=== PATIENT | female | born 1980 | race American Indian/Alaskan Native ===

== ENCOUNTER 2017-09-29 15:50 | Emergency (ER) | payer OTHER ==
[~2017-09-29] VITALS: Ht 160 cm; Wt 58.5 kg
[~2017-09-29 15:50] MED LIST: AMLODIPINE BESYL5 MG PO; GABAPENTIN100 MG PO; GUAIFENESIN-CO118 ML PO; JANUMET 50-1,01 EACH PO; METOPROLOL TART50 MG PO; ONDANSETRON ODT4 MG PO; OXYCODONE HCL5 MG PO
[2017-09-29] MEDS ORDERED: ULTRAM50 MG PO (17:09)
[2017-09-29] MEDS ORDERED: AUGMENTIN 875-1 EACH PO (17:54)
== END 2017-09-29 17:22 | disposition home or self-care (01) ==
LOC: ED 15:50
DX: L02.611 Cutaneous abscess of right foot (principal); E11.9 Type 2 diabetes mellitus without complications; Z87.440 Personal history of urinary (tract) infections; Z98.51 Tubal ligation status; Z98.890 Other specified postprocedural states; Z79.84 Long term (current) use of oral hypoglycemic drugs
CPT/HCPCS: 73630; 99283

== ENCOUNTER 2019-08-23 05:40 | Day surgery (SDC) | payer BC, OTHER ==
[~2019-08-23] VITALS: Ht 160 cm; Wt 68.0 kg
[~2019-08-23 05:40] MED LIST changes: +AUGMENTIN 875-1 EACH PO; +B-121000 MC2 PO; +CALCIUM500 M1; +CALCIUM500 MG PO; +CLEOCIN HCL300 MG PO; +GLUCOPHAGE500 MG PO; +HUMULIN 70100 UNIT/3 SUB-Q; +LANTUS100 UNITS/ SUB-Q; +METHYLPREDNISOLO4 M1 PO; +REGLAN10 MG PO; +ULTRAM50 MG PO; +VITAMIN B COMP1 EACH PO; +VITAMIN D35000 UNI1 PO
--- NOTE | 2019-08-23 08:34 | NUR ---
08/23/19 0834 Gerald Cortes ICE TO OPERATIVE FOOT PER MD ORDER
--- NOTE | 2019-10-06 09:27 | OR ---
[facility] [address] [place], [place] [address] Signed DATE OF OPERATION: 08/23/2019 SURGEON: Stu Cochran DPM PREOPERATIVE DIAGNOSES: 1. Hallux rigidus, right first digit. 2. Contracture of tendon muscle, right foot first ray. 3. Tailor's bunion, fifth metatarsal, right foot. POSTOPERATIVE DIAGNOSES: 1. Hallux rigidus, right first digit. 2. Contracture of tendon muscle, right foot first ray. 3. Tailor's bunion, fifth metatarsal, right foot. PROCEDURES: 1. Dorsal cheilectomy, first metatarsal, right foot. 2. Tailor's bunionectomy or fifth metatarsal osteotomy. 3. Flexor tenotomy of the first metatarsophalangeal joint. SEPTIC TANK SETTER: Paul Chong DPM. NURSE FUR DRUMMER: Pito Tobin. ANESTHESIA: Local with MAC. Local consisted of a 16 mL of 1:1 mix of 2% lidocaine plain and 0.5% ropivacaine. HEMOSTASIS: Ankle tourniquet. ESTIMATED BLOOD LOSS: Less than 5 mL or minimal. MATERIALS UTILIZED: We had bone wax, 3-0 Vicryl, 4-0 Vicryl, and 5-0 nylon. PROCEDURE IN DETAIL: The patient was brought into the operating room, and placed on the operating table in Electronically Signed By: STU COCHRAN DPM 10/06/19 0927 PATIENT NAME: AIDENSOLEASHLI DUFF OPERATIVE REPORT DATE OF : 78 REPORT #: [id number] PHYSICIAN: STU COCHRAN DPM PCP: SHARON MORLEY REPORT IS CONFIDENTIAL AND NOT TO BE RELEASED WITHOUT AUTHORIZATION [facility] [address], [place] [address] Signed the supine position. After IV sedation, the above local anesthesia was administered about the patient's right first ray and the patient's right fifth ray. The foot was then scrubbed, prepped and draped in the usual sterile technique. An Esmarch bandage was utilized to exsanguinate the patient's right foot and then the left wrapped around the ankle nice and neat to act as tourniquet. Attention was then directed to the medial aspect of the first metatarsophalangeal joint where approximately a 4 cm linear incision was performed over the medial aspect of this joint. Incision was then deepened through the subcutaneous tissue with care being taken to identify and retract the vital neurovascular structures. Bleeders were cauterized and ligated as needed. Careful dissection continued down to the level of the joint capsule. Here, a linear capsulotomy was performed utilizing the Mosinee blade and the joint capsule was reflected plantar and dorsal to expose the medial and the dorsomedial aspect of the joint area. At this time, a prominent dorsal ridge was identified, normal in coloration, normal in trabecular pattern and density. Articular cartilage was found to be uniform throughout the metatarsal head surface. Sagittal saw was then utilized to resect the dorsal one-quarter to one-third of the metatarsal head reducing the dorsal bony shell that was present. Again, good trabecular pattern and good density was observed of the bone. Edges were smoothed lightly with light feathering utilizing the sagittal saw and bone wax then applied. The area was flushed with copious amounts of sterile normal saline. Attention was directed to the plantar aspect of the first metatarsophalangeal joint via the original skin incision. A #64 blade was utilized to free the flexor brevis tendon insertion from the base of the proximal phalanx. Next, a tenotomy was utilized to resect any contractures soft tissue grossman in adherence to the joint capsule along the flexor aspect and also plantar aspect of the joint region. A McGlamry elevator was inserted and utilized to free the metatarsal head area from adhesions. This was needed because of previous scar tissue from previous amputation, illness, and necrosis. Upon completion of the soft tissue release, the first metatarsophalangeal joint moved in a much better fashion dorsally. The motion was smooth and the remaining stump of the proximal phalanx that was left after the previous surgery, moved into a more corrected dorsal position in corrective motion than what had been previously. Attention was then redirected to the fifth metatarsal head where approximately a 4 cm incision was performed in the integument, both parallel and lateral to the extensor tendon. Incision was then deepened through the subcutaneous tissue with care being taken to identify and retract the vital neurovascular structures. Bleeders were again cauterized and ligated as necessary. A #64 blade was utilized to perform dissection down to the level of the joint capsule. Linear capsulotomy was then performed again via the original skin incision and the joint capsule was reflected from the dorsal and medial aspect of the fifth metatarsal head. A bony enlargement was noted, mild to moderate on the lateral aspect of the fifth metatarsal head. Coloration was normal. Bone density was within normal limits. This enlargement was resected utilizing a sagittal saw. The sharp edges were then tapered and feathered as needed and bone wax was applied. This area was then flushed with copious amounts of sterile normal saline. Intraoperative inspection of the Electronically Signed By: STU COCHRAN DPM 10/06/19 0927 PATIENT NAME: SOLE WOLFE [place] OPERATIVE REPORT DATE OF : 78 REPORT #: [id number] PHYSICIAN: STU COCHRAN DPM PCP: SHARON MORLEY REPORT IS CONFIDENTIAL AND NOT TO BE RELEASED WITHOUT AUTHORIZATION [address] [place], [place] [address] Signed area, it was found and observed that the bony prominence had been reduced. The joint capsule was then reapproximated and coapted utilizing 3-0 Vicryl, subcutaneous reapproximated and coapted utilizing 4-0 Vicryl, and skin was reapproximated and coapted utilizing 5-0 nylon. The surgical site was then dressed with silver foam dressing, fluff gauze, rolled gauze, and coban. The ankle tourniquet was removed and prompt hyperemic response was noted in all digits of the patient's right foot. The patient had tolerated both the procedure and the anesthesia well, and following a period of postoperative monitoring, the patient was discharged to home with both written and oral instructions. KELY Pathak/QUINNL /[id number] Copies: ~ Electronically Signed By: STU COCHRAN DPM 10/06/19 0927 PATIENT NAME: SOLE WOLFE OPERATIVE REPORT DATE OF : 78 REPORT #: [id number] PHYSICIAN: STU COCHRAN DPM PCP: SHARON MORLEY REPORT IS CONFIDENTIAL AND NOT TO BE RELEASED WITHOUT AUTHORIZATION
== END 2019-08-23 09:46 | disposition home or self-care (01) ==
LOC: OPS 05:40 → DS 05:40 → OPS 06:45
PROVIDERS: Podiatrist Foot & Ankle Surgery
PROC: 0QSN0ZZ Reposition Right Metatarsal, Open Approach (ICD-10-PCS; 2019-08-23)
PROC: 0QBQ0ZZ Excision of Right Toe Phalanx, Open Approach (ICD-10-PCS; principal; 2019-08-23 06:45)
PROC: 0QBN0ZZ Excision of Right Metatarsal, Open Approach (ICD-10-PCS; 2019-08-23 06:45)
DX: M20.21 Hallux rigidus, right foot (principal); M21.621 Bunionette of right foot; M62.471 Contracture of muscle, right ankle and foot; M21.271 Flexion deformity, right ankle and toes; I10 Essential (primary) hypertension; F12.90 Cannabis use, unspecified, uncomplicated; Z79.4 Long term (current) use of insulin
CPT/HCPCS: 01480; 73630; J0690; J1100; J1885; J2250; J2405; J2704; J2765; J2795; J3010; J7121

== ENCOUNTER 2020-03-17 15:48 | Emergency (ER) | payer BC, OTHER ==
[~2020-03-17] VITALS: Ht 160 cm; Wt 59.0 kg
--- OUTSIDE RECORDS SUMMARY | 2020-03-17 15:50 | XMS ---
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 [facility] has no Care Guidelines for this patient. Shannan VISIT COUNT (12 MO.) 2 [facility] TOTAL 2 NOTE: Visits indicate total known visits. ED/C VISIT TRACKING (12 MO.) 03/17/2020 15:48 [facility] [place] TYPE: Emergency COMPLAINT: - VOMITING 05/15/2019 20:[address] [facility] [place] TYPE: Emergency COMPLAINT: - ABD PAIN, VOMITING DIAGNOSES: - jail (current) use of insulin - Personal history of nicotine dependence - Type 2 diabetes mellitus with diabetic neuropathy, unspecifie - Other technician terminal and repeater (current) drug therapy - Unspecified abdominal pain - Type 2 diabetes mellitus with hyperglycemia - Calculus of gallbladder without cholecystitis without obstruc INPATIENT VISIT TRACKING (12 MO.) No inpatient visits to display in this time frame [id number]
[2020-03-17] MEDS ORDERED: OMEPRAZOLE20 MG PO (16:03)
[2020-03-17] MEDS ORDERED: CARAFATE1 GM PO ×3 (18:29→18:33)
[2020-03-17] MEDS ORDERED: ZOFRAN4 MG PO (18:31)
[2020-03-19] MEDS ORDERED: HALOPERIDOL2 MG PO (14:13)
== END 2020-03-17 18:35 | disposition home or self-care (01) ==
LOC: ED 15:48
DX: K21.9 Gastro-esophageal reflux disease without esophagitis (principal); E11.9 Type 2 diabetes mellitus without complications; E78.2 Mixed hyperlipidemia; F41.9 Anxiety disorder, unspecified; Z87.891 Personal history of nicotine dependence; Z79.4 Long term (current) use of insulin; Z79.899 Other long term (current) drug therapy
CPT/HCPCS: 74018; 80053; 81001; 83690; 83735; 84703; 85025; 96361; 96374; 96375; 96376; 99284-25; J1200; J1630; J2405; J2765; J7030

== ENCOUNTER 2020-03-22 10:05 | Emergency (ER) | payer BC, OTHER ==
[~2020-03-22] VITALS: Ht 160 cm; Wt 59.0 kg
[~2020-03-22 10:05] MED LIST changes: +CARAFATE1 GM PO; +HALOPERIDOL2 MG PO; +OMEPRAZOLE20 MG PO; +ZOFRAN4 MG PO
--- OUTSIDE RECORDS SUMMARY | 2020-03-22 10:08 | XMS ---
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 Care History Medical/Surgical 03/18/2020 [facility] - PATIENT IS A [facility] ELIGIBLE, \T\middot;\T\nbsp; PLEASE REFER PATIENT TO [facility] FOR NON EMERGENT MEDICAL NEEDS. \T\middot;\T\nbsp; [facility] CAN SEE PATIENTS SAME DAY FOR APTS IF PATIENT CALLS FIRST THING IN THE MORNING. E.D. VISIT COUNT (12 MO.) 4 [facility] TOTAL 4 NOTE: Visits indicate total known visits. ED/UCC VISIT TRACKING (12 MO.) 03/22/2020 10:05 [facility] [place] TYPE: Emergency COMPLAINT: - VOMITING 03/19/2020 10:16 [facility] [place] TYPE: Emergency COMPLAINT: - VOMITING DIAGNOSES: - Nausea with vomiting, unspecified - Nausea with vomiting, unspecified - Epigastric pain - Anxiety disorder, unspecified - Mixed hyperlipidemia - Type 2 diabetes mellitus with diabetic neuropathy, unspecifie - Other fci (current) drug therapy 03/17/2020 15:48 [facility] [place] TYPE: Emergency COMPLAINT: - VOMITING DIAGNOSES: - Anxiety disorder, unspecified - Other watcher automat long goods (current) drug therapy - Personal history of nicotine dependence - Gastro-esophageal reflux disease without esophagitis - Type 2 diabetes mellitus without complications - Mixed hyperlipidemia - Nausea with vomiting, unspecified - [facility] (current) use of insulin 05/15/2019 20:45 [facility] [place] TYPE: Emergency COMPLAINT: - ABD PAIN, VOMITING DIAGNOSES: - [facility] (current) use of insulin - Personal history of nicotine dependence - Type 2 diabetes mellitus with diabetic neuropathy, unspecifie - Other fci (current) drug therapy - Unspecified abdominal pain - Type 2 diabetes mellitus with hyperglycemia - Calculus of gallbladder without cholecystitis without obstruc INPATIENT VISIT TRACKING (12 MO.) No inpatient visits to display in this time frame [id number]
[2020-03-22] MEDS ORDERED: LOSARTAN POTASS25 MG PO (10:22)
== END 2020-03-22 14:00 | disposition home or self-care (01) ==
LOC: ED 10:05
DX: E11.43 Type 2 diabetes mellitus with diabetic autonomic (poly)neuropathy (principal); K31.84 Gastroparesis; E78.2 Mixed hyperlipidemia; F41.9 Anxiety disorder, unspecified; E11.40 Type 2 diabetes mellitus with diabetic neuropathy, unspecified; Z79.899 Other long term (current) drug therapy; Z79.4 Long term (current) use of insulin
CPT/HCPCS: 74177; 80053; 81001; 82010; 83690; 85025; 96375; 99284-25; J1200; J1790; J2405; J7030; Q9967

== ENCOUNTER 2020-04-29 13:41 | Emergency (ER) | payer BC, OTHER ==
[~2020-04-29] VITALS: Ht 160 cm; Wt 59.0 kg
--- OUTSIDE RECORDS SUMMARY | ~2020-04-29 | XMS | Encounter Summary ---
Demographics + + + | Address | [address] | | | [place] [address] | + + + | Home Phone | | + + + | Preferred Language | Unknown | + + + | Marital Status | Single | + + + | Synagogue Affiliation | Unknown | + + + | Race | Unknown | + + + | Ethnic Group | Unknown | + + + Author + + + | Author | [facility] | | | and [place] | + + + | Organization | [facility] | | | and [place] | + + + | Address | Unknown | + + + | Phone | Unavailable | + + + Support + + +---------+ + | Name | Relationship | Address | Phone | + + +---------+ + | Pito Macy | ECON | Unknown | | + + +---------+ + | Carmen Matta | ECON | Unknown | | + + +---------+ + Care Team Providers + +------+ + | Care Doula Name | Role | Phone | + +------+ + | Hiro Noble MD | PCP | | + +------+ + Reason for Visit Diagnostic/Screening (Routine) +--------+--------+ + + + + | Status | Reason | Specialty | Diagnoses / | Referred By | Referred To | | | | | Procedures | Contact | Contact | +--------+--------+ + + + + | Closed | | Radiology | Diagnoses | | [facility] | | | | | Epigastric | Lamacheconor, | Medicine | | | | | pain | Ambrose Hung MD | [address] | | | | | Non-intracta | [address] | | | | | ble vomiting | [address] | [place], [place] | | | | | with nausea | [place], [place] | [address] | | | | | Procedures | [address] | Phone: | | | | | NM Gastric | Phone: | [phone] | | | | | Emptying | [phone] | Fax: | | | | | | Fax: | [phone] | | | | | | [phone] | | +--------+--------+ + + + + Encounter Details +--------+ + + + + | Date | Type | Department | Care Team | Description | +--------+ + + + + | 04/03/ | Hospital | [facility] | Ambrose Lan | | | 2020 | Encounter | [facility] | MD Abhilash [address] | | | | | [address] | [place] [address] | | | | | [address] | [phone] | | | | | [place], [place] | | | | | | [address] | | | | | | [phone] | | | +--------+ + + + + Social History + + + +--------+ + | Tobacco Use | Types | Packs/Day | Years | Date | | | | | Used | | + + + +--------+ + | Former Smoker | Cigarettes | 0.25 | 10 | Quit: 10/10/2019 | + + + +--------+ + + +---+---+---+ | Smokeless Tobacco: | | | | | Never Used | | | | + +---+---+---+ + + | Comments: slowed to | + + + + +---------+ + | Alcohol Use | Drinks/Week | oz/Week | Comments | + + +---------+ + | Yes | | | occ. | + + +---------+ + + + + | Sex Assigned at | Date Recorded | | | | + + + | Not on file | | + + + documented as of this encounter Medications at Time of Discharge + + + +---------+ + + | Medication | Sig | Dispensed | Refills | Start | End Date | | | | | | Date | | + + + +---------+ + + | Calcium 75 MG TABS | Take 1,000 mg by | | 0 | | | | | mouth Daily. | | | | | + + + +---------+ + + | calcium carbonate | Chew and swallow 1 | | 0 | | | | (TUMS) 500 mg | tablet Daily. | | | | | | chewable tablet | | | | | | + + + +---------+ + + | cholecalciferol | Take 2,000 Units by | | 0 | 03/12/20 | | | (CHOLECALCIFEROL) 25 | mouth Daily. | | | 16 | | | mcg (1,000 units) | | | | | | | tablet | | | | | | + + + +---------+ + + | cyanocobalamin | Take 50 mcg by mouth | | 0 | | | | (VITAMIN B-12) 50 | Daily. | | | | | | MCG tablet | | | | | | + + + +---------+ + + | insulin glargine | Inject 10 Units | | 0 | 03/12/20 | | | (LANTUS SOLOSTAR) | under the skin | | | 16 | | | 100 units/mL | Daily. | | | | | | injection (pen) | | | | | | + + + +---------+ + + | losartan (COZAAR) | | | 0 | 03/21/20 | | | 25 mg tablet | | | | 20 | | + + + +---------+ + + | metFORMIN | Take 500 mg by mouth | | 0 | | | | (GLUCOPHAGE) 500 mg | 2 times daily (with | | | | | | tablet | breakfast & | | | | | | | dinner). | | | | | + + + +---------+ + + | omeprazole | Take 1 capsule by | 60 | 3 | 02/06/20 | | | (PRILOSEC) 20 mg | mouth 2 times daily | capsule | | 20 | 0 | | capsuleIndications: | for 120 days. | | | | | | Epigastric pain, | | | | | | | Non-intractable | | | | | | | vomiting with nausea | | | | | | + + + +---------+ + + documented as of this encounter Plan of Treatment +--------+ + + + + | Date | Type | Specialty | Care Team | Description | +--------+ + + + + | 05/10/ | Virtual | Gastroenterology | Gema Cardona | | | 2019 | Office | | [address] | | | | Visit | | [place] [address] | | | | | | [phone] | | | | | | | | +--------+ + + + + documented as of this encounter Procedures + +--------+ + + + | Procedure Name | Priori | Date/Time | Associated Diagnosis | Comments | | | ty | | | | + +--------+ + + + | NM GASTRIC EMPTYING | Routin | 04/03/2020 | Epigastric pain | Results for this | | | e | 11:58 AM | Non-intractable | procedure are in the | | | | PDT | vomiting with nausea | results section. | + +--------+ + + + documented in this encounter Results NM Gastric Emptying (04/03/2020 11:58 AM PDT) + + | Specimen | + + | | + + + + + | Impressions | Performed At | + + + | 1. Normal gastric emptying Signed by: Tea Buck, | [facility] | | Eugenio Sign Date/Time: 04/03/2020 12:34 PM | | + + + + + + | Narrative | Performed At | + + + | GASTRIC EMPTYING STUDY (4-HOUR) CLINICAL INFORMATION: | [facility] | | Nausea, vomiting COMPARISON: XR CT PORTABLE HEAD UNENHANCED | | | (01/30/2016); CT ABDOMEN PELVIS WO CONTRAST (01/29/2016); | | | PROCEDURE: Dose: 1 mCi Tc-99m sulfur colloid. Ingested as: | | | {Standard radio labeled solid meal.} (Standard meal is 1 mCi Tc-99m | | | sulfur colloid in four ounces of cooked Egg Beaters, two pieces of | | | white toast with jelly and 5 ounces of water.) The standard | | | department imaging protocol was followed; upright, anterior and | | | posterior 30, 60, 120, and 240 minute images were obtained with | | | geometric mean and decay correction applied. FINDINGS: | | | Calculations from 250 minutes of imaging: Imaging Values % | | | Retention Normal Limits for Gastric Retention 67%-----1.0 | | | hour-----30% (lower limit) 90% (upper limit) 35%-----2.0 | | | hour-----60% (upper limit) 1%-----4.0 hour-----10% (upper limit) | | | (Lower limit - a lower value suggests abnormally rapid gastric | | | emptying) (Upper limit - a greater value suggests abnormally delayed | | | gastric emptying) | | + + + + + | Procedure Note | + + | Bert, [id number] - 04/03/2020 12:38 PM PDT | | GASTRIC EMPTYING STUDY (4-HOUR) | | | | CLINICAL INFORMATION: | | Nausea, vomiting | | | | COMPARISON: | | XR CT PORTABLE HEAD UNENHANCED (01/30/2016); CT ABDOMEN PELVIS WO | | CONTRAST (01/29/2016); | | | | PROCEDURE: | | Dose: 1 mCi Tc-99m sulfur colloid. | | | | Ingested as: {Standard radio labeled solid meal.} | | (Standard meal is 1 mCi Tc-99m sulfur colloid in four ounces of | | cooked Egg Beaters, two pieces of white toast with jelly and 5 | | ounces of water.) | | | | The standard department imaging protocol was followed; upright, | | anterior and posterior 30, 60, 120, and 240 minute images were obtained | | with geometric mean and decay correction applied. | | | | FINDINGS: | | Calculations from 250 minutes of imaging: | | | | Imaging Values | | % Retention Normal Limits for Gastric Retention | | | | 67%-----1.0 hour-----30% (lower limit) 90% (upper limit) | | 35%-----2.0 hour-----60% (upper limit) | | 1%-----4.0 hour-----10% (upper limit) | | (Lower limit - a lower value suggests abnormally rapid gastric emptying) | | (Upper limit - a greater value suggests abnormally delayed gastric | | emptying) | | | | IMPRESSION: | | 1. Normal gastric emptying | | | | | | | | | | Signed by: Tea Buck Isaac | | Sign Date/Time: 04/03/2020 12:34 PM | + + + +---------+ + + | Performing | Address | City/State/Zipcode | Phone Number | | Organization | | | | + +---------+ + + | [facility] | | | | + +---------+ + + documented in this encounter Visit Diagnoses Not on filedocumented in this encounter"
--- OUTSIDE RECORDS SUMMARY | ~2020-04-29 | XMS | Encounter Summary ---
Demographics + + + | Address | [address] | | | [place] [address] | + + + | Home Phone | | + + + | Preferred Language | Unknown | + + + | Marital Status | Single | + + + | Confucianist Affiliation | Unknown | + + + | Race | Unknown | + + + | Ethnic Group | Unknown | + + + Author + + + | Author | [facility] | | | and [place] | + + + | Organization | [facility] | | | and [place] [...] Team Providers + +------+ + | Care Lining Machine Tender Name | Role | Phone | + [...] | | ble vomiting | [address]VD | [place], [place] | | | | | with nausea | [place] | [address] | | | | | Procedures | [id number] | Phone: | | | | | NM Gastric | Phone: | [phone] | | | | | Emptying | [phone] | Fax: | | | | | | Fax: | [phone] | | | | | | [phone] | | +--------+--------+ + + + + Encounter Details +--------+ + + + + | Date | Type | Department | Care Team | Description | +--------+ + + + + | 04/03/ | Hospital | [facility] | Ambrose Lan | | | 2020 | Encounter | [facility] | MD Abhilash [address] | | | | | [address] | [place] [address] | | | | | [address] | [phone] | | | | | [place], [place] | | | | | | [address] | | | | | | [phone] | | | +--------+ + + + [...] | | | | Visit | | [place] [address] | | | | | | [phone] | | | | | | | [...] Procedure Note | + + | Bert, [id number] - 04/03/2020 12:38 PM PDT | | [...]
--- OUTSIDE RECORDS SUMMARY | ~2020-04-29 | XMS | Encounter Summary ---
Demographics + + + | Address | [address] [facility] [address] | | | [place] [address] | + + + | Home Phone | | + + + | Preferred Language | Unknown | + + + | Marital Status | Single | + + + | Religion Affiliation | Unknown | + + + | Race | Unknown | + + + | Ethnic Group | Unknown | + + + Author + + + | Author | [facility] | | | and [place] | + + + | Organization | [facility] | | | and [place] | + + + | Address | Unknown | + + + | Phone | Unavailable | + + + Support + + +---------+ + | Name | Relationship | Address | Phone | + + +---------+ + | Pito Macy | ECON | Unknown | | + + +---------+ + | Carmen Oseiley | ECON | Unknown | | + + +---------+ + Care Team Providers + +------+ + | Care Bingo Cashier Name | Role | Phone | + +------+ + | Jodee Jaime PA-C | PCP | | + +------+ + Reason for Visit Auth/Cert +--------+--------+ + + + + | Status | Reason | Specialty | Diagnoses / | Referred By | Referred To | | | | | Procedures | Contact | Contact | +--------+--------+ + + + + | | | | Diagnoses | | | | | | | | | | | | | | Peritonsilla | | | | | | | r abscess | | | | | | | Peritonsilla | | | | | | | r abscess | | | | | | | [J36] | | | | | | | Procedures | | | | | | | INCISION AND | | | | | | | DRAINAGE | | | | | | | ABSCESS | | | | | | | PERITONSILLA | | | | | | | R | | | +--------+--------+ + + + + Encounter Details +--------+ + + + + | Date | Type | Department | Care Team | Description | +--------+ + + + + | 08/17/ | Anesthesia | [facility] | Rajan Eid MD | | | 2018 | Event | MED CTR OR INTRA OP | [address] | | | | | [address] | [place] | | | | | [place] | [id number] | | | | | [address] | | | | | | [phone] | | | +--------+ + + + + Anesthesia Record + + + + + | Procedure Name | Responsible | Anesthesia Start | Anesthesia Stop Time | | | Anesthesiologist | Time | | + + + + + | INCISION AND | Rajan Eid MD | 08/17/188 | 08/17/18 1730 | | DRAINAGE ABSCESS | | | | | PERITONSILLAR (N/A | | | | | Mouth) | | | | + + + + + +----+---+ + + | Da | T | Event | Comment | | te | i | | | | | m | | | | | e | | | +----+---+ + + | 11 | 1 | | | | /1 | 7 | | | | 4/ | 0 | | | | 20 | 0 | | | | 18 | | | | +----+---+ + + | | 1 | An Checkout | Pre-use anesthesia machine/equipment checkout. | | | 7 | | | | | 0 | | | | | 3 | | | +----+---+ + + | | 1 | An Start | | | | 7 | Data | | | | 0 | | | | | 3 | | | +----+---+ + + | | 1 | An Start | Reassessment prior to anesthesia induction/procedure. | | | 7 | | | | | 0 | | | | | 3 | | | +----+---+ + + | | 1 | Antibiotic | | | | 7 | Given | | | | 0 | | | | | 3 | | | +----+---+ + + | | 1 | Preoxygenat | | | | 7 | ed | | | | 0 | | | | | 5 | | | +----+---+ + + | | 1 | An | | | | 7 | Induction | | | | 0 | | | | | 7 | | | +----+---+ + + | | 1 | An | | | | 7 | Intubation | | | | 0 | | | | | 9 | | | +----+---+ + + | | 1 | Pre-Procedu | | | | 7 | ral Timeout | | | | 1 | Completed | | | | 2 | | | +----+---+ + + | | 1 | First | | | | 7 | Inc/Proc St | | | | 1 | | | | | 2 | | | +----+---+ + + | | 1 | Breathing | | | | 7 | Spontaneous | | | | 2 | ly | | | | 3 | | | +----+---+ + + | | 1 | Oropharynx | | | | 7 | Suctioned | | | | 2 | | | | | 3 | | | +----+---+ + + | | 1 | Moving | | | | 7 | Purposefull | | | | 2 | y | | | | 3 | | | +----+---+ + + | | 1 | Extubated | | | | 7 | Awake | | | | 2 | | | | | 3 | | | +----+---+ + + | | 1 | an stop | | | | 7 | data | | | | 2 | | | | | 3 | | | +----+---+ + + | | 1 | An Stop | Patient handed off to recovery nurse. | | | 3 | | | | | 0 | | | +----+---+ + + +------+ | Meds | +------+ + +--------+ | Name | Total | + +--------+ | midazolam | 2 mg | + +--------+ | lidocaine 2% | 20 mg | + +--------+ | propofol (DIPRIVAN) injection | 200 mg | | (bolus) (20 mL) | | + +--------+ | rocuronium | 40 mg | + +--------+ | sugammadex (BRIDION) injection (2 | 200 mg | | mL vial) | | + +--------+ | lactated ringers (LR) infusion | 500 mL | + +--------+ + + | Name | + + | N2O Flow Rate (L/Min) | + + | O2 Flow Rate (L/Min) | + + | Insp O2 | + + | Exp ADRIANA | + + | Air Flow Rate (L/Min) | + + + + | No blood administrations on file. | + + +--------+ + + + | Type | Details | Placement | Removal | +--------+ + + + | Periph | 08/17/18; 1605; Right; | 08/17/18 1605 by | 08/17/18 1810 by | | eral | Antecubital; [id number]-[id number]-[id number] | Carmen Barlow, | Gia Perez RN | | IV | catheter system; 20 gauge; | SPRAY UNIT FEEDER | | | | distraction, intradermal | | | | | injection, tolerated well; no | | | | | longer indicated, removed per | | | | | policy/procedure, catheter/device | | | | | intact; short term use; | | | | | 08/17/18; 1810 | | | +--------+ + + + | Airway | Placement Date: 08/17/18; | 08/17/18 1709 by | 08/17/18 1723 by | | | Placement Time: 1709; Successful | Rajan Eid MD | Rajan Eid MD | | | Technique: Mac; Laryngoscope | | | | | Blade Size: 3; Airway Type: | | | | | endotracheal, oral, cuffed, | | | | | disposable; Size: 6.5; Airway | | | | | Tube Secured At: 22; Tube | | | | | Reference Point: lip; Trauma: | | | | | none; Placement Check: bilateral | | | | | chest rise, exhaled CO2 detection | | | | | device; Removal Date: 08/17/18; | | | | | Removal Time: 1723 | | | +--------+ + + + documented in this encounter Social History + + + +--------+ + [...] + + documented as of this encounter OR Notes Anesthesia Postprocedure Evaluation - Rajan Eid MD - 08/17/2018 6:05 PM PST ANESTHESIA POSTANESTHESIA EVALUATION Myesha Hastings 38 y.o. female 1980 [id number] Procedure(s) INCISION AND DRAINAGE ABSCESS PERITONSILLAR (N/A Mouth) Cooperates? Yes Mental Status Performs simple tasks. Respiratory Satisfactory - Airway patent (self maintained). Cardiovascular Satisfactory - Blood pressure and heart rate acceptable Temperature Satisfactory Pain Satisfactory N/V Control Satisfactory Hydration Satisfactory - No signs of dehydration Complications None apparent Vitals: 08/17/18 1533 08/17/18 1725 BP: 126/86 (!) 142/92 Pulse: 79 110 Temp: 36.6 C (97.9 F) 36.3 C (97.3 F) Resp: 16 12 SpO2: 98% 99% Electronically signed by Rajan Eid MD 08/17/2018 18:05 [facility] MD at 2017 6:05 PM PSTAnesthesia Preprocedure Evaluation - Rajan Eid MD - 08/17/2018 4:55 P M PST ANESTHESIA PREANESTHESIA EVALUATION Myesha Hastings 38 y.o. female 1980 [id number] Procedure(s): INCISION AND DRAINAGE ABSCESS PERITONSILLAR (N/A Mouth) Medical history, anesthesia, medications, allergy, NPO status verified histories reviewed. Labs reviewed. Review of Systems / Med History Anesthesia History No anesthesia complications. States that she wakes up during surgery.. Cardiovascular Negative except where noted below. Pulmonary (-) smoking history Endocrine (+) Diabetes: type 2 Physical Exam Airway MP II, TM >3 FB, Mouth opening <2 FB. Neck: full ROM, extends >30 degrees. Jaw protrus ion normal. Dental ; (+) Age appropriate dentition. CV Rhythm regular. Rate normal. (-) murmur. Pulm Clear to auscultation bilaterally. Neuro Grossly normal. Anesthesia Plan ASA 2 Type: General. Induction: Intravenous. Potential problems: None anticipated. Monitors: Standard ASA monitors. Consent statement:Anesthetic plan, alternatives, risks and benefits discussed with patient. Risks discussed included (but were not limited to): respiratory events, perioperative CV ev ents, nausea, heart problems, pain, . Consenting person understands and agrees to proceed. PARQ. Electronically Signed by: Rajan Eid MD [facility] date/time: 08/17/2018 16:55 documented in this enco unter Plan of Treatment +--------+ + + + + | Date | Type | Specialty | Care Team | Description | +--------+ + + + + | 05/10/ | Virtual | Gastroenterology | Gema Cardona | | | 2019 | 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, RN TESTING [address] [facility] | | | | Visit | | [place] [address] | | | | | | [phone] | | | | | | | | +--------+ + + + + documented as of this encounter Visit Diagnoses Not on filedocumented in this encounter Administered Medications + +---------+ +------+------+------+ | Medication Order | MAR | Action | Dose | Rate | Site | | | Action | Date | | | | + +---------+ +------+------+------+ | lactated ringers (LR) infusion | New Bag | 08/17/20 | | | | | at 10-100 mL/hr, Intravenous, | | 18 5:02 | | | | | CONTINUOUS, Starting 08/17/18 | | PM PST | | | | | at 1600, TKO., Pre-op | | | | | | + +---------+ +------+------+------+ +---------+ +---------+ +---+ | New Bag | 08/17/20 | 999 mLs | 35 mL/hr | | | | 18 4:07 | | | | | | PM PST | | | | +---------+ +---------+ +---+ +---+---+ | | | +---+---+ + +-------+ +-------+---+---+ | lidocaine (PF) 2% injection | Given | 08/17/20 | 20 mg | | | | Intravenous, PRN, Starting Wed | | 18 5:07 | | | | | 08/17/18 at 1707, Anesthesia | | PM PST | | | | | Intra-op | | | | | | + +-------+ +-------+---+---+ +---+---+ | | | +---+---+ + +-------+ +------+---+---+ | midazolam (VERSED) 1 mg/mL | Given | 08/17/20 | 2 mg | | | | injection Intravenous, PRN, | | 18 5:02 | | | | | Anxiety, Starting 08/17/18 at | | PM PST | | | | | 1702, Anesthesia Intra-op | | | | | | + +-------+ +------+---+---+ +---+---+ | | | +---+---+ + +-------+ +--------+---+---+ | propofol (DIPRIVAN) injection | Given | 08/17/20 | 200 mg | | | | Intravenous, PRN, Starting Wed | | 18 5:07 | | | | | 08/17/18 at 1707, Anesthesia | | PM PST | | | | | Intra-op | | | | | | + +-------+ +--------+---+---+ +---+---+ | | | +---+---+ + +-------+ +-------+---+---+ | rocuronium (ZEMURON) injection | Given | 08/17/20 | 40 mg | | | | Intravenous, PRN, Ventilator | | 18 5:07 | | | | | Dyssynchrony, Starting Wed | | PM PST | | | | | 18 at 1707, Anesthesia | | | | | | | Intra-op | | | | | | + +-------+ +-------+---+---+ +---+---+ | | | +---+---+ + +-------+ +--------+---+---+ | sugammadex (BRIDION) injection | Given | 08/17/20 | 200 mg | | | | PRN, Starting 08/17/18 at | | 18 5:17 | | | | | 1717, Anesthesia Intra-op | | PM PST | | | | + +-------+ +--------+---+---+ +---+---+ | | | +---+---+ documented in this encounter"
--- OUTSIDE RECORDS SUMMARY | ~2020-04-29 | XMS | Encounter Summary ---
Demographics + + + | Address | [address] [facility] [address] | | | [place] [address] | + + + | Home Phone | | + + + | Preferred Language | Unknown | + + + | Marital Status | Single | + + + | Jainism Affiliation | Unknown | + + + | Race | Unknown | + + + | Ethnic Group | Unknown | + + + Author + + + | Author | [facility] | | | and [place] | + + + | Organization | [facility] | | | and [place] [...] Team Providers + +------+ + | Care Production Administrator Name | Role | Phone | + [...] | | ble vomiting | [address] | [place], [place] | | | | | with nausea | [place] | [address] | | | | | Procedures | [address] | Phone: | | | | | NM Gastric | Phone: | [phone] | | | | | Emptying | [phone] | Fax: | | | | | | Fax: | [phone] | | | | | | [phone] | | +--------+--------+ + + + + Encounter Details +--------+ + + + + | Date | Type | Department | Care Team | Description | +--------+ + + + + | 04/03/ | Hospital | [facility] | Ambrose Lan | | | 2020 | Encounter | [facility] | MD Abhilash [address] | | | | | MEDIC[address] | [place] [address] | | | | | [address] | [phone] | | | | | [place], [place] | | | | | | [address] | | | | | | [phone] | | | +--------+ + + + [...] | | | | Visit | | [place] [address] | | | | | | [phone] | | | | | | | [...] Procedure Note | + + | Bert, [id number] - 04/03/2020 12:38 PM PDT | | [...]
--- OUTSIDE RECORDS SUMMARY | ~2020-04-29 | XMS | Encounter Summary ---
Demographics + + + | Address | [address] [facility] [address] | | | [place] [address] | + + + | Home Phone | | + + + | Preferred Language | Unknown | + + + | Marital Status | Single | + + + | Latter Day Affiliation | Unknown | + + + | Race | Unknown | + + + | Ethnic Group | Unknown | + + + Author + + + | Author | [facility] | | | and [place] | + + + | Organization | [facility] | | | and [place] | [...] Team Providers + +------+ + | Care Wall Cleaner Name | Role | Phone | + +------+ + | Hiro Noble MD | PCP | | + +------+ + Reason for Visit +--------+--------+ + | Reason | Onset | Comments | | | Date | | +--------+--------+ + | Other | 02/07/ | PRE-PROCEDURE CALL | | | 2020 | | +--------+--------+ + Encounter Details +--------+ + + + + | Date | Type | Department | Care Team | Description | +--------+ + + + + | 02/07/ | Telephone | [facility] | Ambrose Lan | Other (PRE-PROCEDURE | | 2019 | | GASTROENTEROLOGY | MD Abhilash [address] | CALL ) | | | | [address] | [place] [address] | | | | | [place], [place] | [phone] | | | | | [address] | | | | | | [phone] | | | +--------+ + + + [...] Miscellaneous Notes Telephone Encounter - Cyndie Covington, Skein Yarn Dyer - 2020 4:18 PM PDT Patient instructed to eat a light meal as usual the day before and nothing to eat or drink starting at midnight until after procedure. If any question or concerns please call our cli jeannine at [phone] Procedure: EGD Date: 02/12/20 Time: 7:06AM Arrival time: 6:00AM Facility [facility] Doctor:Dr. Lan Called pt, no answer. vm not set up. Will try and call again later. Thanks mvd Thanks mvd d ocumented in this encounter Plan of Treatment +--------+ + + + + | Date | Type | Specialty | Care Team | Description | +--------+ + + + + | 05/10/ | Virtual | Gastroenterology | Gema Cardona | | | 2019 | Office | | [address] | | | | Visit | | [place] [address] | | | | | | [phone] | | | | | | | | +--------+ + + + + documented as of this encounter Visit Diagnoses Not on filedocumented in this encounter"
--- OUTSIDE RECORDS SUMMARY | ~2020-04-29 | XMS | Encounter Summary ---
Demographics + + + | Address | [address] [facility] [address] | | | [place] [address] | + + + | Home Phone | | + + + | Preferred Language | Unknown | + + + | Marital Status | Single | + + + | Lutheran Affiliation | Unknown | + + + | Race | Unknown | + + + | Ethnic Group | Unknown | + + + Author + + + | Author | [facility] | | | and [place] | + + + | Organization | [facility] | | | and [...] Team Providers + +------+ + | Care Tear Down Matcher Name | Role | Phone | + [...] + + | 08/17/ | [facility] | Reji Martin, | INCISION AND | | 2018 | | MED CTR OR INTRA OP | [address] | DRAINAGE ABSCESS | | | | [address] | [address] [place], | PERITONSILLAR | | | | [place], [place] | [place] [address] | | | | | [address] | [phone] | | | | | [phone] | | | +--------+---------+ + + + [...] all medicine you take. T his includes lomw-ewr-tyjhybo drugs. It also includes herbs and other [...] surgery Risks of anesthesia Date Last Reviewed: 03/04/201719992031-9901 [employer]. [address] [place] [address]. All righ ts reserved. This information is [...] Reji Martin MD - 08/17/2018 2:[address] [address] HISTORY AND PHYSICAL REJI MARTIN MD Patient: MYESHA HASTINGS Admitting: REJI MARTIN MR #: [id number] LOC: PT TYPE: Adm Date: 08/17/2018 : 1980 CHIEF COMPLAINT: Left peritonsillar abscess. HISTORY: Ms. Hastings is a 38-year-old lady with a 4-day history of sore throat, left sided. She has trismus, difficulty swallowing, very painful throat. She went to the ER today at [facility] in [place] and saw Dr. Villalta. He diagnosed a [...] SOCIAL HISTORY: She is single, lives in [place]. No alcohol or tobacco. FAMILY HISTORY: Unremarkable. [...] She understands and desires to proc eed. REJI MARTIN MD Dictated by REJI MARTIN MD 08/17/2018 14:40:37 Transcribed on 08/17/2018 14:59:16 by in job# [id number] Confirmation #: [id number] cc: SHARON JAIME PA-C P M PSTdocumented in this encounter Miscellaneous Notes Op Note - Reji Martin MD - 08/17/2018 5:27 PM [facility] [address] [facility] [address] OPERATIVE REPORT REJI MARTIN MD Patient: MYESHA HASTINGS Admitting: REJI MARTIN MR #: [id number] LOC: PT TYPE: Adm Date: 08/17/2018 : [...] Transcribed on 08/17/2018 17:51:23 by in job# [id number] Confirmation #: [id number] cc: SHARON CNAALES-C P M PSTBrief Op Note - Reji Martin MD - 08/17/2018 5:05 PM PSTFormatting of this note m ight be different from the original. Brief Operative Note Myesha Hastings 38 y.o. female 1980 [id number] Proc. Date 08/17/2018 Preop Dx Peritonsillar abscess [J36] Postop Dx same Procedure INCISION AND DRAINAGE ABSCESS PERITONSILLAR Anesthesia General Surgeon Reji Martin MD - Primary Director Of Consulting Services EBL less than 50 mL Findings Complications none Specimens * No specimens in log * Drains Electronically signed by: Reji Matrin MD 08/17/2018 17:05 [facility]ron[facility] signed by Reji Martin MD at 5:05 PM PSTInterval H&P Note (unlinked) - Reji Martin MD - 08/17/2018 5:05 P M [facility]ProK[facility] INTERIM HISTORY AND PHYSICAL [...] Electronically signed by: Reji Martin, 08/17/2018 17:05 [facility] documented in this e ncounter Plan of Treatment +--------+ + + + + | Date | Type | Specialty | Care Team | Description | +--------+ + + + + | 05/10/ | Virtual | Gastroenterology | Gema Cardona | | | 2019 | 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, [employer] [address] | | | | Visit | | [place] [address] | | | | | | [phone] | | | | | | | [...] | | | POC | | | [facility] | | | | | | [...] | + + + + + | [facility] | [address] | [place] | [phone] | | [facility] | | [address] | | | - LABORATORY | | [...] | 1.010, 1.015, | | | | [place], | | 1.020, 1.025 | | | [...] 18 3:57 | | | | | Wed08/17/18 at 1600, For 1 dose, | | PM PST | | | | | Pre-op | | | | | | + +--------+ + +------+------+ + +---+ | | | + +---+ | albuterol 2.5 mg/3 mL nebulizer | | | solution 2.5 mg 2.5 mg, | | | Nebulization, ONCE PRN, Wheezing, | | | Starting Wed08/17/18 at 1541, | | | For 1 dose, RT will administer., | | | Pre-op | | + +---+ | | | + +---+ | albuterol 2.5 mg/3 mL nebulizer | | | solution 2.5 mg 2.5 mg, | | | Nebulization, ONCE PRN, Wheezing, | | | Starting Wed08/17/18 at 1731, | | | For 1 [...] HR < 40, | | | Starting Wed08/17/18 at 1731, [...] if SBP <90., Starting | | | Wed08/17/18 at 1731, Hold if HR | | [...] Anxiety, or agitation, Starting | | | Wed08/17/18 at 1731, [...]
--- OUTSIDE RECORDS SUMMARY | ~2020-04-29 | XMS | Encounter Summary ---
Demographics + + + | Address | [address] [facility] [address] | | | [place] [address] | + + + | Home Phone | | + + + | Preferred Language | Unknown | + + + | Marital Status | Single | + + + | Presybeterian Affiliation | Unknown | + + + | Race | Unknown | + + + | Ethnic Group | Unknown | + + + Author + + + | Author | [facility] | | | and [place] | + + + | Organization | [facility] | | | and [place] | [...] Team Providers + +------+ + | Care Dye House Supervisor Name | Role | Phone | + +------+ + | Hiro Noble MD | PCP | | + +------+ + Reason for Visit + +--------+ + | Reason | Onset | Comments | | | Date | | + +--------+ + | Referral | 11/02/ | | | | 2020 | | + +--------+ + Encounter Details +--------+ + + + + | Date | Type | Department | Care Team | Description | +--------+ + + + + | 11/02/ | Telephone | [facility] | Gerald Chu | Referral | | 2020 | | GASTROENTEROLOGY | MD Reggie [address] | | | | | [address] | [place], [place] | | | | | [place], [place] | [address] | | | | | [address] | | | | | | [phone] | | | +--------+ + + + [...] this encounter Miscellaneous Notes Telephone Encounter - Frannie Celis - 11/10/2019 10:10 AM PSTReturned call, informed Ervin ozuna that patient's voicemail is not set up, she will try to reach out to patient to have her call us. [facility] Enedina Webb - 11/09/2019 9:54 AM PSTLasemeterio, is calling again for Referral and would like a call back. Additional Call Details: Requesting call back with the status of patient getting scheduled elephone Chula Coello - 11/02/2019 3:27 PM [facility], is calling r egarding Referral and would like a call back. Additional Call Details: Returning Frannie's call. States that patient ordinally got sent to [facility] but decided she would like to go to our clinic and referral was rerouted If this is a symptom based call, was patient offered triage? Not Applicable If this is a symptom based call and you were unable to immediately transfer the call to a [facility] green inspector was caller made aware that if at any time she feels it is an emergency they sh ould call 911 or go to the nearest emergency room? not applicable documented in this encounter Plan of Treatment +--------+ + + + + | Date | Type | Specialty | Care Team | Description | +--------+ + + + + | 05/10/ | Virtual | Gastroenterology | Gema Cardona | | | 2019 | Office | | [address] | | | | Visit | | [place] [address] | | | | | | [phone] | | | | | | | | +--------+ + + + + documented as of this encounter Visit Diagnoses Not on filedocumented in this encounter"
--- OUTSIDE RECORDS SUMMARY | ~2020-04-29 | XMS | Clinical Summary ---
Demographics + + + | Address | [address] [facility] [address] [address] | | | [place] [address] | + + + | Home Phone | | + + + | Preferred Language | Unknown | + + + | Marital Status | Single | + + + | Nondenominational Affiliation | Unknown | + + + | Race | Unknown | + + + | Ethnic Group | Unknown | + + + Author + + + | Author | [facility] | | | and [place] | + + + | Organization | [facility] | | | and [...] Team Providers + +------+ + | Care Shipping Manager Name | Role | Phone | + +------+ + | Hiro Noble MD | PCP | | + +------+ + Allergies No Known Allergies Medications + + + +---------+------+------+-------+ | Medication | Sig | Dispensed | Refills | Star | End | Statu | | | | | | t | Date | s | | | | | | Date | | | + + + +---------+------+------+-------+ | metFORMIN | Take 500 mg by mouth | | 0 | | | Activ | | (GLUCOPHAGE) 500 mg | 2 times daily (with | | | | | e | | tablet | breakfast & | | | | | | | | dinner). | | | | | | + + + +---------+------+------+-------+ | cyanocobalamin | Take 50 mcg by mouth | | 0 | | | Activ | | (VITAMIN B-12) 50 | Daily. | | | | | e | | MCG tablet | | | | | | | + + + +---------+------+------+-------+ | cholecalciferol | Take 2,000 Units by | | 0 | 06/0 | | Activ | | (CHOLECALCIFEROL) 25 | mouth Daily. | | | 9/20 | | e | | mcg (1,000 units) | | | | 16 | | | | tablet | | | | | | | + + + +---------+------+------+-------+ | insulin glargine | Inject 10 Units | | 0 | 06/0 | | Activ | | (LANTUS SOLOSTAR) | under the skin | | | 9/20 | | e | | 100 units/mL | Daily. | | | 16 | | | | injection (pen) | | | | | | | + + + +---------+------+------+-------+ | omeprazole | Take 1 capsule by | 60 | 3 | 05/0 | 09/0 | Activ | | (PRILOSEC) 20 mg | mouth 2 times daily | capsule | | 5/20 | 2/20 | e | | capsuleIndications: | for 120 days. | | | 20 | 20 | | | Epigastric pain, | | | | | | | | Non-intractable | | | | | | | | vomiting with nausea | | | | | | | + + + +---------+------+------+-------+ +---+ + | | Additional | | | InformationPatient | | | not taking. Reported | | | on 04/10/2020 10:53 | | | AM | +---+ + + + +---+---+------+---+-------+ | Calcium 75 MG TABS | Take 1,000 mg by | | 0 | | | Activ | | | mouth Daily. | | | | | e | + + +---+---+------+---+-------+ | calcium carbonate | Chew and swallow 1 | | 0 | | | Activ | | (TUMS) 500 mg | tablet Daily. | | | | | e | | chewable tablet | | | | | | | + + +---+---+------+---+-------+ | losartan (COZAAR) | | | 0 | 06 | | Activ | | 25 mg tablet | | | | 8/20 | | e | | | | | | 20 | | | + + +---+---+------+---+-------+ Active Problems + + + | Problem | Noted Date | + + + | Epigastric pain | 02/06/2020 | + + + | Non-intractable vomiting with nausea | 02/06/2020 | + + + | H/O Septic shock | 11/12/2017 | + + + | H/O ARDS | 11/12/2017 | + + + + + | Overview: 2016? Hospitalized, intubated on ventilator, | | multi-system organ failure. | + + + + + | Bilateral otitis media | 11/12/2017 | + + + | Shortness of breath | 02/03/2016 | + + + | Advance care planning | 02/03/2016 | + + + | Influenza B | 01/31/2016 | + + + | Feeding difficulty in adult | 01/31/2016 | + + + | ATN (acute tubular necrosis) | 01/31/2016 | + + + | Toxic metabolic encephalopathy | 01/30/2016 | + + + | Septic shock | 01/30/2016 | + + + | Metabolic acidosis | 01/30/2016 | + + + | Leucocytosis | 01/30/2016 | + + + | Lactic acidosis | 01/30/2016 | + + + | ARDS (adult respiratory distress syndrome) | 01/30/2016 | + + + | CHIRAG (acute kidney injury) | 01/30/2016 | + + + | Acute respiratory failure with hypoxia and hypercapnia | 01/30/2016 | + + + Encounters +--------+ + + + + | Date | Type | Specialty | Care Team | Description | +--------+ + + + + | 04/10/ | Virtual | Gastroenterology | Gema Cardona | Epigastric pain | | 2019 | 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, 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); | | | Visit | | | Non-intractable | | | | | | vomiting with | | | | | | nausea; Adverse | | | | | | effect of drug, | | | | | | sequela | +--------+ + + + + | 04/04/ | Telephone | Gastroenterology | Ambrose Lan | Results | | 2019 | | | J, | | +--------+ + + + + | 04/03/ | Hospital | Radiology | Ambrose Lan | | 2019 | Encounter | | MD Abhilash | | +--------+ + + + + | 04/03/ | Hospital | Radiology | Ambrose Lan | | 2019 | Encounter | | MD Abhilash | | +--------+ + + + + | 04/03/ | Hospital | Radiology | Ambrose Lan | | 2019 | Encounter | | MD Abhilash | | +--------+ + + + + | 04/03/ | Hospital | Radiology | Ambrose Lan | | 2019 | Encounter | | MD Abhilash | | +--------+ + + + + | 04/03/ | Hospital | Radiology | Ambrose Lan | Epigastric pain; | | 2019 | Encounter | | MD Abhilash | Non-intractable | | | | | | vomiting with nausea | +--------+ + + + + | 02/13/ | Telephone | Gastroenterology | Ambrose Lan | Results | 2019 | | | MD Abhilash | | +--------+ + + + + | 02/11/ | Anesthesia | | Naomi Sanderson, | | 2019 | Event | | [employer] | | +--------+ + + + + | 02/11/ | Surgery | | Ambrose Lan | EGD | 2019 | | | MD Abhilash | | +--------+ + + + + | 02/11/ | Hospital | | Ambrose Lan | Epigastric pain; | | 2019 | Encounter | | MD Abhilash | Non-intractable | | | | | | vomiting with nausea | +--------+ + + + + | 02/08/ | Telephone | Gastroenterology | Ambrose Lan | Rosie (COVID19 | 2019 | | | MD Abhilash | TESTING PRE-OP) | +--------+ + + + + | 02/07/ | Preadmit | Pre-Admission | Ambrose Lan | | 2019 | Visit | Testing | MD Abhilash | | +--------+ + + + + | 02/07/ | Telephone | Gastroenterology | Ambrose Lan | Rosie (PRE-PROCEDURE | 2019 | | | MD Abhilash | CALL ) | +--------+ + + + + | 02/05/ | Office | Gastroenterology | Ambrose aLn | Epigastric pain; | | 2019 | Visit | | MD Abhilash | Non-intractable | | | | | | vomiting with nausea | +--------+ + + + + | 01/30/ | Telephone | Gastroenterology | Gerald Chu | Appointment Question | | 2019 | | | MD Reggie | (11/28/19 No Show) | +--------+ + + + + from Last 3 Months Immunizations + + + + | Name | Administration Dates | Next Due | + + + + | HEP A/HEP B, 3 DOSE | 06/30/2016, 02/18/2015, 11/14/2014 | | | (ADULT) | | | + + + + | INFLUENZA PF | 08/10/2017, 06/30/2016 | | | QUAD(PED/ADOL/ADULT) | | | | ,PSKT or VIAL | | | + + + + | PNEUMOCOCCAL | 02/27/2016 | | | POLYSACCHARIDE | | | | 23-VALENT (PPSV23) | | | + + + + | TDAP, (ADOL/ADULT) | 07/22/2011 | | + + + + Family History + + +------+ + | Medical History | Relation | Name | Comments | + + +------+ + | Malig hypertherm | Neg Hx | | | + + +------+ + + +------+--------+ + | Relation | Name | Status | Comments | + +------+--------+ + | Father | | Alive | | + +------+--------+ + | Mother | | Alive | | + +------+--------+ + Social History + + + +--------+ [...] on file | | + + + Last Filed Vital Signs + + + + + | Vital Sign | Reading | Time Taken | Comments | + + + + + | Blood Pressure | 143/89 | 02/12/2020 7:43 AM | | | | | PDT | | + + + + + | Pulse | 81 | 02/12/2020 7:43 AM | | | | | PDT | | + + + + + | Temperature | 36.1 C (97 F) | 02/12/2020 7:43 AM | | | | | PDT | | + + + + + | Respiratory Rate | 16 | 02/12/2020 7:43 AM | | | | | PDT | | + + + + + | Oxygen Saturation | 100% | 02/12/2020 7:43 AM | | | | | PDT | | + + + + + | Inhaled Oxygen | - | - | | | Concentration | | | | + + + + + | Weight | 61.3 kg (135 lb 2.3 | 02/12/2020 6:35 AM | | | | oz) | PDT | | + + + + + | Height | 160 cm (5' 3") | 02/12/2020 6:35 AM | | | | | PDT | | + + + + + | Body Mass Index | 23.94 | 02/12/2020 6:35 AM | | | | | PDT | | + + + + + Plan of Treatment +--------+ + + + + | Date | Type | Specialty | Care Team | Description | +--------+ + + + + | 05/10/ | Virtual | Gastroenterology | Gema Cardona | | | 2019 | 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, 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 [address] | | | | Visit | | [place] [address] | | | | | | [phone] | | | | | | | | +--------+ + + + + + + + + + | Health Maintenance | Due Date | Last | Comments | | | | Done | | + + + + + | Med Mgmt: Vit D | | | | | | 9 | | | + + + + + | Medication | | | | | Management | 9 | | | + + + + + | Cervical Cancer | | | | | Screening (Pap) | 9 | | | + + + + + | Med Mgmt: HBA1C | | 01/31/20 | | | | 6 | 16 | | + + + + + | Vaccine: Influenza | | 08/10/20 | | | (#1) | 0 | 17, | | | | | 06/30/20 | | | | | 16 | | + + + + + | Med Mgmt: Cr | | 02/12/20 | | | | 1 | 20, | | | | | 01/31/20 | | | | | 16, | | | | | 01/31/20 | | | | | 16, | | | | | Addition | | | | | al | | | | | history | | | | | exists | | + + + + + | Med Mgmt: K | | 02/12/20 | | | | 1 | 20, | | | | | 01/31/20 | | | | | 16, | | | | | 01/31/20 | | | | | 16, | | | | | Addition | | | | | al | | | | | history | | | | | exists | | + + + + + | Med Mgmt: eGFR | | 02/12/20 | | | | 1 | 20, | | | | | 01/31/20 | | | | | 16, | | | | | 01/31/20 | | | | | 16, | | | | | Addition | | | | | al | | | | | history | | | | | exists | | + + + + + | Vaccine: | | 07/22/20 | | | Dtap/Tdap/Td (2 - | 1 | 11 | | | Td) | | | | + + + + + | Hepatitis C | Completed | 01/30/20 | | | Screening | | 16 | | + + + + + Procedures + +--------+ + + + | [...] | + +--------+ + + + | SURGICAL PATHOLOGY | Routin | 02/12/2020 | Epigastric pain | Results for this | | EXAM | e | 7:19 AM | Non-intractable | procedure are in the | | | | PDT | vomiting with nausea | results section. | + +--------+ + + + | EGD | | 02/12/2020 | Epigastric pain | | | | | 6:59 AM | Non-intractable | | | | | PDT | vomiting with nausea | | + +--------+ + + + +---+--------+ | | | | | Specia | | | l | | | Needs | | | With | | | anesth | | | esiaDO | | | S will | | | need | | | BMP | +---+--------+ + +--------+ +---+ + | *TERMED* [place] [facility]PP[facility] GI | Routin | 02/12/2020 | | Results for this | | ENDOSCOPY,EXAM | e | 6:58 AM | | procedure are in the | | | | PDT | | results section. | + +--------+ +---+ + | HCG, URINE, QUAL | Routin | 02/12/2020 | | Results for this | | | e | 6:33 AM | | procedure are in the | | | | PDT | | results section. | + +--------+ +---+ + | BASIC METABOLIC | STAT | 02/12/2020 | | Results for this | | PANEL | | 6:25 AM | | procedure are in the | | | | PDT | | results section. | + +--------+ +---+ + from Last 3 Months Results NM Gastric Emptying (04/03/2020 11:58 AM [...] Procedure Note | + + | Bert, [id number] - 04/03/2020 12:38 PM PDT | | [...] | | | + +---------+ + + Surgical Pathology Exam (02/12/2020 7:19 AM PDT) + + | Specimen | + + | Tissue - Specimen | | from stomach | | (specimen) | + + + + + | Narrative | Performed At | + + + | SPECIMEN(S): A | [facility] | | GASTRIC BIOPSY SPECIMEN SOURCE:A. GASTRIC BIOPSY CLINICAL | [facility] | | HISTORY:R10.13 (epigastric pain), R11.2 (non-intractable vomiting with | | | nausea). MICROSCOPIC DESCRIPTION:Histologic sections of all submitted | | | blocks are examined by light microscopy. These findings, together | | | with the gross examination, support the pathologic diagnosis. FINAL | | | PATHOLOGIC DIAGNOSIS:Gastric biopsies:- Negative for inflammation | | | and other abnormality. BES:smn:C3NR GROSS DESCRIPTION:The specimen, | | | labeled "Myesha Hastings, gastric biopsy," is received in formalin and | | | consists of four thompson soft tissue fragment(s) that measure 0.1-0.7 cm | | | in greatest dimension. The specimen is entirelysubmitted in cassette | | | (A1).FB (under the direct supervision of a pathologist) The Gross | | | Description was prepared using a voice recognition system. The | | | report was reviewed for accuracy; however, sound-alike word errors, | | | addition and/or deletions may occur. If there is anyquestion about | | | this report, please contact Client Services. PERFORMING LABORATORY:The | | | technical component was performed by [facility], [address] [place] [address] | | | [place] [address] (Iv Rn: Frannie Almendarez MD; CLIA# | | | [id number]).The professional interpretation was performed by [facility] | | [facility], [address], [place] | | | [address]. Diagnostician: David Green MDPathologistElectronically | | | Signed 02/13/2020 | | |The Gross Description was prepared using a voice recognition system. The report was revie wed for accuracy; however, sound-alike word errors, addition and/or deletions may occur. I f there is any | | |question about this report, please contact Client Services. | | | | | |PERFORMING LABORATORY: | | |The technical component was performed by [facility], [address] [place] [address] (Iv Rn: Frannie Almendarez MD; CLIA# [id number]). | | |The professional interpretation was performed by [facility], [facility], [address] [place] [address]. | | | | | |Diagnostician: David Green MD | | |Pathologist | | |Electronically Signed 02/13/2020 | | | | | | | | + + + + +---------+ + + | Performing | Address | City/State/Zipcode | Phone Number | | Organization | | | | + +---------+ + + | [facility] | | | | | [facility] | | | | + +---------+ + + EGD (02/12/2020 6:58 AM PDT) + + | Specimen | + + | | + + + + + | Narrative | Performed At | + + + | [facility] | [facility] | | [facility] | [facility] | | [facility] | | | Patient Name: Myesha Hastings | | | Procedure Date: 02/12/2020 6:58 AMMRN: [id number] | | | of : 1980 | | | Note Status: FinalizedAttending MD: Ambrose Lan | | | , | | | | | | Procedure Type: Upper GI endoscopyIndications: | | | Epigastric abdominal pain, Nausea with | | | vomitingMedicines: Monitored Anesthesia | | | CareComplications: No immediate | | | complications. | | | Procedure: Pre-Anesthesia Assessment: | | | - Prior to the procedure, a History and Physical was performed, and | | | patient medications and allergies were reviewed. The patient's | | | tolerance of previous anesthesia was also reviewed. The risks | | | and benefits of the procedure and the sedation options and | | | risks were discussed with the patient. All questions were | | | answered, and informed consent was obtained. Prior | | | Anticoagulants: The patient has taken no previous anticoagulant or | | | antiplatelet agents. ASA Grade Assessment: III - A patient with | | | severe systemic disease. After reviewing the risks and | | | benefits, the patient was deemed in satisfactory condition to | | | undergo the procedure. After obtaining informed consent, the | | | endoscope was passed under direct vision. Throughout the | | | procedure, the patient's blood pressure, pulse, and oxygen | | | saturations were monitored continuously. The Endoscope was | | | introduced through the mouth, and advanced to the second part of | | | duodenum. The upper GI endoscopy was accomplished without | | | difficulty. The patient tolerated the procedure fairly well. | | | | | | Estimated Blood Loss: | | | Estimated blood loss was minimal.Findings: The esophagus was | | | normal. The entire examined stomach was normal. Biopsies were | | | taken with a cold forceps for histology. The examined | | | duodenum was normal. | | | | | | Impression: - Normal esophagus. - Normal stomach. | | | Biopsied. - Normal examined duodenum. - No visible cause | | | for symptoms so biopsies were obtained. - No evidence of gastric | | | outlet obstruction.Recommendation: - Patient has a contact | | | number available for emergencies. The signs and symptoms of | | | potential delayed complications were discussed with the | | | patient. Return to normal activities tomorrow. Written discharge | | | instructions were provided to the patient. - Resume previous | | | diet. - Await pathology results. - Continue present | | | medications. - Do a gastric emptying study. - Return to GI | | | clinic. Ambrose Lan MD02/12/2020 7:29:06 | | | AMThis report has been signed electronically. Note Initiated On: | | | 02/12/2020 6:58 AMNumber of Addenda: 0 [facility] | | | Center | | | - Do a gastric emptying study. | | | - Return to GI clinic. | | | | | | | | |Ambrose Lan MD | | |02/12/2020 7:29:06 AM | | |This report has been signed electronically. | | | | | |Note Initiated On: 02/12/2020 6:58 AM | | |Number of Addenda: 0 | | | | | | [facility] | | + + + + +---------+ + + | Performing | Address | City/State/Zipcode | Phone Number | | Organization | | | | + +---------+ + + | [facility] | | | | + +---------+ + + , Urine, Qual (02/12/2020 6:33 AM PDT) + + + + + + | Component | Value | Ref Range | Performed | Pathologist | | | | | At | Signature | + + + + + + | HCG | NEGATIVEComment: Testing | NEG | [facility] | | | Qualitative | performed at [facility] | | LABORATORY | | | , Urine | [address]rell[address];[place] | | | | | | [id number] | | | | + + + + + + + + | Specimen | + + | | + + + + + + + | Performing | Address | City/State/Zipcode | Phone Number | | Organization | | | | + + + + + | [facility] | [address] | [place] [address] | [phone] | + + + + + Basic Metabolic Panel (02/12/2020 6:25 AM PDT) + + + + + + | Component | Value | Ref Range | Performed | Pathologist | | | | | At | Signature | + + + + + + | Na | 135 | 135 - 145 | [facility] | | | | | mmol/L | LABORATORY | | + + + + + + | K | 4.1 | 3.5 - 4.9 | [facility] | | | | | mmol/L | LABORATORY | | + + + + + + | Cl | 100 | 99 - 109 mmol/L | [facility] | | | | | | LABORATORY | | + + + + + + | CO2 | 25 | 23 - 32 mmol/L | [facility] | | | | | | LABORATORY | | + + + + + + | Anion Gap | 14 | 5 - 20 mmol/L | [facility] | | | | | | LABORATORY | | + + + + + + | Glucose | 234 (H) | 65 - 99 mg/dL | [facility] | | | | | | LABORATORY | | + + + + + + | BUN | 12 | 8 - 25 mg/dL | [facility] | | | | | | LABORATORY | | + + + + + + | Creatinine | 0.73 | 0.50 - 1.00 | [facility] | | | | | mg/dL | LABORATORY | | + + + + + + | BUN/Creatin | 16 | | [facility] | | | ine Ratio | | | LABORATORY | | + + + + + + | Calcium | 9.6 | 8.5 - 10.5 | [facility] | | | | | mg/dL | LABORATORY | | + + + + + + | Estimated | >60Comment: GFR <60: | >60 | [facility] | | | GFR | CHRONIC KIDNEY DISEASE, | mL/min/1.73m2 | LABORATORY | | | | IF FOUND OVER A 3 MONTH | | | | | | PERIOD.GFR <15: KIDNEY | | | | | | FAILURE.FOR | | | | | | AMERICANS, MULTIPLY THE | | | | | | CALCULATED GFR BY | | | | | | 1.210.This eGFR is | | | | | | calculated using the | | | | | | MDRD IDMS traceable | | | | | | equation.Testing | | | | | | performed at [facility] | | | | | | [facility];[place], [place] | | | | | | [address] | | | | + + + + + + + + | Specimen | + + | Blood | + + + + + + + | Performing | Address | City/State/Zipcode | Phone Number | | Organization | | | | + + + + + | [facility] | [address] | [place] [address] | [phone] | + + + + + from Last 3 Months Insurance + +--------+ +--------+ +---------+--------+ | Payer | Benefi | Subscriber | Effect | Phone | Address | Type | | | t Plan | ID | jaycee | | | | | | / | | Dates | | | | | | Group | | | | | | + +--------+ +--------+ +---------+--------+ | BCBS | BCBS | [id number] | 03/04/20 | | | PPO | | | FEDERA | | 19-Pre | | | | | | L FEP | | sent | | | | + +--------+ +--------+ +---------+--------+ | BCBS | BCBS | [id number] | 03/04/20 | | | PPO | | | [place]A | | 19-Pre | | | | | | L FEP | | sent | | | | + +--------+ +--------+ +---------+--------+ | BCBS | BCBS | [id number] | 03/04/20 | | | PPO | | | [place]A | | 19-Pre | | | | | | L FEP | | sent | | | | + +--------+ +--------+ +---------+--------+ | [employer] | MODA | [id number] | Effect | [phone] | | Medica | | MEDICAID HMO | HEALTH | | jaycee | 1 | | id | | | MDCD | | for | | | | | | HMO [place] | | all | | | | | | | | dates | | | | + +--------+ +--------+ +---------+--------+ | [employer] | MODA | [id number] | Effect | [phone] | | Medica | | MEDICAID HMO | HEALTH | | jaycee | 1 | | id | | | MDCD | | for | | | | | | HMO [place] | | all | | | | | | | | dates | | | | + +--------+ +--------+ +---------+--------+ | [employer] [facility] | IHS | [id number] | 10/04/19 | | | Indemn | | SERVICE | YELLOW | | 18-Pre | | | ity | | | HAWK | | sent | | | | + +--------+ +--------+ +---------+--------+ | [employer]ICAID [place] | MEDICA | [id number] | 10/04/19 | [phone] | | Medica | | | [place] | | 20-Pre | 2 | | id | | | PLUS | | sent | | | | + +--------+ +--------+ +---------+--------+ + +--------+ +--------+ + + | Guarantor Name | Accoun | Relation to | Date | Phone | Billing Address | | | t Type | Patient | of | | | | | | | | | | + +--------+ +--------+ + + | Myesha Hastings | Person | Self [birth year] | [address] | | [place] | al/Fam | | 1979 | [phone] | [address] [place], [place] | | | sandra | | | 3 (Home) | [address] | + +--------+ +--------+ + + | Myesha Hastings | Person | Self [birth year] | [address] | | [place] | al/Fam | | 1979 | [phone] | [address] [place], [place] | | | sandra | | | 3 (Home) | [address] | + +--------+ +--------+ + + Advance Directives + + + + + | Type | Date Recorded | Patient | 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
--- OUTSIDE RECORDS SUMMARY | ~2020-04-29 | XMS | Encounter Summary ---
Demographics + + + | Address | [address] [facility] [address] | | | [place] [address] | + + + | Home Phone | | + + + | Preferred Language | Unknown | + + + | Marital Status | Single | + + + | Congregation Affiliation | Unknown | + + + | Race | Unknown | + + + | Ethnic Group | Unknown | + + + Author + + + | Author | [facility] | | | and [place] | + + + | Organization | [facility] | | | and [place] [...] Team Providers + +------+ + | Care Distributor Advertising Material Name | Role | Phone | + [...] | | | | | | | Epigastric | | | | | | | pain | | | | | | | Non-intracta | | | | | | | ble vomiting | | | | | | | with nausea | | | | | | | Procedures | | | | | | | MO EGD | | | | | | | TRANSORAL | | | | | | | BIOPSY | | | | | | | SINGLE/MULTI | | | | | | | PLE MO | | | | | | | ANESTHESIA | | | | | | | UPPER GI | | | | | | | ENDOSCOPIC | | | | | | | PX NOS EGD | | | +--------+--------+ + + + + Encounter Details +--------+ + + + + | Date | Type | Department | Care Team | Description | +--------+ + + + + | 02/11/ | Hospital | [facility] | Ambrose Lan | Epigastric pain; | | 2020 | Encounter | [facility] | MD Abhilash [address] | Non-intractable | | | | INTRA [address] | [place] [address] | vomiting with nausea | | | | BLVD [place], [place] | [phone] | | | | | [address] | | | | | | [phone] | | | +--------+ + + + [...] + + + documented in this encounter Medications at Time [...] documented as of this encounter H&P Notes Ambrose Lan MD - 02/07/2020 4:[address] [facility] Service: Gastroenterology Pre-Operative History & Physical ? INDICATION: Epigastric pain, Non-intractable vomiting with nausea. PROCEDURE: EGD ? History Obtained From: Patient HISTORY OF PRESENT ILLNESS The patient is a 40 y.o. female 1980 who presents with epigastric pain, nausea, vomiti ng, possible melena REVIEW OF SYSTEMS Constitutional: Positive for activity change. Negative for appetite change, chills, diaphor esis, fatigue, fever and unexpected weight change. HENT: Negative for ear pain, mouth sores, nosebleeds, sore throat, trouble swallowing and v oice change. Eyes: Negative for pain, redness and visual disturbance. Respiratory: Negative for cough, choking, chest tightness, shortness of breath and wheezing . Cardiovascular: Negative for chest pain, palpitations and leg swelling. Gastrointestinal: Positive for abdominal distention, abdominal pain, nausea and vomiting. N egative for anal bleeding, blood in stool, constipation, diarrhea and rectal pain. Heartburn Endocrine: Negative for cold intolerance, heat intolerance and polydipsia. Genitourinary: Negative for difficulty urinating, dysuria, frequency, hematuria, urgency an d vaginal bleeding. Musculoskeletal: Negative for arthralgias, back pain, gait problem, joint swelling, myalgia s, neck pain and neck stiffness. Skin: Negative for color change, rash and wound. Allergic/Immunologic: Negative for environmental allergies, food allergies and immunocompro mised state. Neurological: Positive for dizziness, weakness, light-headedness and headaches. Negative fo r tremors, seizures and syncope. Hematological: Negative for adenopathy. Does not bruise/bleed easily. Psychiatric/Behavioral: Positive for agitation and behavioral problems. Negative for confus ion, dysphoric mood, hallucinations and suicidal ideas. The patient is not nervous/anxious. Past Medical History: Diagnosis Date Acid reflux disease Acute respiratory failure with hypoxia and hypercapnia ([facility]) 2016 Adverse effect of anesthesia resistant to general anesthesia CHIRAG (acute kidney injury) ([facility]) Anemia ARDS (adult respiratory distress syndrome) ([facility]) 2016 Decreased hearing of both ears Epigastric pain 02/2020 GERD (gastroesophageal reflux disease) Hepatitis Lactic acidosis Leucocytosis Metabolic acidosis Nausea & vomiting 02/2020 Neuropathy feet Pneumonia of both lungs due to influenza A virus 01/2016 H1N1 - was hospitalized in [place] for 2 months Presence of retained hardware Right great toe PTSD (post-traumatic stress disorder) Septic shock ([facility]) Toxic metabolic encephalopathy Past Surgical History: Procedure Laterality Date BREAST CYST EXCISION FOOT SURGERY Right 08/2019 Great Toe fusion with spacer MIDDLE EAR SURGERY Bilateral 12/10/2017 Procedure: Bilateral Myringotomy w/ Ventilation Tube Insertion; Surgeon: Reji Galvez MD; Location: [facility] MAIN OR THORACENTESIS CHEST TUBE PLACE 2015 THROAT SURGERY N/A 08/17/2018 Procedure: INCISION AND DRAINAGE ABSCESS PERITONSILLAR; Surgeon: Reji Galvez MD; Lo cation: [facility] MAIN OR TOE AMPUTATION Right 06/2016 tips of great toe, 2nd toe, 3rd toe TRACHEOSTOMY TUBE PLACEMENT 2016 has been removed TUBAL LIGATION No Known Allergies No current facility-administered medications on file prior to encounter. Current Outpatient Medications on File Prior to Encounter Medication Sig Dispense Refill cholecalciferol (CHOLECALCIFEROL) 25 mcg (1,000 units) tablet Take 2,000 Units by mouth Daily. cyanocobalamin (VITAMIN B-12) 50 MCG tablet Take 50 mcg by mouth Daily. insulin glargine (LANTUS SOLOSTAR) 100 units/mL injection (pen) Inject 10 Units under t he skin Daily. metFORMIN (GLUCOPHAGE) 500 mg tablet Take 500 mg by mouth 2 times daily (with breakfast & dinner). omeprazole (PRILOSEC) 20 mg capsule Take 1 capsule by mouth 2 times daily for 120 days. 60 capsule 3 Family History Problem Relation Age of Onset Malig hypertherm Neg Hx Social History Socioeconomic History Marital status: Single Spouse name: Not on file Number of children: Not on file Years of education: Not on file Highest education level: Not on file Occupational History Not on file Social Needs Financial resource strain: Not on file Food insecurity: Worry: Not on file Inability: Not on file Transportation needs: Medical: Not on file Non-medical: Not on file Tobacco Use Smoking status: Former Smoker Packs/day: 0.25 Years: 10.00 Pack years: 2.50 Types: Cigarettes Last attempt to quit: 10/10/2019 Years since quittin.3 Smokeless tobacco: Never Used Tobacco comment: slowed to Substance and Sexual Activity Alcohol use: Yes Comment: occ. Drug use: Yes Types: Marijuana Comment: smoking daily - for pain and nausea Sexual activity: Not on file Lifestyle Physical activity: Days per week: Not on file Minutes per session: Not on file Stress: Not on file Relationships Social connections: Talks on phone: Not on file Gets together: Not on file Attends protestant service: Not on file Active member of club or organization: Not on file Attends meetings of clubs or organizations: Not on file Relationship status: Not on file Intimate partner violence: Fear of current or ex partner: Not on file Emotionally abused: Not on file Physically abused: Not on file Forced sexual activity: Not on file Other Topics Concern Not on file Social History Narrative Not on file PHYSICAL EXAM Vital Signs: Reviewed as recorded in nursing records on day of procedure BP 147/77 | Pulse 82 | Temp 36.5 C (97.7 F) (Temporal) | Resp 16 | Ht 1.6 m (5' 3") | Wt 61.3 kg (135 lb 2.3 oz) | LMP 02/03/2020 (Exact Date) | SpO2 98% | BMI 23.94 kg/m Physical Exam Gen: NAD, appears well-developed CV: Regular Lungs: CTAB, Effort normal and breath sounds normal, No respiratory distress. Abd: Non-tender, +BS, no masses or organomegaly, no rebound, no guarding Extremities: Within normal limits, no amputations, normal range of motion Head: Normocephalic. Mouth/Throat: Oropharynx is clear and moist and mucous membranes are normal Eyes: Conjunctivae and EOM are normal Skin: Warm, moist, intact, tattoos Neuro: Intact and symmetric grossly Psychiatric: Normal mood and affect, behavior is normal, judgment and thought content partha jacobson ASSESSMENT & PLAN 1. Patient is a 40 y.o. female with planned EGD for indications listed above. 2. Medical conditions are currently stable and patient is felt appropriate for proceeding w ith procedure. Plan for Sedation: Per Anesthesia Service ASA Classification: ASA Classification per Anesthesia Service Mallampati Classification: Per Anesthesia Service Procedure Consent: The procedure, indications, limitations, alternatives available and pote ntial complications to include but not limited to bleeding, perforation, infection, and adve rse medication reaction was explained. Opportunity for questions provided and informed conse nt obtained. Patient agrees and wishes to proceed. Updated today Ambrose Lan MD [facility] Gastroenterology 02/12/2020 Primary Care Physician: Hiro Noble MD documented in thi s encounter Miscellaneous Notes Op Note - Ambrose Lan MD - [facility]2020 [facility] Procedure Note Procedure note was generated using Casentric endoscopy software. The note can be reviewed under Chart Review using Media tab and Procedures tab. Ambrose Lan MD 02/12/2020 -C Instructions Provation - Ambrose Lan MD - 02/12/2020 6:58 AM PDTPatient Instructions After Uppe r GI endoscopy Patient: Myesha Hastings Procedure Date: Wednesday, February 12, 2020 Attending MD: Ambrose Lan MD; You had a Upper GI endoscopy today. Your doctor made the following findings: - Normal esophagus. - Normal stomach. Biopsied. - Normal examined duodenum. - No visible cause for symptoms so biopsies were obtained. - No evidence of gastric outlet obstruction. Your doctor recommends: You have a contact number available for emergencies. The signs and symptoms of potential delayed complications were discussed with you. You may return to normal activities tomorrow. Written discharge instructions were provided to you. Resume your previous diet. We are waiting for your pathology results. Continue your present medications. Your physician has recommended a gastric emptying study. Return to your GI clinic. CALL YOUR PHYSICIAN IF YOU EXPERIENCE: < Any unusual pain < Temperature above 100 degrees Fahrenheit < Shortness of breath DIET: You may resume your regular diet immediately after the procedure unless otherwise instructed by your doctor. CAUTIONS: The medications used to make the examination more comfortable for you will be acting in your body for up to 24 hours. Therefore: < DO NOT drive a car or operate machinery or power tools. < DO NOT drink alcohol or take tranquillizers or sleeping pills. < DO NOT make major personal decisions. This includes signing legal documents and/or contracts. MEDICATIONS: Most medications can be safely resumed once you can eat. The exceptions would be tranquillizers and sleeping pills. Ambrose Lan MD 02/12/2020 7:29:06 AM This report has been signed electronically. documented in this encounter Plan of Treatment +--------+ + + + + | Date | Type | Specialty | Care Team | Description | +--------+ + + + + | 05/10/ | Virtual | Gastroenterology | Gema Cardona | | | 2019 | Office | | [place] R[place] [address] [place] [address] | | | | Visit | | [place] [address] | | | | | | [phone] | | | | | | | [...] +---+--------+ + +--------+ +---+ + | *TERMED* [facility] UPPER GI | Routin | 02/12/2020 | [...] results section. | + +--------+ +---+ + documented in this encounter Results Surgical Pathology Exam (02/12/2020 7:19 AM PDT) + + | Specimen | + + | Tissue - Specimen | | from stomach | | (specimen) | + + + + + | Narrative | Performed At | + + + | SPECIMEN(S): A | [facility] | | GASTRIC BIOPSY SPECIMEN SOURCE:A. [...] | | technical component was performed by [facility] [employer] [address] [place], [place] [address]mary[address] | | | [place] [address] (Main Galley Scullion: Frannie Almendarez MD; CLIA# | | | [id number]).The professional interpretation was performed by [employer] | | | [employer], [address] [place], [place] | | | [address]. Diagnostician: David Green MDPathologistElectronically | | | [...] | |The technical component was performed by [facility] [employer], [address] [place] [address] (Main Gal[place]: Frannie Almendarez MD; IA# [id number]). | | |The professional interpretation was performed by [employer], [facility], [address] [place] [address]. | | | | | |Diagnostician: David Green MD | | |Pathologist | | |Electronically Signed 02/13/2020 | | | | | | | | + + + + +---------+ + + | Performing | Address | City/State/[facility] | Phone Number | | Organization | | | | + +---------+ + + | [facility] | | | | | [facility] | | | | + +---------+ + + EGD (02/12/2020 6:58 AM PDT) + + | Specimen | + + | | + + + + + | Narrative | Performed At | + + + | Pilar | ASYA | | [facility] | PROVATION | | CenterGastroenterology | | | Patient Name: Myesha Hastings | | | Procedure Date: 02/12/2020 6:58 AMMRN: [id number] | | | of : 1980 | [...] | 02/12/2020 6:58 AMNumber of Addenda: 0 [facility] | | | Center | | [...] 0 | | | | | | [facility] | | + + + + +---------+ [...] | | | Qualitative | performed at [facility];[address] | | LABORATORY | | | , Urine | [address];[place], [place] | | | | | | [address] | | | | + + + + + + + + | Specimen | + + | | + + + + + + + | Performing | Address | City/State/Zipcode | Phone Number | | Organization | | | | + + + + + | [facility] | [address] | [place] [address] | [phone] | + + + + + Basic [...] | 9.6 | 8.5 - 10.5 | [facility] | | | | | mg/dL | LABORATORY | | + + + + + + | Estimated | >60Comment: GFR <60: | >60 | [facility] | | | GFR | CHRONIC KIDNEY [...] | | | | | performed at [facility] | | | | | | [facility];[place], [place] | | | | | | [address] | | | | + + + + + + + + | Specimen | + + | Blood | + + + + + + + | Performing | Address | City/State/Zipcode | Phone Number | | Organization | | | | + + + + + | [facility] | [address] | [place] [address] | [phone] | + + + + + documented in this encounter Visit Diagnoses + + | Diagnosis | + + | Epigastric pain Abdominal pain, epigastric | + + | Non-intractable vomiting with nausea | + + documented in this encounter Admitting Diagnoses + + | Diagnosis | + + | Epigastric pain Abdominal pain, epigastric | + + | Non-intractable vomiting with nausea | + + documented in this encounter Administered Medications + +---------+ +------+-------+------+ | Medication Order | MAR | Action | Dose | Rate | Site | | | Action | Date | | | | + +---------+ +------+-------+------+ | sodium chloride 0.9% (NS) | New Bag | 02/12/20 | | 100 | | | infusion at 100 mL/hr, | | 20 6:38 | | mL/hr | | | Intravenous, CONTINUOUS, Starting | | AM PDT | | | | | 02/12/20 at 0630, Pre-op | | | | | | + +---------+ +------+-------+------+ +---+---+ | | | +---+---+ documented in this encounter
--- OUTSIDE RECORDS SUMMARY | ~2020-04-29 | XMS | Encounter Summary ---
Demographics + + + | Address | [address] [facility] [address] | | | [place] [address] | + + + | Home Phone | | + + + | Preferred Language | Unknown | + + + | Marital Status | Single | + + + | Confucianism Affiliation | Unknown | + + + | Race | Unknown | + + + | Ethnic Group | Unknown | + + + Author + + + | Author | [facility] | | | and [place] | + + + | Organization | [facility] | | | and [...] Team Providers + +------+ + | Care Corrosion Engineer Name | Role | Phone | + +------+ + | Hiro Noble MD | PCP | | + +------+ + Encounter Details +--------+ + + + + | Date | Type | Department | Care Team | Description | +--------+ + + + + | 02/07/ | Preadmit | [facility] | Ambrose Lan | | | 2019 | Visit | [facility] | MD Abhilash [address] | | | | | CLINIC [address] | [place] [address] | | | | | BLVD [place], [place] | [phone] | | | | | [address] | | | | | | [phone] | | | +--------+ + + + [...] mented in this encounter Plan of Treatment +--------+ + + + + | Date | Type | Specialty | Care Team | Description | +--------+ + + + + | 05/10/ | Virtual | Gastroenterology | Gema Cardona | | | 2020 | Office | | [place] [address] | | | | Visit | | [place] [address] | | | | | | [phone] | | | | | | | | +--------+ + + + + documented as of this encounter Visit Diagnoses Not on filedocumented in this encounter"
--- OUTSIDE RECORDS SUMMARY | ~2020-04-29 | XMS | Encounter Summary ---
Demographics + + + | Address | [address] [facility] [address] | | | [place] [address] | + + + | Home Phone | | + + + | Preferred Language | Unknown | + + + | Marital Status | Single | + + + | Protestant Affiliation | Unknown | + + + | Race | Unknown | + + + | Ethnic Group | Unknown | + + + Author + + + | Author | [facility] | | | and [place] | + + + | Organization | [facility] | | | and [place] | [...] Team Providers + +------+ + | Care Puppet Engineer Name | Role | Phone | [...] | | | | | s | [address] | | | | | | [address] | [facility] [place] | | | | | | [place] | [address] Phone: | | | | | | [place] [address] | [phone] | | | | | | Phone: | Fax: | | | | | | [phone] | [phone] | | | | | | Fax: | | | | | | | [phone] | | + + + + + + + Encounter Details +--------+ + + + + | Date | Type | Department | Care Team | Description | +--------+ + + + + | 04/10/ | Virtual | [facility] | Gema Cardona | Epigastric pain | | 2019 | Office | GASTROENTEROLOGY | A, TRIMMER OPERATOR THREE KNIFE [address] | (Primary Dx); | | | Visit | [address] | [place] [address] | Non-intractable | | | | [place], [place] | [phone] | vomiting with | | | | [address] | | nausea; Adverse | | | | [phone] | | effect of drug, | | [...] bidirectional video se ssion. Service was provided [id number] with the patient via interactive videoconferencing Time Based Coding Total time (in minutes) including non [id number] time (reviewing records, documentation, etc..) 52 You have chosen to receive care through the use of telemedicine. Telemedicine enables [facility] care providers at different locations to provide [...] they are located in a state where IGema NP am l icensed. [facility] Patient ID: Myesha Hastings is a 40 [...] Acute respiratory failure with hypoxia and hypercapnia ([facility]) 2015 Adverse effect of anesthesia resistant to general anesthesia CHIRAG (acute kidney injury) ([facility]) Anemia ARDS (adult respiratory distress syndrome) ([facility]) 2016 Decreased hearing of both ears Epigastric pain 02/2020 GERD (gastroesophageal reflux disease) Hepatitis Lactic acidosis Leucocytosis Metabolic acidosis Nausea & vomiting 02/2020 Neuropathy feet Pneumonia of both lungs due to influenza A virus 01/2016 H1N1 - was hospitalized in [place] for 2 months Presence of retained hardware Right great toe PTSD (post-traumatic stress disorder) Septic shock ([facility]) Toxic metabolic encephalopathy Past Surgical History: Procedure Laterality Date BREAST CYST EXCISION FOOT SURGERY Right 08/2019 Great Toe fusion with spacer MIDDLE EAR SURGERY Bilateral 12/10/2017 Procedure: Bilateral Myringotomy w/ Ventilation Tube Insertion; Surgeon: Reji Galvez MD; Location: [facility] MAIN OR THORACENTESIS CHEST TUBE PLACE 2016 THROAT SURGERY N/A 08/17/2018 Procedure: INCISION AND DRAINAGE ABSCESS PERITONSILLAR; Surgeon: Reji Galvez MD; Lo cation: [facility] MAIN OR TOE AMPUTATION Right 06/2016 tips of great toe, 2nd toe, 3rd toe TRACHEOSTOMY TUBE PLACEMENT 2016 has been removed TUBAL LIGATION UPPER GASTROINTESTINAL ENDOSCOPY N/A 02/12/2020 Procedure: EGD; Surgeon: Ambrose Lan MD; Location: [facility] Family History Problem Relation [...] file Gets together: Not on file Attends church service: Not on file Active member of [...] any questions or concerns. Gema Cardona NP [facility] Gastroenterology 04/24/2020 8:05 AM PDT Dictated using [employer] translation software. Edited at time of van driver helper however sound alike van driver helper errors may still be prese nt. Please contact practitioner for any clarification needed. documented in thi s encounter Plan of Treatment +--------+ + + + + | Date | Type | Specialty | Care Team | Description | +--------+ + + + + | 05/10/ | Virtual | Gastroenterology | Gema Cardona | | | 2019 | Office | | [place] [facility] [address] | | | | Visit | | [place] [address] | | | | | | [phone] | | | | | | | [...]
--- OUTSIDE RECORDS SUMMARY | ~2020-04-29 | XMS | Encounter Summary ---
Demographics + + + | Address | [address] [facility] [address] | | | [place] [address] | + + + | Home Phone | | + + + | Preferred Language | Unknown | + + + | Marital Status | Single | + + + | Voodoo Affiliation | Unknown | + + + | Race | Unknown | + + + | Ethnic Group | Unknown | + + + Author + + + | Author | [facility] | | | and [place] | + + + | Organization | [facility] | | | and [place] [...] Team Providers + +------+ + | Care Retort Fireman Name | Role | Phone | + +------+ + | Hiro Noble MD | PCP | | + +------+ + Reason for Visit + +--------+ + | Reason | Onset | Comments | | | Date | | + +--------+ + | Appointment Question | 01/30/ | 11/28/19 No Show | | | 2020 | | + +--------+ + Encounter Details +--------+ + + + + | Date | Type | Department | Care Team | Description | +--------+ + + + + | 01/30/ | Telephone | [facility] | Gerald Chu | Appointment Question | | 2019 | | GASTROENTEROLOGY | MD Jeremie Paredes | (11/28/19 No Show) | | | | [address] | [address] [place], [place] | | | | | [place], [place] | [address] | | | | | [address] | | | | | | [phone] | | | +--------+ + + + [...] - Deana Barrett - 01/31/2020 9:59 AM Chloe, [facility], is calling regarding A ppointment Question (11/28/19 No Show) and would like a call back. Additional Call Details: Calling to see if 11/28/19 No Show appointment can be rescheduled. Please call Albina at [phone]. If this is a symptom based call, was patient offered triage? Not Applicable If this is a symptom based call and you were unable to immediately transfer the call to a [facility]ge worker was caller made aware that if at [...] | | Visit | | [place] [address] | | | | | | [phone] | | | | | | | | +--------+ + + + + documented as of this encounter Visit Diagnoses Not on filedocumented in this encounter"
--- OUTSIDE RECORDS SUMMARY | ~2020-04-29 | XMS | Encounter Summary ---
Demographics + + + | Address | [address] [facility] [address] | | | [place] [address] | + + + | Home Phone | | + + + | Preferred Language | Unknown | + + + | Marital Status | Single | + + + | Yazidism Affiliation | Unknown | + + + | Race | Unknown | + + + | Ethnic Group | Unknown | + + + Author + + + | Author | [facility] | | | and [place] | + + + | Organization | [facility] | | | and [place] [...] Team Providers + +------+ + | Care Taxicab Driver Name | Role | Phone | + +------+ + | Hiro Noble MD | PCP | | + +------+ + Reason for Visit +---------+--------+ + | Reason | Onset | Comments | | | Date | | +---------+--------+ + | Results | 02/13/ | | | | 2020 | | +---------+--------+ + Encounter Details +--------+ + + + + | Date | Type | Department | Care Team | Description | +--------+ + + + + | 02/13/ | Telephone | [facility] | Ambrose Lan | Results | | 2019 | | GASTROENTEROLOGY | MD Abhilash [address] | | | | | [address] | [place] [address] | | | | | [place], [place] | [phone] | | | | | [address] | | | | | | [phone] | | | +--------+ + + + [...] Miscellaneous Notes Telephone Encounter - Cyndie Covington Belling Machine Operator - 02/14/2020 4:25 PM PDTAtte mpted to [...] | Gastroenterology | Gema Cardona | | 2019 | Office | | [address] | | | | Visit | | [place] [address] | | | | | | [phone] | | | | | | | | +--------+ + + + + documented as of this encounter Visit Diagnoses Not on filedocumented in this encounter"
--- OUTSIDE RECORDS SUMMARY | ~2020-04-29 | XMS | Encounter Summary ---
Demographics + + + | Address | [address] [facility] [address] | | | [place] [address] | + + + | Home Phone | | + + + | Preferred Language | Unknown | + + + | Marital Status | Single | + + + | Jewish Affiliation | Unknown | + + + | Race | Unknown | + + + | Ethnic Group | Unknown | + + + Author + + + | Author | [facility] | | | and [place] | + + + | Organization | [facility] | | | and [...] Team Providers + +------+ + | Care Bank Sales And Service Manager Name | Role | Phone | + +------+ + PCP | Unavailable | + +------+ + Encounter Details +--------+ + + + + | Date | Type | Department | Care Team | Description | +--------+ + + + + | 07/29/ | Hospital | [facility] | Logan Mercado, | | | 2009 | Encounter | [facility] | [address] | | | | [address] | [facility] | | | | | [facility] | [place] [address] | | | | | [place] | [phone] | | | | | [address] | | | | | | [phone] | | | +--------+ + + + [...] + + documented as of this encounter ED Sacha Moreland PA - 08/09/2013 4:21 AM PST DATE OF EMERGENCY CENTER EVALUATION: 07/29/2010 CHIEF COMPLAINT: Vomiting. HISTORY OF PRESENT ILLNESS: This is a very pleasant, 30-year-old female here visiting in [facility] from [place], [place]. She is here with family. She will be here several days befor e returning home. States at about 2:00 a.m. she awoke from sleep with upset stomach, develo ped nausea, vomiting, some diffuse abdominal cramping. Also had several episodes of diarrhe a throughout the day, nonbloody, non-mucoid, a scant amount of blood that she noticed in th e emesis. It is more green to yellow. No noted fevers. No known exposures for similar illn esses. She had a meal at [facility] [employer] here yesterday. Has a history of hepatitis A, bu t no known tainted food exposures and no one else has been ill in her proximity. No fevers. No urinary symptoms. The nausea persists. Rates her discomfort as a 7 on a 0 to 10 pain sc gopi. No other issues or concerns here today. REVIEW OF SYSTEMS: Ten-point review of systems is otherwise negative. PAST MEDICAL HISTORY: Breast cyst currently undergoing evaluation. Previous hepatitis A. N o prior abdominal surgeries. MEDICATIONS: None. DRUG ALLERGIES: None known. SOCIAL HISTORY: Positive for tobacco use, occasional use. No IV or illicit drug use. Here visiting from [place], [place]. PHYSICAL EXAMINATION: GENERAL: Well-developed, well-nourished 30-year-old female sitting on the exam stretcher, does not appear ill or toxic. Speaking clearly in full sentences. Not sedat ed or lethargic. VITAL SIGNS: Blood pressure 153/90, pulse 80, respirations 24, temperature 96.9. O2 sat is 100% room air. HEENT: Skin and sclera anicteric. Conjunctiva pink. NECK: Supple. Trachea midline. Pharynx nonerythematous. No exudates. PULMONARY: Lungs bola r to auscultation. CARDIOVASCULAR: Regular rate and rhythm. No appreciable murmurs or gallops. ABDOMEN: Soft, nondistended. No guarding or peritoneal signs. No palpable hepatosplenomegaly or hernias. No pain over McBurney's point. Graves's sign negative. CVA nontender. EXTREMITIES: No cyanosis or deformity. No enlarged or tender joints. INTEGUMENTARY: No ian hes or lesions. Remainder of exam is otherwise unremarkable. EMERGENCY DEPARTMENT COURSE: Urine dip is negative. Urine is negative. CBC shows a mild elevation in her white count with leukocytosis 16,300, slight left shift is also no mellisa. Hemoglobin normal at 13.1, hematocrit 39.8, platelets 298. Comprehensive metabolic robb el shows normal electrolytes and renal function. Random glucose is elevated at 131. Liver f unction studies PAUL WOLFE V : 79 | Signed MR# [id number] ACCT# [id number] | ADM 07/29/10 DS 07/29/10 DEP ER | LIDIA Quiroz | [facility] ES: Marlon Mcbride pt [phone] | EMERGENCY CENTER THIS REPORT IS CONFID ENTIAL AND NOT TO BE RELEASED WITHOUT PROPER AUTHORIZATION. are all within normal parameters. Lipase is normal at 71. TREATMENT: Saline lock was established. She received a liter of normal saline IV along wit h Zofran and morphine. Clinically improved with the above. Her abdominal exam remains benig n. She is afebrile and hemodynamically stable throughout the course. I do not suspect acute surgical abdominal crisis such as appendicitis, obstruction, perforated viscus, acute chol ecystitis, pancreatitis. No signs of or risk for ectopic. I do suspect likely th is is a gastroenteritis, probable viral in etiology. I do believe she is ultimately safe to be discharged home. We will prescribe a small quantity of antiemetics for symptomatic reli ef. Have her follow up with her primary care for any ongoing or persistent issues. All ques tions answered. CLINICAL IMPRESSION: Gastroenteritis. DISPOSITION AND PLAN: Discharge to home in stable and improved condition. Given script for Phenergan. Return here for uncontrolled vomiting, any fevers, bloody discharge, difficulty urinating, or any new or worrisome symptoms. Given instructions for the above. Sacha Pérez PA-C TD:ariana Job ID:[id number] Doc ID:[id number] cc: Electronically Signed 08/03/10 [address] ALIC E V : 79 | Signed MR# [id number] ACCT# [id number] | ADM 07/29/10 DS 07/29/10 DEP ER | LIDIA Quiroz | [facility] ES: Marlon Mcbride pt [phone] | EMERGENCY CENTER THIS REPORT IS CONFID ENTIAL AND NOT TO BE RELEASED WITHOUT PROPER AUTHORIZATION. documented in this encounter Plan of Treatment +--------+ + + + + | Date | Type | Specialty | Care Team | Description | +--------+ + + + + | 05/10/ | Virtual | Gastroenterology | Gema Cardona | | | 2019 | Office | | [address] | | | | Visit | | [place] [address] | | | | | | [phone] | | | | | | | | +--------+ + + + + documented as of this encounter Procedures + +--------+ + + + | Procedure Name | Priori | Date/Time | Associated Diagnosis | Comments | | | ty | | | | + +--------+ + + + | COMPREHENSIVE | Routin | 07/29/2010 | | Results for this | | METABOLIC PANEL, | e | 3:00 PM | | procedure are in the | | PART 2 | | PDT | | results section. | + +--------+ + + + | CBC WITH | Routin | 07/29/2010 | | Results for this | | DIFFERENTIAL | e | 3:00 PM | | procedure are in the | | | | PDT | | results section. | + +--------+ + + + | LIPASE | Routin | 07/29/2010 | | Results for this | | | e | 3:00 PM | | procedure are in the | | | | PDT | | results section. | + +--------+ + + + documented in this encounter Results Lipase (07/29/2010 3:00 PM PDT) + + + + + + | Component | Value | Ref Range | Performed | Pathologist | | | | | At | Signature | + + + + + + | Lipase | 71Comment: NOTE NEW | 70 - 350 U/L | [facility] | | | | REFERENCE RANGE | | [facility] | | | | | | [facility]AT[facility] | | + + + + + + + + | Specimen | + + | | + + + + + + + | Performing | Address | City/State/Zipcode | Phone Number | | Organization | | | | + + + + + | [facility] | [address] | [place] [address] | | | [facility] | | | | | LABORATORY | | | | + + + + + | [facility] | | | | | [facility] | | | | | LABORATORY | | | | + + + + + Comprehensive Metabolic Panel, Part 2 (07/29/2010 3:00 PM PDT) + + + + + + | Component | Value | Ref Range | Performed | Pathologist | | | | | At | Signature | + + + + + + | Na | 140 | 135 - 146 | [facility] | | | | | mmol/L | [facility] | | | | | | [facility] | | + + + + + + | K | 4.3 | 3.6 - 5.2 | [facility] | | | | | mmol/L | [facility] | | | | | | [facility] | | + + + + + + | Cl | 103 | 98 - 109 mmol/L | [facility] | | | | | | [facility] | | | | | | [facility] | | + + + + + + | CO2 | 24 | 21 - 32 mmol/L | [facility] | | | | | | [facility] | | | | | | [facility] | | + + + + + + | Glucose | 131 (H)Comment: Impaired | 65 - 99 mg/dL | [facility] | | | | fasting glucose: 100 to | | [facility] | | | | 125 mg/dL. | [facility] | | | | | | [facility]AT[facility] | | + + + + + + | BUN | 12 | 7 - 23 mg/dL | [facility] | | | | | | [facility] | | | | | | [facility] | | + + + + + + | Creatinine | 1.14 | 0.60 - 1.20 | [facility] | | | | | mg/dL | [facility] | | | | | | [facility] | | + + + + + + | Calcium | 8.6 | 8.5 - 10.5 | [facility] | | | | | mg/dL | [facility] | | | | | | [facility] | | + + + + + + | Total | 8.9 (H) | 6.5 - 8.2 g/dL | [facility] | | | Protein | | | [facility] | | | | | | [facility] | | + + + + + + | Albumin | 4.1 | 3.4 - 5.0 g/dL | [facility] | | | | | | [facility] | | | | | | [facility] | | + + + + + + | Bilirubin | 0.4 | 0.1 - 1.5 mg/dL | [facility] | | | Total | | | [facility] | | | | | | [facility] | | + + + + + + | Alkaline | 123 | 40 - 135 U/L | [facility] | | | Phosphatase | | | [facility] | | | | | | [facility] | | + + + + + + | AST | 19 | 5 - 40 U/L | [facility] | | | | | | [facility] | | | | | | [facility] | | + + + + + + | ALT | 32 | 5 - 65 U/L | [facility] | | | | | | [facility] | | | | | | [facility] | | + + + + + + | Anion Gap | 13 | 5 - 16 mmol/L | [facility] | | | | | | [facility] | | | | | | [facility] | | + + + + + + + + | Specimen | + + | | + + + + + + + | Performing | Address | City/State/Zipcode | Phone Number | | Organization | | | | + + + + + | [facility] | [address] [facility] | [place] [address] | | | [facility] | | | | | [facility]ORY | | | | + + + + + | [facility] | | | | | [facility] | | | | | [facility] | | | | + + + + + CBC with Differential (07/29/2010 3:00 PM PDT) + + + + + + | Component | Value | Ref Range | Performed | Pathologist | | | | | At | Signature | + + + + + + | White Blood | 16.3 (H) | 4.0 - 11.0 K/uL | [facility] | | | Cells | | | [facility] | | | | | | [facility] | | + + + + + + | Red Blood | 4.56 | 3.80 - 5.20 | [facility] | | | Cells | | M/uL | [facility] | | | | | | [facility] | | + + + + + + | Hemoglobin | 13.1 | 11.6 - 15.5 | [facility] | | | | | g/dL | [facility] | | | | | | [facility] | | + + + + + + | Hematocrit | 39.8 | 35.0 - 46.0 % | [facility] | | | | | | [facility] | | | | | | [facility] | | + + + + + + | MCV | 87.3 | 80.0 - 100.0 fL | [facility] | | | | | | [facility] | | | | | | [facility] | | + + + + + + | MCH | 28.7 | 27.0 - 34.0 pg | [facility] | | | | | | [facility] | | | | | | [facility] | | + + + + + + | MCHC | 32.9 | 32.0 - 35.5 | [facility] | | | | | g/dL | [facility] | | | | | | [facility] | | + + + + + + | RDW-CV | 14.1 | 11.0 - 15.0 % | [facility] | | | | | | [facility] | | | | | | [facility] | | + + + + + + | Platelet | 298 | 150 - 400 K/uL | [facility] | | | Count | | | [facility] | | | | | | [facility] | | + + + + + + | % | 95.0 (H) | 40.0 - 80.0 % | [facility] | | | Neutrophils | | | [facility] | | | | | | [facility] | | + + + + + + | % | 3.9 (L) | 15.0 - 45.0 % | [facility] | | | Lymphocytes | | | [facility] | | | | | | [facility] | | + + + + + + | % Monocytes | 0.8 | 0.0 - 12.0 % | [facility] | | | | | | [facility] | | | | | | [facility] | | + + + + + + | % | 0.0 | 0 - 7 % | [facility] | | | Eosinophils | | | [facility] | | | | | | [facility] | | + + + + + + | % Basophils | 0.3 | 0 - 2 % | [facility] | | | | | | [facility] | | | | | | [facility] | | + + + + + + | Absolute | 15.50 (H) | 2.0 - 7.3 K/uL | [facility] | | | Neutrophils | | | [facility] | | | | | | [facility] | | + + + + + + | Absolute | 0.60 (L) | 1.0 - 3.4 K/uL | [facility] | | | Lymphocytes | | | [facility] | | | | | | [facility] | | + + + + + + | Absolute | 0.10 | 0.0 - 0.8 K/uL | [facility] | | | Monocytes | | | [facility] | | | | | | [facility] | | + + + + + + | Absolute | 0.00 | 0.0 - 0.5 K/uL | [facility] | | | Eosinophils | | | [facility] | | | | | | [facility] | | + + + + + + | Absolute | 0.00 | 0.0 - 0.1 K/uL | [facility] | | | Basophils | | | [facility] | | | | | | LAB[facility] | | + + + + + + | Differentia | AutomatedComment: Scan | | [facility] | | | l Type | Done | | [facility] | | | | | | [facility] | | + + + + + + + + | Specimen | + + | | + + + + + + + | Performing | Address | City/State/Zipcode | Phone Number | | Organization | | | | + + + + + | [facility] | [address] [facility] | [place] [address] | | | [facility] | | | | | [facility]ORY | | | | + + + + + | [facility] | | | | | [facility] | | | | | LAB[facility]ORY | | | | + + + + + documented in this encounter Visit Diagnoses Not on filedocumented in this encounter"
--- OUTSIDE RECORDS SUMMARY | ~2020-04-29 | XMS | Encounter Summary ---
Demographics + + + | Address | [address] | | | [place] [address] | + + + | Home Phone | | + + + | Preferred Language | Unknown | + + + | Marital Status | Single | + + + | Synagogue Affiliation | Unknown | + + + | Race | Unknown | + + + | Ethnic Group | Unknown | + + + Author + + + | Author | [facility] | | | and [place] | + + + | Organization | [facility] | | | and [place] [...] Team Providers + +------+ + | Care Field Staff Name | Role | Phone | + [...] + + | 08/17/ | Hospital | [facility] | Reji Martin, | | | 2018 | Encounter | [facility] | [address] | | | | | [address] | [address] [place], | | | | | [place], [place] | [place] [address] | | | | | [address] | [phone] | | | | | [phone] | | | +--------+ + + + [...] all medicine you take. T his includes apws-lct-ghdwhtq drugs. It also includes herbs and other [...] surgery Risks of anesthesia Date Last Reviewed: 03/04/[id number] [employer] [address] [place] [address]. All righ ts reserved. This information is [...] Reji Martin MD - 08/17/2018 2:40 PM [facility] [address] [place] [address] [id number] HISTORY AND PHYSICAL REJI MARTIN MD Patient: MYESHA HASTINGS Admitting: REJI MARTIN MR #: [id number] LOC: PT TYPE: Adm Date: 08/17/2018 : 1980 CHIEF COMPLAINT: Left peritonsillar abscess. HISTORY: Ms. Hastings is a 38-year-old lady with a 4-day history of sore throat, left sided. She has trismus, difficulty swallowing, very painful throat. She went to the ER today at [facility] in [place] and saw Dr. Villalta. He diagnosed a left peritonsillar a bscess, gave her some clindamycin IV and some steroids and asked for otolaryngologic evaluat ion. Peritonsillar abscess was confirmed in the office and she is being taken to the opera tin room at this time for incision and [...] SOCIAL HISTORY: She is single, lives in [place]. No alcohol or tobacco. FAMILY HISTORY: Unremarkable. [...] Transcribed on 08/17/2018 14:59:16 by in job# [id number] Confirmation #: [id number] cc: SHARON CANALES-C P M PSTdocumented in this encounter Miscellaneous Notes Op Note - Reji Martin MD - 08/17/2018 5:[address] [address] OPERATIVE REPORT REJI MARTIN MD Patient: MYESHA HASTINGS Admitting: REJI MARTIN MR #: [id number] LOC: PT TYPE: Adm Date: 08/17/2018 : [...] Transcribed on 08/17/2018 17:51:23 by in job# [id number] Confirmation #: [id number] cc: SHARON CANALES-C P M PSTBrief Op Note - Reji Martin MD - 08/17/2018 5:05 PM PSTFormatting of this note m ight be different from the original. Brief Operative Note Myesha Hastings 38 y.o. female 1980 [id number] Proc. Date 08/17/2018 Preop Dx Peritonsillar abscess [J36] Postop Dx same Procedure INCISION AND DRAINAGE ABSCESS PERITONSILLAR Anesthesia General Surgeon Reji Martin MD - Primary Retail Office Manager EBL less than 50 mL Findings Complications none Specimens * No specimens in log * Drains Electronically signed by: Reji Martin MD 08/17/2018 17:05 [facility]ronically signed by Reji Martin MD at 5:05 PM PSTInterval H&P Note (unlinked) - Reji Martin MD - 08/17/2018 5:05 P [facility]IM H[facility] AND [...] Electronically signed by: Reji Martin, 08/17/2018 17:05 [facility] documented in this e ncounter Plan of Treatment +--------+ + + + + | Date | Type | Specialty | Care Team | Description | +--------+ + + + + | 05/10/ | Virtual | Gastroenterology | Gema Cardona | | | 2019 | Office | | [address] | | | | Visit | | [place] [address] | | | | | | [phone] | | | | | | | [...] + + | [facility] | [address] | [place] | [phone] | | [facility] | | [address] | | | - LABORATORY | | [...] | 1.010, 1.015, | | | | [place], | | 1.020, 1.025 | | | [...]
--- OUTSIDE RECORDS SUMMARY | ~2020-04-29 | XMS | Encounter Summary ---
Demographics + + + | Address | [address] | | | [place] [address] | + + + | Home Phone [...] + | Author | [facility] | | | and [place]te[place] | + + + | Organization | [facility] | | | and [place]te[place]ana | [...] Team Providers + +------+ + | Care Correspondence Specialist Name | Role | Phone | [...] 12/10/ | Anesthesia | [facility] [place] | Vladislav Godfrey | | | 2018 | Event | [facility] | MD Greg [address] | | | | | [address] | [address] [place] | | | | | [place], [place] | [place] [address] | | | | | [address] | | | | | | [phone] | | | +--------+ + + + + Anesthesia Record + + + + + | Procedure Name | Responsible | Anesthesia Start | Anesthesia Stop Time | | | Anesthesiologist | Time | | + + + + + | Bilateral | Vladislav Ruiz | 12/10/17 0944 | 12/10/17 1016 | | Myringotomy w/ | MD Epifanio | | | | Ventilation Tube | [...] Airway | Placement Date: 12/10/17; | 12/10/17 100 by | 12/10/17 1045 by | | | Placement Time: 1001 (created via | Vladislav Ruiz | Rosina Eid RN | | | procedure documentation); Mask | MD Epifanio | | | | Ventilation: EZ; Attempts: [...] encounter OR Notes Anesthesia Postprocedure Evaluation - Vladislav Godfrey MD - 12/10/2017 11:16 AM PSTFo rmatting of this note might be different from the original. ANESTHESIA POSTANESTHESIA EVALUATION Myesha Hastings 37 y.o. female 1980 [id number] Procedure(s) Bilateral Myringotomy w/ Ventilation Tube Insertion [...] SpO2: 96% 96% 97% Electronically signed by Vladislav Godfrey MD 12/10/2017 11:16 [facility] MD a t 12/10/2017 11:16 AM PSTAnesthesia Procedure Notes - Vladislav Godfrey MD - 12/10/2017 10:00 AM PSTAssociated [...] sounds and carbon dioxide detection Performing provider: VLADISLAV GODFREY Comments: Large propofol dose needed with masking to deepen level of anesthesia prior to LM A placement. Atraumatic LMA placement with quality seat and seal. Electronically Signed by: Vladislav Godfrey MD ESig date/time: 12/10/2017 10:00 nesthesia Prep rocedure Evaluation - Vladislav Godfrey MD - 12/10/2017 9:44 AM PST ANESTHESIA PREANESTHESIA EVALUATION Myesha Hastings 37 y.o. female 1980 [id number] Procedure(s): Bilateral Myringotomy w/ Ventilation Tube Insertion [...] to proceed. PARQ. LMA. Electronically Signed by: Vladislav Godfrye MD ESig date/time: 12/10/2017 9:42 documented in t his encounter Plan of Treatment +--------+ + + + + | Date | Type | Specialty | Care Team | Description | +--------+ + + + + | 05/10/ | Virtual | Gastroenterology | Gema Cardona | | | 2020 | Office | | [address] | | | | Visit | | [place] [address] | | | | | | [phone] | | | | | | | [...] Performed At | + + + | Vladislav Godfrey MD 12/10/2017 10:01 Anesthesia Airway | [...] sounds and carbon dioxide detection Performing provider: EPIFANIO | | | VLADISLAV RUIZ Comments: Large propofol dose needed with masking | | | to deepen level of anesthesia prior to LMA placement. Atraumatic | | | LMA placement with quality seat and seal. Electronically | | | Signed by: Vladislav Godfrey MD | | | ESig date/time: 12/10/2017 10:00 | | + + + + + | Procedure Note | + + | Vladislav Godfrey MD - 12/10/2017 10:00 AM PST [...] and carbon dioxide | | detectionPerforming provider: VLADISLAV GODFREYComments: Large propofol dose needed | | with masking to deepen level of anesthesia prior to LMA placement.Atraumatic LMA | | placement with quality seat and seal.Electronically Signed by: Vladislav Godfrey MD | | ESig date/time: 12/10/2017 10:00 | |Trauma: none | |Tube placement verification: bilateral chest rise, equal bilateral breath sounds and carbon dioxide detection | |Performing provider: VLADISLAV GODFREY | | | |Comments: Large propofol dose needed with masking to deepen level of anesthesia prior to LM A placement. | | | |Atraumatic LMA placement with quality seat and seal. | | | | | |Electronically Signed by: Vladislav Godfrey MD ESi date/time: 12/10/2017 10:00 | | | + [...] Intravenous, PRN, Starting Fri | | 18 9:54 | | | [...] | | | | | Anxiety, Starting 12/10/17 at | | AM PST | | | | | 0944, Anesthesia Intra-op | | | | | | + +-------+ +------+---+---+ +---+---+ | | | +---+---+ + +-------+ +------+---+---+ | ondansetron (ZOFRAN) injection | Given | 12/11/19 | 4 mg | | | | Intravenous, PRN, Nausea, | | 18 9:59 | | | | | Vomiting, Starting 12/10/17 at | | AM PST | | | | | 0959, Anesthesia Intra-op | | | | | | + +-------+ +------+---+---+ +---+---+ | | | +---+---+ + +-------+ +--------+---+---+ | propofol (DIPRIVAN) injection | Given | 12/11/19 | 100 mg | | | | Intravenous, PRN, Starting Wed | | 18 9:55 | | | [...]
--- OUTSIDE RECORDS SUMMARY | ~2020-04-29 | XMS | Encounter Summary ---
Demographics + + + | Address | [address] [address] | | | [place] [address] | + + + | Home Phone | | + + + | Preferred Language | Unknown | + + + | Marital Status | Single | + + + | Alevism Affiliation | Unknown | + + + | Race | Unknown | + + + | Ethnic Group | Unknown | + + + Author + + + | Author | [facility] | | | and [place]te[place] | + + + | Organization | [facility] | | | and [place] | [...] Team Providers + +------+ + | Care Metal Products Viewer Name | Role | Phone | + +------+ + PCP | Unavailable | + +------+ + Encounter Details +--------+ + + + + | Date | Type | Department | Care Team | Description | +--------+ + + + + | 01/29/ | Hospital | [facility] GENERIC IP | Conversion | Chest pain, | | 2016 | Encounter | CONVERSION DEP [address] | Transaction, | unspecified chest | | | | [address] | Provider Unknown | pain type | | | | [place], [place] | | | | | | [address] | (Fax) | | | | | [phone] | | | +--------+ + + + [...] | | | | Visit | | [place] [address] | | | | | | [phone] | | | | | | | [...] for this | | | e | 9:36 AM | | procedure are in the | | | | PDT | | results section. | + +--------+ + + + documented in this encounter Results XR Chest 1 Vw (01/30/2016 9:36 AM PDT) + + | Specimen | + + | | + + + + + | Narrative | Performed At | + + + | This is a non-reportable procedure without a radiologist report and | | | is used for image storage only | | + + + + + | Procedure Note | + + | Beka Noel Conversion - 05/18/2019 6:30 PM PDT This is a non-reportable procedure | | without a radiologist report and isused for image storage only | + + documented in this encounter Visit Diagnoses + + | Diagnosis | + + | Chest pain, unspecified chest pain type | + + documented in this encounter"
--- OUTSIDE RECORDS SUMMARY | ~2020-04-29 | XMS | Encounter Summary ---
Demographics + + + | Address | [address] [facility] [address] | | | [place] [address] | + + + | Home Phone | | + + + | Preferred Language | Unknown | + + + | Marital Status | Single | + + + | Bahai Affiliation | Unknown | + + + | Race | Unknown | + + + | Ethnic Group | Unknown | + + + Author + + + | Author | [facility] | | | and [place] | + + + | Organization | [facility] | | | and [place]te[place] [...] Team Providers + +------+ + | Care Security Operations Specialist Name | Role | Phone | [...] | | ble vomiting | BLVD | [place], [place] | | | | | with nausea | [place] | [address] | | | | | Procedures | [address] | Phone: | | | | | NM Gastric | Phone: | [phone] | | | | | Emptying | [phone] | Fax: | | | | | | Fax: | [phone] | | | | | | [phone] | | +--------+--------+ + + + + [...] | | ble vomiting | BLVD | [place], [place] | | | | | with nausea | [place] | [address] | | | | | Procedures | [address] | Phone: | | | | | NM Gastric | Phone: | [phone] | | | | | Emptying | [phone] | Fax: | | | | | | Fax: | [phone] | | | | | | [phone] | | +--------+--------+ + + + + Encounter Details +--------+ + + + + | Date | Type | Department | Care Team | Description | +--------+ + + + + | 04/03/ | Hospital | [facility] | Ambrose Lan | Epigastric pain; | | 2019 | Encounter | [facility] | MD Abhilash [address] | Non-intractable | | | | [address] | [place] [address] | vomiting with nausea | | | | [address] | [phone] | | | | | [place], [place] | | | | | | [address] | | | | | | [phone] | | | +--------+ + + + [...] | 2019 | 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, CATALOGUE AND SPECIAL PRODUCTS MANAGER [address] | | | | Visit | | [place] [address] | | | | | | [phone] | | | | | | | [...] Procedure Note | + + | Bert, [id number] - 04/03/2020 12:38 PM PDT | | [...]
--- OUTSIDE RECORDS SUMMARY | ~2020-04-29 | XMS | Encounter Summary ---
Demographics + + + | Address | [address] [facility] [address] | | | [place] [address] | + + + | Home Phone | | + + + | Preferred Language | Unknown | + + + | Marital Status | Single | + + + | Restorationism Affiliation | Unknown | + + + | Race | Unknown | + + + | Ethnic Group | Unknown | + + + Author + + + | Author | [facility] | | | and [place] | + + + | Organization | [facility] | | | and [place]te[place] [...] Team Providers + +------+ + | Care Groundskeeper Name | Role | Phone | + +------+ + | Hiro Noble MD | PCP | | + +------+ + Reason for Visit +--------+--------+ + | Reason | Onset | Comments | | | Date | | +--------+--------+ + | Other | 02/08/ | COVID19 TESTING PRE-OP | | | 2020 | | +--------+--------+ + Encounter Details +--------+ + + + + | Date | Type | Department | Care Team | Description | +--------+ + + + + | 02/08/ | Telephone | [facility] | Ambrose Lan | Other (COVID19 | | 2020 | | GASTROENTEROLOGY | MD Abhilash [address] | TESTING PRE-OP) | | | | [address] | [place] [address] | | | | | [place], [place] | [phone] | | | | | [address] | | | | | | [phone] | | | +--------+ + + + [...] Miscellaneous Notes Telephone Encounter - Cyndie Covington, Camp Coordinator - 02/09/2020 10:55 AM PDTCall ed pt to inform her that we are requesting that she get tested for COVID19 sometime this wee k prior to the procedure. She states she absolutely cannot get this done, as she already had trouble getting a ride for the procedure itself. Informed my agency manager and she stated she bianca hicks let the hospital staff done. Thanks mvd documented in this encounter Plan of Treatment +--------+ + + + + | Date | Type | Specialty | Care Team | Description | +--------+ + + + + | 05/10/ | Virtual | Gastroenterology | Gema Cardona | | 2019 | Office | | [address] | | | | Visit | | [place] [address] | | | | | | [phone] | | | | | | | | +--------+ + + + + documented as of this encounter Visit Diagnoses Not on filedocumented in this encounter"
--- OUTSIDE RECORDS SUMMARY | ~2020-04-29 | XMS | Encounter Summary ---
Demographics + + + | Address | [address] [facility] [address] | | | [place] [address] | + + + | Home Phone | | + + + | Preferred Language | Unknown | + + + | Marital Status | Single | + + + | Buddhism Affiliation | Unknown | + + + | Race | Unknown | + + + | Ethnic Group | Unknown | + + + Author + + + | Author | [facility] | | | and [place]te[place] | + + + | Organization | [facility] | | | and [...] Team Providers + +------+ + | Care Door Machine Operator Name | Role | Phone [...] + + | 04/04/ | Telephone | [facility] | Ambrose Lan | Results | | 2019 | | GASTROENTEROLOGY | MD Abhilash [address] | | | | | [address] | [place] [address] | | | | | [place], [place] | [phone] | | | | | [address] | | | | | | [phone] | | | +--------+ + + + [...] Miscellaneous Notes Telephone Encounter - Cyndie Covington Rand Butter - 04/04/2020 11:17 AM PDTCall ed pt and informed her of results. Patient verbalized understanding. Thanks mvd Electronical ly signed by Sabrina Harris Assistant at 04/04/2020 11:18 AM PDTTelephone Enco unter [...] | Office | | [address] | | | | Visit | | [place] [address] | | | | | | [phone] | | | | | | | | +--------+ + + + + documented as of this encounter Visit Diagnoses Not on filedocumented in this encounter"
--- OUTSIDE RECORDS SUMMARY | ~2020-04-29 | XMS | Encounter Summary ---
Demographics + + + | Address | [address] | | | [place] [address] | + + + | Home Phone | | + + + | Preferred Language | Unknown | + + + | Marital Status | Single | + + + | Buddhism Affiliation | Unknown | + + + | Race | Unknown | + + + | Ethnic Group | Unknown | + + + Author + + + | Author | [facility] | | | and [place]te[place] | + + + | Organization | [facility] | | [...] Team Providers + +------+ + | Care Diagnostic Cardiac Sonographer Name | Role | Phone | + [...] + + | 11/28/ | Documentati | [facility] | Blane Dickerson, | Other (NO SHOW NEW | | 2019 | on | GASTROENTEROLOGY | Forepart Rounder | PATIENT APPT | | | | [address] | | 11/28/2019 WITH | | | | [facility] | | [facility] | | | | [address] | | CLINIC) | | | | [phone] | | | +--------+ + + + [...] 2019 | Office | | [address] | | | | Visit | | [place] [address] | | | | | | [phone] | | | | | | | | +--------+ + + + + documented as of this encounter Visit Diagnoses Not on filedocumented in this encounter"
--- OUTSIDE RECORDS SUMMARY | ~2020-04-29 | XMS | Encounter Summary ---
Demographics + + + | Address | [address] [facility] [address] | | | [place] [address] | + + + | Home Phone | | + + + | Preferred Language | Unknown | + + + | Marital Status | Single | + + + | Gnosticist Affiliation | Unknown | + + + | Race | Unknown | + + + | Ethnic Group | Unknown | + + + Author + + + | Author | [facility] | | | and [place] | + + + | Organization | [facility] | | | and [place] | + + + | Address | Unknown | + + + | Phone | Unavailable | + + + Support + + +---------+ + | Name | Relationship | Address | Phone | + + +---------+ + | Pito Macy | ECON | Unknown | | + + +---------+ + | Cramen Matta | ECON | Unknown | | + + +---------+ + Care Team Providers + +------+ + | Care Retoucher Photoengraving Name | Role | Phone | + [...] | | ble vomiting | [address] | [place], [place] | | | | | with nausea | [place], [place] | [address] | | | | | Procedures | [id number] | Phone: | | | | | NM Gastric | Phone: | [phone] | | | | | Emptying | [phone] | Fax: | | | | | | Fax: | [phone] | | | | | | [phone] | | +--------+--------+ + + + + Encounter Details +--------+ + + + + | Date | Type | Department | Care Team | Description | +--------+ + + + + | 04/03/ | Hospital | [facility] | Ambrose Lan | | | 2020 | Encounter | [facility] | MD Abhilash [address] | | | | | [address]IC[address] | [place] [address] | | | | | [address] | [phone] | | | | | [place], [place] | | | | | | [address] | | | | | | [phone] | | | +--------+ + + + [...] | | | | Visit | | [place] [address] | | | | | | [phone] | | | | | | | [...] Procedure Note | + + | Bert, [id number] - 04/03/2020 12:38 PM PDT | | [...]
--- OUTSIDE RECORDS SUMMARY | ~2020-04-29 | XMS | Encounter Summary ---
Demographics + + + | Address | [address] [facility] [address] [facility] [address] | | | [place] [address] | + + + | Home Phone | | + + + | Preferred Language | Unknown | + + + | Marital Status | Single | + + + | Buddhist Affiliation | Unknown | + + + | Race | Unknown | + + + | Ethnic Group | Unknown | + + + Author + + + | Author | [facility] | | | and [place] | + + + | Organization | [facility] | | | and [place] [...] Team Providers + +------+ + | Care Ammonia Still Operator Name | Role | Phone | [...] | pain type | | | | [place], [place] | | | | | | [address] | (Fax) | | | | | [phone] | | | +--------+ + + + [...] | | | | Visit | | [place] [address] | | | | | | [phone] | | | | | | | [...]
--- OUTSIDE RECORDS SUMMARY | ~2020-04-29 | XMS | Encounter Summary ---
Demographics + + + | Address | [address] [facility] [address] | | | [place] [address] | + + + | Home Phone [...] | Author | [facility] | | | and [place] | + + + | Organization | [facility] [...] | | + + +---------+ + | Carmenchayito Matta | ECON | Unknown | | + + +---------+ + Care Team Providers + +------+ + | Care Gas Regulator Repairer Name | Role | Phone | + +------+ + PCP | Unavailable | + +------+ + Encounter Details +--------+ + + + + | Date | Type | Department | Care Team | Description | +--------+ + + + + | 01/29/ | Hospital | [facility] GENERIC IP | Conversion | Pain | | 2016 | Encounter | CONVERSION [address] | Transaction, | | | | | [address] | Provider Unknown | | | | | [place], [place] | [phone] | | | | | [address] | (Fax) | | | | | [phone] | | | +--------+ + + + [...] | | | | Visit | | [place] [address] | | | | | | [phone] | | | | | | | [...] Note | + + | Beka Noel Ivanna - 05/18/2019 6:30 PM PDT This is a non-reportable procedure | | without a radiologist report and isused for image storage only | + + documented in this encounter Visit Diagnoses + + | Diagnosis | + + | Pain Generalized pain | + + documented in this encounter"
--- OUTSIDE RECORDS SUMMARY | ~2020-04-29 | XMS | Encounter Summary ---
Demographics + + + | Address | [address] [facility] [address] | | | [place] [address] | + + + | Home Phone | | + + + | Preferred Language | Unknown | + + + | Marital Status | Single | + + + | Voodoo Affiliation | Unknown | + + + | Race | Unknown | + + + | Ethnic Group | Unknown | + + + Author + + + | Author | [facility] | | | and [place] | + + + | Organization | [facility] | | | and [place] [...] Team Providers + +------+ + | Care Furnace Process Plant Operator Name | Role | Phone | [...] + + | 12/10/ | Hospital | [facility] | Reji Martin, | | | 2018 | Encounter | MED CTR OR INTRA OP | [address] | | | | | [address] | [address] [place], | | | | | [place], [place] | [place] [address] | | | | | [address] | [phone] | | | | | [phone] | | | +--------+ + + + [...] You can't be awakened Date Last Reviewed: 07/21/201619995924-3993 [employer]. [address] [place] [address]. All righ ts reserved. This information is [...] Reji Martin MD - 12/10/2017 10:[address] [address] OPERATIVE REPORT REJI MARTIN MD Patient: MYESHA HASTINGS Admitting: REJI Ruiz VERONICA MR #: [id number] LOC: PT TYPE: Adm Date: 12/10/2017 : [...] Transcribed on 12/10/2017 10:40:51 by sherie job# [id number] Confirmation #: [id number] cc: SHARON JAIME PA-C A M PSTBrief Op Note - Reji Martin MD - 12/10/2017 10:12 AM PSTFormatting of this note m ight be different from the original. Brief Operative Note Myesha Hastings 37 y.o. female 1980 [id number] Proc. Date 12/10/2017 Preop Dx Bilateral otitis media, unspecified otitis media type [H66.93] Postop Dx same Procedure Bilateral Myringotomy w/ Ventilation Tube Insertion Anesthesia General Surgeon Reji Martin MD - Primary Brim Pouncer Machine Operator EBL less than 50 mL Findings Complications none Specimens * No specimens in log * Drains Electronically signed by: Reji Martin MD 12/10/2017 10:12 [facility] by Reji Martin MD at 06/2018 10:12 AM PSTInterval H&P Note (unlinked) - Reji Martin MD - 12/10/2017 9:38 A M [facility] SURGICAL INTERIM HISTORY [...] 30 days ago. Electronically signed by: Reji Maritn, 12/10/2017 9:38 [facility] documented in this e ncounter Plan of Treatment +--------+ + + + + | Date | Type | Specialty | Care Team | Description | +--------+ + + + + | 05/10/ | Virtual | Gastroenterology | Gema Cardona | | | 2019 | Office | | [address] | | | | Visit | | [place] [address] | | | | | | [phone] | | | | | | | [...] | 1.010, 1.015, | | | | [place], | | 1.020, 1.025 | | | [...] [address] | [place] | [phone] | | [facility] | | [address] | | | - LABORATORY | | [...] Shortness of Breath, Starting | | | 12/10/17 at 1006, For 1 dose, | | [...] glucose < 50, | | | Starting 12/10/17 at 0813, | | | Repeat in [...] if SBP <90., Starting | | | Wed12/10/17 at 1006, Hold if HR > | | | 100. Maximum total dose 20mg., | | | Recovery/Phase I | | + +---+ | | | + +---+ | fentaNYL (PF) injection 25-50 | | | mcg 25-50 mcg, Intravenous, | | | EVERY 5 MIN PRN, Pain, Starting | | | Wed12/10/17 at 1006, Maximum total | | | [...] DBP > 100, | | | Starting 12/10/17 at 1006, Hold | | | if [...] DBP > 100, Starting | | | 12/10/17 at 1006, Hold if HR < | [...]
--- OUTSIDE RECORDS SUMMARY | ~2020-04-29 | XMS | Encounter Summary ---
Demographics + + + | Address | [address] [facility] [address] | | | [place] [address] | + + + | Home Phone | | + + + | Preferred Language | Unknown | + + + | Marital Status | Single | + + + | Gnosticism Affiliation | Unknown | + + + | Race | Unknown | + + + | Ethnic Group | Unknown | + + + Author + + + | Author | [facility] | | | and [place] | + + + | Organization | [facility] | | | and [...] Team Providers + +------+ + | Care Animal Shelter Clerk Name | Role | Phone | [...] | pain type | | | | [place], [place] | | | | | | [address] | (Fax) | | | | | [phone] | | | +--------+ + + + [...] | | | | Visit | | [place] [address] | | | | | | [phone] | | | | | | | [...]
--- OUTSIDE RECORDS SUMMARY | ~2020-04-29 | XMS | Encounter Summary ---
Demographics + + + | Address | [address] [facility] [address] | | | [place] [address] | + + + | Home Phone [...] + + + | Author | [facility] | | | and [place] | + + + | Organization | [facility] | | | and [place] [...] Team Providers + +------+ + | Care Quality Nurse Name | Role | Phone | + [...] + + | 12/10/ | [facility] | [facility] | Reji Martin, | Bilateral | | 2018 | | [facility] OR [facility] OP | MD [address] | Myringotomy w/ | | | | [address] | [address] [place], | Ventilation Tube | | | | [place], [place] | [place] [address] | Insertion | | | | [address] | [phone] | | | | | [phone] | | | +--------+---------+ + + + [...] You can't be awakened Date Last Reviewed: 07/21/201619994518-7503 [email or web address]. [address] [place] [address]. All righ ts reserved. This information is [...] Reji Martin MD - 12/10/2017 10:[address] [address] OPERATIVE REPORT REJI MARTIN MD Patient: MYESHA HASTINGS Admitting: REJI MARTIN MR #: [id number] LOC: PT TYPE: Adm Date: 12/10/2017 : [...] Transcribed on 12/10/2017 10:40:51 by sherie job# [id number] Confirmation #: [id number] cc: SHARON JAIME PA-C A M PSTBrief Op Note - Reji Martin MD - 12/10/2017 10:12 AM PSTFormatting of this note m ight be different from the original. Brief Operative Note Myesha Hastings 37 y.o. female 1980 [id number] Proc. Date 12/10/2017 Preop Dx Bilateral otitis media, unspecified otitis media type [H66.93] Postop Dx same Procedure Bilateral Myringotomy w/ Ventilation Tube Insertion Anesthesia General Surgeon Reji Martin MD - Primary Injection Molding Machine Offbearer EBL less than 50 mL Findings Complications none Specimens * No specimens in log * Drains Electronically signed by: Reji Martin MD 12/10/2017 10:12 [facility] Reji Martin MD at 06/2018 10:12 AM PSTInterval H&P Note (unlinked) - Reji Martin MD - 12/10/2017 9:38 A M [facility] SURGICAL INTERIM HISTORY AND [...] Electronically signed by: Reji Martin, 12/10/2017 9:38 [facility] documented in this e ncounter Plan of Treatment +--------+ + + + + | Date | Type | Specialty | Care Team | Description | +--------+ + + + + | 05/10/ | Virtual | Gastroenterology | Gema Cardona | | | 2019 | Office | | SUZETTE Mcdermott [address] [facility] | | | | Visit | | [place] [address] | | | | | | [phone] | | | | | | | [...] | 1.010, 1.015, | | | | [place], | | 1.020, 1.025 | | | [...] ST. | [address] | [place], [place] | [phone] | | [facility] | | [address] | | | - LABORATORY | | [...] ONCE PRN, Wheezing, | | | Starting 12/10/17 at 0813, For | | | 1 [...] | | | | solution PRN, Starting Fri | | 18 9:59 | | | [...]
--- OUTSIDE RECORDS SUMMARY | ~2020-04-29 | XMS | Encounter Summary ---
Demographics + + + | Address | [address] | | | [place] [address] | + + + | Home Phone | | + + + | Preferred Language | Unknown | + + + | Marital Status | Single | + + + | Faith Affiliation | Unknown | + + + | Race | Unknown | + + + | Ethnic Group | Unknown | + + + Author + + + | Author | [facility] | | | and [place] | + + + | Organization | [facility] | | | [...] Team Providers + +------+ + | Care Skein Bleacher Name | Role | Phone | + +------+ + PCP | Unavailable | + +------+ + Encounter Details +--------+ + + + + | Date | Type | Department | Care Team | Description | +--------+ + + + + | 01/29/ | Hospital | [facility] | Sadia Guillory | ARDS (adult | | 2016 - | Encounter | MEDICAL CENTER | MD Joseph [address] | respiratory distress | | | | INTENSIVE CARE UNIT | [address] [place], [place] | syndrome) ([facility]); | | 01/30/ | | [address] | [address] | Septic shock ([facility]); | | 2015 | | [place], [place] | | Acute respiratory | | | | [address] | | failure with hypoxia | | | | [phone] | | and hypercapnia | | | | | | ([facility]); CHIRAG (acute | | | | | | kidney injury) | | | | | | ([facility]); Metabolic | | | | | [...] Discharge Summaries by Daniel Velez MD at 01/31/16800 Author: Daniel Velez MD Service: Manager Decision Support Author Type: Physician Filed: 01/31/16814 Date of Service: 01/31/16800 Status: Signed Vibrator Equipment Tester: Daniel Velez MD (Physician) [facility] Service: Manager Decision Support Discharge Summary Myesha Hastings 35 y.o. Date [...] not on oral hypoglycemics. Initially presented to [facility] om 01/29/16 for a 5 day history [...] left subclavian placed.. HOSPITAL COURSE Admitted to [facility] ICU (01/29). HD line and neil [...] not done due to h emodynamic instability. [facility] was contacted for VV vs VA ECMO for severe ARDS with mulitorgan failure and refractory shock. Latest ABG 01/31/16 @ 0629 7.17 and lactate of 8.6 Daughter Luisa and [...] acidosis Toxic metabolic encephalopathy Disposition: Transfer to [facility] for ECMO Condition on Discharge: critical Code Status: Full Code Primary Care Physician: Jodee Velez MD 01/31/2016 8:01 AM documented in this encounter Progress Notes Conversion Transaction, Provider Unknown - 01/31/2016 5:49 PM PDTFormatting of this note m ight be different from the original. Nurse Progress Note by Ba Plummer RN at 01/31/161748 Author: Ba Plummer RN Service: (none) Author Type: Registered Nurse Filed: 01/31/161931 Date of Service: 01/31/161748 Status: Signed Vibrator Equipment Tester: Ba Plummer RN (Registered Nurse) Received report [...] a team would be coming from [facility] in [place], [place]. Rec eived call at approximately 0815 from nurse named Bailey to receive report. Bailey stated E POPPED CORN OVEN ATTENDANT physician requesting patient receive 10mg vitamin K IV, 30 mcg Desmopressin IV and 2 uni ts of FFP before team arrival. Also request 2 units of platelets and 2 extra units of FFP o n hand. Informed deployment specialist and all requested items ordered. Medications and [...] PRBC and these are given at 1530. validation leader requests any previous antibiotics to b e given. Patient receives ordered doses of Zosyn, Vancomycin and Levaquin. validation leader cons ults with deployment specialist and possible plan of SLED is discussed. Right IJ dialysis catheter katie bruna at 1515. At that time, steam shovel runner met with family members to discuss patients poor pro gnosis and decline in status. Family meeting with [facility] chloe as well. validation leader reque sting family consider withdrawing care [...] Progress Notes by Timoteo Iraheta at 01/31/16 4522 Author: Timoteo Iraheta Service: (none) Author Type: Drip Box Tender Filed: 01/31/16 1504 Date of Service: 01/31/16 1456 Status: Signed Vibrator Equipment Tester: Timoteo Iraheta () Report received from Chaplain Kang. Intro self to family & ECMO steam shovel runner. Assist famil y in receiving status updates. [...] rallied, she would be transporte d to [place] if she stabilized. onver rubi Transaction, Provider Unknown - 01/31/2016 1:49 PM PDT Progress Notes by Keyona Kang at 01/31/16 4980 Author: Keyona Kang Service: (none) Author Type: Drip Box Tender Filed: 01/31/16 1350 Date of Service: 01/31/16 1349 Status: Signed Vibrator Equipment Tester: Keyona Kang () Met with pt family - 3 sisters who arrived to offer support from [place]. Were able to g et a better description of meds and medical picture. All intend to travel to [place] to be with their sister. All are intact and realistic. Excellent care given to pt by the staff. Chaplain Vanna OBRIEN Lizabeth Mae OTR/L - 01/31/2016 10:30 AM PDTFormatting of this note might be different from th sindy original. Therapy Progress Note by ENRIQUE Mary/Martha at 01/31/16 1030 Author: ALBERTO Mary Service: (none) Author Type: Occupational Therapist Filed: 01/31/16 1044 Date of Service: 01/31/16 1030 Status: Signed Vibrator Equipment Tester: ALBERTO Mary (Occupational Therapist) 01/31/16 1030 OT [...] PDT Case Management by DMITRIY Glaser at 01/31/16 0871 Author: DMITRIY Glaser Service: (none) Author Type: Packaging Technician Filed: 01/31/16 0924 Date of Service: 01/31/16 0849 Status: Signed Vibrator Equipment Tester: DMITRIY Glaser (Packaging Technician) Pt is being transferred to [facility] in [place] so that she can obtain ECMO. Daughter Jaleesa ([phone]) informed me that pt is still , though . I c alled pt's who lives in [place] (Jamaal Hastings - [phone]) who gave consent for tra nsferKinsey Lazcano understands that pt is critically ill and [...] Author: Keyona Kang Service: (none) Author Type: Drip Box Tender Filed: 01/31/1630 Date of Service: 01/31/16723 Status: Signed Vibrator Equipment Tester: Keyona Kang (Drip Box Tender) Met with dtr Luisa and introduced health underwriter role. Jaleesa states she has limited support here int he [place] but an aunt may come by. Her dad and other siblings - of which she i s the oldest live in [place]. Understandably distraught, and because of how sick Alive is, Oscar ernst has consented to moving her mom to [...] reconnect with her later this am. Chaplain Vanna OBRIEN onver rubi Transaction, Provider Unknown - 01/31/2016 6:22 AM PDT Progress Notes by Mohsen Emerson RN at 01/31/16621 Author: Mohsen Emerson RN Service: (none) Author Type: Registered Nurse Filed: 01/31/16622 Date of Service: 01/31/16621 Status: Signed Vibrator Equipment Tester: Mohsen Emerson RN (Registered Nurse) Pt continues to by hypotensive on epi at 20, levo at 40, vaso at 0.06, and cliff at 180, one amp bicarb given, will check ABG. HR in 150s. Daniel Lim MD - 01/31/2016 5:28 AM PDT Progress Notes by Daniel Velez MD at 01/31/16527 Author: Daniel Velez MD Service: Manager Decision Support Author Type: Physician Filed: 01/31/16 0553 Date of Service: 01/31/16527 Status: Signed Vibrator Equipment Tester: Daniel Velez MD (Physician) [facility] Service: Manager Decision Support Progress Note Myesha Hastings 35 y.o. Hospital Day: LOS: 1 day Post-Op Day: * No surgery found * Consulting Physicians Treatment Team: Consulting Physician: Damion Johns MD Admitting Provider: Sadia Guillory MD SUBJECTIVE Patient Summary: The patient is a 35 y.o. female with significant past medical history of DM 2 off insulin and not on oral hypoglycemics. Initially [facility] 01/29/16 for a 5 day history [...] of 6. ABG prior to transfer was 7.14/10 and intuba [place] for impending respiratory failure. [...] cisatracurium in NS 0.4 mg/mL 1 mcg/kg/min (01/31/16333) dexmedetomidine in NS Stopped (01/31/16310) dextrose Stopped (01/31/16311) DOBUTamine in D5W 2 mg/mL Stopped (01/31/16 3825) EPINEPHrine in D5W 32 mcg/mL 10 mcg/min (01/31/16444) fentaNYL in NS 5 mcg/mL 150 mcg/hr (01/31/16447) insulin regular 1 unit/mL 1.4 Units/hr (01/30/16 3879) midazolam in NS 4 mg/hr (01/31/16333) norepinephrine in D5W 64 mcg/mL 40 mcg/min (04/29/16 0448) phenylephrine in NS 320 mcg/mL 160 mcg/min (01/31/16 0447) sodium chloride (IV) 30 mL/hr at 01/30/16 1534 vasopressin in NS 0.4 unit/mL 0.06 Units/min (01/31/16 0312) OBJECTIVE VITAL SIGNS Temp: [98 F (36.7 C)-100.9 F (38.3 C)] 100.9 F (38.3 C) Heart Rate: [111-152] 145 Resp: [20-35] 30 BP: (70-151)/(40-89) 84/49 mmHg FiO2 : [70 %-100 %] 100 % CVP (mean): [10 mmHg-118 mmHg] 20 mmHg (01/30 0515) PA catheter wave form: [-] Intake/Output Summary [...] ARDS (adult respiratory distress syndrome) ([facility]) Active Problems: Septic shock ([facility]) Pneumonia of both lungs due to influenza A virus Pneumonia of both lower lobes due to influenza A virus CHIRAG (acute kidney injury) ([facility]) Leucocytosis Acute respiratory failure with hypoxia and hypercapnia ([facility]) Metabolic acidosis Lactic acidosis Toxic metabolic [...] ght. Very high mortality. Discussed case with [facility] MICU deployment specialist for ECMO. No beds available at their [...] Progress Notes by Mohsen Emerson RN at 01/31/16 5573 Author: Mohsen Emerson RN Service: (none) Author Type: Registered Nurse Filed: 01/31/16 0699 Date of Service: 01/31/16456 Status: Signed Vibrator Equipment Tester: Mohsen Emerson RN (Registered Nurse) After dialysis [...] by Dr. Velez. Discussed pt status wi dtr Jaleesa. Damion Mcghee MD - 01/30/2016 6:36 PM PDTFormatting of this note might be different from the or iginal. Progress Notes by Damion Johns MD at 01/30/16 3431 Author: Damion Johns MD Service: Nephrology Author Type: Physician Filed: 01/30/162158 Date of Service: 01/30/161835 Status: Signed Vibrator Equipment Tester: Damion Johns MD (Physician) I came back to see her on TOOL GRINDER SET UP OPERATOR GEAR. Dialysis access is working well. Electrolytes are Ok. She continues to be in shock. Plan for 8 hrs of SLED with cautious monitoring of her electrolytes and plan daily SLED for now depending on her electrolyte balance. Discussed with Dr. Kahlil Johns. MD Dr. Hickman will assume nephrology service as of 8 am tomorrow. arSadia de leon MD - 01/30/2016 2:39 PM PDT Progress Notes by Sadia Guillory MD at 01/30/16 1439 Author: Sadia Guillory MD Service: Manager Decision Support Author Type: Physician Filed: 01/30/16 1443 Date of Service: 01/30/16 143 Status: Signed Vibrator Equipment Tester: Sadia Guillory MD (Physician) [facility] Service: Manager Decision Support Progress Note Sepsis Exam Note Myesha Jesika Archuletas 35 y.o. Temp: [98 F (36.7 C)-100.4 [...] Results Procedure Component Value Units Date/Time Ammonia [[id number]] (Abnormal) Collected: 01/30/16 1406 Specimen Information: Blood Updated: 01/30/16 1439 AMMONIA 106 (H) umol/L Calcium, ionized [[id number]] (Abnormal) Collected: 01/30/16 1348 Specimen Information: Blood Updated: 01/30/16 1435 CA++ 0.98 (L) mmol/L pH 6.977 (L) Lactic acid, plasma [[id number]] (Abnormal) Collected: 01/30/16 1348 Specimen Information: Blood Updated: 01/30/16 1424 LACTIC ACID 3.4 (H) mmol/L Blood Culture Set 1 [[id number]] Collected: 01/30/16 1115 Specimen Information: Blood from Blood Line Draw Updated: 01/30/16 1420 Blood Culture Set 2 [[id number]] Collected: 01/30/16 1215 Specimen Information: Blood from Blood Line Draw Updated: 01/30/16 1420 Sputum culture [[id number]] Collected: 01/30/16 1120 Specimen Information: Sputum from Tracheal Aspirate Updated: 01/30/16 1411 , urine [[id number]] Collected: 01/30/16 1258 Specimen Information: Urine from Urine, Catheter Updated: 01/30/16 1318 Preg Test, Ur NEGATIVE POC arterial CG4+ [[id number]] (Abnormal) Collected: 01/30/16 1251 pH, Art 6.979 (LL) Updated: 01/30/16 1306 POC PCO2 50 (H) mmHg POC p02 65 (L) mmHg POC LACTATE 2.8 (H) mmol/L POC HCO3 12 (L) mmol/L POC TCO2 13 (L) mEq/L POC BASE DEFICIT 20 (H) mmol/L POC S02 78 (L) % POC FIO2 80 % POC COMMENTS Tidal Volume = 320 MRSA by PCR [[id number]] Collected: 01/30/16 1144 Specimen Information: Nasopharyngeal from Nasopharyngeal Culture Updated: 01/30/16 13 05 SOURCE NARES(NOSE) MRSA PCR NEGATIVE Procalcitonin [[id number]] (Abnormal) Collected: 01/30/16 1147 PROCALCITONIN 97.03 (H) ng/mL Updated: 01/30/16 1243 Pathologist consult [[id number]] Collected: 01/30/16 1147 Updated: 01/30/16 1232 CBC w/auto diff (reflex to manual) [[id number]] (Abnormal) Collected: 01/30/16 1147 Specimen Information: Blood [...] Estimate ADEQUATE MORPHOLOGY 4+ Basic metabolic panel [[id number]] (Abnormal) Collected: 01/30/16 1147 Specimen Information: Blood Updated: 01/30/16 1215 SODIUM 144 (H) mmol/L POTASSIUM 3.8 mmol/L CHLORIDE 118 (H) mmol/L CO2 13 (LL) mmol/L ANION GAP AGAP 18 mmol/L GLUCOSE 157 (H) mg/dL BUN 25 mg/dL CREATININE 2.3 (H) mg/dL BUN/CREAT 11 CALCIUM <5.0 (LL) mg/dL EGFR 26 (L) mL/min/1.73m2 Magnesium [[id number]] (Abnormal) Collected: 01/30/16 1147 Specimen Information: Blood Updated: 01/30/16 1215 MAGNESIUM 1.0 (L) mg/dL Hepatic function panel [[id number]] (Abnormal) Collected: 01/30/16 1147 TOTAL PROTEIN 3.1 (L) g/dL Updated: 01/30/16 1215 Albumin 1.0 (L) g/dL TBIL 1.2 mg/dL BILI, DIRECT 1.0 (H) mg/dL ALK PHOS 87 U/L AST 149 (H) U/L ALT 50 U/L Phosphorus [[id number]] (Abnormal) Collected: 01/30/16 1147 Specimen Information: Blood Updated: 01/30/16 1213 PHOSPHORUS 6.0 (H) mg/dL CPK [[id number]] (Abnormal) Collected: 01/30/16 1147 Specimen Information: Blood Updated: 01/30/16 1213 CPK 300 (H) U/L Lactic acid, plasma [[id number]] (Abnormal) Collected: 01/30/16 1115 Specimen Information: Blood Updated: 01/30/16 1211 LACTIC ACID 3.7 (H) mmol/L Sadia Guillory MD 01/30/2016 onversion Trans action, Provider Unknown - 01/30/2016 11:54 AM PDT Progress Notes by Hillary Adler RPH at 01/30/16 1154 Author: Hillary Adler RPH Service: (none) Author Type: Pharmacist Filed: 01/30/16 1158 Date of Service: 01/30/16 115 Status: Signed Vibrator Equipment Tester: Hillary Adler RPH (Pharmacist) Initiation of Vancomycin Pharmacy Dosing Myesha Hastings 35 y.o. female 1.6 m (5' 3") Weight=68.5kg per pharmacist at [facility] There is no weight on file to calculate BMI. No results found for: CREATININE Scr=2.1 Crcl~40ml/min (data from [facility]) Estimated CrCl : Creatinine clearance cannot be calculated (Unknown ideal weight.) Indications: Hospital Acquired Pneumonia Dose per Protocol: Loading Dose: Vancomycin 1250 mg (18.2mg/kg TBW) IV Q12H, for 2 doses, then Q 24 Hours. P atient received 1 gram Vancomycin at [facility] on 01/28 at 2014. No further dos es given at [facility] First Dose to be Given: 1230 Vancomycin Trough Due: 01/31 at 0001 (drawing level early in care renal function worsens) Goal Trough for Vancomycin: 15-20 mcg/mL Pharmacist: Hillary Adlre 01/30/2016 11:51 AM onver rubi Transaction, Provider Unknown - 01/30/2016 11:20 AM PDT Progress Notes by Reji Pineda RPH at 01/30/16 1120 Author: Reji Pineda RPH Service: (none) Author Type: Pharmacist Filed: 01/30/161119 Date of Service: 01/30/161119 Status: Signed Vibrator Equipment Tester: Reji Pineda RPH (Pharmacist) Clinical Pharmacy Note: Renal Monitoring Myesha Canchola Venkata 35 y.o. female Ht Readings from Last [...] 01/30/161105 Date of Service: 01/30/161105 Status: Signed Vibrator Equipment Tester: Chula Mancera RPH (Pharmacist) Zosyn Extended Infusion Initial Consult Myesha Archuletas 35 y.o. female CrCl cannot be calculated [...] 4 hours CrCl <10, HD, PD Follow [facility] Dosage Adjustments in Renal Dysfunction Protocol [...] H&P by Sadia Guillory MD at 01/30/16 4726 Author: Sadia Guillory MD Service: Manager Decision Support Author Type: Physician Filed: 01/30/16 5987 Date of Service: 01/30/16 1151 Status: Addendum Vibrator Equipment Tester: Sadia Guillory MD (Physician) Related Notes: Original Note by Sadia Guillory MD (Physician) filed at 01/30/[address] [facility] Service: Manager Decision Support Admission History & Physical Myesha Hastings 35 [...] not on oral hypoglycemics. Initially presented to [facility] om 01/29/16 for a 5 day history [...] ill with multi-organ failure, daughter updated at [facility] and over the phone. Code Status: Full Code Primary Care Physician: Jodee Jaime *Please bill 100 minutes of critical care time spent evaluating the patient, reviewing the data and formulating a plan exclusive of all other procedures. Sadia Guillory MD 01/30/2016 documented in th is encounter Procedure Notes Viki Hickman MD - 01/31/2016 9:36 AM PDT Procedures by Viki Hickman MD at 01/31/16 0936 Author: Viki Hickman MD Service: Nephrology Author Type: Physician Filed: 02/03/16 2106 Date of Service: 01/31/16935 Status: Signed Vibrator Equipment Tester: Viki Hickman MD (Physician) Procedures: 1. HEMODIALYSIS [...] kg/m2 | SpO2 91% General appearance: intubated; mech ventilated Head and ENT: Head is atraumatic. [...] by the ICU team. VIKI HICKMAN MD armoises, Sadia Ruiz MD - 01/30/2016 4:12 PM PDT . Procedures by Sadia Guillory MD at 01/30/16 150 Author: Sadia Guillory MD Service: Manager Decision Support Author Type: Physician Filed: 01/30/16 5550 Date of Service: 01/30/161611 Status: Signed Vibrator Equipment Tester: Sadia Guillory MD (Physician) Procedure Orders: 1. Central line [[id number]] ordered by Sadia Guillory MD at 01/30/16 1612 Post-procedure Diagnoses: 1. ARDS (adult respiratory distress syndrome) ([facility]) [J80] 2. Septic shock ([facility]) [A41.9, R65.21] 3. CHIRAG (acute kidney injury) ([facility]) [N17.9] 4. Metabolic acidosis [E87.2] [facility] Service: Manager Decision Support BEDSIDE PROCEDURE NOTE Central Line Date/Time: 01/30/2016 [...] verify the correct galileo ent, procedure, equipment, marketing support specialist and site/side marked as required. [...] Comments: Biopatch placed. Sadia Guillory MD 01/30/2016 Anila Shelton MD - 01/30/2016 12:19 PM PDTFormatting of this note might be different from the origina l. Procedures by Sadia Guillory MD at 01/30/16 9196 Author: Sadia Guillory MD Service: Manager Decision Support Author Type: Physician Filed: 01/30/16 1323 Date of Service: 01/30/16 1219 Status: Signed Vibrator Equipment Tester: Sadia Guillory MD (Physician) Procedure Orders: 1. Insert arterial line [[id number]] ordered by Sadia Guillory MD at 01/30/16 1319 Post-procedure Diagnoses: 1. ARDS (adult respiratory distress syndrome) (HCC) [J80] 2. Septic shock (HCC) [A41.9, R65.21] 3. Acute respiratory failure with hypoxia and hypercapnia (HCC) [J96.01, J96.02] [facility] Service: Manager Decision Support BEDSIDE PROCEDURE NOTE Insert Arterial Line Date/Time: 01/30/2016 1:19 PM Performed by: SADIA GUILLORY Authorized by: SADIA GUILLORY Consent: The procedure was performed in an emergent situation. Verbal consent not obtained. Written consent not obtained. Patient identity confirmed: arm band Time out: Immediately prior to procedure a "time out" was called to verify the correct galileo ent, procedure, equipment, marketing support specialist and site/side marked as required. [...] Consult* by Damion Johns MD at 01/30/16 5756 Author: Damion Johns MD Service: Nephrology Author Type: Physician Filed: 01/30/16 1638 Date of Service: 01/30/16 6553 Status: Signed Vibrator Equipment Tester: Damion Johns MD (Physician) - LOS: 0 days History Obtained From: chart review, Reason patient could not give history: intubated Myesha Hastings is a 35 y.o. woman whose PCP is Jodee Jaime. She carries a previous history of Dm2 but has been diet controlled and followed by the [facility] clinic. She is an ongoing smoker. She was transferred from [facility] where she presented with a 5 day history of acute respiratory illness with cough, shortness of breath and ruled in for influenza A and B. Along with that she apparently had nausea, vomiting, diarrhea and had reduced PO intake. There were apparently no sick contacts. On admission at [facility] from my review she had CHIRAG, metabolic acidosis and was treated with emp iric Abx initially. When she became worse today with increasing O2 requirements and shortness of breath she was transferred to [facility] where she was intubated in ICU. She [...] and there is no prior evaluation by social media intern befor e. 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 She has 2 sons [...] evaluation: Lab Results Component Value Date BUN 25 01/30/2016 CREATININE 2.3* 01/30/2016 EGFR 26* 01/30/2016 [...] gap metabolic acidosis. She needs emergent SLED. brazing furnace operator has been called and orders are being [...] profound shock, metabolic acidosis and needs emergent TOOL GRINDER SET UP OPERATOR GEAR as a l ifesaving measure. Time spent [...] charting completed later after rounds. Dictation software, [employer], used which may contain error for similar [...] in this en counter Plan of Treatment +--------+ + + + + | Date | Type | Specialty | Care Team | Description | +--------+ + + + + | 05/10/ | Virtual | Gastroenterology | Gema Cardona | | | 2019 | 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, ASSOCIATE PROGRAMMER ANALYST [address] [facility] | | | | Visit | | [place] [address] | | | | | | [phone] | | | | | | | [...] | | | | | performed at [facility];[address] | | | | | | [address];[place], [place] | | | | | | [address] | | | | + + + + + + + + | Specimen | + + | Blood specimen | | (specimen) | + + + +---------+ + + | Performing | Address | City/State/Zipcode | Phone Number | | Organization | | | | + +---------+ + + | EXTERNAL LAB | | | | + +---------+ + + Bianca YOON (01/31/2016 2:47 PM PDT) + + + [...] | | | | | performed at [facility];[address] | | | | | | [address];[place], [place] | | | | | | [address] | | | | + + + [...] + +---------+ + + External Lab: CBC (01/31/2016 2:47 PM PDT) + + + + + + | Component | Value | Ref Range | Performed | Pathologist | | | | | At | Signature | + + + + + + | WBC | 23.10 (H)Comment: | 3.80 - 11.00 | EXTERNAL | | | | Testing performed at | K/uL | LAB | | | | KM;[address];[place] [address] | | | | + + + + + + | Non- | 2.95 (L)Comment: Testing | 3.70 - 5.10 | EXTERNAL | | | Red Blood | performed at [facility];[address] | M/uL | LAB | | | Cells | [address];[place] | | | | | Counted | [id number] | | | | + + + + + + | Hemoglobin | 7.9 (L)Comment: Testing | 11.3 - 15.5 | EXTERNAL | | | | performed at [facility];[address] | g/dL | LAB | | | | [address];[place] | | | | | | [address] | | | | + + + + + + | Hematocrit, | 25.5 (L)Comment: Testing | 34.0 - 46.0 % | EXTERNAL | | | POC | performed at [facility];[address] | | LAB | | | | [address];[place] | | | | | | [address] | | | | + + + + + + | MCV | 86.5Comment: Testing | 80.0 - 100.0 fl | EXTERNAL | | | | performed at [facility];[address] | | LAB | | | | [address];[place] | | | | | | [address] | | | | + + + + + + | MCH | 26.6 (L)Comment: Testing | 27.0 - 34.0 pg | EXTERNAL | | | | performed at [facility];[address] | | LAB | | | | [address];[place] | | | | | | [address] | | | | + + + + + + | MCHC | 30.8 (L)Comment: Testing | 32.0 - 35.5 | EXTERNAL | | | | performed at [facility];[address] | g/dL | LAB | | | | [address];[place] | | | | | | [address] | | | | + + + + + + | RDW-CV | 46.4Comment: Testing | 37 - 53 fl | EXTERNAL | | | | performed at [facility];[address] | | LAB | | | | [address];[place] | | | | | | [address] | | | | + + + + + + | Platelet | 107 (L)Comment: Testing | 150 - 400 K/uL | EXTERNAL | | | Count | performed at [facility];[address] | | LAB | | | Plasma | [address];[place] | | | | | | [address] | | | | + + + + + + | MPV | 8.3Comment: Testing | fl | EXTERNAL | | | | performed at [facility];[address] | | LAB | | | | [address];[place] | | | | | | [address] | | | | + + + + + + | Differentia | MANUALComment: Testing | | EXTERNAL | | | l Type | performed at [facility];[address] | | LAB | | | | [address];[place] | | | | | | [address] | | | | + + + + + + | Segmented | 74Comment: Testing | % | EXTERNAL | | | Neutrophils | performed at [facility];[address] | | LAB | | | Manual | [address];[place] | | | | | | [address] | | | | + + + + + + | % Bands | 15Comment: Testing | % | EXTERNAL | | | | performed at [facility];[address] | | LAB | | | | [address];[place] | | | | | | [address] | | | | + + + + + + | Lymphocytes | 5Comment: Testing | % | EXTERNAL | | | Manual | performed at [facility];[address] | | LAB | | | | [address];[place] | | | | | | [address] | | | | + + + + + + | Monocytes | 6Comment: Testing | % | EXTERNAL | | | Manual | performed at [facility];[address] | | LAB | | | | [address];[place] | | | | | | [address] | | | | + + + + + + | Absolute | 17.08 (H)Comment: | 1.90 - 7.40 | EXTERNAL | | | Neutrophils | Testing performed at | K/uL | LAB | | | | [facility];[address] | | | | | | [address];[place] [address] | | | | + + + + + + | Bands | 3.47 (H)Comment: Testing | 0.00 - 0.20 | EXTERNAL | | | Manual | performed at [facility];888 | K/uL | LAB | | | | [address];[place] | | | | | | [address] | | | | + + + + + + | Absolute | 1.16Comment: Testing | 1.00 - 3.90 | EXTERNAL | | | Lymphocytes | performed at [facility];888 | K/uL | LAB | | | | [address];[place] | | | | | | [address] | | | | + + + + + + | Absolute | 1.39 (H)Comment: Testing | 0.00 - 0.80 | EXTERNAL | | | Monocytes | performed at [facility];888 | K/uL | LAB | | | | [address];[place] | | | | | | [address] | | | | + + + + + + | Platelet | DECREASEDComment: | | EXTERNAL | | | Estimate | Testing performed at | | LAB | | | | [facility];[address] [facility] | | | | | | Blvd;[place] [address] | | | | + + + + + + | RBC | NORMAL PLT MORPHComment: | | EXTERNAL | | | Morphology | 1+HYPOTesting performed | | LAB | | | | at [facility];[address];[place] [address] | | | | | |Testing performed at [facility];[address];[place] [address] | | | | | | | [...] EXTERNAL | | | | performed at [facility];[address] | | LAB | | | | [address];[place], [place] | | | | | | [address] | | | | + + + [...] EXTERNAL | | | | performed at [facility];[address] | | LAB | | | | [address];[place] | | | | | | [address] | | | | + + + [...] EXTERNAL | | | | performed at [facility];888 | mmol/L | LAB | | | | [address];[place], [place] | | | | | | [address] | | | | + + + [...] EXTERNAL | | | | performed at [facility];[address] | | LAB | | | | [address];[place] | | | | | | [address] | | | | + + + [...] | | | Total | performed at [facility];888 | | LAB | | | | [address];[place] | | | | | | [address] | | | | + + + + + + | Albumin | 2.5 (L)Comment: Testing | 3.6 - 5.0 g/dL | EXTERNAL | | | | performed at [facility];[address] | | LAB | | | | [address];[place] | | | | | | [address] | | | | + + + + + + | Bilirubin | 2.2 (H)Comment: Testing | 0.1 - 1.5 mg/dL | EXTERNAL | | | Total | performed at [facility];[address] | | LAB | | | | [address];[place] | | | | | | [address] | | | | + + + + + + | Bilirubin | 1.4 (H)Comment: Testing | 0.0 - 0.3 mg/dL | EXTERNAL | | | Direct | performed at [facility];[address] | | LAB | | | | [address];[place] | | | | | | [address] | | | | + + + + + + | ALP, | 72Comment: Testing | 35 - 115 U/L | EXTERNAL | | | External | performed at [facility];[address] | | LAB | | | | [address];[place] | | | | | | [address] | | | | + + + + + + | AST | 188 (H)Comment: Testing | 10 - 45 U/L | EXTERNAL | | | | performed at [facility];[address] | | LAB | | | | [address];[place] | | | | | | [address] | | | | + + + + + + | ALT | 76 (H)Comment: Testing | 10 - 65 U/L | EXTERNAL | | | | performed at [facility];[address] | | LAB | | | | [address];[place] | | | | | | [address] | | | | + + + [...] EXTERNAL | | | | performed at [facility];888 | mmol/L | LAB | | | | [address];[place] | | | | | | [address] | | | | + + + + + + | K | 4.5Comment: Testing | 3.5 - 4.9 | EXTERNAL | | | | performed at [facility];888 | mmol/L | LAB | | | | [address];[place] | | | | | | [address] | | | | + + + + + + | Cl | 102Comment: Testing | 99 - 109 mmol/L | EXTERNAL | | | | performed at [facility];[address] | | LAB | | | | [address];[place] | | | | | | [address] | | | | + + + + + + | CO2 | 18 (L)Comment: Testing | 23 - 32 mmol/L | EXTERNAL | | | | performed at [facility];[address] | | LAB | | | | [address];[place] | | | | | | [address] | | | | + + + + + + | Anion Gap | 24 (H)Comment: Testing | 5 - 20 mmol/L | EXTERNAL | | | | performed at [facility];[address] | | LAB | | | | [address];[place] | | | | | | [address] | | | | + + + + + + | Glucose, | 70Comment: Testing | 65 - 99 mg/dL | EXTERNAL | | | Fasting | performed at [facility];[address] | | LAB | | | | [address];[place] | | | | | | [address] | | | | + + + + + + | BUN | 9Comment: Testing | 8 - 25 mg/dL | EXTERNAL | | | | performed at [facility];[address] | | LAB | | | | [address];[place] | | | | | | [address] | | | | + + + + + + | Creatinine | 2.0 (H)Comment: Testing | 0.50 - 1.00 | EXTERNAL | | | | performed at [facility];888 | mg/dL | LAB | | | | [address];[place] | | | | | | [address] | | | | + + + + + + | BUN/Creatin | 5Comment: Testing | | EXTERNAL | | | ine Ratio | performed at [facility];888 | | LAB | | | | [address];[place] | | | | | | [address] | | | | + + + + + + | Calcium | 6.3 (L)Comment: Testing | 8.5 - 10.5 | EXTERNAL | | | | performed at [facility];888 | mg/dL | LAB | | | | [address];[place] | | | | | | [address] | | | | + + + [...] | | | | | | at [facility];[address] | | | | | | [address];[place] [address] | | | | + + + [...] | | | POC | performed at [facility];[address] | | LAB | | | | [address];[place], [place] | | | | | | [address] | | | | + + + [...] | | | LVLs A4C: 6.28 cm Gm/Svp [employer]: Authenticated by: ZACARIAS | | | AMBAR ALEXIS Report Date/Time: 01-31-2016 13:46:43 | | + + + + ---------+ | Procedure Note | + ---------+ | Bert, Rad Conversion - 05/18/2019 6:31 PM PDT Patient Name: Ko HASTINGS | | : 1980 Performing Physician: ZACARIAS VILLALTA | | INDICATIONS R | | /O: Pericardial effusion, [...] MOD A4C: 33.61 mlLVLs A4C: 6.28 cm Gm/[employer]: | | ASAuthenticated by: ZACARIAS VILLALTA MDReport Date/Time: 01-31-2016 13:46:43 | | IMPRESSION: 1. [...] |LVLs A4C: 6.28 cm | | | |Gm/Svp [employer]: | |Authenticated by: ZACARIAS VILLALTA MD | [...] | | LAB | | | | [facility];[address];[place] [address] | | | | + + + + + + | PCO2 ART | 50 (H)Comment: Testing | 35 - 45 mmHg | EXTERNAL | | | | performed at [facility];[address] | | LAB | | | | [address];[place] | | | | | | [address] | | | | + + + + + + | PO2 ART | 220 (H)Comment: Testing | 80 - 105 mmHg | EXTERNAL | | | | performed at [facility];[address] | | LAB | | | | [address];[place] | | | | | | [address] | | | | + + + + + + | Lactate, | 8.0 (H)Comment: Testing | 0.36 - 1.25 | EXTERNAL | | | Arterial | performed at [facility];888 | mmol/L | LAB | | | | [address];[place] | | | | | | [address] | | | | + + + + + + | HCO3 ART | 25Comment: Testing | 22 - 26 mmol/L | EXTERNAL | | | | performed at [facility];[address] | | LAB | | | | [address];[place] | | | | | | [address] | | | | + + + + + + | POC | 27Comment: Testing | 23 - 27 mEq/L | EXTERNAL | | | APPEARANCE | performed at [facility];[address] | | LAB | | | UA | [address];[place] | | | | | | [address] | | | | + + + + + + | Base | 1Comment: Testing | 0.0 - 2.0 | EXTERNAL | | | deficit | performed at [facility];888 | mmol/L | LAB | | | | [address];[place] | | | | | | [address] | | | | + + + + + + | O2 SAT ART | 100 (H)Comment: Testing | 95 - 98 % | EXTERNAL | | | | performed at [facility];[address] | | LAB | | | | [address];[place] | | | | | | [address] | | | | + + + + + + | FiO2, POC | 100Comment: Testing | % | EXTERNAL | | | | performed at [facility];[address] | | LAB | | | | [address];[place] | | | | | | [address] | | | | + + + + + + | Comment, | Tidal Volume = | | EXTERNAL | | | POC | 300Comment: Peep = | | LAB | | | | 10Resp Rate = 20Testing | | | | | | performed at [facility];[address] | | | | | [address];[place], [place] | | | | | | [address] | | | | + + + [...] + + + | aPTT, | 107 (HH)Comment: RESULTS | 23 - 32 seconds | EXTERNAL | | | Patient | CALLED TO MELANIE E/ICU | | LAB | | | | 1155T,JBREAD BACK | | | | | | RESULTS VERIFIEDTesting | | | | | | performed at [facility];[address] | | | | | | [address];[place] | | | | | | [address] | | | | + + + [...] | | | | | performed at [facility] | | | | | | [facility];[place], [place] | | | | | | [address] | | | | + + + [...] + +---------+ + + External Lab: CBC (01/31/2016 11:02 AM PDT) + + + + + + | Component | Value | Ref Range | Performed | Pathologist | | | | | At | Signature | + + + + + + | WBC | 28.96 (H)Comment: | 3.80 - 11.00 | EXTERNAL | | | | Testing performed at | K/uL | LAB | | | | [facility];[address];[place] [address] | | | | + + + + + + | Non- | 3.74Comment: Testing | 3.70 - 5.10 | EXTERNAL | | | Red Blood | performed at [facility];888 | M/uL | LAB | | | Cells | [address];[place] | | | | | Counted | [address] | | | | + + + + + + | Hemoglobin | 10.3 (L)Comment: Testing | 11.3 - 15.5 | EXTERNAL | | | | performed at [facility];888 | g/dL | LAB | | | | [address];[place] | | | | | | [address] | | | | + + + + + + | Hematocrit, | 31.6 (L)Comment: Testing | 34.0 - 46.0 % | EXTERNAL | | | POC | performed at [facility];[address] | | LAB | | | | [address];[place] | | | | | | [address] | | | | + + + + + + | MCV | 84.4Comment: Testing | 80.0 - 100.0 fl | EXTERNAL | | | | performed at [facility];[address] | | LAB | | | | [address];[place] | | | | | | [address] | | | | + + + + + + | MCH | 27.5Comment: Testing | 27.0 - 34.0 pg | EXTERNAL | | | | performed at [facility];[address] | | LAB | | | | [address];[place] | | | | | | [address] | | | | + + + + + + | MCHC | 32.6Comment: Testing | 32.0 - 35.5 | EXTERNAL | | | | performed at [facility];888 | g/dL | LAB | | | | [address];[place] | | | | | | [address] | | | | + + + + + + | RDW-CV | 45.5Comment: Testing | 37 - 53 fl | EXTERNAL | | | | performed at [facility];888 | | LAB | | | | [address];[place] | | | | | | [address] | | | | + + + + + + | Platelet | 56 (L)Comment: Testing | 150 - 400 K/uL | EXTERNAL | | | Count | performed at [facility];888 | | LAB | | | Plasma | [address];[place] | | | | | | [address] | | | | + + + + + + | MPV | 9.4Comment: Testing | fl | EXTERNAL | | | | performed at [facility];[address] | | LAB | | | | [address];[place] | | | | | | [address] | | | | + + + + + + | Differentia | MANUALComment: Testing | | EXTERNAL | | | l Type | performed at [facility];[address] | | LAB | | | | [address];[place] | | | | | | [address] | | | | + + + + + + | Segmented | 42Comment: Testing | % | EXTERNAL | | | Neutrophils | performed at [facility];888 | | LAB | | | Manual | [address];[place] | | | | | | [address] | | | | + + + + + + | % Bands | 52Comment: Testing | % | EXTERNAL | | | | performed at [facility];[address] | | LAB | | | [address];[place] | | | | | | [address] | | | | + + + + + + | % | 1Comment: Testing | % | EXTERNAL | | | Metamyelocy | performed at [facility];[address] | | LAB | | | ya | [address];[place] | | | | | | [address] | | | | + + + + + + | Lymphocytes | 2Comment: Testing | % | EXTERNAL | | | Manual | performed at [facility];[address] | | LAB | | | | [address];[place] | | | | | | [address] | | | | + + + + + + | % Atypical | 2Comment: Testing | % | EXTERNAL | | | Lymphocytes | performed at [facility];888 | | LAB | | | | [address];[place] | | | | | | [address] | | | | + + + + + + | Eosinophils | 1Comment: Testing | % | EXTERNAL | | | Manual | performed at [facility];[address] | | LAB | | | | [address];[place] | | | | | | [address] | | | | + + + + + + | Absolute | 12.16 (H)Comment: | 1.90 - 7.40 | EXTERNAL | | | Neutrophils | Testing performed at | K/uL | LAB | | | | [facility];[address];[place] [address] | | | | + + + + + + | Bands | 15.06 (H)Comment: | 0.00 - 0.20 | EXTERNAL | | | Manual | Testing performed at | K/uL | LAB | | | | [facility];[address];[place] [address] | | | | + + + + + + | Absolute | 0.29 (H)Comment: Testing | K/uL | EXTERNAL | | | Metamyelocy | performed at [facility];[address] | | LAB | | | ya | [address];[place] | | | | | | [address] | | | | + + + + + + | Absolute | 0.58 (L)Comment: Testing | 1.00 - 3.90 | EXTERNAL | | | Lymphocytes | performed at [facility];888 | K/uL | LAB | | | | [address];[place] | | | | | | [address] | | | | + + + + + + | Absolute | 0.58 (H)Comment: Testing | K/uL | EXTERNAL | | | Atypical | performed at [facility];888 | | LAB | | | Lymphocytes | [address];[place] | | | | | | [address] | | | | + + + + + + | Absolute | 0.29Comment: Testing | 0.00 - 0.50 | EXTERNAL | | | Eosinophils | performed at [facility];888 | K/uL | LAB | | | | [address];[place] | | | | | | [address] | | | | + + + + + + | Platelet | DECREASEDComment: | | EXTERNAL | | | Estimate | Testing performed at | | LAB | | | | [facility];[address];[place] [address] | | | | + + + + + + | RBC | 1+Comment: VACUOLATED | | EXTERNAL | | | Morphology | NEUTROPHILSPOIK1+ANISOTe | | LAB | | | | sting performed at | | | | | | [facility];[address];[place] [address] | | | | | |ANISO | | | | | |Testing performed at [facility];[address];[place] [address] | | | | | | | [...] | | | Fingerstick | performed at [facility];[address] | | LAB | | | | [address];[place], [place] | | | | | | [address] | | | | + + + [...] + + + | BB BAND | [id number] | | EXTERNAL | | | | | | LAB | | + + + + + + | UNIT NUMBER | [id number] | | EXTERNAL | | | | | | LAB | | + + + + + + | UNIT NUMBER | Testing performed at | | EXTERNAL | | | | [facility];[address] | | LAB | | | | [address];[place] [address] | | | | + + + + + + | Product | LEUKODEPLETED PCTesting | | EXTERNAL | | | Code | performed at [facility];[address] | | LAB | | | | [address];[place] | | | | | | [address] | | | | + + + + + + | Unit | 00Testing performed at | | EXTERNAL | | | Division | [facility];[address] | | LAB | | | [address];[place] [address] | | | | + + + + + + | Unit Status | ISSUED,FINALTesting | | EXTERNAL | | | | performed at [facility];[address] | | LAB | | | | [address];[place] | | | | | | [address] | | | | + + + + + + | Transfusion | OK TO TRANSFUSETesting | | EXTERNAL | | | Status | performed at [facility];[address] | | LAB | | | | [address];[place] | | | | | | [address] | | | | + + + + + + | CROSSMATCH | COMPATIBLETesting | | EXTERNAL | | | RESULT | performed at [facility];[address] | | LAB | | | | [address];[place] | | | | | | [address] | | | | + + + + + + | UNIT NUMBER | [id number] | | EXTERNAL | | | | [...] | | | Fingerstick | performed at [facility];[address] | | LAB | | | | [address];[place], [place] | | | | | | [address] | | | | + + + [...] | | | | | performed at [facility];[address] | | | | | | [address] [facility];[place], [place] | | | | | | [address] | | | | + + + [...] EXTERNAL | | | | performed at [facility];888 | | LAB | | | | Kalpesh Orellana;[place] | | | | | | [address] | | | | + + + [...] + + | Historically converted procedure from [facility] Epic environment | EXTERNAL LAB | + [...] | | | (Calc) | performed at [facility];888 | mmol/L | LAB | | | | [address];[place], [place] | | | | | | [address] | | | | + + + + + + | pH, Bld | 7.176 (L)Comment: | 7.300 - 7.450 | EXTERNAL | | | | Testing performed at | | LAB | | | | [facility];[address] [place] [address] | | | | | | Bl;[place] [address] | | | | + + + [...] | | | Fingerstick | performed at [facility];888 | | LAB | | | | Kalpesh Orellana;[place], [place] | | | | | | [address] | | | | + + + [...] | | | Fingerstick | performed at [facility];888 | | LAB | | | | Kalpesh Orellana;[place], [place] | | | | | | [address] | | | | + + + [...] 4:32AM Referring Provider | | | Line: [phone] ID: [id number] | | + + + [...] Jan 31 2016 4:32AM Referring Provider Line: [phone] ID: [id number] | |TECHNIQUE: 1 view. | [...] 31 2016 4:32AM Referring Provider Line : [phone] ID: [id number] | + + External Lab: [...] | | | | [facility], [address] | | | | | | [place] | | | | | | [address] | | | | + + +---- + + + | Non- | 3.87Comment: Testing | 3.7 0 - 5.10 | EXTERNAL | | | Red Blood | performed at [facility], [address] | M/u L | LAB | | | Cells | [address], | | | | | Counted | [place] [address] | | | | + + +---- + + + | Hemoglobin | 10.9 (L)Comment: Testing | 11. 3 - 15.5 | EXTERNAL | | | | performed at [facility], [address] | g/d L | LAB | | | | [address], | | | | | | [place] [address] | | | | + + +---- + + + | Hematocrit, | 33.5 (L)Comment: Testing | 34. 0 - 46.0 % | EXTERNAL | | | POC | performed at [facility], [address] | | LAB | | | | [address], | | | | | | [place] [address] | | | | + + +---- + + + | MCV | 86.7Comment: Testing | 80. 0 - 100.0 fl | EXTERNAL | | | | performed at [facility], [address] | | LAB | | | | [address], | | | | | | [place] [address] | | | | + + +---- + + + | MCH | 28.2Comment: Testing | 27. 0 - 34.0 pg | EXTERNAL | | | | performed at [facility], [address] | | LAB | | | | [address], | | | | | | [place] [address] | | | | + + +---- + + + | MCHC | 32.6Comment: Testing | 32. 0 - 35.5 | EXTERNAL | | | | performed at [facility], [address] | g/d L | LAB | | | | [address], | | | | | | [place] [address] | | | | + + +---- + + + | RDW-CV | 45.1Comment: Testing | 37 - 53 fl | EXTERNAL | | | | performed at [facility], [address] | | LAB | | | | [address], | | | | | | [place] [address] | | | | + + +---- + + + | Platelet | 75 (L)Comment: Testing | 150 - 400 K/uL | EXTERNAL | | | Count | performed at [facility], [address] | | LAB | | | Plasma | [address], | | | | | | [place] [address] | | | | + + +---- + + + | MPV | 9.8Comment: Testing | fl | EXTERNAL | | | | performed at [facility], [address] | | LAB | | | | [place], | | | | | | [place] [address] | | | | + + +---- + + + | Differentia | MANUALComment: Testing | | EXTERNAL | | | l Type | performed at [facility], [address] | | LAB | | | | [address] [place], | | | | | | [place] [address] | | | | + + +---- + + + | Segmented | 46Comment: Testing | % | EXTERNAL | | | Neutrophils | performed at [facility], [address] | | LAB | | | Manual | [address] [place], | | | | | | [place] [address] | | | | + + +---- + + + | % Bands | 44Comment: Testing | % | EXTERNAL | | | | performed at [facility], [address] | | LAB | | | | [address] [place], | | | | | | [place] [address] | | | | + + +---- + + + | % | 5Comment: Testing | % | EXTERNAL | | | Metamyelocy | performed at [facility], [address] | | LAB | | | ya | [place], | | | | | | [place] [address] | | | | + + +---- + + + | Lymphocytes | 2Comment: Testing | % | EXTERNAL | | | Manual | performed at [facility], [address] | | LAB | | | | Josiane [place], | | | | | | [place] [address] | | | | + + +---- + + + | Monocytes | 3Comment: Testing | % | EXTERNAL | | | Manual | performed at [facility], [address] | | LAB | | | | [place], | | | | | | [place] [address] | | | | + + +---- + + + | Absolute | 12.53 (H)Comment: | 1.9 0 - 7.40 | EXTERNAL | | | Neutrophils | Testing performed at | K/u L | LAB | | | | [facility], [address] | | | | | | [place] | | | | | | [address] | | | | + + +---- + + + | Bands | 11.98 (H)Comment: | 0.0 0 - 0.20 | EXTERNAL | | | Manual | Testing performed at | K/u L | LAB | | | | [facility], [address] | | | | | | [place] | | | | | | [address] | | | | + + +---- + + + | Absolute | 1.36 (H)Comment: Testing | K/u L | EXTERNAL | | | Metamyelocy | performed at [facility], [address] | | LAB | | | ya | [address] [place], | | | | | | [place] [address] | | | | + + +---- + + + | Absolute | 0.54 (L)Comment: Testing | 1.0 0 - 3.90 | EXTERNAL | | | Lymphocytes | performed at [facility], [address] | [address] | LAB | | | | [address] [place], | | | | | | [place] [address] | | | | + + +---- + + + | Absolute | 0.82 (H)Comment: Testing | 0.0 0 - 0.80 | EXTERNAL | | | Monocytes | performed at [facility], [address] | [address] | LAB | | | | [address] [place], | | | | | | [place] [address] | | | | + + +---- + + + | Platelet | DECREASEDComment: | | EXTERNAL | | | Estimate | Testing performed at | | LAB | | | | [facility], [address] [facility] | | | | | | [place] | | | | | | [address] | | | | + + +---- + + + | RBC | 1+Comment: | | EXTERNAL | | | Morphology | POIK1+BURRNORMAL PLT | | LAB | | | | MORPHTesting performed | | | | | | at [facility], [address] | | | | | | [place], | | | | | | [place] [address] | | | | | |Testing performed at [facility], [address] [place] [address] | | | | | | | [...] | | | | | [place] [address] | | | | + + + [...] EXTERNAL | | | | performed at [facility], [address] | | LAB | | | | Josiane [place], | | | | | | [place] [address] | | | | + + + [...] EXTERNAL | | | | performed at [facility];888 | mmol/L | LAB | | | | Kalpesh [address];[place], [place] | | | | | | [address] | | | | + + + [...] | EXTERNAL | | | A1c | [facility] | | LAB | | | [...] | | | | | performed at [facility], [address] | | | | | | [address], | | | | | | [place] [address] | | | | + + + [...] | | | | | performed at [facility], [address] | | | | | | [address], | | | | | | [place] [address] | | | | + + + [...] | | | | | [place] [address] | | | | + + + + + + | Albumin | 2.6 (L)Comment: Testing | 3.6 - 5.0 g/dL | EXTERNAL | | | | performed at [facility], [address] | | LAB | | | | [place], | | | | | | [place] [address] | | | | + + + + + + | Bilirubin | 2.2 (H)Comment: Testing | 0.1 - 1.5 mg/dL | EXTERNAL | | | Total | performed at [facility], [address] | | LAB | | | | [place], | | | | | | [place] [address] | | | | + + + + + + | Bilirubin | 1.8 (H)Comment: Testing | 0.0 - 0.3 mg/dL | EXTERNAL | | | Direct | performed at [facility], [address] | | LAB | | | | [address], | | | | | | [place] [address] | | | | + + + + + + | ALP, | 76Comment: Testing | 35 - 115 U/L | EXTERNAL | | | External | performed at [facility], [address] | | LAB | | | | [address], | | | | | | [place] [address] | | | | + + + + + + | AST | 283 (H)Comment: Testing | 10 - 45 U/L | EXTERNAL | | | | performed at [facility], [address] | | LAB | | | | [address], | | | | | | [place] [address] | | | | + + + + + + | ALT | 88 (H)Comment: Testing | 10 - 65 U/L | EXTERNAL | | | | performed at [facility], [address] | | LAB | | | | [address], | | | | | | [place] [address] | | | | + + + [...] [place], | | | | | | [place] [address] | | | | + + + + + + | K | 3.6Comment: Testing | 3.5 - 4.9 | EXTERNAL | | | | performed at [facility], [address] | mmol/L | LAB | | | | [address], | | | | | | [place] [address] | | | | + + + + + + | Cl | 102Comment: Testing | 99 - 109 mmol/L | EXTERNAL | | | | performed at [facility], [address] | | LAB | | | | [address], | | | | | | [place] [address] | | | | + + + + + + | CO2 | 19 (L)Comment: Testing | 23 - 32 mmol/L | EXTERNAL | | | | performed at [facility], [address] | | LAB | | | | [address], | | | | | | [place] [address] | | | | + + + + + + | Anion Gap | 17Comment: Testing | 5 - 20 mmol/L | EXTERNAL | | | | performed at [facility], [address] | | LAB | | | | [address], | | | | | | [place] [address] | | | | + + + + + + | Glucose, | 122 (H)Comment: Testing | 65 - 99 mg/dL | EXTERNAL | | | Fasting | performed at [facility], [address] | | LAB | | | | [address], | | | | | | [place] [address] | | | | + + + + + + | BUN | 11Comment: Testing | 8 - 25 mg/dL | EXTERNAL | | | | performed at [facility], [address] | | LAB | | | | [address], | | | | | | [place] [address] | | | | + + + + + + | Creatinine | 1.64 (H)Comment: Testing | 0.50 - 1.00 | EXTERNAL | | | | performed at [facility], [address] | mg/dL | LAB | | | | [address] [place], | | | | | | [place] [address] | | | | + + + + + + | BUN/Creatin | 7Comment: Testing | | EXTERNAL | | | ine Ratio | performed at [facility], [address] | | LAB | | | | [place], | | | | | | [place] [address] | | | | + + + + + + | Calcium | 5.7 (LL)Comment: RESULT | 8.5 - 10.5 | EXTERNAL | | | | READ BACK BY:GARCÍA | mg/dL | LAB | | | | S/RN,ICU,[id number],ZACHERY | | | | | | Testing performed at | | | | | | [facility], [address] | | | | | | [place] | | | | | | [address] | | | | + + + [...] | | | | | | at [facility], [address] | | | | | | [facility] | | | | | | [place] [address] | | | | + + + [...] | | LAB | | | | [facility];[address] | | | | | | [place] [address] | | | | + + + + + + | PCO2 ART | 53 (H)Comment: Testing | 35 - 45 mmHg | EXTERNAL | | | | performed at [facility];[address] | | LAB | | | | Kalpesh Orellana;[place] | | | | | | [address] | | | | + + + + + + | PO2 ART | 63 (L)Comment: Testing | 80 - 105 mmHg | EXTERNAL | | | | performed at [facility];[address] | | LAB | | | | [address];[place] | | | | | | [address] | | | | + + + + + + | Lactate, | 8.0 (H)Comment: Testing | 0.36 - 1.25 | EXTERNAL | | | Arterial | performed at [facility];888 | mmol/L | LAB | | | | [address];[place] | | | | | | [address] | | | | + + + + + + | HCO3 ART | 21 (L)Comment: Testing | 22 - 26 mmol/L | EXTERNAL | | | | performed at [facility];[address] | | LAB | | | | [address];[place] | | | | | | [address] | | | | + + + + + + | POC | 23Comment: Testing | 23 - 27 mEq/L | EXTERNAL | | | APPEARANCE | performed at [facility];[address] | | LAB | | | [address] | [address];[place] | | | | | | [address] | | | | + + + + + + | Base | 7 (H)Comment: Testing | 0.0 - 2.0 | EXTERNAL | | | deficit | performed at [facility];888 | mmol/L | LAB | | | | [address];[place] | | | | | | [address] | | | | + + + + + + | O2 SAT ART | 86 (L)Comment: Testing | 95 - 98 % | EXTERNAL | | | | performed at [facility];[address] | | LAB | | | | [address];[place] | | | | | | [address] | | | | + + + + + + | FiO2, POC | 100Comment: Testing | % | EXTERNAL | | | | performed at [facility];[address] | | LAB | | | | [address];[place] | | | | | | [address] | | | | + + + [...] | | | Fingerstick | performed at [facility];[address] | | LAB | | | | [address];[place], [place] | | | | | | [address] | | | | + + + [...] | | | Fingerstick | performed at [facility];[address] | | LAB | | | | Kalpesh Orell[address];[place] | | | | | | [address] | | | | + + + [...] EXTERNAL | | | | performed at [facility];888 | mmol/L | LAB | | | | Kalpesh Orell[address];[place], [place] | | | | | | [address] | | | | + + + [...] | | | Fingerstick | performed at [facility];[address] | | LAB | | | | Kalpesh O[place] | | | | | | [address] | | | | + + + [...] EXTERNAL | | | | performed at [facility];888 | mmol/L | LAB | | | | [address];[place] | | | | | | [address] | | | | + + + + + + | K | 3.5Comment: Testing | 3.5 - 4.9 | EXTERNAL | | | | performed at [facility];888 | mmol/L | LAB | | | | [address];[place] | | | | | | [address] | | | | + + + + + + | Cl | 103Comment: Testing | 99 - 109 mmol/L | EXTERNAL | | | | performed at [facility];[address] | | LAB | | | | [address];[place] | | | | | | [address] | | | | + + + + + + | CO2 | 26Comment: Testing | 23 - 32 mmol/L | EXTERNAL | | | | performed at [facility];[address] | | LAB | | | | [address];[place] | | | | | | [address] | | | | + + + + + + | Anion Gap | 13Comment: Testing | 5 - 20 mmol/L | EXTERNAL | | | | performed at [facility];[address] | | LAB | | | | [address];[place] | | | | | | [address] | | | | + + + + + + | Glucose, | 64 (L)Comment: Testing | 65 - 99 mg/dL | EXTERNAL | | | Fasting | performed at [facility];[address] | | LAB | | | | [address];[place] | | | | | | [address] | | | | + + + + + + | BUN | 8Comment: Testing | 8 - 25 mg/dL | EXTERNAL | | | | performed at [facility];[address] | | LAB | | | | [address];[place] | | | | | | [address] | | | | + + + + + + | Creatinine | 1.2 (H)Comment: Testing | 0.50 - 1.00 | EXTERNAL | | | | performed at [facility];888 | mg/dL | LAB | | | | [address];[place] | | | | | | [address] | | | | + + + + + + | BUN/Creatin | 7Comment: Testing | | EXTERNAL | | | ine Ratio | performed at [facility];[address] | | LAB | | | | [address];[place] | | | | | | [address] | | | | + + + + + + | Calcium | 6.1 (L)Comment: Testing | 8.5 - 10.5 | EXTERNAL | | | | performed at [facility];888 | mg/dL | LAB | | | | [address];[place] | | | | | | [address] | | | | + + + [...] | | | | | | at [facility];[address] [place] [address] | | | | | | [facility];[place] [address] | | | | + + + [...] | | | Fingerstick | performed at [facility];[address] | | LAB | | | | [address];[place] | | | | | | [address] | | | | + + + [...] | | | Fingerstick | performed at [facility];[address] | | LAB | | | | [address];[place], [place] | | | | | | [address] | | | | + + + [...] | | | Fingerstick | performed at [facility];[address] | | LAB | | | | [address];[place], [place] | | | | | | [address] | | | | + + + [...] | | | Fingerstick | performed at [facility];[address] | | LAB | | | | [address];[place], [place] | | | | | | [address] | | | | + + + [...] | | | Fingerstick | performed at [facility];[address] | | LAB | | | | Kalpesh [address]rell[address];[place] | | | | | | [address] | | | | + + + [...] | | | Fingerstick | performed at [facility];[address] | | LAB | | | | Kalpesh [place]rell[address];[place] | | | | | | [address] | | | | + + + [...] EXTERNAL | | | | performed at [facility];888 | mmol/L | LAB | | | | Kalpesh Orell[place] | | | | | | [address] | | | | + + + [...] EXTERNAL | | | | performed at [facility];[address] | | LAB | | | | [address];[place], [place] | | | | | | [address] | | | | + + + [...] EXTERNAL | | | | performed at [facility] | | LAB | | | | Kalpesh Orellana;[place] | | | | | | [address] | | | | + + + [...] EXTERNAL | | | | performed at [facility];888 | mmol/L | LAB | | | | Kalpesh [place] | | | | | | [address] | | | | + + + + + + | K | 3.3 (L)Comment: Testing | 3.5 - 4.9 | EXTERNAL | | | | performed at [facility];888 | mmol/L | LAB | | | | [address];[place] | | | | | | [address] | | | | + + + + + + | Cl | 104Comment: Testing | 99 - 109 mmol/L | EXTERNAL | | | | performed at [facility];[address] | | LAB | | | | [address];[place] | | | | | | [address] | | | | + + + + + + | CO2 | 23Comment: Testing | 23 - 32 mmol/L | EXTERNAL | | | | performed at [facility];[address] | | LAB | | | | [address];[place] | | | | | | [address] | | | | + + + + + + | Anion Gap | 15Comment: Testing | 5 - 20 mmol/L | EXTERNAL | | | | performed at [facility];[address] | | LAB | | | | [address];[place] | | | | | | [address] | | | | + + + + + + | Glucose, | 196 (H)Comment: Testing | 65 - 99 mg/dL | EXTERNAL | | | Fasting | performed at [facility];[address] | | LAB | | | | [address];[place] | | | | | | [address] | | | | + + + + + + | BUN | 12Comment: Testing | 8 - 25 mg/dL | EXTERNAL | | | | performed at [facility];[address] | | LAB | | | | [address];[place] | | | | | | [address] | | | | + + + + + + | Creatinine | 1.6 (H)Comment: Testing | 0.50 - 1.00 | EXTERNAL | | | | performed at [facility];888 | mg/dL | LAB | | | | [address];[place] | | | | | | [address] | | | | + + + + + + | BUN/Creatin | 8Comment: Testing | | EXTERNAL | | | ine Ratio | performed at [facility];[address] | | LAB | | | | [address];[place] | | | | | | [address] | | | | + + + + + + | Calcium | 5.6 (LL)Comment: CALLED | 8.5 - 10.5 | EXTERNAL | | | | NURSING UNITRESULT READ | mg/dL | LAB | | | | BACK BY:JOSH/MOHSEN Ruiz AT | | | | | | 21:34, ON 01/30/16, BY | | | | | | MYVTesting performed at | | | | | | [facility];[address];[place] [address] | | | | + + + [...] | | | | | | at [facility];[address];[place] [address] | | | | + + + [...] | | | Fingerstick | performed at [facility];[address] | | LAB | | | | [address];[place], [place] | | | | | | [address] | | | | + + + [...] | | | Fingerstick | performed at [facility] | | LAB | | | | [address]pesh [address];[place], [place] | | | | | | [address] | | | | + + + [...] EXTERNAL | | | | performed at [facility];[address] | | LAB | | | | [address]pesh [address];[place] | | | | | | [address] | | | | + + + [...] EXTERNAL | | | | performed at [facility];88 | | LAB | | | | [address]pesh [address];[place] | | | | | | [address] | | | | + + + [...] EXTERNAL | | | | performed at [facility];888 | mmol/L | LAB | | | | [address];[place] | | | | | | [address] | | | | + + + + + + | K | 3.4 (L)Comment: Testing | 3.5 - 4.9 | EXTERNAL | | | | performed at [facility];888 | mmol/L | LAB | | | | [address];[place] | | | | | | [address] | | | | + + + + + + | Cl | 106Comment: Testing | 99 - 109 mmol/L | EXTERNAL | | | | performed at [facility];[address] | | LAB | | | | [address];[place] | | | | | | [address] | | | | + + + + + + | CO2 | 17 (L)Comment: Testing | 23 - 32 mmol/L | EXTERNAL | | | | performed at [facility];[address] | | LAB | | | | [address];[place] | | | | | | [address] | | | | + + + + + + | Anion Gap | 21 (H)Comment: Testing | 5 - 20 mmol/L | EXTERNAL | | | | performed at [facility];[address] | | LAB | | | | [address];[place] | | | | | | [address] | | | | + + + + + + | Glucose, | 96Comment: Testing | 65 - 99 mg/dL | EXTERNAL | | | Fasting | performed at [facility];[address] | | LAB | | | | [address];[place] | | | | | | [address] | | | | + + + + + + | BUN | 15Comment: Testing | 8 - 25 mg/dL | EXTERNAL | | | | performed at [facility];[address] | | LAB | | | | [address];[place] | | | | | | [address] | | | | + + + + + + | Creatinine | 1.7 (H)Comment: Testing | 0.50 - 1.00 | EXTERNAL | | | | performed at [facility];888 | mg/dL | LAB | | | | [address];[place] | | | | | | [address] | | | | + + + + + + | BUN/Creatin | 9Comment: Testing | | EXTERNAL | | | ine Ratio | performed at [facility];[address] | | LAB | | | | [address];[place] | | | | | | [address] | | | | + + + + + + | Calcium | 5.8 (LL)Comment: CALLED | 8.5 - 10.5 | EXTERNAL | | | | NURSING UNITRESULT READ | mg/dL | LAB | | | | BACK BY:JOSH/MOHSEN Ruiz AT | | | | | | 19:43, ON 01/30/16, BY | | | | | | MYVTesting performed at | | | | | | [facility];[address];[place] [address] | | | | + + + [...] | | | | | | at [facility];[address] [place] [address] | | | | | | Blvd;[place] [address] | | | | + + + [...] | | | Fingerstick | performed at [facility];[address] | | LAB | | | | [address];[place], [place] | | | | | | [address] | | | | + + + [...] EXTERNAL | | | | performed at [facility];[address] | | LAB | | | | [address];[place] | | | | | | [address] | | | | + + + [...] LAB | | | | performed at [facility];[address] | | | | | [address];[place], [place] | | | | | | [address] | | | | + + + [...] EXTERNAL | | | | performed at [facility];888 | mmol/L | LAB | | | | [address];[place] | | | | | | [address] | | | | + + + + + + | K | 3.6Comment: SLT | 3.5 - 4.9 | EXTERNAL | | | | HEMOLYSISTesting | mmol/L | LAB | | | | performed at [facility];[address] | | | | | | [address];[place] | | | | | | [address] | | | | + + + + + + | Cl | 111 (H)Comment: Testing | 99 - 109 mmol/L | EXTERNAL | | | | performed at [facility];[address] | | LAB | | | | [address];[place] | | | | | | [address] | | | | + + + + + + | CO2 | 20 (L)Comment: Testing | 23 - 32 mmol/L | EXTERNAL | | | | performed at [facility];[address] | | LAB | | | | [address];[place] | | | | | | [address] | | | | + + + + + + | Anion Gap | 15Comment: Testing | 5 - 20 mmol/L | EXTERNAL | | | | performed at [facility];[address] | | LAB | | | | [address];[place] | | | | | | [address] | | | | + + + + + + | Glucose, | 118 (H)Comment: Testing | 65 - 99 mg/dL | EXTERNAL | | | Fasting | performed at [facility];[address] | | LAB | | | | [address];[place] | | | | | | [address] | | | | + + + + + + | BUN | 19Comment: Testing | 8 - 25 mg/dL | EXTERNAL | | | | performed at [facility];[address] | | LAB | | | | [address];[place] | | | | | | [address] | | | | + + + + + + | Creatinine | 2.0 (H)Comment: Testing | 0.50 - 1.00 | EXTERNAL | | | | performed at [facility];888 | mg/dL | LAB | | | | [address];[place] | | | | | | [address] | | | | + + + + + + | BUN/Creatin | 9Comment: Testing | | EXTERNAL | | | ine Ratio | performed at [facility];[address] | | LAB | | | | [address];[place] | | | | | | [address] | | | | + + + + + + | Calcium | 5.5 (LL)Comment: CALLED | 8.5 - 10.5 | EXTERNAL | | | | NURSING UNITRESULT READ | mg/dL | LAB | | | | BACK BY:ICU/RUTH Snider AT | | | | | | 18:30, ON 01/30/16, BY | | | | | | MYVTesting performed at | | | | | | [facility];[address];[place] [phone] | | | | + + + [...] | | | | | | at [facility];[address];[place] [address] | | | | + + + [...] LAB | | | | performed at [facility];[address] | | | | | | [address] [facility];[place], [place] | | | | | | [address] | | | | + + + [...] EXTERNAL | | | | performed at [facility];888 | mmol/L | LAB | | | | [address];[place], [place] | | | | | | [address] | | | | + + + [...] | | | Fingerstick | performed at [facility];[address] | | LAB | | | | [address];[place], [place] | | | | | | [address] | | | | + + + [...] Noel Conversion - 05/18/2019 6:31 PM PDT History: [...] | | | Fingerstick | performed at [facility] | | LAB | | | | [address];[place], [place] | | | | | | [address] | | | | + + + [...] RECOMMENDED. Testing | | | performed at [address] [address] | | + + + + +---------+ [...] | | | | | performed at [facility], [address] | | | | | [facility] | | | | | | [place] [phone] | | | | + + + [...] | | LAB | | | | [facility];[address];[place] [address] | | | | + + + + + + | PCO2 ART | 39Comment: Testing | 35 - 45 mmHg | EXTERNAL | | | | performed at [facility];[address] | | LAB | | | | [address];[place] | | | | | | [address] | | | | + + + + + + | PO2 ART | 77 (L)Comment: Testing | 80 - 105 mmHg | EXTERNAL | | | | performed at [facility];[address] | | LAB | | | | [address];[place] | | | | | | [address] | | | | + + + + + + | Lactate, | 3.2 (H)Comment: Testing | 0.36 - 1.25 | EXTERNAL | | | Arterial | performed at [facility];888 | mmol/L | LAB | | | | [address];[place] | | | | | | [address] | | | | + + + + + + | HCO3 ART | 11 (L)Comment: Testing | 22 - 26 mmol/L | EXTERNAL | | | | performed at [facility] [facility];[address] | | LAB | | | | [address];[place] | | | | | | [address] | | | | + + + + + + | POC | 12 (L)Comment: Testing | 23 - 27 mEq/L | EXTERNAL | | | APPEARANCE | performed at [facility];[address] | | LAB | | | UA | [address];[place] | | | | | | [address] | | | | + + + + + + | Base | 20 (H)Comment: Testing | 0.0 - 2.0 | EXTERNAL | | | deficit | performed at [facility];888 | mmol/L | LAB | | | | [address];[place] | | | | | | [address] | | | | + + + + + + | O2 SAT ART | 88 (L)Comment: Testing | 95 - 98 % | EXTERNAL | | | | performed at [facility];[address] | | LAB | | | | [address];[place] | | | | | | [address] | | | | + + + + + + | FiO2, POC | 100Comment: Testing | % | EXTERNAL | | | | performed at [facility];[address] | | LAB | | | | [address];[place] | | | | | | [address] | | | | + + + + + + | Comment, | Tidal Volume = | | EXTERNAL | | | POC | 420Comment: Peep = | | LAB | | | | 14Resp Rate = 30Testing | | | | | | performed at [facility];[address] | | | | | | [address];[place], [place] | | | | | | [address] | | | | + + + [...] Conversion - 05/18/2019 6:31 PM PDT MYESHA HASTINGS1980 35 yearsXR CHEST | | 1 VIEW01/30/2016 3:00 [...] | | | Fingerstick | performed at [facility];[address] | | LAB | | | | [address];[place], [place] | | | | | | [address] | | | | + + + [...] LAB | | | | performed at [facility];[address] | | | | | | [address];[place] | | | | | | [address] | | | | + + + [...] EXTERNAL | | | | performed at [facility];888 | mmol/L | LAB | | | | [address];[place], [place] | | | | | | [address] | | | | + + + [...] | | | (Calc) | performed at [facility];888 | mmol/L | LAB | | | | [address];[place] | | | | | | [address] | | | | + + + + + + | pH, Bld | 6.977 (L)Comment: | 7.300 - 7.450 | EXTERNAL | | | | Testing performed at | | LAB | | | | [facility];[address];[place] [address] | | | | + + + [...] | | DecT: 102.20 ms MV E Marcio: 0.38 m/s MV E/A Ratio: 0.71 MV [...] TV A Marcio: 0.64 m/s TV Dec Rusk: | | | 2.85 m/s2 TV Dec Time: 124.74 ms TV E Marcio: 0.35 m/s TV | | | E/A Ratio: 0.55 Gm/Svp [employer]: CM Authenticated by: Oscar | | | Hollis ALEXIS Report Date/Time: 01-30-2016 18:02:22 | | + + + + + | Procedure Note | + + | Bert, Rad Conversion - 05/18/2019 6:31 PM PDT Patient Name: Ko HASTINGS | | : 1980 Performing Physician: Oscar Shafer | | MD INDICATIONS s | | ob CONCLUSIONS 1. [...] (A-L): | | 10.41 ml/m2LAAs A2C: 10.28 [id number] A-L A2C: 22.94 mlLAESV MOD A2C: 21.10 mlLALs | | A2C: 3.91 cmLAAs A4C: 7.41 [id number] A-L A4C: 13.96 mlLAESV MOD A4C: 13.33 mlLALs | | A4C: 3.34 cmAo Diam: 2.92 cmAV Cusp: 1.56 cmLA Diam: 2.96 cmLA/Ao: 1.01HR: | | 132.03 BPMAV maxP.34 mmHgAV meanP.59 mmHgAV Vmax: 0.76 m/Mary Vmean: 0.61 | | m/Mary VTI: 9.03 cmAVA Vmax: 2.84 cm2AVA (VTI): 3.00 af1POUR Dopp: 1.97 | | l/etez5JMER Dopp: 3.67 l/minHR: 135.46 BPMLVOT maxP.69 mmHgLVOT [...] VTI: | | 8.15 cmMVA (VTI): 3.32 wp3Hifyyc e': 0.04 m/sSeptal E/e': 9.35Lateral e': 0.06 | | m/sLateral E/e': 6.31HR: 129.40 BPMPV maxP.43 mmHgPV meanP.56 mmHgPV | | Vmax: 0.78 m/sPV Vmean: 0.60 m/sPV VTI: 11.22 cmRAP: 10 mmHgRVSP: 31.85 mmHgTR | | maxP.85 mmHgTR Vmax: 2.33 m/sTV A Marcio: 0.64 m/sTV Dec Rusk: 2.85 m/s2TV | | Dec Time: 124.74 msTV E Marcio: 0.35 m/sTV E/A Ratio: 0.55 Gm/Svp [employer]: | | CMAuthenticated by: Oscar Shafer MDReport Date/Time: 01-30-2016 18:02:22 IMPRESSION: 1. | | [...] A Marcio: 0.64 m/s | |TV Dec Rusk: 2.85 m/s2 | |TV Dec Time: 124.74 ms | |TV E Marcio: 0.35 m/s | |TV E/A Ratio: 0.55 | | | |Gm/Svp [employer]: CM | |Authenticated by: Oscar Shafer MD [...] | | | Ur | performed at [facility];[address] | | LAB | | | | [address];[place], [place] | | | | | | [address] | | | | + + + [...] + + | PH ART | 6.979 (LL)Comment: | 7.350 - 7.450 | EXTERNAL | | | | Testing performed at | | LAB | | | | [facility];[address];[place] [address] | | | | + + + + + + | PCO2 ART | 50 (H)Comment: Testing | 35 - 45 mmHg | EXTERNAL | | | | performed at [facility];[address] | | LAB | | | | [address];[place] | | | | | | [address] | | | | + + + + + + | PO2 ART | 65 (L)Comment: Testing | 80 - 105 mmHg | EXTERNAL | | | | performed at [facility];[address] | | LAB | | | | [address];[place] | | | | | | [address] | | | | + + + + + + | Lactate, | 2.8 (H)Comment: Testing | 0.36 - 1.25 | EXTERNAL | | | Arterial | performed at [facility];888 | mmol/L | LAB | | | | [address];[place] | | | | | | [address] | | | | + + + + + + | HCO3 ART | 12 (L)Comment: Testing | 22 - 26 mmol/L | EXTERNAL | | | | performed at [facility];[address] | | LAB | | | | [address];[place] | | | | | | [address] | | | | + + + + + + | POC | 13 (L)Comment: Testing | 23 - 27 mEq/L | EXTERNAL | | | APPEARANCE | performed at [facility];[address] | | LAB | | | UA | [address];[place] | | | | | | [address] | | | | + + + + + + | Base | 20 (H)Comment: Testing | 0.0 - 2.0 | EXTERNAL | | | deficit | performed at [facility];888 | mmol/L | LAB | | | | [address];[place] | | | | | | [address] | | | | + + + + + + | O2 SAT ART | 78 (L)Comment: Testing | 95 - 98 % | EXTERNAL | | | | performed at [facility];[address] | | LAB | | | | [address];[place] | | | | | | [address] | | | | + + + + + + | FiO2, POC | 80Comment: Testing | % | EXTERNAL | | | | performed at [facility];[address] | | LAB | | | | [address];[place] | | | | | | [address] | | | | + + + + + + | Comment, | Tidal Volume = | | EXTERNAL | | | POC | 320Comment: Peep = | | LAB | | | | 14Resp Rate = 30Testing | | | | | | performed at [facility];[address] | | | | | | [address];[place], [place] | | | | | | [address] | | | | + + + [...] | | | Fingerstick | performed at [facility];[address] | | LAB | | | | [address];[place] | | | | | | [address] | | | | + + + [...] LINE | | | Testing performed at [facility];[address] [facility] | | | [facility];[place] [address] CULTURE | | | NO GROWTH 6 DAYS | | | Testing performed at [facility], [address], [place] | | | [address] | | + + + + +---------+ [...] | | | | | | at [facility];[address] [place] [address] | | | | | | [facility];[place] [address] | | | | + + + + + + + + | Specimen | + + | | + + + +---------+ + + | Performing | Address | City/State/Zipcode | Phone Number | | Organization | | | | + +---------+ + + | EXTERNAL LAB | | | | + +---------+ + + Hepatitis A, B, C Panel, Reflex (01/30/2016 11:47 AM PDT) + + + + + + | Component | Value | Ref Range | Performed | Pathologist | | | | | At | Signature | + + + + + + | Hep A Total | REACTIVE (A)Comment: | | EXTERNAL | | | Ab Interp | Testing performed at | | LAB | | | | [facility], [address] | | | | | | [place] | | | | | | [address] | | | | + + + + + + | HEP A IGM | NON REACTIVEComment: | | EXTERNAL | | | | Testing performed at | | LAB | | | | [facility], [address] | | | | | | [place] | | | | | | [address] | | | | + + + + + + | HEP B | NON REACTIVEComment: | | EXTERNAL | | | SURFACE | Testing performed at | | LAB | | | ANTIBODY | [facility], [address] | | | | | | [place] | | | | | | [address] | | | | + + + + + + | Hepatitis B | NON REACTIVEComment: | | EXTERNAL | | | Core Ab | Testing performed at | | LAB | | | Total | [facility], [address] | | | | | | [place] | | | | | | [address] | | | | + + + + + + | HCV Ab | NON REACTIVEComment: | | EXTERNAL | | | | Testing performed at | | LAB | | | | [facility], [address] [facility] | | | | | | [place] | | | | | | [address] | | | | + + + [...] | | | | | performed at [facility], [address] | | | | | | [facility] [address], | | | | | | [place] [address] | | | | + + + [...] | | | | pneumonia and sepsis. Julianne | | | | | | Norma 01/31/16 AGUILAR/myv | | | | | | Testing performed at | | | | | | [facility];[address] | | | | | | [facility];[place] [address] | | | | + + + [...] K/uL | LAB | | | | [facility];[address];[place] [address] | | | | + + + + + + | Non- | 4.24Comment: Testing | 3.70 - 5.10 | EXTERNAL | | | Red Blood | performed at [facility];888 | M/uL | LAB | | | Cells | [address];[place] | | | | | Counted | [address] | | | | + + + + + + | Hemoglobin | 11.5Comment: Testing | 11.3 - 15.5 | EXTERNAL | | | | performed at [facility];888 | g/dL | LAB | | | | [address];[place] | | | | | | [address] | | | | + + + + + + | Hematocrit, | 37.6Comment: Testing | 34.0 - 46.0 % | EXTERNAL | | | POC | performed at [facility];[address] | | LAB | | | | [address];[place] | | | | | | [address] | | | | + + + + + + | MCV | 88.6Comment: Testing | 80.0 - 100.0 fl | EXTERNAL | | | | performed at [facility];[address] | | LAB | | | | [address];[place] | | | | | | [address] | | | | + + + + + + | MCH | 27.1Comment: Testing | 27.0 - 34.0 pg | EXTERNAL | | | | performed at [facility];[address] | | LAB | | | | [address];[place] | | | | | | [address] | | | | + + + + + + | MCHC | 30.6 (L)Comment: Testing | 32.0 - 35.5 | EXTERNAL | | | | performed at [facility];888 | g/dL | LAB | | | | [address];[place] | | | | | | [address] | | | | + + + + + + | RDW-CV | 48.1Comment: Testing | 37 - 53 fl | EXTERNAL | | | | performed at [facility];[address] | | LAB | | | | [address];[place] | | | | | | [address] | | | | + + + + + + | Platelet | 167Comment: Testing | 150 - 400 K/uL | EXTERNAL | | | Count | performed at [facility];[address] | | LAB | | | Plasma | [address];[place] | | | | | | [address] | | | | + + + + + + | MPV | 9.4Comment: Testing | fl | EXTERNAL | | | | performed at [facility];[address] | | LAB | | | | [address];[place] | | | | | | [address] | | | | + + + + + + | Differentia | MANUALComment: Testing | | EXTERNAL | | | l Type | performed at [facility];[address] | | LAB | | | | [address];[place] | | | | | | [address] | | | | + + + + + + | Segmented | 35Comment: Testing | % | EXTERNAL | | | Neutrophils | performed at [facility];[address] | | LAB | | | Manual | [address];[place] | | | | | | [address] | | | | + + + + + + | % Bands | 58Comment: Testing | % | EXTERNAL | | | | performed at [facility];[address] | | LAB | | | | [address];[place] | | | | | | [address] | | | | + + + + + + | Lymphocytes | 4Comment: Testing | % | EXTERNAL | | | Manual | performed at [facility];[address] | | LAB | | | | [address];[place] | | | | | | [address] | | | | + + + + + + | % Atypical | 1Comment: Testing | % | EXTERNAL | | | Lymphocytes | performed at [facility];[address] | | LAB | | | | [address];[place] | | | | | | [address] | | | | + + + + + + | Monocytes | 2Comment: Testing | % | EXTERNAL | | | Manual | performed at [facility];[address] | | LAB | | | | [address];[place] | | | | | | [address] | | | | + + + + + + | Absolute | 9.93 (H)Comment: Testing | 1.90 - 7.40 | EXTERNAL | | | Neutrophils | performed at [facility];[address] | K/uL | LAB | | | | [address];[place] | | | | | | [address] | | | | + + + + + + | Bands | 16.46 (H)Comment: | 0.00 - 0.20 | EXTERNAL | | | Manual | Testing performed at | K/uL | LAB | | | | [facility];[address];[place] [address] | | | | + + + + + + | Absolute | 1.13Comment: Testing | 1.00 - 3.90 | EXTERNAL | | | Lymphocytes | performed at [facility];888 | K/uL | LAB | | | | [address];[place] | | | | | | [address] | | | | + + + + + + | Absolute | 0.28 (H)Comment: Testing | K/uL | EXTERNAL | | | Atypical | performed at [facility];[address] | | LAB | | | Lymphocytes | [address];[place] | | | | | | [address] | | | | + + + + + + | Absolute | 0.57Comment: Testing | 0.00 - 0.80 | EXTERNAL | | | Monocytes | performed at [facility];[address] | K/uL | LAB | | | | [address];[place] | | | | | | [address] | | | | + + + + + + | Platelet | ADEQUATEComment: Testing | | EXTERNAL | | | Estimate | performed at [facility];[address] | | LAB | | | | [address];[place] | | | | | | [address] | | | | + + + + + + | RBC | 4+Comment: BURRTesting | | EXTERNAL | | | Morphology | performed at [facility];[address] | | LAB | | | | [address];[place] | | | | | | [address] | | | | | | | [...] EXTERNAL | | | | performed at [facility];[address] | | LAB | | | | [address];[place], [place] | | | | | | [address] | | | | + + + [...] LAB | | | | performed at [facility];[address] | | | | | [address];[place], [place] | | | | | | [address] | | | | + + + [...] EXTERNAL | | | | performed at [facility];[address] | | LAB | | | | [address];[place] | | | | | | [address] | | | | + + + [...] | | | Total | performed at [facility];[address] | | LAB | | | | [address];[place] | | | | | | [address] | | | | + + + + + + | Albumin | 1.0 (L)Comment: Testing | 3.6 - 5.0 g/dL | EXTERNAL | | | | performed at [facility];[address] | | LAB | | | | [address];[place] | | | | | | [address] | | | | + + + + + + | Bilirubin | 1.2Comment: Testing | 0.1 - 1.5 mg/dL | EXTERNAL | | | Total | performed at [facility];[address] | | LAB | | | | [address];[place] | | | | | | [address] | | | | + + + + + + | Bilirubin | 1.0 (H)Comment: Testing | 0.0 - 0.3 mg/dL | EXTERNAL | | | Direct | performed at [facility];[address] | | LAB | | | | [address];[place] | | | | | | [address] | | | | + + + + + + | ALP, | 87Comment: Testing | 35 - 115 U/L | EXTERNAL | | | External | performed at [facility];[address] | | LAB | | | | [address];[place] | | | | | | [address] | | | | + + + + + + | AST | 149 (H)Comment: SLT | 10 - 45 U/L | EXTERNAL | | | | HEMOLYSISTesting | | LAB | | | | performed at [facility];[address] | | | | | | [address];[place] | | | | | | [address] | | | | + + + + + + | ALT | 50Comment: Testing | 10 - 65 U/L | EXTERNAL | | | | performed at [facility];[address] | | LAB | | | | [address];[place] | | | | | | [address] | | | | + + + [...] EXTERNAL | | | | performed at [facility];888 | mmol/L | LAB | | | | [address];[place] | | | | | | [address] | | | | + + + + + + | K | 3.8Comment: SLT | 3.5 - 4.9 | EXTERNAL | | | | HEMOLYSISTesting | mmol/L | LAB | | | | performed at [facility];[address] | | | | | | [address];[place] | | | | | | [address] | | | | + + + + + + | Cl | 118 (H)Comment: Testing | 99 - 109 mmol/L | EXTERNAL | | | | performed at [facility];[address] | | LAB | | | | [address];[place] | | | | | | [address] | | | | + + + [...] at | | | | | | [facility];[address];[place] [address] | | | | + + + + + + | Anion Gap | 18Comment: Testing | 5 - 20 mmol/L | EXTERNAL | | | | performed at [facility];[address] | | LAB | | | | [address];[place] | | | | | | [address] | | | | + + + + + + | Glucose, | 157 (H)Comment: Testing | 65 - 99 mg/dL | EXTERNAL | | | Fasting | performed at [facility];[address] | | LAB | | | | [address];[place] | | | | | | [address] | | | | + + + + + + | BUN | 25Comment: Testing | 8 - 25 mg/dL | EXTERNAL | | | | performed at [facility];[address] | | LAB | | | | [address];[place] | | | | | | [address] | | | | + + + + + + | Creatinine | 2.3 (H)Comment: Testing | 0.50 - 1.00 | EXTERNAL | | | | performed at [facility];888 | mg/dL | LAB | | | | [address];[place] | | | | | | [address] | | | | + + + + + + | BUN/Creatin | 11Comment: Testing | | EXTERNAL | | | ine Ratio | performed at [facility];[address] | | LAB | | | | [address];[place] | | | | | | [address] | | | | + + + + + + | Calcium | <5.0 (LL)Comment: CALLED | 8.5 - 10.5 | EXTERNAL | | | | NURSING UNITREAD BACK | mg/dL | LAB | | | | RESULTS VERIFIEDTesting | | | | | | performed at [facility];[address] | | | | | | [address];[place] | | | | | | [address] | | | | + + + [...] | | | | | | at [facility];[address] [place] [address] | | | | | | [facility];[place] [address] | | | | + + + [...] EXTERNAL LAB | | Testing performed at [address];[place] [address] MRSA PCR | | | NEGATIVE Testing performed at | | | [address];[place] [address] | | + + + + +---------+ [...] Conversion - 05/18/2019 6:30 PM PDT MYESHA Canchola BROOKSXR CHEST 1 VIEW01/30/2016 | | 11:34 AM [...] COCCI | | | Testing performed at [facility], [address], [place] | | | [address] CULTURE 3+ | | | STAPHYLOCOCCUS | [...] CENTRAL | | | Testing performed at [facility];[address] | | [address];[place] [address] CULTURE | | | NO GROWTH 6 DAYS | | | Testing performed at [facility], [address], [place], [place] | | | [address] | | + + + + +---------+ [...] EXTERNAL | | | | performed at [facility];888 | mmol/L | LAB | | | | [address];[place], [place] | | | | | | [address] | | | | + + + [...]
--- OUTSIDE RECORDS SUMMARY | ~2020-04-29 | XMS | Encounter Summary ---
Demographics + + + | Address | [address] | | | [place] [address] | + + + | Home Phone | | + + + | Preferred Language | Unknown | + + + | Marital Status | Single | + + + | Voodoo Affiliation | Unknown | + + + | Race | Unknown | + + + | Ethnic Group | Unknown | + + + Author + + + | Author | [facility] | | | and [place] | + + + | Organization | [facility] | | | and [place] [...] Team Providers + +------+ + | [employer] Operations Engineer In Charge Name | Role | Phone | + [...] | pain type | | | | [place], [place] | | | | | | [phone] | (Fax) | | | | | [phone] | | | +--------+ + + + [...] | | | | Visit | | [place] [address] | | | | | | [phone] | | | | | | | [...]
--- OUTSIDE RECORDS SUMMARY | ~2020-04-29 | XMS | Encounter Summary ---
Demographics + + + | Address | [address] [address] [address] | | | [place] [address] | + + + | Home Phone | | + + + | Preferred Language | Unknown | + + + | Marital Status | Single | + + + | Sikhism Affiliation | Unknown | + + + | Race | Unknown | + + + | Ethnic Group | Unknown | + + + Author + + + | Author | [facility] | | | and [place] | + + + | Organization | [facility] | | | and [place] | [...] Team Providers + +------+ + | Care Reimbursement Director Name | Role | Phone | + [...] | | | | | | | SC EGD | | | | | | | TRANSORAL | | | | | | | BIOPSY | | | | | | | SINGLE/MULTI | | | | | | | PLE SC | | | | | | | [...] + + | 02/11/ | Anesthesia | [facility] | Naomi aSnderson, | | | 2019 | Event | [facility] | DOUBLE NEEDLE STITCHER [address] | | | | | INTRA OP [address] | [facility] [place] [place] [place] [address] | | | | | BLVD [place] | [phone] | | | | | [address] | | | | | | [phone] | | | +--------+ + + + + Anesthesia Record + + + + + | Procedure Name | Responsible | Anesthesia Start | Anesthesia Stop Time | | | Anesthesiologist | Time | | + + + + + | JYOTHI (N/Judson Montero) | Naomi Sanderson CRNA | 02/12/20703 | [...] + + + | Periph | 02/12/20; 632; yes; Right; | 02/12/2033 by | 02/12/20747 by | | stacie | Fransisco; ejff-luq-rgrhmu catheter | Vi [place], | Yuli Armstrong RN | | IV | system; 20 gauge; removed per | RN | | | | policy/procedure, catheter/device | | | | | intact; 02/12/20; 747 | | | +--------+ + + + [...] EVALUATION Myesha Hastings 40 y.o. female 1980 [id number] Procedure(s) EGD (N/A Mouth) Cooperates? Yes Mental [...] by Naomi Sanderson CRNA 02/12/2020 7:25 AM [facility] nesthesia Preprocedure Evaluation - Naomi Sanderson CRNA - 02/09/2020 2:28 PM PDT ANESTHESIA PREANESTHESIA EVALUATION Myesha Hastings 40 y.o. female 1980 [id number] Procedure(s): EGD (N/A Mouth) Medical,anesthesia, drug, allergy [...] and agrees to proceed. Electronically Signed by: aNomi Sanderson CRNA [facility] ([place], [place]) date/time: 02/12/2020 6:52 AM documented in this en counter Miscellaneous Notes Anesthesia Post-op Handoff - Naomi Sanderson CRNA - 02/12/2020 7:23 AM PDTFormatting of thi s note might be different from the original. ANESTHESIA HANDOFF NOTE Myesha Zelda Hastings 40 y.o. female 1980 [id number] EGD (N/A Mouth) HANDOFF NOTE Handoff Protocol [...] team. Naomi Sanderson CRNA 02/12/2020 7:23 AM [facility] documented in this encounter Plan of Treatment +--------+ + + + + | Date | Type | Specialty | Care Team | Description | +--------+ + + + + | 05/10/ | Virtual | Gastroenterology | Gema Cardona | | | 2019 | 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, EMBEDDED SOFTWARE PROGRAMMER [address] [facility] | | | | Visit | | [place] [address] | | | | | | [phone] | | | | | | | [...]
--- OUTSIDE RECORDS SUMMARY | ~2020-04-29 | XMS | Encounter Summary ---
Demographics + + + | Address | [address] [facility] [address] | | | [place] [address] | + + + | Home Phone | | + + + | Preferred Language | Unknown | + + + | Marital Status | Single | + + + | Taoism Affiliation | Unknown | + + + | Race | Unknown | + + + | Ethnic Group | Unknown | + + + Author + + + | Author | [facility] | | | and [place] | + + + | Organization | [facility] | | | and [...] Team Providers + +------+ + | Care Stock Dealer Name | Role | Phone | + [...] | | ble vomiting | BLVD | [place], [place] | | | | | with nausea | [place] | [address] | | | | | Procedures | [address] | Phone: | | | | | [place] Gastric | Phone: | [phone] | | | | | Emptying | [phone] | Fax: | | | | | | Fax: | [phone] | | | | | | [phone] | | +--------+--------+ + + + + [...] | Riky, | | | Services | shiv | probable | Hiro | Ambrose Hung MD | | | Required | | gastroparesi | MD Anders | [address] | | | | | s | [address] [address] | [address] | | | | | | [address] | [place] | | | | | | [place], | [address] Phone: | | | | | | [place] [address] | [phone] | | | | | | Phone: | Fax: | | | | | | [phone] | [phone] | | | | | | Fax: | | | | | | | [phone] | | + + + + + + + Encounter Details +--------+---------+ + + + | Date | Type | Department | Care Team | Description | +--------+---------+ + + + | 02/05/ | Office | [facility] | Ambrose Lan | Epigastric pain; | | 2019 | Visit | GASTROENTEROLOGY | MD Abhilash [address] | Non-intractable | | | | [address] | [place] [address] | vomiting with nausea | | | | [place], [place] | [phone] | | | | | [address] | | | | | | [phone] | | | +--------+---------+ + + + [...] vomiting, or vomiting blood Date Last Reviewed: 04/03/201619996431-0361 [employer]. [address] [place] [address], [place] [address]. All [facility] ts reserved. This information is not intended as a substitute for professional medical care. Always follow your healthcare professional's instructions. documented in this encounter Progress Notes Ambrose Lan MD - 02/06/2020 9:50 AM PDT Subjective: Chief Complaint Patient presents with Chest Pain Other gastroparesis Patient ID: Myseha Hastings is a 39 y.o. female who [...] Tube Insertion; Surgeon: Reji Galvez MD; Location: [facility] MAIN OR THROAT SURGERY N/A 08/17/2018 Procedure: [...] call with any questions. Ambrose Lan MD [facility] Gastroenterology 02/06/2020 This progress note was dictated using [employer] voice recognition software. Document was revie wed at time of dictation but [id number] errors may be present. Please call with any quest ions or clarifications. documented in th is encounter Plan of Treatment +--------+ + + + + | Date | Type | Specialty | Care Team | Description | +--------+ + + + + | 05/10/ | Virtual | Gastroenterology | Geam Cardona | | 2019 | Office | | [address] | | | | Visit | | [place] [address] | | | | | | [phone] | | | | | | | | +--------+ + + + + documented as of this encounter Results NM Gastric [...] Procedure Note | + + | Bert, [id number] - 04/03/2020 12:38 PM PDT | | [...]
--- OUTSIDE RECORDS SUMMARY | ~2020-04-29 | XMS | Encounter Summary ---
Demographics + + + | Address | [address] [facility] [address] | | | [place] [address] | + + + | Home Phone [...] + | Author | [facility] | | | and [place] | + + + | Organization | [facility] | | | and [place] [...] Team Providers + +------+ + | Care Air Tank Assembler Name | Role | Phone | + [...] | | | | | | | [place] EGD | | | | | | | TRANSORAL | | | | | | | BIOPSY | | | | | | | SINGLE/MULTI | | | | | | | PLE [place] | | | | | | | [...] + + | 02/11/ | Surgery | [facility] | Ambrose Lan | EGD | | 2019 | | [facility] YOSI Hung MD [address] | | | | | INTRA OP [address] | [place] [address] | | | | | BLVD [place] | [phone] | | | | | [address] | | | | | | [phone] | | | +--------+---------+ + + + [...] Lan MD - 02/07/2020 4:11 PM PDT [facility] Service: Gastroenterology Pre-Operative History & Physical [...] Acute respiratory failure with hypoxia and hypercapnia ([facility]) 2016 Adverse effect of anesthesia resistant to general anesthesia CHIRAG (acute kidney injury) ([facility]) Anemia ARDS (adult respiratory distress syndrome) ([facility]) 2016 Decreased hearing of both ears Epigastric pain 02/2020 GERD (gastroesophageal reflux disease) Hepatitis Lactic acidosis Leucocytosis Metabolic acidosis Nausea & vomiting 02/2020 Neuropathy feet Pneumonia of both lungs due to influenza A virus 01/2016 H1N1 - was hospitalized in [place] for 2 months Presence of retained hardware Right great toe PTSD (post-traumatic stress disorder) Septic shock ([facility]) Toxic metabolic encephalopathy Past Surgical History: Procedure Laterality Date BREAST CYST EXCISION FOOT SURGERY Right 08/2019 Great Toe fusion with spacer MIDDLE EAR SURGERY Bilateral 12/10/2017 Procedure: Bilateral Myringotomy w/ Ventilation Tube Insertion; Surgeon: Reji Galvez MD; Location: [facility] MAIN OR THORACENTESIS CHEST TUBE PLACE 2015 THROAT SURGERY N/A 08/17/2018 Procedure: INCISION AND DRAINAGE ABSCESS PERITONSILLAR; Surgeon: Reji Galvez MD; Lo cation: [facility] MAIN OR TOE AMPUTATION Right 06/2016 tips [...] file Gets together: Not on file Attends sabianist service: Not on file Active member of [...] to proceed. Updated today Ambrose Lan MD [facility] Gastroenterology 02/12/2020 Primary Care Physician: Hiro Noble MD documented in thi s encounter Miscellaneous Notes Op Note - Ambrose Lan MD - 02/12/2020 7:31 AM [facility] Procedure Note Procedure note was generated using Insem Spaation endoscopy software. The note can be reviewed [...] | | | | Visit | | [place] [address] | | | | | | [phone] | | | | | | | [...] +---+--------+ + +--------+ +---+ + | *TERMED* [facility] UPPER GI | Routin | 02/12/2020 | [...] + + + | SPECIMEN(S): A | [place] PATHOLOGY | | GASTRIC BIOPSY SPECIMEN SOURCE:A. [...] | | technical component was performed by [facility], [address] | | | [place] [address] (Guest Relations Receptionist: Frannie Almendarez MD; CLIA# | | | [id number]).The professional interpretation was performed by [facility] | | | [facility], [address] [place], [place] | | | [address]. Diagnostician: David Green MDPathologistElectronically | | | [...] | |The technical component was performed by [facility], [address] [place] [address] (Guest Relations Receptionist: Frannie Almendarez MD; CLIA# [id number]). | | |The professional interpretation was performed by [facility], [facility], [address] [place] [address]. | | | | | |Diagnostician: David [...] Performed At | + + + | David | ASYA | | [facility] | PROVATION | | CenterGastroenterology | | | Patient Name: Myesha Hastings | | | Procedure Date: 02/12/2020 6:58 AMMRN: [id number] | | | of : 1980 | [...] | 02/12/2020 6:58 AMNumber of Addenda: 0 [facility] | | Center | | | - [...] | | | | | | [facility] | | + + + + +---------+ [...] | | | Qualitative | performed at [facility];[address] | | LABORATORY | | | , Urine | [address];[place], [place] | | | | | | [address] | | | | + + + + + + + + | Specimen | + + | | + + + + + + + | Performing | Address | City/State/Zipcode | Phone Number | | Organization | | | | + + + + + | [facility] | [address] | [place] [address] | [phone] | + + + + + Basic [...] | | | | | performed at [facility];[address] | | | | | | [facility];[place], [place] | | | | | | [address] | | | | + + + + + + + + | Specimen | + + | Blood | + + + + + + + | Performing | Address | City/State/Zipcode | Phone Number | | Organization | | | | + + + + + | [facility] | [address] | [place] [address] | [phone] | + + + + + documented [...]
--- OUTSIDE RECORDS SUMMARY | ~2020-04-29 | XMS | Encounter Summary ---
Demographics + + + | Address | [address] [facility] [address] | | | [place] [address] | + + + | Home Phone | | + + + | Preferred Language | Unknown | + + + | Marital Status | Single | + + + | Cheondoism Affiliation | Unknown | + + + | Race | Unknown | + + + | Ethnic Group | Unknown | + + + Author + + + | Author | [facility] | | | and [place] | + + + | Organization | [facility] | | | and [place] [...] Team Providers + +------+ + | Care Access Clinician Name | Role | Phone | + +------+ + | Jodee Jaime PA-C | PCP | | + +------+ + Encounter Details +--------+---------+ + + + | Date | Type | Department | Care Team | Description | +--------+---------+ + + + | 10/21/ | Office | [facility] | Ivon Gonzalez MS | Conductive hearing | | 2018 | Visit | AUDIOLOGY AND | CCC-A [address] | loss of both ears | | | | [facility] | [address] | (Primary Dx) | | | | [address] | [place] [address] | | | | | [address] | [phone] | | | | | [place] [address] | | | | | | [phone] | | | +--------+---------+ + + + [...] documented as of this encounter Progress Notes CarlosIvon, CCC-A - 10/21/2017 10:15 AM PSTReferring Provider: [...] 250 Hz through 8 KHz and 15-40dB [id number] . Left ear --Pure tone air and bone conduction testing showed a conductive hearing loss w ith 60-40dB threshold at 250 Hz through 8 KHz and 10-40dB [id number]-[id number]-[id number]. Speech Recognition Thresholds were 30dB in the [...] | | | | Visit | | [place] [address] | | | | | | [phone] | | | | | | | [...]
[~2020-04-29 13:41] MED LIST changes: +LOSARTAN POTASS25 MG PO
[2020-04-29] MEDS ORDERED: VITAMIN B COMP1 EACH PO (13:59)
[2020-04-29] MEDS ORDERED: VITAMIN D3 COM1 EACH PO (13:59)
[2020-04-29] MEDS ORDERED: ONDANSETRON ODT4 MG SL (16:27)
== END 2020-04-29 16:59 | disposition home or self-care (01) ==
LOC: ED 13:41
DX: E11.43 Type 2 diabetes mellitus with diabetic autonomic (poly)neuropathy (principal); K31.84 Gastroparesis; E11.40 Type 2 diabetes mellitus with diabetic neuropathy, unspecified; E78.2 Mixed hyperlipidemia; E55.9 Vitamin D deficiency, unspecified; F41.9 Anxiety disorder, unspecified; F17.200 Nicotine dependence, unspecified, uncomplicated; Z79.899 Other long term (current) drug therapy; Z79.4 Long term (current) use of insulin
CPT/HCPCS: 80053; 81001; 83690; 84703; 85025; 96361; 96374; 96375; 96376; 99284-25; J1200; J1790; J2060; J7030

== ENCOUNTER 2020-05-31 16:27 | Emergency (ER) | payer BC, OTHER ==
[~2020-05-31] VITALS: Ht 160 cm; Wt 61.2 kg
--- OUTSIDE RECORDS SUMMARY | ~2020-05-31 | XMS | Encounter Summary ---
Demographics + + + | Address | [address] | | | [place] [address] | + + + | Home Phone | | + + + | Preferred Language | Unknown | + + + | Marital Status | Single | + + + | Cheondoism Affiliation | Unknown | + + + | Race | or | + + + | Ethnic Group | Not or | + + + Author + + + | Author | [facility] | | | and [place] | + + + | Organization | [facility] | | | and [place] | + + + | Address | Unknown | + + + | Phone | Unavailable | + + + Support + + +---------+ + | Name | Relationship | Address | Phone | + + +---------+ + | Pito Cavazos | ECON | Unknown | | + + +---------+ + | Carmen Matta | ECON | Unknown | | + + +---------+ + Care Team Providers + +------+ + | Care Outsole Tacker Name | Role | Phone | + +------+ + | Jodee Jaime PA-C | PCP | | + +------+ + Reason for Visit +--------+ + | Reason | Comments | +--------+ + | Other | NO SHOW NEW PATIENT APPT 11/28/[address] [facility] | +--------+ + Encounter Details +--------+ + + + + | Date | Type | Department | Care Team | Description | +--------+ + + + + | 11/28/ | Documentati | [facility] | Blane Dickerson, | Other (NO SHOW NEW | | 2019 | on | GASTROENTEROLOGY | Presentation Manager | PATIENT APPT | | | | [address] | | 11/28/2019 WITH | | | | [place] | | [facility] | | | | [address] | | CLINIC) | | | | [phone] | | | +--------+ + + + + Social History + + + +--------+ + | Tobacco Use | Types | Packs/Day | Years | Date | | | | | Used | | + + + +--------+ + | Former Smoker | Cigarettes | 0.1 | 10 | Quit: 2017 | + + + +--------+ + + +---+---+---+ | Smokeless Tobacco: | | | | | Never Used | | | | + +---+---+---+ + + +---------+ + | Alcohol Use | Drinks/Week | oz/Week | Comments | + + +---------+ + | No | | | | + + +---------+ + + + + | Sex Assigned at | Date Recorded | | | | + + + | Not on file | | + + + documented as of this encounter Plan of Treatment Not on filedocumented as of this encounter Visit Diagnoses Not on filedocumented in this encounter"
--- OUTSIDE RECORDS SUMMARY | ~2020-05-31 | XMS | Encounter Summary ---
Demographics + + + | Address | [address] | | | [place] [address] | + + + | Home Phone | | + + + | Preferred Language | Unknown | + + + | Marital Status | Single | + + + | Sabianist Affiliation | Unknown | + + + | Race | or | + + + | Ethnic Group | Not or | + + + Author + + + | Author | [facility] | + + + | Organization | [facility] | + + + | Address | Unknown | + + + | Phone | Unavailable | + + + Support + + +---------+ + | Name | Relationship | Address | Phone | + + +---------+ + | Pito Macy | ECON | Unknown | | + + +---------+ + Care Team Providers + +------+ + | Care Department Sales Manager Name | Role | Phone | + +------+ + PCP | Unavailable | + +------+ + Reason for Visit +--------+ + | Reason | Comments | +--------+ + | Other | ARDS | +--------+ + | Other | Septic shock | +--------+ + Encounter Details +--------+ + + + + | Date | Type | Department | Care Team | Description | +--------+ + + + + | 01/30/ | Emergency | [facility] | | | | 2015 | | Department [address] | | | | | | [address] | | | | | | [facility] | | | | | | [place], [place] | | | | | | [address] | | | | | | [phone] | | | +--------+ + + + + Social History + +-------+ +--------+------+ | Tobacco Use | Types | Packs/Day | Years | Date | | | | | Used | | + +-------+ +--------+------+ | Never Assessed | | | | | + +-------+ +--------+------+ + + + | Sex Assigned at | Date Recorded | | | | + + + | Not on file | | + + + documented as of this encounter Miscellaneous Notes Comm Center - [facility] [place] - 01/31/2016 12:32 PM PDTSpoke with ref ICU, pt will be tra [facility]ferred [facility], no transfer needed for [facility]. FYI paged Dr Oscar Lorenzo (ECMO Attnd) and Dr Artemio Viveros (Pulm) [facility] - 01/31/2016 6:00 AM PDT5:56 AM 01/31/[address] Viveros with DR. Velez at [facility], advised opening up a bed for pt but [facility] does not have a mobile ECMO team, [facility] will contact [facility] to discuss transport to , HOLD in EP IC [facility] 01/31/2016 5:17 AM PDT4:13 AM 01/31/[address] Viveros that [facility] is at capacity for adult ICU beds, connected MD's, 35 yof, hx of diabetes, presented with flu symtoms, tested positive 4:25 AM 01/31/[address] Lorenzo, ECMO ATTN 4:27 AM 01/31/[address] Lorenzo into call 4:55 AM 01/31/2016 DR. Viveros, freeing up a bed on 7A, will call back to reconnect with DR. Velez and DR. Deyanira rowland, HOLD ransfer Note - Artemio Viveros Md - 01/31/2016 4:32 AM PDTCRITICAL CARE CONSULTATION NOTE Consultation requested for ECMO. Referring location: [facility] Referring Attending: Dr Velez, ICU EPIC DEPARTMENT: [facility] [id number] Place of Service: - [id number] Date of Service: 01/31/2016 5:33 AM CSN: [id number] Modifiers:GC Resident Involved: no Suggested CPT: TO PRINT OPERATOR 56822 Critical Care, Initial 30-74 minutes 46 minutes total time, excluding procedures, was spent by me in communication and coordinat ion of care for this patient. HPI: 35 y.o. female who presented to the ED at [facility] in [facility] on 01/28 with 5 days myalgia s/arthralgias/malaise. Influenzae A and B positive. Developed ARDS requiring intuabtion, ARF requiring slow dialysis (they don't do CRRT). TTE today EF 40% without valvular abnormaliti es. Now on pressors (Vasopresion 0.06, norepi 40mcg/min, phenyl 200 mcg/min) and inotropes ( epi 5 mcg/min), weight 85 kg. On vent at 100% fiO2, but had desaturation to 70% requiring ag gressive bagging for many minutes to rescue. They are enquiring about ECMO, and specifically [facility] cannulation. Events and observations: DATA: Lactate 8, ScvO2 40% Vent 6ml/kg, last gas 7.20/53/60 on fiO2 100%, PEEP 18, plateau 32 Neuromuscular blockade On pressors and inotropes On slow intermittent dialysis On broad specturm ABx although likely d/t flu PMHx: DM, etoh MEDICAL DECISION-MAKING: Reasonable for patient to be transferred to a tertiary center for continued management of c ritical care issues; unfortunately [facility] does not currently have critical care beds. [facility] bed s are also scarce making it difficult to transfer any patients out of ICU. Dr Raúl Chapman of ECMO team brought on to call to discuss whether patient might be a VV ECMO candidate and could then be considered as a transfer to [facility]. He thought ye s, as EF still 40%, epi dose only moderate, and might have better hemodynamics with correcti on of respiratory component of acidosis and better oxygentaiton. Also patient sounds like might be too unstable to transport prior to cannulation, and [facility] currently does not have a travelling cannulation/ECMO transport team ([facility] does). - recommended PA catheter to obtain CI and wedge to better undstand cardiogenic vs septic c ontributors - ECMO reasonable to consider to rest lungs, but still unclear if would Best be served by [facility] or VV ECMO - Dr Velez is also going to consider proning, and APRV as recruitment maneuvers, and nit ayush oxide as a rescue - we will touch base in 1 hour to see if [facility] is able to free up any ICU beds - I spoke with AOAyla Maldonado to help work on bed availability UPDATE 6am: Reconnected with Dr Velez He agrees that patient is too unstable for transport prior to cannulation He is going to discuss case with [facility] and/or [facility] If patient improves, he may reconnect with us to explore VV ECMO for lung rest, as well as CRRT. ARTEMIO VIVEROS MD Attending/Night Baker Dept of Pulmonary & Critical Care Medicine Mailcode: [facility]-[id number]. Pager: [phone] om Center - Y[facility] Antonio - 01/31/2016 4:09 AM PDT4:05 AM [facility]31/[facility]: Myesha Hastings : 1980 DX: ARDS, septic shock paged DR. Viveros, [facility] documented in this encou nter Plan of Treatment Not on filedocumented as of this encounter Visit Diagnoses Not on filedocumented in this encounter"
--- OUTSIDE RECORDS SUMMARY | ~2020-05-31 | XMS | Encounter Summary ---
Demographics + + + | Address | [address] | | | [place] [address] | + + + | Home Phone | | + + + | Preferred Language | Unknown | + + + | Marital Status | Single | + + + | Lutheran Affiliation | Unknown | + + + | Race | or | + + + | Ethnic Group | Not or | + + + Author + + + | Author | [facility] | | | and [place] | + + + | Organization | [facility] | | | and [...] Team Providers + +------+ + | Care Teletypewriter Operator Name | Role | Phone | + +------+ + | Hiro Noble MD | PCP | | + +------+ + Reason for Visit + +--------+ + | Reason | Onset | Comments | | | Date | | + +--------+ + | Appointment Question | 01/30/ | 11/28/19 No Show | | | 2019 | | + +--------+ + Encounter Details +--------+ + + + + | Date | Type | Department | Care Team | Description | +--------+ + + + + | 01/30/ | Telephone | [facility] | Gerald Chu | Appointment Question | | 2019 | | GASTROENTEROLOGY | MD Jeremie Paredes | (11/28/19 No Show) | | | | [address] | [address] [place], [place] | | | | | [place] | [id number] | | | | | [address] | | | | | | [phone] | | | +--------+ + + + [...] documented as of this encounter Miscellaneous Notes Telephone Encounter - Charlotte Velasquez - 01/31/2020 2:21 PM PDTReturned call. Appt schedu led. elephone Encounter - Deana Barrett - 01/31/2020 9:59 AM [facility], is calling regarding A ppointment Question (11/28/19 No Show) and would like a call back. Additional Call Details: Calling to see if 11/28/19 No Show appointment can be rescheduled. Please call Albina at [phone]. If this is a symptom based call, was patient offered triage? Not Applicable If this is a symptom based call and you were unable to immediately transfer the call to a socrates lunsford lidding machine operator was caller made aware that if at any time she feels it is an emergency they sh ould call 911 or go to the nearest emergency room? not applicable documented in this encounter Plan of Treatment Not on filedocumented as of this encounter Visit Diagnoses Not on filedocumented in this encounter"
--- OUTSIDE RECORDS SUMMARY | ~2020-05-31 | XMS | Encounter Summary ---
Demographics + + + | Address | [address] | | | [place] [address] | + + + | Home Phone | | + + + | Preferred Language | Unknown | + + + | Marital Status | Single | + + + | Samaritan Affiliation | Unknown | + + + | Race | or | + + + | Ethnic Group | Not or | + + + Author + + + | Author | [facility] | | | and [place] | + + + | Organization | [facility] | | | and [...] Team Providers + +------+ + | Care Director Cpg Name | Role | Phone | + [...] | | | | | Epigastric | [place], | Medicine | | | | | pain | Ambrose Hung MD | [address] | | | | | Non-intracta | [address] | | | | | ble vomiting | BLVD | [place], [place] | | | | | with nausea | [place], [place] | [address] | | | | | Procedures | [id number] | Phone: | | | | | [place] Gastric | Phone: | [phone] | | | | | Emptying | [phone] | Fax: | | | | | | Fax: | [phone] | | | | | | [phone] | | +--------+--------+ + + + + Encounter Details +--------+ + + + + | Date | Type | Department | Care Team | Description | +--------+ + + + + | 04/03/ | Hospital | [facility] | Ambrose Lan | | | 2019 | Encounter | [facility] | MD Abhilash [address] | | | | | [address] | [place] [address] | | | | | [address] | [phone] | | | | | [place], [place] | | | | | | [address] | | | | | | [phone] | | | +--------+ + + + [...] Not on filedocumented as of this encounter Procedures + +--------+ [...] Procedure Note | + + | Bert, [id number] - 04/03/2020 12:38 PM PDT | | [...]
--- OUTSIDE RECORDS SUMMARY | ~2020-05-31 | XMS | Encounter Summary ---
Demographics + + + | Address | [address] | | | [place] [address] | + + + | Home Phone | | + + + | Preferred Language | Unknown | + + + | Marital Status | Single | + + + | Jehovah'S Witness Affiliation | Unknown | + + + | Race | or | + + + | Ethnic Group | Not or | + + + Author + + + | Author | [facility] | | | and [place] | + + + | Organization | [facility] | | [...] Team Providers + +------+ + | Care Forensic Psychiatrist Name | Role | Phone | + +------+ + | Hiro Noble MD | PCP | | + +------+ + Reason for Visit +--------+--------+ + | Reason | Onset | Comments | | | Date | | +--------+--------+ + | Other | 02/08/ | COVID19 TESTING PRE-OP | | | 2019 | | +--------+--------+ + Encounter Details +--------+ + + + + | Date | Type | Department | Care Team | Description | +--------+ + + + + | 02/08/ | Telephone | [facility] | Ambrose Lan | Other (COVID19 | | 2019 | | GASTROENTEROLOGY | MD Abhilash [address] | TESTING PRE-OP) | | | | [address] | [place] [address] | | | | | [place], [place] | [phone] | | | | | [address] | | | | | | [phone] | | | +--------+ + + + [...] this encounter Miscellaneous Notes Telephone Encounter - Cyndie Covington, Application Development Liaison - 02/09/2020 10:55 AM PDTCall ed pt to inform her that we are requesting that she get tested for COVID19 sometime this wee k prior to the procedure. She states she absolutely cannot get this done, as she already had trouble getting a ride for the procedure itself. Informed my digital product manager and she stated she wou kurt let the hospital staff done. Thanks mvd Electronically signed by Trung Harris [facility] Extractor Plant Operator at 02/09/2020 10:59 AM PDTdocumented in this encounter Plan of Treatment Not on filedocumented as of this encounter Visit Diagnoses Not on filedocumented in this encounter"
--- OUTSIDE RECORDS SUMMARY | ~2020-05-31 | XMS | Encounter Summary ---
Demographics + + + | Address | [address] | | | [place] [address] | + + + | Home Phone | | + + + | Preferred Language | Unknown | + + + | Marital Status | Single | + + + | Advent Affiliation | Unknown | + + + | Race | or | + + + | Ethnic Group | Not or | + + + Author + + + | Author | [facility] | | | and [place] | + + + | Organization | [facility] | | | [...] Team Providers + +------+ + | Care Electrolog Operator Name | Role | Phone | + +------+ + | Hiro Noble MD | PCP | | + +------+ + Encounter Details +--------+ + + + + | Date | Type | Department | Care Team | Description | +--------+ + + + + | 02/07/ | Preadmit | [facility] | Ambrose Lan | | | 2019 | Visit | CENTER [facility] | MD Abhilash [address] | | | | | CLINIC [address] | [place] [address] | | | | | BLVD [place], [place] | [phone] | | | | | [address] | | | | | | [phone] | | | +--------+ + + + [...] documented as of this encounter Miscellaneous Notes Preadmit Clinic Note - Rachael Platt RN - 2020 9:30 AM PDTPhone Interview, patient aware ride will need to wait outside hospital. Instructions given, questions answered incl uding medication regimen. >4 mets per AHA guidelines for non emergent surgery. Denies card iac hx, CP or SOB. docu mented in this encounter Plan of Treatment Not on filedocumented as of this encounter Visit Diagnoses Not on filedocumented in this encounter"
--- OUTSIDE RECORDS SUMMARY | ~2020-05-31 | XMS | Encounter Summary ---
Demographics + + + | Address | [address] [facility] [address] | | | [place] [address] | + + + | Home Phone | | + + + | Preferred Language | Unknown | + + + | Marital Status | Single | + + + | Episcopal Affiliation | Unknown | + + + | Race | or | + + + | Ethnic Group | Not or | + + + Author + + + | Author | [facility] | | | and [place] | + + + | Organization | [facility] | | | [...] Team Providers + +------+ + | Care Technical Artist Name | Role | Phone | + +------+ + | Hiro Noble MD | PCP | | + +------+ + Reason for Visit + + + | Reason | Comments | + + + | Follow-up | Gastroparesis | + + + Evaluate & Treat (Routine) + + + + + + + | Status | Reason | Specialty | Diagnoses / | Referred By | Referred To | | | | | Procedures | Contact | Contact | + + + + + + + | Authorized | Specialty | Gastroenterol | Diagnoses | Aide, | Riky | | | Mervat | shiv | probable | Hiro | Ambrose Hung MD | | | Required | | gastroparesi | MD Anders | [address] | | | | | s | [address] [address] | SHADI | | | | | | Mark | [place], [place] | | | | | | [place], | [address] Phone: | | | | | | [place] [address] | [phone] | | | | | | Phone: | Fax: | | | | | | [phone] | [phone] | | | | | | Fax: | | | | | | | [phone] | | + + + + + + + Encounter Details +--------+ + + + + | Date | Type | Department | Care Team | Description | +--------+ + + + + | 04/10/ | Virtual | [facility] | Gema Cardona | Epigastric pain | | 2019 | Office | GASTROENTEROLOGY | A, 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 Service was provided [id number] with the patient via interactive videoconferencing Time Based Coding Total time (in minutes) including non [id number] time (reviewing records, documentation, etc..) 52 You have chosen to receive care through the use of telemedicine. Telemedicine enables [facility] care providers at different locations to provide safe, effective and convenient care throu gh the use of technology. As with any health care service, there are risks associated with t he use of telemedicine, including equipment failure, poor image resolution and information s ecurity issues. Do you understand the risks and benefits of telemedicine as I have explained them to you? " Yes" Have your questions regarding telemedicine been answered? "Yes" Participant is currently at home Do you consent to the use of telemedicine in your medical care today? Yes. Last question, I need to confirm where are you physically located right now? [place], [place] Answer: Patient confirms they are located in a state where Gema Watts NP am l icensed. HPI Patient ID: Myesha Hastings is a 40 y.o. female who presents in follow up regarding n ausea and vomiting. She notes that she has had difficulty eating solid foods. Patient notes that symptoms have been ongoing for some time. She did recently undergo endoscopy evaluati on of nausea, vomiting and abdominal pain on February 11. Esophagus, stomach and duodenum were v isually normal with no evidence of gastric outlet obstruction. Pathology was unremarkable. She subsequently underwent gastric emptying study on April 03 which was within normal limits. She reports that she believes her symptoms are secondary to her metformin. She stopped he r metformin on April 08 and symptoms have been slowly improving. Previously was vomiting larg e amounts and reports she is now only vomiting spoonfuls of regurgitation. She denies any o vert nausea at this time. She is slowly holding down food. She has added Ensure to her kartik l plan and is also consuming some nuts and fruits. She does report that hot showers are the only things that will help her abdominal pain. She has been previously recommended to disc ontinue marijuana use due to possible marijuana emesis syndrome however she denies marijuana emesis syndrome and in fact symptoms have been slowly improving with discontinuation of met formin. She has had 3 ER visits since last appointment requiring electrolyte replacement as well as hydration. Blood sugars have been slowly improving. She does report she was initi ally somewhat constipated however stools are now improving and softening. She denies any ov ert diarrhea but is having about 2-3 soft to loose stools a day. She is encouraged regardin g slow improvement of symptoms with discontinuation of metformin. Review of Systems Constitutional: Positive for unexpected weight change. Negative for fatigue. Respiratory: Negative for cough, choking, chest tightness, shortness of breath and wheezing . Cardiovascular: Negative for chest pain and palpitations. Gastrointestinal: Positive for abdominal pain, constipation, nausea and vomiting. Negative for abdominal distention, anal bleeding, blood in stool, diarrhea and rectal pain. Heartburn-YES No Known Allergies Outpatient Encounter Medications as of 04/10/2020 Medication Sig Dispense Refill Calcium 75 MG TABS Take 1,000 mg by mouth Daily. calcium carbonate (TUMS) 500 mg chewable tablet Chew and swallow 1 tablet Daily. cholecalciferol (CHOLECALCIFEROL) 25 mcg (1,000 units) tablet Take 2,000 Units by mouth Daily. cyanocobalamin (VITAMIN B-12) 50 MCG tablet Take 50 mcg by mouth Daily. insulin glargine (LANTUS SOLOSTAR) 100 units/mL injection (pen) Inject 10 Units under t he skin Daily. losartan (COZAAR) 25 mg tablet metFORMIN (GLUCOPHAGE) 500 mg tablet Take 500 mg by mouth 2 times daily (with breakfast & dinner). omeprazole (PRILOSEC) 20 mg capsule Take 1 capsule by mouth 2 times daily for 120 days. (Patient not taking: Reported on 04/10/2020.) 60 capsule 3 No facility-administered encounter medications on file as of 04/10/2020. Past Medical History: Diagnosis Date Acid reflux disease Acute respiratory failure with hypoxia and hypercapnia (HCC) 2016 Adverse effect of anesthesia resistant to general anesthesia CHIRAG (acute kidney injury) (HCC) Anemia ARDS (adult respiratory distress syndrome) ([facility]) 2016 Decreased hearing of both ears Epigastric pain 02/2020 GERD (gastroesophageal reflux disease) Hepatitis Lactic acidosis Leucocytosis Metabolic acidosis Nausea & vomiting 02/2020 Neuropathy feet Pneumonia of both lungs due to influenza A virus 01/2016 H1N1 - was hospitalized in [place] for 2 months Presence of retained hardware Right great toe PTSD (post-traumatic stress disorder) Septic shock (HCC) Toxic metabolic encephalopathy Past Surgical History: Procedure Laterality Date BREAST CYST EXCISION FOOT SURGERY Right 08/2019 Great Toe fusion with spacer MIDDLE EAR SURGERY Bilateral 12/10/2017 Procedure: Bilateral Myringotomy w/ Ventilation Tube Insertion; Surgeon: Reji Galvez MD; Location: [facility] MAIN OR THORACENTESIS CHEST TUBE PLACE 2016 THROAT SURGERY N/A 08/17/2018 Procedure: INCISION AND DRAINAGE ABSCESS PERITONSILLAR; Surgeon: Reji Galvez MD; Lo cation: [facility] MAIN OR TOE AMPUTATION Right 06/2016 tips of great toe, 2nd toe, 3rd toe TRACHEOSTOMY TUBE PLACEMENT 2016 has been removed TUBAL LIGATION UPPER GASTROINTESTINAL ENDOSCOPY N/A 02/12/2020 Procedure: EGD; Surgeon: Ambrose Lan MD; Location: [facility] Family History Problem Relation Age of Onset Malig hypertherm Neg Hx Social History Socioeconomic History Marital status: Single Spouse name: Not on file Number of children: Not on file Years of education: Not on file Highest education level: Not on file Occupational History Not on file Social Needs Financial resource strain: Not on file Food insecurity Worry: Not on file Inability: Not on file Transportation needs Medical: Not on file Non-medical: Not on file Tobacco Use Smoking status: Former Smoker Packs/day: 0.25 Years: 10.00 Pack years: 2.50 Types: Cigarettes Quit date: 10/10/2019 Years since quittin.5 Smokeless tobacco: Never Used Tobacco comment: slowed to Substance and Sexual Activity Alcohol use: Yes Comment: occ. Drug use: Yes Types: Marijuana Comment: smoking daily - for pain and nausea Sexual activity: Not on file Lifestyle Physical activity Days per week: Not on file Minutes per session: Not on file Stress: Not on file Relationships Social connections Talks on phone: Not on file Gets together: Not on file Attends worship service: Not on file Active member of club or organization: Not on file Attends meetings of clubs or organizations: Not on file Relationship status: Not on file Intimate partner violence Fear of current or ex partner: Not on file Emotionally abused: Not on file Physically abused: Not on file Forced sexual activity: Not on file Other Topics Concern Not on file Social History Narrative Not on file Objective: Physical Exam Vitals signs reviewed. Constitutional: General: She is not in acute distress. Appearance: Normal appearance. She is not ill-appearing or toxic-appearing. HENT: Head: Normocephalic and atraumatic. Eyes: General: No scleral icterus. Pulmonary: Effort: Pulmonary effort is normal. Neurological: Mental Status: She is alert and oriented to person, place, and time. Mental status is at baseline. Psychiatric: Mood and Affect: Mood normal. Behavior: Behavior normal. Thought Content: Thought content normal. Judgment: Judgment normal. No components found for: HGBA1C Lab Results Component Value Date WBC 23.10 (H) 01/31/2016 HGB 7.9 (L) 01/31/2016 HCT 39.8 07/29/2010 MCV 86.5 01/31/2016 PLT 298 07/29/2010 Lab Results Component Value Date NA 135 02/12/2020 K 4.1 02/12/2020 CL 100 02/12/2020 CO2 25 02/12/2020 ANIONGAP 14 02/12/2020 GLUF 70 01/31/2016 BUN 12 02/12/2020 BILITOT 2.2 (H) 01/31/2016 AST 188 (H) 01/31/2016 ALT 76 (H) 01/31/2016 EGFR >60 02/12/2020 No results found for: CHOL, TRIG, HDL, LDL No results found for: TSH Assessment and Plan: 1. Epigastric pain 2. Non-intractable vomiting with nausea 3. Adverse effect of drug, sequela Symptoms of nausea and vomiting significantly improved with discontinuation of metformin. She does continue with marijuana use which may somewhat be contributing to symptoms however patient strongly believes that marijuana is not associated ongoing symptoms. She has been a ble to slowly advance her diet vomiting since discontinuing metformin. Recommendations: Can continue antiemetics as needed Follow-up in office in 1 month to ensure symptoms continue to improve. Thank you for allowing me to participate in the care of your patient. Please do not hesitat e to call me with any questions or concerns. Gema Cardona NP [facility] 04/24/2020 8:05 AM PDT Dictated using Vixar translation software. Edited at time of acting section chief however sound alike acting section chief errors may still be prese nt. Please contact practitioner for any clarification needed. documented in thi s encounter Plan of Treatment Not on filedocumented as of this encounter Visit Diagnoses + + | Diagnosis | + + | Epigastric pain - Primary Abdominal pain, epigastric | + + | Non-intractable vomiting with nausea | + + | Adverse effect of drug, sequela | + + documented in this encounter
--- OUTSIDE RECORDS SUMMARY | ~2020-05-31 | XMS | Encounter Summary ---
Demographics + + + | Address | [address] [address] | | | [place] [address] | + + + | Home Phone | | + + + | Preferred Language | Unknown | + + + | Marital Status | Single | + + + | Mosque Affiliation | Unknown | + + + | Race | or | + + + | Ethnic Group | Not or | + + + Author + + + | Author | [facility] | | | and [place] | + + + | Organization | [facility] | | | and [...] Team Providers + +------+ + | Care Trade Economist Name | Role | Phone | + +------+ + PCP | Unavailable | + +------+ + Encounter Details +--------+ + + + + | Date | Type | Department | Care Team | Description | +--------+ + + + + | 01/29/ | Hospital | [facility] [place] [place] [facility] | Conversion | Chest pain, | | 2016 | Encounter | CONVERSION [address] | Transaction, | unspecified chest | | | | [address] | Provider Unknown | pain type | | | | [place], [place] | | | | | | [phone] | (Fax) | | | | | [phone] | | | +--------+ + + + [...] | + +--------+ + + + | XR CHEST 1 VIEW | Routin | 01/30/2016 | | Results for this | | | e | 10:14 AM | | procedure are in the | | | | PDT | | results section. | + +--------+ + + + documented in this encounter Results XR Chest 1 Vw (01/30/2016 10:14 AM PDT) + + | Specimen | + + | | + + + + + | Narrative | Performed At | + + + | This is a non-reportable procedure without a radiologist report and | | | is used for image storage only | | + + + + + | Procedure Note | + + | Beka Noel - 05/18/2019 6:30 PM PDT This is a non-reportable procedure | | without a radiologist report and isused for image storage only | + + documented in this encounter Visit Diagnoses + + | Diagnosis | + + | Chest pain, unspecified chest pain type | + + documented in this encounter"
--- OUTSIDE RECORDS SUMMARY | ~2020-05-31 | XMS | Encounter Summary ---
Demographics + + + | Address | [address] [address] [facility] [address] | | | [place] [address] | + + + | Home Phone | | + + + | Preferred Language | Unknown | + + + | Marital Status | Single | + + + | Mormon Affiliation | Unknown | + + + | Race | or | + + + | Ethnic Group | Not or | + + + Author + + + | Author | [facility] | | | and [place] | + + + | Organization | [facility] | | | and [...] Providers + +------+ + | Care Director Of Managed Services Name | Role | Phone | + +------+ + | Sharon Jaime PA-C | PCP | | + [...] +--------+--------+ + + + + Encounter Details +--------+---------+ + + + | Date | Type | Department | Care Team | Description | +--------+---------+ + + + | 08/17/ | Surgery | [facility] | Reji Martin Joseph, | INCISION AND | | 2018 | | MED [facility] OR IN[facility] OP | [address] | DRAINAGE ABSCESS | | | | [address] | [address] [place], | [place] | | | | [place], [place] | [place] [address] | | | | | [address] | [phone] | | | | | [phone] | | | +--------+---------+ + + + Social History + + [...] + + documented as of this encounter Last Filed Vital Signs + + + + + | Vital Sign | Reading | Time Taken | Comments | + + + + + | Blood Pressure | 123/78 | 08/17/2018 6:00 PM | | | | | PST | | + + + + + | Pulse | 83 | 08/17/2018 6:00 PM | | | | | PST | | + + + + + | Temperature | 36.3 C (97.3 F) | 08/17/2018 5:25 PM | | | | | PST | | + + + + + | Respiratory Rate | 16 | 08/17/2018 6:00 PM | | | | | PST | | + + + + + | Oxygen Saturation | 98% | 08/17/2018 6:00 PM | | | | | PST | | + + + + + | Inhaled Oxygen | - | - | | | Concentration | | | | + + + + + | Weight | 62.7 kg (138 lb 3.7 | 08/17/2018 3:33 PM | | | | oz) | PST | | + + + + + | Height | 160 cm (5' 3") | 08/17/2018 3:33 PM | | | | | PST | | + + + + + | Body Mass Index | 24.49 | 08/17/2018 3:33 PM | | | | | PST | | + + + + + documented in this encounter Discharge Instructions Instructions Gia Perez RN - 08/17/2018Formatting of this note might be different fro m the original. Drink lots of liquids. Take antibiotics and pain meds as ordered Peritonsillar Abscess The tonsils are 2 small masses of tissue at the back of the throat. They are part of the jose dy s immune system. This helps the body fight disease. In some people, the tonsils become infected or enlarged. This can cause severe sore throats, snoring, or other problems. An inc ision and drainage was done surgically to clear the infection. . Preparing for surgery Prepare as you have been told. Tell your healthcare provider about all medicine you take. T his includes fcns-asm-xxrbfzo drugs. It also includes herbs and other supplements. You may n eed to stop taking some or all of them before surgery as directed by your healthcare provide r. Also, follow any directions you re given for not eating or drinking before surgery. The day of surgery The surgery takes about 60 minutes. You will likely go home on the same day. Before the surgery Here is what to expect before the surgery begins: An IV line is put into a vein in your arm or hand. This line supplies fluids and medicin es. To keep you free of pain during the surgery, you re given general anesthesia. This med icine puts you into a state like deep sleep through the surgery. During the surgery Here is what to expect during the surgery: A tube will be placed in your throat to keep your airway open. A special device is used to keep the mouth open. Other tools are used to remove the tonsils or part of the tonsils from the back of the throat. The tissue is taken out through the mouth. The device holding the mouth open and the tube are then removed. After the surgery You will be taken to a recovery room. Healthcare staff will make sure you can drink some li quids. They will also make sure your pain is being managed. When you are ready to leave the hospital, you will need to be driven home by an adult family member or friend. Recovering at home It will likely take about 2 weeks to heal from the surgery. During your recovery: Expect to have throat pain. You may also feel pain in your ears. This is referred pain from the throat, and is normal. Your post-surgery pain may come and go. It may be worse on the 1st or 2nd day after surgery. Talk as little as possible, if it is painful. Take pain medicine as directed. Don't drive while you are on opioid or narcotic pain medicine. Expect to feel sleepy or dizzy while you are taking this medicine. Don't use ibuprofen or aspirin for 14 days after surgery unless your healthcare provider says it s OK. You may use acetaminophen as directed. Use 2 or 3 pillows under your head while resting. This will help keep swelling down. Drink plenty of chilled liquids. Water, noncitrus juices, and frozen juice bars are good choices. Eat cold foods and soft foods, which are easiest to swallow. Try foods like ice cream, g elatin, scrambled eggs, pasta, and mashed potatoes. Don't eat foods that need a lot of chewing. Also avoid foods that may scratch the throat , like toast or potato chips. Don't have hot, spicy, or acidic foods. Don't do strenuous activity or heavy lifting for 2weeks after surgery. Be aware that white patches will form in the throat during healing. These are scabs and are not a sign of infection. The patches will come off in 6 to 9days and may cause a sma ll amount of bleeding. To minimize bleeding, drink plenty of fluids. Gargling with cold wa ter can help. When to call your healthcare provider Call your healthcare provider right awayif you have any of the following: Chest pain or trouble breathing(call 911) Fever of 100.4F (38C) or higher, or as directed by your healthcare provider Bright red bleeding from the mouth or nose Severe pain not relieved by medicine Signs of dehydration (dark urine, urinating less often) Heavy or persistent bleeding in the throat at any time Other signs or symptoms as indicated by your healthcare provider Follow-up Schedule a follow-up visit with your healthcare provider as advised. During this visit, the healthcare provider will make sure you are healing well. Ask any questions you have about t he surgery or your recovery. Risks and possible complications Infection Bleeding Lung problems Nausea and vomiting Injury to the lips, teeth, or jaw Painful swallowing during recovery Voice changes The need for a second surgery Risks of anesthesia Date Last Reviewed: 03/04/201719998582-3090 [employer]. [address] [place] [address], [place] [address]. All righ ts reserved. This information is not intended as a substitute for professional medical care. Always follow your healthcare professional's instructions. documented in this encounter Medications at Time of Discharge [...] + + + +---------+ + + | calcium-vitamin D | Take 1 tablet by | | 0 | | | | (OSCAL) 500 mg-200 | mouth Daily. | | | | 0 | | units per tablet | | | | | | + + + +---------+ + + | gabapentin | Take 100 mg by mouth | | 0 | | | | (NEURONTIN) 100 mg | 3 times daily. | | | | 0 | | capsule | | | | | | + + + +---------+ + + | | Take 10-15 mLs by | 200 mL | 0 | 08/17/20 | | | HYDROcodone-acetamin | mouth every 4 hours | | | 18 | 0 | | ophen (HYCET) | as needed for Pain. | | | | | | 7.5-325 mg/15 mL | | | | | | | liquid | | | | | | + + + +---------+ + + | ZZZ UNCODED | Pt not sure what | | 0 | | | | COMPONENT | dosage or type of | | | | 0 | | | blood pressure pill | | | | | | | she is | | | | | + + + +---------+ + + documented as of this encounter H&P Notes Reji Martin MD - 08/17/2018 2:40 PM [facility] [address] [id number] HISTORY AND PHYSICAL REJI MARTIN MD Patient: MYESHA HASTINGS Admitting: REIJ MARTIN MR #: [id number] LOC: PT TYPE: Adm Date: 08/17/2018 : 1980 CHIEF COMPLAINT: Left peritonsillar abscess. HISTORY: Ms. Hastings is a 38-year-old lady with a 4-day history of sore throat, left sided. She has trismus, difficulty swallowing, very painful throat. She went to the ER today at [facility] in [place] and saw Dr. Villalta. He diagnosed a left peritonsillar a bscess, gave her some clindamycin IV and some steroids and asked for otolaryngologic evaluat ion. Peritonsillar abscess was confirmed in the office and she is being taken to the opera ting room at this time for incision and drainage. PAST HISTORY AND REVIEW OF SYSTEMS: Severe flu illness 2 years ago, hospitalized, intubate d; multisystem failure, recovered; high cholesterol; history of hepatitis; blood transfusion s; headaches. ALLERGIES: NO ALLERGIES TO MEDICATIONS. CURRENT MEDICATIONS: 1. Gabapentin 2. Metformin. 3. Vitamins. SURGERIES: She had ear tubes placed by myself in 12/2017, bilateral myringotomy, ventilati on tube insertion. SOCIAL HISTORY: She is single, lives in [place]. No alcohol or tobacco. FAMILY HISTORY: Unremarkable. PHYSICAL EXAMINATION: VITAL SIGNS: Stable, afebrile. GENERAL: Well-developed and well-nourished female, in no distress. HEAD AND NECK: She has mild trismus, mild hot potato voice. HEENT: Oropharynx shows bulging left peritonsillar area with an obvious abscess. Mild caden fting of the uvula to the right side. No significant airway obstruction noted. NECK: No masses. CHEST: Clear. HEART: Regular rate and rhythm. ABDOMEN: Benign. EXTREMITIES: Benign. NEUROLOGIC: Grossly intact. REVIEW OF RECORDS: I have an ER note from Dr. Villalta today, which I have reviewed. IMPRESSION: Left peritonsillar abscess. PLAN: She will be taken to the operating room later today for general anesthetic, incision and drainage of left peritonsillar abscess. The patient is agreeable. The risks of surgery including bleeding, infection, recurrence of abscess, need for further therapy have all been explained and accepted by Myesha. She understands and desires to proc eed. REIJ MARTIN MD Dictated by REJI MARTIN MD 08/17/2018 14:40:37 Transcribed on 08/17/2018 14:59:16 by in job# [id number] Confirmation #: [id number] cc: SHARON CANALES-C P M PSTdocumented in this encounter Miscellaneous Notes Op Note - Reji Martin MD - 08/17/2018 5:[address] [address] OPERATIVE REPORT REJI MARTIN MD Patient: MYESHA HASTINGS Admitting: REJI MARTIN MR #: [id number] LOC: PT TYPE: Adm Date: 08/17/2018 : 1980 DATE OF SURGERY: 08/17/2018. PREOPERATIVE DIAGNOSIS: Left peritonsillar abscess. POSTOPERATIVE DIAGNOSIS: Left peritonsillar abscess. PROCEDURE PERFORMED: Incision and drainage, left peritonsillar abscess. SURGEON: Reji Martin MD ANESTHESIA: General orotracheal, Dr. Rajan Eid. PREOPERATIVE HISTORY: Myesha is a 38-year-old lady with a left peritonsillar abscess. She is being taken to the operating room for the above-mentioned procedures. OPERATIVE PROCEDURE AND FINDINGS: After informed consent, the patient was taken to the ope rating room, placed in the supine position where general orotracheal anesthesia was induced. The patient and procedure were verified. The patient was repositioned. McIvor mouth gag placed into suspension. Headlight exam of the pharynx showed a bulging tense peritonsillar space on the left side. The pharynx was asymmetric, bulging on the left. Incision was mad e through mucosa superior to the tonsillar pole on the left. Blunt dissection dissected sup erior to the tonsil, and a large abscess cavity was entered, superior, posterior, and latera l to the tonsil. The abscess cavity was opened widely, all the purulence suctioned clear. Saline rinse into the abscess cavity was performed. Minimal bleeding stopped afterwards. T he pharynx was suctioned clear of blood and secretions. Mouth gag was removed. The patien t was awakened, extubated, transported to the recovery room in good condition. COMPLICATIONS: None. BLOOD LOSS: Minimal. SPECIMEN: No specimen. DRAINS: None. REJI MARTIN MD Dictated by REJI MARTIN MD 08/17/2018 17:27:59 Transcribed on 08/17/2018 17:51:23 by in job# [id number] Confirmation #: [id number] cc: SHARON CANALES-C P M PSTBrief Op Note - Reji Martin MD - 08/17/2018 5:05 PM PSTFormatting of this note m ight be different from the original. Brief Operative Note Myesha Hastings 38 y.o. female 1980 [id number] Proc. Date 08/17/2018 Preop Dx Peritonsillar abscess [J36] Postop Dx same Procedure INCISION AND DRAINAGE ABSCESS PERITONSILLAR Anesthesia General Surgeon Reji Martin MD - Primary Digital Marketing Manager EBL less than 50 mL Findings Complications none Specimens * No specimens in log * Drains Electronically signed by: Reji Martin MD 08/17/2018 17:05 [facility] signed [facility] Reji Martin MD at 5:05 PM PSTInterval H&P Note (unlinked) - Reji Martin MD - 08/17/2018 5:05 P [facility] INTERIM HISTORY AND PHYSICAL UPDATE Pt. Name/Age/: Myesha Hastings 38 y.o. 1980 Date of admission: 08/17/2018 The current H&P was reviewed. The patient was reexamined. Re-evaluation of the patient co nfirms the necessity for the scheduled procedure. No change has occurred in the patient s condition since the H&P was completed less than 30 days ago. Electronically signed by: Reji Martin, 08/17/2018 17:05 [facility] documented in this e ncounter Plan of Treatment Not on filedocumented as of this encounter Procedures + +--------+ + + + | Procedure Name | Priori | Date/Time | Associated Diagnosis | Comments | | | ty | | | | + +--------+ + + + | INCISION AND | | 08/17/2018 | Peritonsillar | | | DRAINAGE ABSCESS | | 5:03 PM | abscess | | | PERITONSILLAR | | PST | | | + +--------+ + + + | POC GLUCOSE | Routin | 08/17/2018 | | Results for this | | | e | 4:23 PM | | procedure are in the | | | | PST | | results section. | + +--------+ + + + | POCT TEST, | Routin | 08/17/2018 | | Results for this | | URINE, QUAL | e | 4:15 PM | | procedure are in the | | | | PST | | results section. | + +--------+ + + + documented in this encounter Results POC Glucose (08/17/2018 4:23 PM PST) + +---------+ + + + | Component | Value | Ref Range | Performed | Pathologist | | | | | At | Signature | + +---------+ + + + | Glucose, | 294 (H) | 70 - 109 mg/dL | [facility] | | | POC | | | [facility] | [facility] | | | [facility] - | | | | | | [facility]ORATORY | | + +---------+ + + + + + | Specimen | + + | Blood | + + + + + + + | Performing | Address | City/State/Zipcode | Phone Number | | Organization | | | | + + + + + | [facility] | [address] | [place] | [phone] | | [facility] | | [address] | | | - LABORATORY | | | | + + + + + POCT Test, Urine, QUAL (08/17/2018 4:15 PM PST) + + + + + + | Component | Value | Ref Range | Performed | Pathologist | | | | | At | Signature | + + + + + + | | Negative | Negative | | | | Test, | | | | | | Urine, POC | | | | | + + + + + + | Internal QC | Acceptable | Acceptable | | | + + + + + + | Specific | | 1.010, 1.015, | | | | [place], | | 1.020, 1.025 | | | | POC | | | | | + + + + + + | Lot Number | [id number] | | | | + + + + + + | Expiration | 2020-01-07 | | | | | Date | | | | | + + + + + + + + | Specimen | + + | Urine | + + documented in this encounter Visit Diagnoses + + | Diagnosis | + + | Peritonsillar abscess | + + documented in this encounter Administered Medications + +--------+ + +------+------+ | Medication Order | MAR | Action | Dose | Rate | Site | | | Action | Date | | | | + +--------+ + +------+------+ | acetaminophen (TYLENOL) tablet | Given | 08/17/20 | 1,000 mg | | | | 1,000 mg 1,000 mg, Oral, ONCE, | | 18 3:57 | | | | | 08/17/18 at 1600, For 1 dose, | | PM PST | | | | | Pre-op | | | | | | + +--------+ + +------+------+ + +---+ | | | + +---+ | albuterol 2.5 mg/3 mL nebulizer | | | solution 2.5 mg 2.5 mg, | | | Nebulization, ONCE PRN, Wheezing, | | | Starting 08/17/18 at 1541, | | | For 1 dose, RT will administer., | | | Pre-op | | + +---+ | | | + +---+ | albuterol 2.5 mg/3 mL nebulizer | | | solution 2.5 mg 2.5 mg, | | | Nebulization, ONCE PRN, Wheezing, | | | Starting 08/17/18 at 1731, | | | For 1 dose, Notify anesthesia if | | | patient is wheezing and does not | | | have a history of asthma or COPD | | | or current smoking., | | | Recovery/Phase I | | + +---+ | | | + +---+ | atropine 0.1 mg/mL syringe 0.5 | | | mg 0.5 mg, Intravenous, PRN, | | | Bradycardia, For HR < 40, | | | Starting 08/17/18 at 1731, | | | For 2 doses, May repeat one time | | | after 1 min., Recovery/Phase I | | + +---+ | | | + +---+ + +-------+ +------+---+---+ | dexamethasone (DECADRON) tablet | Given | 08/17/20 | 8 mg | | | | 8 mg 8 mg, Oral, ONCE, Wed | | 18 3:57 | | | | | 08/17/18 at 1600, For 1 dose, | | PM PST | | | | | Pre-op | | | | | | + +-------+ +------+---+---+ + +---+ | | | + +---+ | dextrose 50% injection 12.5-25 | | | g 12.5-25 g, Intravenous, EVERY | | | 15 MIN PRN, Low Blood Sugar, Give | | | 12.5g (25 mL) IV if blood | | | glucose 50-69 mg/dL. Give 25g | | | (50 mL) IV if blood glucose < 50, | | | Starting 08/17/18 at 1541, | | | Repeat in 15 min if blood glucose | | | remains < 70 mg/dL. Repeat | | | blood glucose in 30 min once | | | blood glucose > 70., Pre-op | | + +---+ | | | + +---+ | dextrose 50% injection 12.5-25 | | | g 12.5-25 g, Intravenous, EVERY | | | 15 MIN PRN, Low Blood Sugar, For | | | hypoglycemia. Give 12.5g (25ml) | | | IV if blood glucose 50-69 | | | mg/dL. Give 25g (50ml) IV if | | | blood glucose < 50, Starting Wed | | | 08/17/18 at 1731, Give over 2 | | | min. Repeat in 15 min if blood | | | glucose remains < 70 mg/dL. | | | Repeat blood glucose in 30 min | | | once blood glucose > 70., | | | Recovery/Phase I | | + +---+ | | | + +---+ | ePHEDrine 50 mg/mL injection 5 | | | mg 5 mg, Intravenous, EVERY 5 | | | MIN PRN, if SBP <90., Starting | | | 08/17/18 at 1731, Hold if HR | | | > 100. Maximum total dose 20mg., | | | Recovery/Phase I | | + +---+ | | | + +---+ | fentaNYL (PF) injection 25-50 | | | mcg 25-50 mcg, Intravenous, | | | EVERY 5 MIN PRN, Pain, Starting | | | Wed08/17/18 at 1731, Maximum | | | total dose 250 mcg. PACU IV | | | Narcotic Priority: Only use | | | fentanyl for immediate post-op | | | pain (one dose) or breakthrough | | | pain when any other IV narcotics | | | ordered have been ineffective (if | | | ordered). If both morphine and | | | hydromorphone are ordered, use | | | morphine first, and use | | | hydromorphone if morphine | | | ineffective., Recovery/Phase I | | + +---+ | | | + +---+ + +-------+ +--------+---+---+ | HYDROcodone-acetaminophen | Given | 08/17/20 | 15 mLs | | | | (HYCET) 7.5-325 mg/15 mL liquid | | 18 5:54 | | | | | 10-15 mL 10-15 mL, Oral, EVERY 4 | | PM PST | | | | | HOURS PRN, Pain, Moderate Pain, | | | | | | | Starting Wed08/17/18 at 1744, | | | | | | | Use for patients unable to | | | | | | | swallow tablets if ordered, | | | | | | | Post-op/Phase II | | | | | | + +-------+ +--------+---+---+ + +---+ | | | + +---+ | HYDROmorphone (DILAUDID) | | | injection 0.2-0.5 mg 0.2-0.5 mg, | | | Intravenous, EVERY 5 MIN PRN, | | | Pain, Starting Wed08/17/18 at | | | 1731, Maximum total dose 4 mg. | | | PACU IV Narcotic Priority: Only | | | use fentanyl for immediate | | | post-op pain (one dose) or | | | breakthrough pain when any other | | | IV narcotics ordered have been | | | ineffective (if ordered). If | | | both morphine and hydromorphone | | | are ordered, use morphine first, | | | and use hydromorphone if morphine | | | ineffective., Recovery/Phase I | | + +---+ | | | + +---+ + +---------+ +---+---+---+ | lactated ringers (LR) infusion | New Bag | 08/17/20 | | | | | at 10-100 mL/hr, Intravenous, | | 18 5:02 | | | | | CONTINUOUS, Starting Wed08/17/18 | | PM PST | | | | | at 1600, TKO., Pre-op | | | | | | + +---------+ +---+---+---+ +---------+ +---------+ +---+ | New Bag | 08/17/20 | 999 mLs | 35 mL/hr | | | | 18 4:07 | | | | | | PM PST | | | | +---------+ +---------+ +---+ + +---+ | | | + +---+ | meperidine (DEMEROL) injection | | | 12.5-25 mg 12.5-25 mg, | | | Intravenous, PRN, Shivering, | | | Starting Wed08/17/18 at 1731, | | | For 2 doses, May Repeat once in 5 | | | min., Recovery/Phase I | | + +---+ | | | + +---+ | midazolam (VERSED) 1 mg/mL | | | injection 0.5-2 mg 0.5-2 mg, | | | Intravenous, EVERY 5 MIN PRN, | | | Anxiety, or agitation, Starting | | | Wed18 at 1731, Maximum | | | total dose 2 mg., Recovery/Phase | | | I | | + +---+ | | | + +---+ + +-------+ +------+---+---+ | ondansetron (ZOFRAN ODT) | Given | 08/17/20 | 8 mg | | | | disintegrating tablet 8 mg 8 mg, | | 18 3:58 | | | | | Oral, ONCE, Wed08/17/18 at | | PM PST | | | | | 1600, For 1 dose, Pre-op | | | | | | + +-------+ +------+---+---+ + +---+ | | | + +---+ | ondansetron (ZOFRAN) injection | | | 4 mg 4 mg, Intravenous, ONCE | | | PRN, Nausea, Starting Wed | | | 08/17/18 at 1731, For 1 dose, | | | Recovery/Phase I | | + +---+ | | | + +---+ + +---------+ +---------+---+ + | scopolamine (TRANSDERM-SCOP) 1 | Patch | 08/17/20 | 1 patch | | Ear-Behi | | mg/3 days 1 patch 1 patch, | Applied | 18 3:58 | | | nd Right | | Transdermal, ONCE PRN, For | | PM PST | | | | | history of PONV. Need not | | | | | | | apply if h/o PONV is remote and | | | | | | | has likely been resolved with | | | | | | | modern anesthetics or | | | | | | | ondansetron. Also, please do not | | | | | | | administer to patients >65 year | | | | | | | of age without phone consult with | | | | | | | anesthesiologist., Starting Wed | | | | | | | 08/17/18 at 1541, For 1 dose, | | | | | | | Apply to mastoid process, Pre-op | | | | | | + +---------+ +---------+---+ + +---+---+ | | | +---+---+ documented in this encounter
--- OUTSIDE RECORDS SUMMARY | ~2020-05-31 | XMS | Encounter Summary ---
Demographics + + + | Address | [address] | | | [place] [address] | + + + | Home Phone | | + + + | Preferred Language | Unknown | + + + | Marital Status | Single | + + + | Pentecostal Affiliation | Unknown | + + + | Race | or | + + + | Ethnic Group | Not or | + + + Author + + + | Author | [facility] | | | and [place] | + + + | Organization | [facility] | | [...] Team Providers + +------+ + | Care Heavy Equipment Diesel Mechanic Name | Role | Phone | + [...] + + + + | 08/17/ | Hospital | [facility] | Reji Martin, | | | 2018 | Encounter | MED CTR OR INTRA OP | [address] | | | | | [address] | [address] [place], | | | | | [place], [place] | [place] [address] | | | | | [address] | [phone] | | | | | [phone] | | | +--------+ + + + + Social History + + + +--------+ + | Tobacco Use | Types | Packs/Day | Years | Date | | | | | Used | | + + + +--------+ + | Former Smoker | Cigarettes | 0.1 | 10 | Quit: 2016 | + + + +--------+ + + [...] + documented in this encounter Discharge Instructions Gia James RN - 08/17/2018Formatting of this note might [...] all medicine you take. T his includes zijx-vqz-ffuasji drugs. It also includes herbs and other [...] surgery Risks of anesthesia Date Last Reviewed: 03/04/201719998579-6167 [employer]. [address] [place] [address], [place] [address]. All righ ts reserved. This information is [...] Reji Martin MD - 08/17/2018 2:40 PM [facility] [address] [facility] [address] HISTORY AND PHYSICAL REJI MARTIN MD Patient: MYESHA HASTINGS Admitting: REJI MARTIN MR #: [id number] LOC: PT TYPE: Adm Date: 08/17/2018 : 1980 CHIEF COMPLAINT: Left peritonsillar abscess. HISTORY: Ms. Hastings is a 38-year-old lady with a 4-day history of sore throat, left sided. She has trismus, difficulty swallowing, very painful throat. She went to the ER today at [facility] in [place] and saw Dr. Villalta. He diagnosed a [...] SOCIAL HISTORY: She is single, lives in [place]. No alcohol or tobacco. FAMILY HISTORY: Unremarkable. [...] Transcribed on 08/17/2018 14:59:16 by in job# [id number] Confirmation #: [id number] cc: SHARON JAIME PA-C P M PSTdocumented in this encounter Miscellaneous Notes Op Note - Reji Martin MD - 08/17/2018 5:[address] [address] OPERATIVE REPORT REJI MARTIN MD Patient: MYESHA HASTINGS Admitting: REJI Joseph VERONICA MR #: [id number] LOC: PT TYPE: Adm Date: 08/17/2018 : [...] Transcribed on 08/17/2018 17:51:23 by in job# [id number] Confirmation #: [id number] cc: SHARON CANALES-C P M PSTBrief Op Note - Reji Martin MD - 08/17/2018 5:05 PM PSTFormatting of this note m ight be different from the original. Brief Operative Note Myesha Hastings 38 y.o. female 1980 [id number] Proc. Date 08/17/2018 Preop Dx Peritonsillar abscess [J36] Postop Dx same Procedure INCISION AND DRAINAGE ABSCESS PERITONSILLAR Anesthesia General Surgeon Reji Martin MD - Primary Lean Manager EBL less than 50 mL Findings Complications none Specimens * No specimens in log * Drains Electronically signed by: Reji Martin MD 08/17/2018 17:05 [facility] signed by Reji Martin MD at 5:05 PM PSTInterval H&P Note (unlinked) - Reji Martin MD - 08/17/2018 5:05 P M [facility] INTERIM HISTORY AND PHYSICAL UPDATE Pt. Name/Age/: Myesha Hastnigs 38 y.o. 1980 Date of admission: 08/17/2018 [...] (H) | 70 - 109 mg/dL | [facility] | | | POC | | | [...] | + + + + + | [address] | [address] | [place] | [phone] | | [facility] | | [address] | | | - LABORATORY | | [...] | 1.010, 1.015, | | | | [place], | | 1.020, 1.025 | | | [...] filedocumented in this encounter Administered Medications + +--------+ [...] glucose < 50, | | | Starting Wed08/17/18 at 1541, | | | Repeat in [...] MIN PRN, Pain, Starting | | | 08/17/18 at 1731, Maximum | | | total [...] | | | | | | Starting 08/17/18 at 1744, | | | | | [...]
--- OUTSIDE RECORDS SUMMARY | ~2020-05-31 | XMS | Encounter Summary ---
Demographics + + + | Address | [address] | | | [place] [address] | + + + | Home Phone | | + + + | Preferred Language | Unknown | + + + | Marital Status | Single | + + + | Scientology Affiliation | Unknown | + + + | Race | or | + + + | Ethnic Group | Not or | + + + Author + + + | Author | [facility] | | | and [place] | + + + | Organization | [facility] | | | [...] Team Providers + +------+ + | Care Oracle Obiee Developer Name | Role | Phone | + +------+ + PCP | Unavailable | + +------+ + Encounter Details +--------+ + + + + | Date | Type | Department | Care Team | Description | +--------+ + + + + | 01/29/ | Hospital | [facility] | Conversion | Pain | | 2016 | Encounter | CONVERSION [address] | Transaction, | | | | | [address] | Provider Unknown | | | | | [place], [place] | [phone] | | | | | [address] | | | | | | [phone] | | | +--------+ + + + [...] | + +--------+ + + + | CT ABDOMEN PELVIS WO | Routin | 01/29/2016 | | Results for this | | CONTRAST | e | 9:54 AM | | procedure are in the | | | | PDT | | results section. | + +--------+ + + + documented in this encounter Results CT Abdomen Pelvis wo Contrast (01/29/2016 9:54 AM PDT) + + | Specimen | [...] + | Diagnosis | + + | Pain Generalized pain | + + documented in this encounter"
--- OUTSIDE RECORDS SUMMARY | ~2020-05-31 | XMS | Encounter Summary ---
Demographics + + + | Address | [address] [facility] [address] | | | [place] [address] | + + + | Home Phone | | + + + | Preferred Language | Unknown | + + + | Marital Status | Single | + + + | Baptism Affiliation | Unknown | + + + [...] Team Providers + +------+ + | Care Remnant Sorter Name | Role | Phone | + +------+ + | Hiro Noble MD | PCP | | + +------+ + Reason for Referral Evaluate & Treat (Routine) + + + + + + + | Status | Reason | Specialty | Diagnoses / | Referred By | Referred To | | | | | Procedures | Contact | Contact | + + + + + + + | Authorized | Specialty | Gastroenterol | Diagnoses | Brendan, | [facility] | | | Services | ogy | Intractable | Gema A, | DIGESTIVE | | | Required | | vomiting | 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 [address] | [facility] ( | | | | | with nausea, | [address]VD | [address] | | | | | unspecified | [place], [place] | [address] | | | | | vomiting | [address] | [place], [place] | | | | | type | Phone: | [phone] | | | | | | [phone] | Phone: | | | | | | Fax: | [phone] | | | | | | [phone] | Fax: | | | | | | | [phone] | + + + + + + + Reason for Visit + + + [...] | Gastroenterol | Diagnoses | Aide, | Riky, | | | Services | ogy | probable | Hiro | Ambrose Hung MD | | | Required | | gastroparesi | MD Andesr | [address] | | | | | s | [address] [address] | [address] | | | | | | [address] | [place], [place] | | | | | | [place], | [address] Phone: | | | | | | [place] [address] | [phone] | | | | | | Phone: | Fax: | | | | | | [phone] | [phone] | | | | | | Fax: | | | | | | | [phone] | | + + + + + + + Encounter Details +--------+ + + + + | Date | Type | Department | Care Team | Description | +--------+ + + + + | 05/10/ | Virtual | [facility] | Gema Cardona | Intractable vomiting | | 2020 | Office | GASTROENTEROLOGY | A, 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 Coding will be based on Medical Decision Making. The patient was presented with information regarding the risks and benefits of telemedicine , given the opportunity to ask questions, and consented to [facility]. The patient confirms they are currently physically located at the permanent address on file . I, Gema Cardona NP, confirmed this is a state in which I am licensed. [facility] Patient ID: Myesha Hastings is a 40 y.o. female who presents in follow up regarding a bdominal pain, nausea and vomiting. At last appointment, she had had an improvement of sympt oms with discontinuation of metformin. Unfortunately, she notes that since last appointment she is back on medical leave do to recurrent symptoms. She notes that all last week she had vomiting all week. It has taken about a week to get her strength back. She notes she is waki ng in the morning with pain. Endoscopy has been unrevealing as to cause of symptoms. Gastric emptying study was normal. She is interested in tertiary referral for evaluation of symptom s. Review of Systems Constitutional: Negative for fatigue and unexpected weight change. Respiratory: Negative for cough, choking, chest tightness, shortness of breath and wheezing . Cardiovascular: Negative for chest pain and palpitations. Gastrointestinal: Positive for abdominal pain, nausea and vomiting. Negative for abdominal distention, anal bleeding, blood in stool, constipation, diarrhea and rectal pain. No Known Allergies Outpatient Encounter Medications as of 05/10/2020 Medication Sig Dispense Refill Calcium 75 MG [...] 120 days. (Patient not taking: Reported on 05/10/2020.) 60 capsule 3 scopolamine (TRANSDERM-SCOP) 1 mg/[address] 1 patch onto the skin Every 3 days for 365 doses 1 patch every 3 days. do not cut. Remove before applying new patch.. 10 patch 11 No facility-administered encounter medications on file as of 05/10/2020. Past Medical History: Diagnosis Date Acid reflux disease Acute respiratory failure with hypoxia and hypercapnia ([facility]) 2016 Adverse effect of anesthesia resistant to general anesthesia CHIRAG (acute kidney injury) ([facility]) Anemia ARDS (adult respiratory distress syndrome) ([facility]) 2016 Decreased hearing of both ears Epigastric pain 02/2020 GERD (gastroesophageal reflux disease) Hepatitis Lactic acidosis Leucocytosis Metabolic acidosis Nausea & vomiting 02/2020 Neuropathy feet Pneumonia of both lungs due to influenza A virus 01/2016 H1N1 - was hospitalized in [place] for 2 months Presence of retained hardware Right great toe PTSD (post-traumatic stress disorder) Septic shock ([facility]) Toxic metabolic encephalopathy Past Surgical History: Procedure Laterality Date BREAST CYST EXCISION FOOT SURGERY Right 08/2019 Great Toe fusion with spacer MIDDLE EAR SURGERY Bilateral 12/10/2017 Procedure: Bilateral Myringotomy w/ Ventilation Tube Insertion; Surgeon: Reji Galvez MD; Location: [facility] MAIN OR THORACENTESIS CHEST TUBE PLACE 2016 THROAT SURGERY N/A 08/17/2018 Procedure: INCISION AND DRAINAGE ABSCESS PERITONSILLAR; Surgeon: Reji Galvez MD; Lo cation: [facility] MAIN OR TOE AMPUTATION Right 06/2016 tips of great toe, 2nd toe, 3rd toe TRACHEOSTOMY TUBE PLACEMENT 2016 has been removed TUBAL LIGATION UPPER GASTROINTESTINAL ENDOSCOPY N/A 02/12/2020 Procedure: EGD; Surgeon: Ambrose Lan MD; Location: [facility] Family History Problem Relation Age of Onset Meche polo Neg Hx Social History Socioeconomic History Marital [...] Types: Cigarettes Quit date: 10/10/2019 Years since quittin.6 Smokeless tobacco: Never Used Tobacco comment: slowed [...] file Gets together: Not on file Attends orthodoxy service: Not on file Active member of [...] found for: TSH Assessment and Plan: 1. Intractable vomiting with nausea, unspecified vomiting type scopolamine (TRANSDERM-SCOP ) 1 mg/3 days patch Ambulatory referral to Gastroenterology 2. Epigastric pain Symptoms of nausea and vomiting significantly improved with discontinuation of metformin ho wever quickly reoccurred. She does continue with marijuana use which may somewhat be contrib uting to symptoms however patient strongly believes that marijuana is not associated ongoing symptoms. Should continue antiemetics. Will refer to tertiary center for further evaluation of symptoms. Recommendations: Continue antiemetics. Continue smaller more frequent meals. Start scopolamine for nausea as needed. Refer to tertiary GI for further evaluation of symptoms. Follow up after seen by GI. Thank you for allowing me to participate in the care of your patient. Please do not hesitat e to call me with any questions or concerns. Gema Cardona NP [facility] Gastroenterology 05/30/2020 11:41 AM PDT Dictated using [employer] translation software. Edited at time of line up worker however sound alike line up worker errors may still be prese nt. Please contact practitioner for any clarification needed. documented in thi s encounter Plan of Treatment + + +--------+ + + | Name | Type | Priori | Associated Diagnoses | Order Schedule | | | | ty | | | + + +--------+ + + | Ambulatory referral | Outpatient | Routin | Intractable | Ordered: 05/13/2020 | | to Gastroenterology | Referral | e | vomiting with | | | | | | nausea, unspecified | | | | | | vomiting type | | + + +--------+ + + documented as of this encounter Visit Diagnoses + + | Diagnosis | + + | Intractable vomiting with nausea, unspecified vomiting type - Primary | + + | Epigastric pain Abdominal pain, epigastric | + + documented in this encounter"
--- OUTSIDE RECORDS SUMMARY | ~2020-05-31 | XMS | Encounter Summary ---
Demographics + + + | Address | [address] [facility] [address] | | | [place] [address] | + + + | Home Phone | | + + + | Preferred Language | Unknown | + + + | Marital Status | Single | + + + | Anabaptism Affiliation | Unknown | + + + | Race | or | + + + | Ethnic Group | Not or | + + + Author + + + | Author | [facility] | | | and [place] | + + + | Organization | [facility] | | | [...] Team Providers + +------+ + | Care Harness Rigger Name | Role | Phone | + +------+ + | Hiro Noble MD | PCP | | + +------+ + Reason for Visit +---------+--------+ + | Reason | Onset | Comments | | | Date | | +---------+--------+ + | Results | 02/13/ | | | | 2019 | | +---------+--------+ + Encounter Details +--------+ + + + + | Date | Type | Department | Care Team | Description | +--------+ + + + + | 02/13/ | Telephone | [facility] | Ambrose Lan | Results | | 2019 | | GASTROENTEROLOGY | MD Abhilash [address] | | | | | [address] | [place] [address] | | | | | [place], [place] | [phone] | | | | | [address] | | | | | | [phone] | | | +--------+ + + + [...] encounter Miscellaneous Notes Telephone Encounter - Cyndie Covington Medical Assistant - 02/14/2020 4:25 PM PDTAtte mpted to call patient and inform her of results. Phone number disconnected. Results mailed t o her. Thanks mvd elephone Encounter - Cyndie Covington Medical Assistant - 02/14/2020 4 :25 PM PDT----- Message from Ambrose Lan MD sent at 02/13/2020 6:41 PM PDT ----- There are no worrisome changes or findings on these biopsies that explain the patient's sym ptoms. Await results of gastric emptying study. Follow up in GI clinic. d ocumented in this encounter Plan of Treatment Not on filedocumented as of this encounter Visit Diagnoses Not on filedocumented in this encounter"
--- OUTSIDE RECORDS SUMMARY | ~2020-05-31 | XMS | Encounter Summary ---
Demographics + + + | Address | [address] [facility] [address] | | | [place] [address] | + + + | Home Phone | | + + + | Preferred Language | Unknown | + + + | Marital Status | Single | + + + | Gnosticist Affiliation | Unknown | + + + | Race | or | + + + | Ethnic Group | Not or | + + + Author + + + | Author | [facility] | | | and [place] | + + + | Organization | [facility] | | | [...] Team Providers + +------+ + | Care Boat Operator Name | Role | Phone | [...] | | | | | | | Bilateral | | | | | | | otitis | | | | | | | media, | | | | | | | unspecified | | | | | | | otitis media | | | | | | | type | | | | | | | Bilateral | | | | | | | otitis | | | | | | | media, | | | | | | | unspecified | | | | | | | otitis media | | | | | | | type | | | | | | | [H66.93] | | | | | | | Procedures | | | | | | | Bilateral | | | | | | | Myringotomy | | | | | | | w/ | | | | | | | Ventilation | | | | | | | Tube | | | | | | | Insertion | | | +--------+--------+ + + + + Encounter Details +--------+ + + + + | Date | Type | Department | Care Team | Description | +--------+ + + + + | 12/10/ | Anesthesia | [facility] [place] | Chino Godfrey | | | 2018 | Event | [facility] | MD Greg [address] | | | | [address] | [address] [place] | | | | | [place], [place] | [place] [address] | | | | | [phone] | [phone] | | | | | [phone] | | | +--------+ + + + + Anesthesia Record + + + + + | Procedure Name | Responsible | Anesthesia Start | Anesthesia Stop Time | | | Anesthesiologist | Time | | + + + + + | Bilateral | Chino Ruiz | 12/10/17 0944 | 12/10/17 1016 | | Myringotomy w/ | MD Jose | | | | Ventilation Tube | | | | | Insertion (Bilateral | | | | | Ear) | | | | + + + + + +----+---+ + + | Da | T | Event | Comment | | te | i | | | | | m | | | | | e | | | +----+---+ + + | 03 | 0 | | | | /0 | 9 | | | | 9/ | 4 | | | | 20 | 1 | | | | 18 | | | | +----+---+ + + | | 0 | An Checkout | Pre-use anesthesia machine/equipment checkout. | | | 9 | | | | | 4 | | | | | 4 | | | +----+---+ + + | | 0 | An Start | Reassessment prior to anesthesia induction/procedure. | | | 9 | | | | | 4 | | | | | 4 | | | +----+---+ + + | | 0 | Preoxygenat | | | | 9 | ed | | | | 5 | | | | | 1 | | | +----+---+ + + | | 0 | An | | | | 9 | Induction | | | | 5 | | | | | 4 | | | +----+---+ + + | | 0 | An | | | | 9 | Intubation | | | | 5 | | | | | 7 | | | +----+---+ + + | | 0 | AN | Per surgeon request | | | 9 | Antibiotic | | | | 5 | declined | | | | 7 | | | +----+---+ + + | | 0 | Pre-Procedu | | | | 9 | ral Timeout | | | | 5 | Completed | | | | 7 | | | +----+---+ + + | | 0 | First | | | | 9 | Inc/Proc St | | | | 5 | | | | | 7 | | | +----+---+ + + | | 1 | Breathing | | | | 0 | Spontaneous | | | | 0 | ly | | | | 9 | | | +----+---+ + + | | 1 | an stop | | | | 0 | data | | | | 0 | | | | | 9 | | | +----+---+ + + | | 1 | An Stop | Patient handed off to recovery nurse. | | | 1 | | | | | 6 | | | +----+---+ + + +------+ | Meds | +------+ + +---------+ | Name | Total | + +---------+ | midazolam | 2 mg | + +---------+ | fentaNYL | 100 mcg | + +---------+ | lidocaine 2% | 100 mg | + +---------+ | propofol (DIPRIVAN) injection | 300 mg | | (bolus) (20 mL) | | + +---------+ | dexamethasone | 10 mg | + +---------+ | ondansetron | 4 mg | + +---------+ | ketorolac | 30 mg | + +---------+ | lactated ringers (LR) infusion | 400 mL | + +---------+ + + | Name | + + | N2O Flow Rate (L/Min) | + + | O2 Flow Rate (L/Min) | + + | Insp O2 | + + | Exp SEV | + + | Air Flow Rate (L/Min) | + + + + | No blood administrations on file. | + + +--------+ + + + | Type | Details | Placement | Removal | +--------+ + + + | Periph | 12/10/17; 0846; Left; Forearm; 20 | 12/10/17 0846 by | 12/10/17 1241 by | | eral | gauge; distraction; 12/10/17; | Samira Hillman RN | Shamar Dennis RN | | IV | 1241 | | | +--------+ + + + | Airway | Placement Date: 12/10/17; | 12/10/17 1001 by | 12/10/17 1045 by | | | Placement Time: 1001 (created via | Chino Ruiz | Rosina Eid RN | | | procedure documentation); Mask | MD Jose | | | | Ventilation: EZ; Attempts: 1; | | | | | Airway Type: laryngeal mask; | | | | | Size: 3; Trauma: none; Placement | | | | | Check: exhaled CO2 detection | | | | | device, bilateral chest rise, | | | | | breath sounds equal bilaterally; | | | | | Removal: per protocol, removed by | | | | | RN; Removal Date: 12/10/17; | | | | | Removal Time: 1045; Additional | | | | | Comments: Large propofol dose | | | | | needed with masking to deepen | | | | | level of anesthesia prior to LMA | | | | | placement. Atraumatic LMA | | | | | placement with quality seat and | | | | | seal. | | | +--------+ + + + | Read | 12/10/17; 1015; Bilateral; ear; | 12/10/17 1015 by | 12/10/17 1237 by | | only - | healing within expectations; | Norris Canchola RN | Shamar Dennis RN | | | 12/10/17; 1237 | | | | Incisi | | | | | on | | | | +--------+ + + [...] encounter OR Notes Anesthesia Postprocedure Evaluation - Chino Godfrey MD - 12/10/2017 11:16 AM PSTFo rmatting of this note might be different from the original. ANESTHESIA POSTANESTHESIA EVALUATION Myesha Hastings 37 y.o. female 1980 [id number] Procedure(s) Bilateral Myringotomy w/ Ventilation Tube Insertion (Bilateral Ear) Cooperates? Yes Mental Status Performs simple tasks. Respiratory Satisfactory - Airway patent (self maintained). Cardiovascular Satisfactory - Blood pressure and heart rate acceptable Temperature Satisfactory Pain Satisfactory N/V Control Satisfactory Hydration Satisfactory - No signs of dehydration Complications None apparent Vitals: 12/10/17 1050 12/10/17 1055 12/10/17 1100 BP: 109/81 121/74 121/83 Pulse: 104 101 97 Temp: Resp: 16 17 12 SpO2: 96% 96% 97% Electronically signed by Chino Godfrey MD 12/10/2017 11:16 [facility] God[facility] MD a t 12/10/2017 11:16 AM PSTAnesthesia Procedure Notes - Chino Godfrey MD - 12/10/2017 10:00 AM PSTAssociated Order(s): ANE AIRWAY NOTEAnesthesia Airway Placement Preprocedure check: patient identified, oxygen, airway assessed, suction, airway equipment checked and patient reassessment prior to induction Mask ventilation: easy Attempts: 1 Airway type: laryngeal mask Size: 3 Cuffed: cuffed Route, reference point: center of mouth Tube secured with: adhesive tape Trauma: none Tube placement verification: bilateral chest rise, equal bilateral breath sounds and carbon dioxide detection Performing provider: CHINO GODFREY Comments: Large propofol dose needed with masking to deepen level of anesthesia prior to LM A placement. Atraumatic LMA placement with quality seat and seal. Electronically Signed by: Chino Godfrey MD ESig date/time: 12/10/2017 10:00 nesthesia Prep rocedure Evaluation - Chino Godfrey MD - 12/10/2017 9:44 AM PST ANESTHESIA PREANESTHESIA EVALUATION Myesha Hastings 37 y.o. female 1980 [id number] Procedure(s): Bilateral Myringotomy w/ Ventilation Tube Insertion (Bilateral ) Medical history, anesthesia, medications, allergy, NPO status verified histories reviewed. Review of Systems / Med History Anesthesia History No anesthesia complications. H/o trach States she woke up during three surgeries but does not remember this. Says she was told abo ut it after surgery. One was tubal (unsure if she had spinal), one was "emergency lung surge ry" and the third she "does not remember, just remembers they told me about it". (-) PONV Cardiovascular Negative except where noted below. , Exercise tolerance >4 METS Pulmonary H/o severe influenza in 2016 with severe sepsis and prolonged hospitalization. C ompletely resolved. Reports "emergency lung surgery". (+) pneumonia Neurology Negative except where noted below. (+) neuropathy (on gabapentin), numbness/tingling Psychology Negative except where noted below. Renal Negative except where noted below. Gastrointestinal/Hepatic Negative except where noted below. Endocrine Negative except where noted below. Other Negative except where noted below. Physical Exam Airway MP II, TM >3 FB, Mouth opening >2 FB. Neck: full ROM, Dental ; (+) Age appropriate dentition. CV cardiovascular normal Rhythm regular. Rate normal. Pulm Clear to auscultation bilaterally. Neuro Grossly normal. Other Previous trach scar, well healed Anesthesia Plan ASA 2 Type: General (LMA). Induction: Intravenous. Potential problems: None anticipated. Monitors: Standard ASA monitors. Consent statement:Anesthetic plan, alternatives, risks and benefits discussed with patient. Risks discussed included (but were not limited to): pain, respiratory events, dental injury , muscle aches, perioperative CV events, sore throat, nausea, voice injury (All questions an swered before proceeding to OR), . Consenting person understands and agrees to proceed. PARQ. LMA. Electronically Signed by: Chino Godfrey MD ESig date/time: 12/10/2017 9:42 documented in t his encounter Plan of Treatment Not on filedocumented as of this encounter Procedures + +--------+ + + + | Procedure Name | Priori | Date/Time | Associated Diagnosis | Comments | | | ty | | | | + +--------+ + + + | ANE AIRWAY NOTE | Routin | 12/10/2017 | | Results for this | | | e | 10:00 AM | | procedure are in the | | | | PST | | results section. | + +--------+ + + + documented in this encounter Results Anesthesia Airway Note (12/10/2017 10:00 AM PST) + + + | Narrative | Performed At | + + + | Chino Godfrey MD 12/10/2017 10:01 Anesthesia Airway | | | Placement Preprocedure check: patient identified, oxygen, airway | | | assessed, suction, airway equipment checked and patient reassessment | | | prior to induction Mask ventilation: easy Attempts: 1 Airway | | | type: laryngeal mask Size: 3 Cuffed: cuffed Route, reference point: | | | center of mouth Tube secured with: adhesive tape Trauma: none Tube | | | placement verification: bilateral chest rise, equal bilateral breath | | | sounds and carbon dioxide detection Performing provider: JOSE, | | | CHINO RUIZ Comments: Large propofol dose needed with masking | | | to deepen level of anesthesia prior to LMA placement. Atraumatic | | | LMA placement with quality seat and seal. Electronically | | | Signed by: Chino Godfrey MD | | | ESig date/time: 12/10/2017 10:00 | | + + + + + | Procedure Note | + + | Chino Godfrey MD - 12/10/2017 10:00 AM PST Anesthesia Airway | | PlacementPreprocedure check: patient identified, oxygen, airway assessed, suction, | | airway equipment checked and patient reassessment prior to inductionMask ventilation: | | easyAttempts: 1Airway type: laryngeal maskSize: 3Cuffed: cuffedRoute, reference point: | | center of mouthTube secured with: adhesive tapeTrauma: noneTube placement verification: | | bilateral chest rise, equal bilateral breath sounds and carbon dioxide | | detectionPerforming provider: CHINO GODFREYComments: Large propofol dose needed | | with masking to deepen level of anesthesia prior to LMA placement.Atraumatic LMA | | placement with quality seat and seal.Electronically Signed by: Chino Godfrey MD | | ESi date/time: 12/10/2017 10:00 | |Trauma: none | |Tube placement verification: bilateral chest rise, equal bilateral breath sounds and carbon dioxide detection | |Performing provider: CHINO GODFREY | | | |Comments: Large propofol dose needed with masking to deepen level of anesthesia prior to LM A placement. | | | |Atraumatic LMA placement with quality seat and seal. | | | | | |Electronically Signed by: MD Zina Albert date/time: 12/10/2017 10:00 | | | + + documented in this encounter Visit Diagnoses Not on filedocumented in this encounter Administered Medications + +--------+ +-------+------+------+ | Medication Order | MAR | Action | Dose | Rate | Site | | | Action | Date | | | | + +--------+ +-------+------+------+ | dexamethasone (PF) 10 mg/mL | Given | 12/11/19 | 10 mg | | | | injection Intravenous, PRN, | | 18 9:59 | | | | | Starting 12/10/17 at 0959, | | AM PST | | | | | Anesthesia Intra-op | | | | | | + +--------+ +-------+------+------+ +---+---+ | | | +---+---+ + +-------+ +--------+---+---+ | fentaNYL (PF) injection | Given | 12/11/19 | 50 mcg | | | | Intravenous, PRN, Pain, Starting | | 18 10:01 | | | | | 12/10/17 at 0952, Anesthesia | | AM PST | | | | | Intra-op | | | | | | + +-------+ +--------+---+---+ +-------+ +--------+---+---+ | Given | 12/11/19 | 50 mcg | | | | | 18 9:52 | | | | | | AM PST | | | | +-------+ +--------+---+---+ +---+---+ | | | +---+---+ + +-------+ +-------+---+---+ | ketorolac (TORADOL) injection | Given | 12/11/19 | 30 mg | | | | Intravenous, PRN, Pain, Starting | | 18 10:03 | | | | | 12/10/17 at 1003, Anesthesia | | AM PST | | | | | Intra-op | | | | | | + +-------+ +-------+---+---+ +---+---+ | | | +---+---+ + +---------+ +---+---+---+ | lactated ringers (LR) infusion | New Bag | 12/11/19 | | | | | at 10-100 mL/hr, Intravenous, | | 18 9:00 | | | | | CONTINUOUS, Starting Wed12/10/17 | | AM PST | | | | | at 0830, TKO., Pre-op | | | | | | + +---------+ +---+---+---+ +---+---+ | | | +---+---+ + +-------+ +--------+---+---+ | lidocaine (PF) 2% injection | Given | 12/11/19 | 100 mg | | | | Intravenous, PRN, Starting Wed | | 18 9:54 | | | | | 12/10/17 at 0954, Anesthesia | | AM PST | | | | | Intra-op | | | | | | + +-------+ +--------+---+---+ +---+---+ | | | +---+---+ + +-------+ +------+---+---+ | midazolam (VERSED) 1 mg/mL | Given | 12/11/19 | 2 mg | | | | injection Intravenous, PRN, | | 18 9:44 | | | | | Anxiety, Starting Wed12/10/17 at | | AM PST | | | | | 0944, Anesthesia Intra-op | | | | | | + +-------+ +------+---+---+ +---+---+ | | | +---+---+ + +-------+ +------+---+---+ | ondansetron (ZOFRAN) injection | Given | 12/11/19 | 4 mg | | | | Intravenous, PRN, Nausea, | | 18 9:59 | | | | | Vomiting, Starting Wed12/10/17 at | | AM PST | | | | | 0959, Anesthesia Intra-op | | | | | | + +-------+ +------+---+---+ +---+---+ | | | +---+---+ + +-------+ +--------+---+---+ | propofol (DIPRIVAN) injection | Given | 12/11/19 | 100 mg | | | | Intravenous, PRN, Starting Fri | | 18 9:55 | | | | | 12/10/17 at 0954, Anesthesia | | AM PST | | | | | Intra-op | | | | | | + +-------+ +--------+---+---+ +-------+ +--------+---+---+ | Given | 12/11/19 | 200 mg | | | | | 18 9:54 | | | | | | AM PST | | | | +-------+ +--------+---+---+ +---+---+ | | | +---+---+ documented in this encounter
--- OUTSIDE RECORDS SUMMARY | ~2020-05-31 | XMS | Encounter Summary ---
Demographics + + + | Address | [address] [facility] [address] | | | [place] [address] | + + + | Home Phone | | + + + | Preferred Language | Unknown | + + + | Marital Status | Single | + + + | Adventism Affiliation | Unknown | + + + [...] Team Providers + +------+ + | Care Valet Parker Name | Role | Phone | + [...] Description | +--------+---------+ + + + | 12/10/ | Surgery | [facility] | Reji Martin, | Bilateral | | 2018 | | [facility] | [address] | Myringotomy w/ | | | | [address] | [address] [place], | Ventilation Tube | | | | [place], [place] | [place] [address] | Insertion | | | | [id number] | [phone] | | | | | [phone] | | | +--------+---------+ + + + [...] + + + | Blood Pressure | 109/81 | 12/10/2017 10:50 AM | | | | | PST | | + + + + + | Pulse | 104 | 12/10/2017 10:50 AM | | | | | PST | | + + + + + | Temperature | 36.6 C (97.9 F) | 12/10/2017 10:13 AM | | | | | PST | | + + + + + | Respiratory Rate | 16 | 12/10/2017 10:50 AM | | | | | PST | | + + + + + | Oxygen Saturation | 96% | 12/10/2017 10:50 AM | | | | | PST | | + + + + + | Inhaled Oxygen | - | - | | | Concentration | | | | + + + + + | Weight | 66.3 kg (146 lb 2.6 | 12/10/2017 8:12 AM | | | | oz) | PST | | + + + + + | Height | 160 cm (5' 3") | 12/10/2017 8:12 AM | | | | | PST | | + + + + + | Body Mass Index | 25.89 | 12/10/2017 8:12 AM | | | | | PST | | + + + + + documented in this encounter Discharge Instructions Instructions Shamar Dennis RN - 12/10/2017 Recovery After Procedural Sedation (Adult) You have been given medicine by vein to make you sleep during your surgery. This may have i ncluded both a pain medicine and sleeping medicine. Most of the effects have worn off. But y ou may still have some drowsiness for the next 6 to 8 hours. Home care Follow these guidelines when you get home: For the next 8 hours, you should be watched by a responsible adult. This person should m alisson sure your condition is not getting worse. Don't drink any alcoholfor the next [address], operate dangerous machinery, or make important business or personal decisio nsduring the next 24 hours. Note: Your healthcare provider may tell you not to take any medicine by mouth for pain or s leep in the next 4 hours. These medicines may react with the medicines you were given in the hospital. This could cause a much stronger response than usual. Follow-up care Follow up with your healthcare provider if you are not alert and back to your usual level o f activity within 12 hours. When to seek medical advice Call your healthcare provider right away if any of these occur: Drowsiness gets worse Weakness or dizziness gets worse Repeated vomiting You can't be awakened Date Last Reviewed: 07/21/201619998255-5355 [employer]. [address] [place] [address]. All righ ts reserved. This information is not intended as a substitute for professional medical care. Always follow your healthcare professional's instructions. Use ear drops--ofloxin--3 drops each ear twice a day for 3 days documented in this encounter Medications at Time [...] documented as of this encounter Miscellaneous Notes Op Note - Reji Martin MD - 12/10/2017 10:[address] [id number] OPERATIVE REPORT REJI MARTIN MD Patient: MYESHA HASTINGS Admitting: REJI MARTIN MR #: [id number] LOC: PT TYPE: Adm Date: 12/10/2017 : 1980 DATE: 12/10/2017. PREOPERATIVE DIAGNOSIS: Bilateral serous otitis media. POSTOPERATIVE DIAGNOSIS: Bilateral serous otitis media. PROCEDURE: Bilateral myringotomy ventilation tube insertion. SURGEON: Reji Martin MD. ANESTHESIA: General LMA, Vladislav Godfrey MD. PREOPERATIVE HISTORY: Myesha is a 37-year-old lady with a recent history of several months of hearing loss due to presumptive middle ear effusions, persistent abnormal tympanograms, unresponsive to appropriate medications. She is taken to the operating room for the above-mentioned procedures. OPERATIVE PROCEDURE AND FINDINGS: After informed consent, the patient was taken to the operating room, placed in the supine position where general LMA anesthesia was induced. The patient and procedure were verified. The left ear was examined with the operating microscope. The eardrum was moderately tympanosclerotic, retracted, dull. An anterior inferior radial myringotomy was made. Serous middle ear effusion suctioned from middle ear space. Salas tube placed in the myringotomy site. Ofloxacin ophthalmic drops applied to the ear canal. Cotton ball to the meatus. Same procedure and same findings in the right ear. The patient tolerated the procedure well, went to the recovery room awake and extubated, in good condition. No complications. Blood loss minimal. No specimen. No drains. REJI MARTIN MD Dictated by REJI MARTIN MD 12/10/2017 10:19:00 Transcribed on 12/10/2017 10:40:51 by sherie job# [id number] Confirmation #: [id number] cc: SHARON JAIME PA-C A M PSTBrief Op Note - Reji Martin MD - 12/10/2017 10:12 AM PSTFormatting of this note m ight be different from the original. Brief Operative Note Myesha Hastings 37 y.o. female 1980 [id number] Proc. Date 12/10/2017 Preop Dx Bilateral otitis media, unspecified otitis media type [H66.93] Postop Dx same Procedure Bilateral Myringotomy w/ Ventilation Tube Insertion Anesthesia General Surgeon Reji Martin MD - Primary It Teacher EBL less than 50 mL Findings Complications none Specimens * No specimens in log * Drains Electronically signed by: Reji Martin MD 12/10/2017 10:12 [facility]ji [facility] MD at 06/2018 10:12 AM PSTInterval H&P Note (unlinked) - Reji Martin MD - 12/10/2017 9:38 [facility] SURGICAL INTERIM HISTORY AND PHYSICAL UPDATE Pt. Name/Age/: Myesha Hastings 37 y.o. 1980 Date of admission: 12/10/2017 The current H&P was reviewed. The patient was reexamined. Re-evaluation of the patient co nfirms the necessity for the scheduled procedure. No change has occurred in the patient s condition since the H&P was completed less than 30 days ago. Electronically signed by: Reji Martin, 12/10/2017 9:38 [facility] documented in this e ncounter Plan of Treatment Not on filedocumented as of this encounter Procedures + +--------+ + + + | Procedure Name | Priori | Date/Time | Associated Diagnosis | Comments | | | ty | | | | + +--------+ + + + | MYRINGOTOMY / | | 12/10/2017 | Bilateral otitis | | | TYMPANOTOMY | | 9:50 AM | media, unspecified | | | | | PST | otitis media type | | + +--------+ + + + | POCT TEST, | Routin | 12/10/2017 | | Results for this | | URINE, QUAL | e | 8:41 AM | | procedure are in the | | | | PST | | results section. | + +--------+ + + + | POC GLUCOSE | Routin | 12/10/2017 | | Results for this | | | e | 8:32 AM | | procedure are in the | | | | PST | | results section. | + +--------+ + + + documented in this encounter Results POCT Test, Urine, QUAL (12/10/2017 8:41 AM PST) + + + + + + [...] | 1.010, 1.015, | | | | [place], | | 1.020, 1.025 | | | | POC | | | | | + + + + + + | Lot Number | | | | | + + + + + + | Expiration | | | | | | Date | | | | | + + + + + + + + | Specimen | + + | Urine | + + POC Glucose (12/10/2017 8:32 AM PST) + +---------+ + + + | Component | Value | Ref Range | Performed | Pathologist | | | | | At | Signature | + +---------+ + + + | Glucose, | 219 (H) | 70 - 109 mg/dL | [facility] | | | POC | | | [facility] | | | | | | [facility] [...] + + | [facility] | [address] | [place], [place] | [phone] | | [facility] | | [id number] | | | - LABORATORY | | | | + + + + + documented in this encounter Visit Diagnoses + + | Diagnosis | + + | Bilateral otitis media, unspecified otitis media type | + + documented in this encounter Administered Medications + +--------+---------+------+------+------+ | Medication Order | MAR | Action | Dose | Rate | Site | | | Action | Date | | | | + +--------+---------+------+------+------+ + +---+ | albuterol 2.5 mg/3 mL nebulizer | | | solution 2.5 mg 2.5 mg, | | | Nebulization, ONCE PRN, Wheezing, | | | Starting Wed12/10/17 at 0813, For | | | 1 dose, RT will administer., | | | Pre-op | | + +---+ | | | + +---+ | albuterol 2.5 mg/3 mL nebulizer | | | solution 2.5 mg 2.5 mg, | | | Nebulization, ONCE PRN, Wheezing, | | | Starting Wed12/10/17 at 1006, For | | | 1 dose, Notify anesthesia if | | | patient is wheezing and does not | | | have a history of asthma or COPD | | | or current smoking., | | | Recovery/Phase I | | + +---+ | | | + +---+ | albuterol-ipratropium (DUONEB) | | | 2.5-0.5 mg/3 mL nebulizer | | | solution 3 mL 3 mL, | | | Nebulization, ONCE PRN, Wheezing, | | | Starting Wed12/10/17 at 0813, For | | | 1 dose, Pre-op | | + +---+ | | | + +---+ | albuterol-ipratropium (DUONEB) | | | 2.5-0.5 mg/3 mL nebulizer | | | solution 3 mL 3 mL, | | | Nebulization, ONCE PRN, Wheezing, | | | Shortness of Breath, Starting | | | Wed12/10/17 at 1006, For 1 dose, | | | Recovery/Phase [...] glucose < 50, | | | Starting Wed12/10/17 at 0813, | | | Repeat in 15 min [...] | | blood glucose < 50, Starting Fri | | | 12/10/17 at 1006, Give over 2 min. | | | Repeat in 15 min if blood | [...] if SBP <90., Starting | | | 12/10/17 at 1006, Hold if HR > | | | 100. Maximum total dose 20mg., | | | Recovery/Phase I | | + +---+ | | | + +---+ | fentaNYL (PF) injection 25-50 | | | mcg 25-50 mcg, Intravenous, | | | EVERY 5 MIN PRN, Pain, Starting | | | 12/10/17 at 1006, Maximum total | | | dose 250 mcg. PACU IV Narcotic | | | Priority: Only use fentanyl for | | | immediate post-op pain (one dose) | | | or breakthrough pain when any | | | other IV narcotics ordered have | | | been ineffective (if ordered). | | | If both morphine and | | | hydromorphone are ordered, use | | | morphine first, and use | | | hydromorphone if morphine | | | ineffective., Recovery/Phase I | | + +---+ | | | + +---+ | hydrALAZINE (APRESOLINE) | | | injection 5 mg 5 mg, | | | Intravenous, EVERY 20 MINUTES | | | PRN, For SBP > 180, DBP > 100, | | | Starting Wed12/10/17 at 1006, Hold | | | if HR > 100. Maximum total dose | | | 40 mg. Use labetalol first if | | | available., Recovery/Phase I | | + +---+ | | | + +---+ | HYDROmorphone (DILAUDID) | | | injection 0.2-0.5 mg 0.2-0.5 mg, | | | Intravenous, EVERY 5 MIN PRN, | | | Pain, Starting Wed12/10/17 at | | | 1006, Maximum total dose 4 mg. | | [...] +---+ | | | + +---+ | labetalol (TRANDATE) 5 mg/mL | | | injection 5 mg 5 mg, | | | Intravenous, EVERY 5 MIN PRN, For | | | SBP > 180, DBP > 100, Starting | | | Wed12/10/17 at 1006, Hold if HR < | | | 60. Maximum total dose 300mg. | | | Notify anesthesia if patient | | | requires more than 50mg., | | | Recovery/Phase I | | + +---+ | | | + +---+ + +---------+ +---+---+---+ | lactated ringers (LR) infusion | New Bag | 12/11/19 | | | | | at 10-100 mL/hr, Intravenous, | | 18 9:00 | | | | | CONTINUOUS, Starting 12/10/17 | | AM PST | | | | | at 0830, TKO., Pre-op | | | | | | + +---------+ +---+---+---+ +---+---+ | | | +---+---+ + +-------+ +---------+---+---+ | ofloxacin (FLOXIN) 0.3% otic | Given | 12/11/19 | 2 drops | | | | solution PRN, Starting Wed | | 18 9:59 | | | | | 12/10/17 at 0959, Intra-op | | AM PST | | | | + +-------+ +---------+---+---+ + +---+ | | | + +---+ | ondansetron (ZOFRAN) injection | | | 4 mg 4 mg, Intravenous, ONCE | | | PRN, Nausea, Starting Wed12/10/17 | | | at 1006, For 1 dose, | | | Recovery/Phase I | | + +---+ | | | + +---+ | promethazine (PHENERGAN) (IV | | | ONLY) injection 6.25 mg 6.25 mg, | | | Intravenous, EVERY 15 MIN PRN, | | | Nausea, Vomiting, Starting Fri | | | 12/10/17 at 1006, For 4 doses, | | | TAKE PRECAUTIONS WHEN | | | ADMINISTERING Dilute to 10-20mL | | | with NS. Give over 2-3 minutes | | | into large vein. Use ondansetron | | | first if both are ordered., | | | Recovery/Phase I | | + +---+ | | | + +---+ documented in this encounter
--- OUTSIDE RECORDS SUMMARY | ~2020-05-31 | XMS | Encounter Summary ---
Demographics + + + | Address | [address] [facility] [facility] [address] | | | [place] [address] | + + + | Home Phone [...] Author + + + | Author | Located Within [facility] | | | and [place] | + + + | Organization | Located Within [facility] | | [...] Team Providers + +------+ + | Care Start Up Specialist Name | Role | Phone | + +------+ + | Jodee Jaime PA-C | PCP | | + +------+ + Encounter Details +--------+---------+ + + + | Date | Type | Department | Care Team | Description | +--------+---------+ + + + | 10/21/ | Office | [facility] | Ivon Gonzalez, [place] | Conductive hearing | | 2018 | Visit | [facility] [address] | loss of both ears | | | | [facility] | [address] [place] | (Primary Dx) | | | | [address] | [place] [address] | | | | | [address] | [phone] | | | | | [place] [address] | | | | | | [phone] | | | +--------+---------+ + + + Social History + +-------+ [...] documented as of this encounter Progress Notes Carlos Ivon, CCC-A - 10/21/2017 10:15 AM PSTReferring Provider: No additional provider found M.D. Ms. Hastings related that she had a history of ear infection during childhood. She is not he aring well and was about to be fitted with hearing aids when other health issues came up. S he would like to focus on hearing health right now as she is having trouble hearing conversa tions. Results of Hearing Test: Right ear--Pure tone air and bone conduction testing showed a cond uctive hearing loss with 55-30dB threshold at 250 Hz through 8 KHz and 15-40dB [id number] . Left ear --Pure tone air and bone conduction testing showed a conductive hearing loss w ith 60-40dB threshold at 250 Hz through 8 KHz and 10-40dB [id number]. Speech Recognition Thresholds were 30dB in the right ear and 30dB in the left ear. Speech Discrimination Scores were 100% in right ear and 100% in the left ear. Tympanometry showed flat tympanograms in both ears Impression and Recommendation: A bilateral conductive hearing loss. Follow-up care with Dr. Galvez, ENT. Thank you. documented in thi s encounter Plan of Treatment Not on filedocumented as of this encounter Procedures + +--------+ + + + | Procedure Name | Priori | Date/Time | Associated Diagnosis | Comments | | | ty | | | | + +--------+ + + + | DIAGNOSTIC REPORT - | | 10/21/2017 | | Results for this | | EXTERNAL SCAN | | 12:00 AM | | procedure are in the | | | | PST | | results section. | + +--------+ + + + documented in this encounter Results DIAGNOSTIC REPORT - EXTERNAL SCAN (10/21/2017 12:00 AM PST) + + + | Narrative | Performed At | + + + | Ordered by an | | | unspecified provider. | | + + + documented in this encounter Visit Diagnoses + + | Diagnosis | + + | Conductive hearing loss of both ears - Primary Conductive hearing loss, bilateral | + + documented in this encounter"
--- OUTSIDE RECORDS SUMMARY | ~2020-05-31 | XMS | Encounter Summary ---
Demographics + + + | Address | [address] [facility] [address] | | | [place] [address] | + + + | Home Phone | | + + + | Preferred Language | Unknown | + + + | Marital Status | Single | + + + | Yarsani Affiliation | Unknown | + + + | Race | or | + + + | Ethnic Group | Not or | + + + Author + + + | Author | [facility] | | | and [place] | + + + | Organization | [facility] | | | [...] Team Providers + +------+ + | Care Manager Of Drilling Name | Role | Phone | + +------+ + PCP | Unavailable | + +------+ + Encounter Details +--------+ + + + + | Date | Type | Department | Care Team | Description | +--------+ + + + + | 01/29/ | Hospital | [facility] | Conversion | Chest pain, | | 2016 | Encounter | CONVERSION DEP [address] | Transaction, | unspecified chest | | | | [address] | Provider Unknown | pain type | | | | [place], [place] | | | | | | [phone] | (Fax) | | | | | [phone] | | | +--------+ + + + [...] XR CHEST 1 VIEW | Routin | 01/29/2016 | | Results for this | | | e | 10:16 AM | | procedure are in the | | | | PDT | | results section. | + +--------+ + + + documented in this encounter Results XR Chest 1 Vw (01/29/2016 10:16 AM PDT) + + | Specimen | [...]
--- OUTSIDE RECORDS SUMMARY | ~2020-05-31 | XMS | Encounter Summary ---
Demographics + + + | Address | [address] [facility] [address] | | | [place] [address] | + + + | Home Phone [...] Author + + + | Author | [facility] | | | and [place] | + + + | Organization | [facility] | | | and [...] Team Providers + +------+ + | Care Neurosurgeon Name | Role | Phone | + [...] | | | | | | | HI EGD | | | | | | | TRANSORAL | | | | | | | BIOPSY | | | | | | | SINGLE/MULTI | | | | | | | PLE HI | | | | | | | [...] + + | 02/11/ | Anesthesia | [facility] | Naomi Sanderson, | | | 2019 | Event | [facility] | [employer] [address] | | | | | INTRA [address] | [place] [address] | | | | | BLVD [place], [place] | [phone] | | | | | [address] | | | | | | [phone] | | | +--------+ + + + + Anesthesia Record + + + + + | Procedure Name | Responsible | Anesthesia Start | Anesthesia Stop Time | | | Anesthesiologist | Time | | + + + + + | EGAyla (N/A Kylah) | Naomi Sanderson CRNA | 02/12/20703 | 02/12/20721 | + + + + + +----+---+ + + | Da | T | Event | Comment | | te | i | | | | | m | | | | | e | | | +----+---+ + + | 05 | 0 | An Start | Reassessment prior to anesthesia induction/procedure. | | /1 | 7 | | | | 1/ | 0 | | | | 20 | 4 | | | | 20 | | | | +----+---+ + + | | 0 | Pre-Procedu | | | | 7 | ral Timeout | | | | 1 | Completed | | | | 0 | | | +----+---+ + + | | 0 | First | | | | 7 | Inc/Proc St | | | | 1 | | | | | 2 | | | +----+---+ + + | | 0 | An Stop | Patient handed off to recovery nurse. | | | 2 | | | | | 2 | | | +----+---+ + + | | 0 | an stop | | | | 7 | data | | | | 2 | | | | | 5 | | | +----+---+ + + +------+ | Meds | +------+ + + + | Name | Total | + + + | lidocaine 2% | 60 mg | + + + | propofol | 180 mg | + + + | propofol infusion | 144.06 mg | + + + | sodium chloride 0.9% (NS) | 300 mL | | infusion | | + + + + + | Name | + + | N2O Flow Rate (L/Min) | + + | O2 Flow Rate (L/Min) | + + | Insp O2 | + + | Exp N2O | + + | Air Flow Rate (L/Min) | + + | Secondary O2 Flow Rate | + + + + | No blood administrations on file. | + + +--------+ + + + | Type | Details | Placement | Removal | +--------+ + + + | Periph | 02/12/20; 33; yes; Right; | 02/12/2033 by | 02/12/20 0748 by | | eral | Forearm; [id number]-[id number]-chdeli catheter | [place], | Yuli Armstrong RN | | IV | system; 20 gauge; removed per | RN | | | | policy/procedure, catheter/device | | | | | intact; 02/12/20; 0748 | | | +--------+ + + + [...] encounter OR Notes Anesthesia Postprocedure Evaluation - Naomi Sanderson CRNA - 02/12/2020 7:24 AM PDTFormatti ng of this note might be different from the original. ANESTHESIA POSTANESTHESIA EVALUATION Myesha Hastings 40 y.o. female 1980 [id number] Procedure(s) EGD (N/A Mouth) Cooperates? Yes Mental Status Performs simple tasks. Respiratory Satisfactory - Airway patent (self maintained). Cardiovascular Satisfactory - Blood pressure and heart rate acceptable Temperature Satisfactory Pain Satisfactory N/V Control Satisfactory Hydration Satisfactory - No signs of dehydration Adverse Events ADVERSE EVENTS: No adverse events Vitals Value Taken Time Temp 36.7 C (98.1 F) 02/12/2020 7:24 AM Pulse 93 02/12/2020 7:24 AM Resp 24 02/12/2020 7:24 AM BP 133/72 02/12/2020 7:24 AM Arterial Line BP Arterial Line BP 2 SpO2 100 % 02/12/2020 7:24 AM Electronically signed by Naomi Sanderson CRNA 02/12/2020 7:25 AM [facility] nesthesia Preprocedure Evaluation - Naomi Sanderson CRNA - 02/09/2020 2:28 PM PDT ANESTHESIA PREANESTHESIA EVALUATION Myesha Hastings 40 y.o. female 1980 [id number] Procedure(s): EGD (N/A Mouth) Medical,anesthesia, drug, allergy histories reviewed, NPO status verified. Labs reviewed. (-) perioperative beta-flakita/statin not given/taken, reason: not applicab le/Not taking Beta-Flakita. Review of Systems / Med History Anesthesia History No anesthesia complications except where noted below. (+) previous surgery or anesthesia. Family Anesthesia History Family Anesthesia Negative except where noted below. Cardiovascular Negative except where noted below. Exercise tolerance >4 METS. Pulmonary (+) tobacco use.(+) ex-smoker: 2019. Gastrointestinal/Hepatic (+) acid reflux and poorly controlled. (+) hepatitis (childhood) (+) type A acute. Renal Negative except where noted below. Endocrine Negative except where noted below. Hematology/Other (+) anemia. Cancer Negative except where noted below. Obstetrics Negative except where noted below. Pediatric History Negative except where noted below. Neuromuscular Negative except where noted below. Psychology (+) substance abuse, other, THC. Additional Comments: Was hospitalized for several months in 2016 for H1N1. Physical Exam Airway MP II, TM >3 FB, Mouth opening >2 FB. Neck: full ROM, extends >30 degrees. Jaw protrus ion normal. Facial hair present: No Dental (+) missing teeth and implants(s)/bridges(s)/caps(s). CV cardiovascular normal Rhythm regular. Rate normal. Pulm Clear to auscultation bilaterally. Neuro grossly normal. Anesthesia Plan ASA: 2 Type: General. Induction: Intravenous. Potential problems: None anticipated. Monitors: Standard ASA monitors. Consent statement: Anesthetic plan, alternatives, risks and benefits discussed with patient. , discussed risks to teeth, heart problems, nausea, pain, perioperative CV events, respiratory events, s ore throat, stroke Blood transfusion concerns: None. Consenting person understands and agrees to proceed. Electronically Signed by: Naomi Sanderson CRNA [facility] date/time: 02/12/2020 6:52 AM documented in this en counter Miscellaneous Notes Anesthesia Post-op Handoff - Naomi Sanderson CRNA - 02/12/2020 7:23 AM PDTFormatting of thi s note might be different from the original. ANESTHESIA HANDOFF NOTE Myesha Hastings 40 y.o. female 1980 [id number] EGD (N/A Mouth) HANDOFF NOTE Handoff Protocol Used: post-procedure handoff checklist completed The following were completed during the transfer of care: 1. Identification of patient 2. Identification of responsible practitioner (primary service) 3. Discussion of pertinent medical history 4. Discussion of the surgical/procedure course (procedure, reason for surgery, procedure pe rformed) 5. Intraoperative anesthetic management and issues/concerns 6. Expectations/plans for the early post-procedure period 7. Opportunity for questions and acknowledgement of understanding of report from receiving team Patient Location: Phase I Condition: lethargic Airway/O2: face mask with O2 The significant anesthesia concerns and VS in Epic were reviewed with the receiving team. Naomi Sanderson CRNA 02/12/2020 7:23 AM [facility] documented in this encounter Plan of Treatment Not on filedocumented as of this encounter Visit Diagnoses Not on filedocumented in this encounter Administered Medications + +--------+ +-------+------+------+ | Medication Order | MAR | Action | Dose | Rate | Site | | | Action | Date | | | | + +--------+ +-------+------+------+ | lidocaine (PF) 2% injection | Given | 02/12/20 | 60 mg | | | | Intravenous, PRN, Starting Mon | | 20 7:12 | | | | | 02/12/20 at 0712, Anesthesia | | AM PDT | | | | | Intra-op | | | | | | + +--------+ +-------+------+------+ +---+---+ | | | +---+---+ + +-------+ +-------+---+---+ | propofol (DIPRIVAN) injection | Given | 02/12/20 | 50 mg | | | | Intravenous, PRN, Starting Mon | | 20 7:18 | | | | | 02/12/20 at 0712, Anesthesia | | AM PDT | | | | | Intra-op | | | | | | + +-------+ +-------+---+---+ +-------+ +-------+---+---+ | Given | 02/12/20 | 30 mg | | | | | 20 7:16 | | | | | | AM PDT | | | | +-------+ +-------+---+---+ | Given | 02/12/20 | 40 mg | | | | | 20 7:14 | | | | | | AM PDT | | | | +-------+ +-------+---+---+ +---+---+ | | | +---+---+ + + + + +--------+---+ | propofol infusion (DIPRIVAN) 10 | Rate/Dos | 02/12/20 | 350 | 128.7 | | | mg/mL infusion Intravenous, | e Change | 20 7:18 | mcg/kg/m | mL/hr | | | CONTINUOUS PRN, Starting Mon | | AM PDT | in | | | | 02/12/20 at 0712, Anesthesia | | | | | | | Intra-op | | | | | | + + + + +--------+---+ + + + +--------+---+ | Rate/Dose Change | 02/12/20 | 300 | 110.3 | | | | 20 7:16 | mcg/kg/m | mL/hr | | | | AM PDT | in | | | + + + +--------+---+ | Rate/Dose Change | 02/12/20 | 200 | 73.6 | | | | 20 7:14 | mcg/kg/m | mL/hr | | | | AM PDT | in | | | + + + +--------+---+ +---+---+ | | | +---+---+ documented in this encounter"
--- OUTSIDE RECORDS SUMMARY | ~2020-05-31 | XMS | Encounter Summary ---
Demographics + + + | Address | [address] [facility] [address] | | | [place] [address] | + + + | Home Phone [...] + + + | Author | [facility] | | | and [place] | + + + | Organization | [facility] | | [...] Team Providers + +------+ + | Care Cogeneration Operator Name | Role | Phone | + +------+ + | Hiro Noble MD | PCP | | + +------+ + Reason for Visit +--------+--------+ + | Reason | Onset | Comments | | | Date | | +--------+--------+ + | Other | 02/07/ | PRE-PROCEDURE CALL | | | 2019 | | +--------+--------+ + Encounter Details +--------+ + + + + | Date | Type | Department | Care Team | Description | +--------+ + + + + | 02/07/ | Telephone | [facility] | Ambrose Lan | Other (PRE-PROCEDURE | | 2019 | | GASTROENTEROLOGY | MD Abhilash [address] | CALL ) | | | | [address] | [place] [address] | | | | | [place], [place] | [phone] | | | | | [address] | | | | | | [phone] | | | +--------+ + + + [...] Miscellaneous Notes Telephone Encounter - Cyndie Covington, Dividend Deposit Voucher Clerk - 2020 4:18 PM PDT Patient instructed to eat a light meal as usual the day before and nothing to eat or drink starting at midnight until after procedure. If any question or concerns please call our i jeannine at [phone] Procedure: EGD Date: 02/12/20 Time: 7:06AM Arrival time: 6:00AM Facility [facility] Doctor:Dr. Lan Called pt, no answer. vm not set up. Will try and call again later. Thanks mvd Thanks mvd d ocumented in this encounter Plan of Treatment Not on filedocumented as of this encounter Visit Diagnoses Not on filedocumented in this encounter"
--- OUTSIDE RECORDS SUMMARY | ~2020-05-31 | XMS | Encounter Summary ---
Demographics + + + | Address | [address] [facility] [address] | | | [place] [address] | + + + | Home Phone | | + + + | Preferred Language | Unknown | + + + | Marital Status | Single | + + + | Judaism Affiliation | Unknown | + + + | Race | or | + + + | Ethnic Group | Not or | + + + Author + + + | Author | [facility] | | | and [place] | + + + | Organization | [facility] | | [...] Team Providers + +------+ + | Care Home Appliance Technician Name | Role | Phone | + +------+ + | Hiro Noble MD | PCP | | + +------+ + Reason for Visit +---------+--------+ + | Reason | Onset | Comments | | | Date | | +---------+--------+ + | Results | 04/04/ | | | | 2020 | | +---------+--------+ + Encounter Details +--------+ + + + + | Date | Type | Department | Care Team | Description | +--------+ + + + + | 04/04/ | Telephone | [facility] | Ambrose Lan | Results | | 2019 | | GASTROENTEROLOGY | MD Abhilash [address] | | | | | [address] | [place] [address] | | | | | [place], [place] | [phone] | | | | | [address] | | | | | | [phone] | | | +--------+ + + + [...] Encounter - Cyndie Covington Medical Assistant - 04/04/2020 11:17 AM PDTCall ed pt and informed her of results. Patient verbalized understanding. Thanks mvd Electronical ly signed by Sabrina Harris at 04/04/2020 11:18 AM PDTTelephone Enco unter - Cyndie Covington Medical Assistant - 04/04/2020 11:17 AM PDT----- Message from Ambrose Lan MD sent at 04/04/2020 10:50 AM PDT ----- This study is within normal limits. documented in this encounter Plan of Treatment Not on filedocumented as of this encounter Visit Diagnoses Not on filedocumented in this encounter"
--- OUTSIDE RECORDS SUMMARY | ~2020-05-31 | XMS | Encounter Summary ---
Demographics + + + | Address | [address] [facility] [address] | | | [place] [address] | + + + | Home Phone | | + + + | Preferred Language | Unknown | + + + | Marital Status | Single | + + + | Mu-Ism Affiliation | Unknown | + + + | Race | or | + + + | Ethnic Group | Not or | + + + Author + + + | Author | [facility] | | | and [place] | + + + | Organization | [facility] | | [...] Team Providers + +------+ + | Care Dope And Fabric Worker Name | Role | Phone | + [...] | | | | | | | MD EGD | | | | | | | TRANSORAL | | | | | | | BIOPSY | | | | | | | SINGLE/MULTI | | | | | | | PLE MD | | | | | | | [...] Description | +--------+---------+ + + + | 02/11/ | Surgery | [facility] | PetermikeAmbrose perdomo | EGD | | 2019 | | [facility] | MD Abhilash [address] | | | | | [address] | [place] [address] | | | | | BLVD [place], [place] | [phone] | | | | | [address] | | | | | | [phone] | | | +--------+---------+ + + + [...] + + + | Blood Pressure | 121/66 | 02/12/2020 7:29 AM | | | | | PDT | | + + + + + | Pulse | 87 | 02/12/2020 7:29 AM | | | | | PDT | | + + + + + | Temperature | 36.7 C (98.1 F) | 02/12/2020 7:29 AM | | | | | PDT | | + + + + + | Respiratory Rate | 16 | 02/12/2020 7:29 AM | | | | | PDT | | + + + + + | Oxygen Saturation | 95% | 02/12/2020 7:29 AM | | | | | PDT [...] 2,000 Units by | | 0 | 06/09/20 | | | (CHOLECALCIFEROL) 25 | mouth [...] Lan MD - 02/07/2020 4:11 PM PDT [facility] Service: Gastroenterology Pre-Operative History & Physical [...] Acute respiratory failure with hypoxia and hypercapnia ([facility]) 2016 Adverse effect of anesthesia resistant to general anesthesia CHIRAG (acute kidney injury) ([facility]) Anemia ARDS (adult respiratory distress syndrome) ([facility]) 2016 Decreased hearing of both ears Epigastric pain 02/2020 GERD (gastroesophageal reflux disease) Hepatitis Lactic acidosis Leucocytosis Metabolic acidosis Nausea & vomiting 02/2020 Neuropathy feet Pneumonia of both lungs due to influenza A virus 01/2016 H1N1 - was hospitalized in [place] for 2 months Presence of retained hardware Right great toe PTSD (post-traumatic stress disorder) Septic shock ([facility]) Toxic metabolic encephalopathy Past Surgical History: Procedure Laterality Date BREAST CYST EXCISION FOOT SURGERY Right 08/2019 Great Toe fusion with spacer MIDDLE EAR SURGERY Bilateral 12/10/2017 Procedure: Bilateral Myringotomy w/ Ventilation Tube Insertion; Surgeon: Reji Galvez MD; Location: [facility] MAIN OR THORACENTESIS CHEST TUBE PLACE 2015 THROAT SURGERY N/A 08/17/2018 Procedure: INCISION AND DRAINAGE ABSCESS PERITONSILLAR; Surgeon: Reji Galvez MD; Lo cation: [facility] MAIN OR TOE AMPUTATION Right 06/2016 tips [...] file Gets together: Not on file Attends lutheran service: Not on file Active member of [...] to proceed. Updated today Ambrose Lan MD [facility] Gastroenterology 02/12/2020 Primary Care Physician: Hiro Noble MD documented in thi s encounter Miscellaneous Notes Op Note - Ambrose Lan MD - [facility]12[facility]2020 [facility] Procedure Note Procedure note was generated using Supremexation endoscopy software. The note can be reviewed [...] +---+--------+ + +--------+ +---+ + | *TERMED* MD UPPER GI | Routin | 02/12/2020 | [...] GROSS DESCRIPTION:The specimen, | | | labeled "Venkata, Myesha, gastric biopsy," is received in formalin and [...] | | technical component was performed by [facility], [address] [place] [address] | | | [place] [address] (Rn Interventional: Frannie Almendarez MD; CLIA# | | | [id number]).The professional interpretation was performed by [facility] | | | [facility], [address] [place], [place] | | | [address]. Diagnostician: David Green MDPathologistElectronically | | | [...] | |The technical component was performed by [facility], [address] [place] [address] (Rn Interventional: Frannie Almendarez MD; CLIA# [id number]). | | |The professional interpretation [facility], [address] [place] [address]. | | | | | |Diagnostician: David [...] Performed At | + + + | [facility] | [facility] | | [facility] | [facility] | | CenterGastroenterology | | | Patient Name: Myesha Hastings | | | Procedure Date: 02/12/2020 6:58 AMMRN: [id number] | | | of : 1980 | | | Note Status: FinalizedAttending MD: Ambrose Lan | | | , MD | | | | | | Procedure [...] | 02/12/2020 6:58 AMNumber of Addenda: 0 [facility] | | | Center | | [...] 0 | | | | | | [facility] | | + + + + +---------+ [...] | | | Qualitative | performed at [facility];[address] | | LABORATORY | | | , Urine | [address];[place], [place] | | | | | | [address] | | | | + + + + + + + + | Specimen | + + | | + + + + + + + | Performing | Address | City/State/Zipcode | Phone Number | | Organization | | | | + + + + + | [facility] | [address] | [place] [address] | [phone] | + + + + + Basic [...] | >60Comment: GFR <60: | >60 | [facility] | | | GFR | CHRONIC KIDNEY [...] | | | | | | MDRD IDWI traceable | | | | | | equation.Testing | | | | | | performed at [facility] | | | | | | [facility];[place], [place] | | | | | | [address] | | | | + + + + + + + + | Specimen | + + | Blood | + + + + + + + | Performing | Address | City/State/Zipcode | Phone Number | | Organization | | | | + + + + + | [facility] | [address] | [place] [address] | [phone] | + + + + + documented [...]
--- OUTSIDE RECORDS SUMMARY | ~2020-05-31 | XMS | Encounter Summary ---
Demographics + + + | Address | [address] [facility] [address] | | | [place] [address] | + + + | Home Phone | | + + + | Preferred Language | Unknown | + + + | Marital Status | Single | + + + | Zoroastrian Affiliation | Unknown | + + + | Race | or | + + + | Ethnic Group | Not or | + + + Author + + + | Author | [facility] | | | and [place] | + + + | Organization | [facility] | | | and [...] Team Providers + +------+ + | Care Safety Officer Name | Role | Phone | + +------+ + | Hiro Noble MD | PCP | | + +------+ + Reason for Referral Diagnostic/Screening (Routine) +--------+--------+ + + + + [...] | | ble vomiting | [address] | [place], [place] | | | | | with nausea | [place], [place] | [address] | | | | | Procedures | [address] | Phone: | | | | | NM Gastric | Phone: | [phone] | | | | | Emptying | [phone] | Fax: | | | | | | Fax: | [phone] | | | | | | [phone] | | +--------+--------+ + + + + Reason for Visit Diagnostic/Screening (Routine) +--------+--------+ [...] | | ble vomiting | [address] | [place], [place] | | | | | with nausea | [place] | [address] | | | | | Procedures | [address] | Phone: | | | | | NM Gastric | Phone: | [phone] | | | | | Emptying | [phone] | Fax: | | | | | | Fax: | [phone] | | | | | | [phone] | | +--------+--------+ + + + + Encounter Details +--------+ + + + + | Date | Type | Department | Care Team | Description | +--------+ + + + + | 04/03/ | Hospital | [facility] | PeterAmbrose gamez | Epigastric pain; | | 2019 | Encounter | [facility] | MD Abhilash [address] | Non-intractable | | | | [address] | [place] [address] | vomiting with nausea | | | | [address] | [phone] | | | | | [place], [place] | | | | | | [address] | | | | | | [phone] | | | +--------+ + + + [...] Procedure Note | + + | Bert, [id number] - 04/03/2020 12:38 PM PDT | | [...] | | + +--------+ + +------+------+ | technetium TC-99M sulfur | Given | 04/03/20 | 1 | | | | colloid solution 1 millicurie 1 | | 20 7:31 | millicur | | | | millicurie, Oral, ONCE, Wed | | AM PDT | ie | | | | 04/03/20 at 0800, For 1 dose | | | | | | + +--------+ + +------+------+ +---+---+ | | | +---+---+ documented in this encounter"
--- OUTSIDE RECORDS SUMMARY | ~2020-05-31 | XMS | Encounter Summary ---
Demographics + + + | Address | [address] [facility] [address] | | | [place] [address] | + + + | Home Phone [...] Team Providers + +------+ + | Care Injection Wax Molder Name | Role | Phone | + [...] | | ble vomiting | [address]VD | [place], [place] | | | | | with nausea | [place], [place] | [address] | | | | | Procedures | [address] | Phone: | | | | | NM Gastric | Phone: | [phone] | | | | | Emptying | [phone] | Fax: | | | | | | Fax: | [phone] | | | | | | [phone] | | +--------+--------+ + + + + Encounter Details +--------+ + + + + | Date | Type | Department | Care Team | Description | +--------+ + + + + | 04/03/ | Hospital | [facility] | Ambrose Lan | | | 2019 | Encounter | [facility] | MD Abhilash [address] | | | | | [address] | [place] [address] | | | | | [address] | [phone] | | | | | [place], [place] | | | | | | [address] | | | | | | [phone] | | | +--------+ + + + [...] Procedure Note | + + | Bert, [id number] - 04/03/2020 12:38 PM PDT | | [...]
--- OUTSIDE RECORDS SUMMARY | ~2020-05-31 | XMS | Encounter Summary ---
Demographics + + + | Address | [address] | | | [place] [address] | + + + | Home Phone | | + + + | Preferred Language | Unknown | + + + | Marital Status | Single | + + + | Mormonism Affiliation | Unknown | + + + | Race | or | + + + | Ethnic Group | Not or | + + + Author + + + | Author | [facility] | | | and [place] | + + + | Organization | [facility] | | [...] Team Providers + +------+ + | Care Paper Box Cutter Name | Role | Phone | + [...] | | ble vomiting | [address] | [place], [place] | | | | | with nausea | [place], [place] | [address] | | | | | Procedures | [address] | Phone: | | | | | NM Gastric | Phone: | [phone] | | | | | Emptying | [phone] | Fax: | | | | | | Fax: | [phone] | | | | | | [phone] | | +--------+--------+ + + + + Reason for Visit + + + | Reason | Comments | + + + | Chest Pain | | + + + | Other | gastroparesis | + + + Evaluate & Treat [...] | | gastroparesi | MD Anders | [address] | | | | | s | [address] [address] | [address]I | | | | | | Mark | [place], [place] | | | | | | [place], | [address] Phone: | | | | | | [place] [address] | [phone] | | | | | | Phone: | Fax: | | | | | | [phone] | [phone] | | | | | | Fax: | | | | | | | [phone] | | + + + + + + + Encounter Details +--------+---------+ + + + | Date | Type | Department | Care Team | Description | +--------+---------+ + + + | 02/05/ | Office | [facility] | Ambrose Lan | Epigastric pain; | | 2019 | Visit | GASTROENTEROLOGY | MD Abhilash [address] | Non-intractable | | | | [address] | [place] [address] | vomiting with nausea | | | | [place], [place] | [phone] | | | | | [address] | | | | | | [phone] | | | +--------+---------+ + + + Social History + + + +--------+ + | Tobacco Use | Types | Packs/Day | Years | Date | | | | | Used | | + + + +--------+ + | Light Tobacco Smoker | Cigarettes | 0.1 | 10 [...] + + + | Blood Pressure | 137/95 | 02/06/2020 9:53 AM | | | | | PDT | | + + + + + | Pulse | 84 | 02/06/2020 9:53 AM | | | | | PDT | | + + + + + | Temperature | - | - | | + + + + + | Respiratory Rate | - | - | | + + + + + | Oxygen Saturation | - | - | | + + + + + | Inhaled Oxygen | - | - | | | Concentration | | | | + + + + + | Weight | 61.7 kg (136 lb) | 02/06/2020 9:53 AM | | | | | PDT | | + + + + + | Height | 160 cm (5' 3") | 02/06/2020 9:53 AM | | | | | PDT | | + + + + + | Body Mass Index | 24.09 | 02/06/2020 9:53 AM | | | | | PDT | | + + + + + documented in this encounter Patient Instructions Patient Instructions Ambrose Lan MD - 02/06/2020 9:50 AM PDTFormatting of this no te might be different from the original. Upper GI Endoscopy During endoscopy, a long, flexible tube is used to view the inside of your upper GI tract. Upper GI endoscopy allows your healthcare provider to look directly into the beginning of y our gastrointestinal (GI) tract. The esophagus, stomach, and duodenum (the first part of the small intestine) make up the upper GI tract. Before the exam Follow these and any other instructions you are given before your endoscopy. If you don t follow the healthcare provider s instructions carefully, the test may need to be canceled or done over: Don't eat or drink anything after midnight the night before your exam. If your exam is i n the afternoon, drink only clear liquids in the morning. Don't eat or drink anything for8 hours before the exam. In some cases, you may be able to take medicines with sips of water until 2 hours before the procedure. Speak with your healthcare provider about this. Bring your X-rays and any other test results you have. Because you will be sedated, arrange for an adult to drive you home after the exam. Tell your healthcare provider before the exam if you are taking any medicines or have an y medical problems. The procedure Here is what to expect: You will lie on the endoscopy table. Usually patients lie on the left side. You will be monitored and given oxygen. Your throat may be numbed with a spray or gargle. You are given medicine through an intr avenous (IV) line that will help you relax and remain comfortable. You may be awake or aslee p during the procedure. The healthcare provider will put the endoscope in your mouth and down your esophagus.I tis thinner than most pieces of food that you swallow. It will not affect your breathing. The medicine helps keep you from gagging. Air is put into your GI tract to expand it. It can make you burp. During the procedure, the healthcare provider can take biopsies (tissue samples), remove abnormalities, such as polyps, or treat abnormalities through a variety of devices placed t hrough the endoscope. You will not feel this. The endoscope carries images of your upper GI tract to a video screen. If you are awake, you may be able to look at the images. After the procedure is done, you will rest for a time. An adult must drive you home. When to call your healthcare provider Contact your healthcare provider if you have: Black or tarry stools, or blood in your stool Fever Pain in your belly that does not go away Nausea and vomiting, or vomiting blood Date Last Reviewed: 04/03/201619998543-9722 [employer]. [address] [place] [address]. All righ ts reserved. This information is not intended as a substitute for professional medical care. Always follow your healthcare professional's instructions. documented in this encounter Progress Notes Ambrose Lan MD - 02/06/2020 9:50 AM PDT Subjective: Chief Complaint Patient presents with Chest Pain Other gastroparesis Patient ID: Myesha Hastings is a 39 y.o. female who presents for evaluation of nausea, vomitin g, and epigastric pain. Patient has a number of medical conditions. She has diabetes and d id have a very severe episode of respiratory failure in 2016. This resulted in multiple em g-term complications. In the last several months, however, she has developed significant na usea with vomiting. She also has been having severe epigastric pain. Nausea and vomiting u sed to occur about monthly. However it is started to occur most days. Nausea is worse with p.o. intake. However, it is not necessarily always caused by p.o. intake. She has vomited multiple times. She has not noted any particular foods that make her vomit. She has lost a small amount of weight. She was prescribed medications which sounds to be PPI. This did not help her symptoms. Her blood sugars are difficult to control so as there is some questi on of whether she has gastroparesis. She does report black tarry stools at times. HPI Past Medical History: Diagnosis Date Acute respiratory failure with hypoxia and hypercapnia (HCC) CHIRAG (acute kidney injury) (HCC) Anemia ARDS (adult respiratory distress syndrome) (HCC) GERD (gastroesophageal reflux disease) Hepatitis Lactic acidosis Leucocytosis Metabolic acidosis Pneumonia of both lower lobes due to influenza A virus Pneumonia of both lungs due to influenza A virus Septic shock (HCC) Toxic metabolic encephalopathy Patient Active Problem List Diagnosis Date Noted POA Bilateral otitis media 11/12/2017 Unknown Priority: High H/O Septic shock 11/12/2017 Unknown Priority: Low H/O ARDS 11/12/2017 Unknown Priority: Low Past Surgical History: Procedure Laterality Date MIDDLE EAR SURGERY Bilateral 12/10/2017 Procedure: Bilateral Myringotomy w/ Ventilation Tube Insertion; Surgeon: Reji Galvez MD; Location: [facility] MAIN OR THROAT SURGERY N/A 08/17/2018 Procedure: INCISION AND DRAINAGE ABSCESS PERITONSILLAR; Surgeon: Reji Galvez MD; Lo cation: [facility] MAIN OR TOE AMPUTATION Right Multiple partial toe amputation, right foot TUBAL LIGATION No family history on file. Social History Socioeconomic History Marital status: Single Spouse name: Not on file Number of children: Not on file Years of education: Not on file Highest education level: Not on file Tobacco Use Smoking status: Light Tobacco Smoker Packs/day: 0.10 Years: 10.00 Pack years: 1.00 Types: Cigarettes Last attempt to quit: 2017 Years since quittin.3 Smokeless tobacco: Never Used Substance and Sexual Activity Alcohol use: Yes Comment: occ. Drug use: Yes Types: Marijuana Current Outpatient Medications Medication Sig Dispense Refill calcium-vitamin D (OSCAL) 500 mg-200 units per tablet Take 1 tablet by mouth Daily. cholecalciferol (CHOLECALCIFEROL) 25 mcg (1,000 units) tablet Take 2,000 Units by mouth Daily. cyanocobalamin (VITAMIN B-12) 50 MCG tablet Take 50 mcg by mouth Daily. gabapentin (NEURONTIN) 100 mg capsule Take 100 mg by mouth 3 times daily. HYDROcodone-acetaminophen (HYCET) 7.5-325 mg/15 mL liquid Take 10-15 mLs by mouth every 4 hours as needed for Pain. (Patient not taking: Reported on 02/06/2020) 200 mL 0 insulin glargine (LANTUS SOLOSTAR) 100 units/mL injection (pen) Inject 20 Units under t he skin Daily. metFORMIN (GLUCOPHAGE) 500 mg tablet Take 1,000 mg by mouth 2 times daily (with breakfa st & dinner). ZZZ UNCODED COMPONENT Pt not sure what dosage or type of blood pressure pill she is No current facility-administered medications for this visit. Current Outpatient Medications on File Prior to Visit Medication Sig Dispense Refill calcium-vitamin D (OSCAL) 500 mg-200 units per tablet Take 1 tablet by mouth Daily. cholecalciferol (CHOLECALCIFEROL) 25 mcg (1,000 units) tablet Take 2,000 Units by mouth Daily. cyanocobalamin (VITAMIN B-12) 50 MCG tablet Take 50 mcg by mouth Daily. gabapentin (NEURONTIN) 100 mg capsule Take 100 mg by mouth 3 times daily. HYDROcodone-acetaminophen (HYCET) 7.5-325 mg/15 mL liquid Take 10-15 mLs by mouth every 4 hours as needed for Pain. (Patient not taking: Reported on 02/06/2020) 200 mL 0 insulin glargine (LANTUS SOLOSTAR) 100 units/mL injection (pen) Inject 20 Units under t he skin Daily. metFORMIN (GLUCOPHAGE) 500 mg tablet Take 1,000 mg by mouth 2 times daily (with breakfa st & dinner). ZZZ UNCODED COMPONENT Pt not sure what dosage or type of blood pressure pill she is No current facility-administered medications on file prior to visit. No Known Allergies Review of Systems Constitutional: Positive for activity change. Negative for [...] suicidal ideas. The patient is not nervous/anxious. Objective: Physical Exam Vitals: 02/06/20 0953 BP: (!) 137/95 Pulse: 84 Weight: 61.7 kg (136 lb) Height: 1.6 m (5' 3") Body mass index is 24.09 kg/m. Gen: NAD, appears well-developed CV: Regular Lungs: CTAB, Effort normal and breath sounds normal, No respiratory distress. Abd: Epigastric tenderness, +BS, no masses or organomegaly, no rebound, no guarding Extremities: Patient is wearing shoes but reports partial toe amputations Head: Normocephalic. Mouth/Throat: Patient is wearing a mask because of coronavirus restrictions Eyes: Conjunctivae and EOM are normal Skin: Tattoos Neuro: Intact and symmetric grossly Psychiatric: Normal mood and affect, behavior is normal, judgment and thought content partha l. Lab Results Component Value Date WBC 23.10 (H) 01/31/2016 HGB 7.9 (L) 01/31/2016 HCT 39.8 07/29/2010 MCV 86.5 01/31/2016 PLT 298 07/29/2010 Lab Results Component Value Date NA 139 01/31/2016 AST 188 (H) 01/31/2016 ALT 76 (H) 01/31/2016 ALKPHOS 123 07/29/2010 BILITOT 2.2 (H) 01/31/2016 BILIRUBIN 1.4 (H) 01/31/2016 CREA 1.14 07/29/2010 LIPASE 71 07/29/2010 ALBUMIN 2.5 (L) 01/31/2016 Lab Results Component Value Date INR 1.7 01/31/2016 INR 2.1 01/31/2016 INR 3.2 01/31/2016 Assessment and Plan: Epigastric pain Nausea with vomiting Possible melena -Patient has been having multiple symptoms as described above -She may have even had melena -Possible causes of pain include esophagitis, gastritis, peptic ulcer disease, biliary dise ase, pancreas disease, neoplasm, others -Persistent nausea and vomiting can be related to numerous causes. It is reasonable and shantel ropriate to assess for potentially reversible or treatable etiologies by endoscopy. These co uld include severe erosive esophagitis, candidal esophagitis, gastric ulcers, evidence of ga stric obstruction, bezoar, neoplasm among many others. -Recommend EGD -Risks, benefits, and alternatives of the procedure were discussed in detail and patient is willing to proceed. If procedure was delayed for 3-6 months, there is increased risk that t here would be a negative effect on the patient's long-term health, harm the patient, or lead to disability or . Please schedule this urgent procedure. -We will schedule with anesthesia service assistance given medical comorbidities and ASA cl ass III. In addition, patient has a history of tracheostomy so she has had increased airway risk. -It sounds like she already took PPI but given the severity of her symptoms I recommend she take omeprazole twice daily -Obtain gastric emptying study -Await results Thank you for allowing me to participate in the care of this patient. Please don't hesitat e to call with any questions. Ambrose Lan MD [facility] Gastroenterology 02/06/2020 This progress note was dictated using [employer] voice recognition software. Document was revie wed at time of dictation but [id number] errors may be present. Please call with any quest ions or clarifications. documented in th is encounter Plan of Treatment Not on filedocumented as of this encounter Results NM Gastric Emptying (04/03/2020 [...] Procedure Note | + + | Bert, [id number] - 04/03/2020 12:38 PM PDT | | [...] | | | | Signed by: Tea Buck, Eugenio | | Sign Date/Time: 04/03/2020 12:34 PM [...]
--- OUTSIDE RECORDS SUMMARY | ~2020-05-31 | XMS | Encounter Summary ---
Demographics + + + | Address | [address] | | | [place] [address] | + + + | Home Phone | | + + + | Preferred Language | Unknown | + + + | Marital Status | Single | + + + | Islam Affiliation | Unknown | + + + | Race | or | + + + | Ethnic Group | Not or | + + + Author + + + | Author | [facility] | + + + | Organization | [facility] | + + + | Address | Unknown | + + + | Phone | Unavailable | + + + Support + + +---------+ + | Name | Relationship | Address | Phone | + + +---------+ + | Pito Macy | ECON | Unknown | | + + +---------+ + Care Team Providers + +------+ + | Care Marble Setter Helper Name | Role | Phone | + +------+ + | Unknown | PCP | Unavailable | + +------+ + Encounter Details +--------+ + + + + | Date | Type | Department | Care Team | Description | +--------+ + + + + | 05/31/ | Abstract | Dig[facility] | Clinic, | | | 2019 | | Center at [facility] [address] | Gastroenterology | | | | | [address] [facility] | | | | | | for Health and | | | | | | Healing, [address] | | | | | | [place], [place] | | | | | | [address] | | | | | | [phone] | | | +--------+ + + + [...]
--- OUTSIDE RECORDS SUMMARY | ~2020-05-31 | XMS | Encounter Summary ---
Demographics + + + | Address | [address] | | | [place] [address] | + + + | Home Phone | | + + + | Preferred Language | Unknown | + + + | Marital Status | Single | + + + | Restoration Affiliation | Unknown | + + + | Race | or | + + + | Ethnic Group | Not or | + + + Author + + + | Author | [facility] | | | and [place] | + + + | Organization | [facility] | | | [...] Team Providers + +------+ + | Care Engineering Clerk Name | Role | Phone | + +------+ + PCP | Unavailable | + +------+ + Encounter Details +--------+ + + + + | Date | Type | Department | Care Team | Description | +--------+ + + + + | 07/29/ | Hospital | [facility] | Logan Mercado, | | | 2009 | Encounter | [facility] | [place] [address] | | | | [place] [address] | [facility] | | | | | [facility] | [place] [address] | | | | | [place], [place] | [phone] | | | | | [address] | | | | | | [phone] | | | +--------+ + + + [...] + documented as of this encounter ED Notes Sacha Pérez PA - 08/09/2013 4:21 AM PST DATE OF EMERGENCY CENTER EVALUATION: 07/29/2010 CHIEF COMPLAINT: Vomiting. HISTORY OF PRESENT ILLNESS: This is a very pleasant, 30-year-old female here [place] from [place], [place]. She is here with family. She [...] illn esses. She had a meal at [employer] here yesterday. Has a history of hepatitis [...] or illicit drug use. Here visiting from [place], [place]. PHYSICAL EXAMINATION: GENERAL: Well-developed, well-nourished 30-year-old [...] WOLFE V : 79 | Signed MR# [id number] ACCT# [id number] | ADM 07/29/10 DS 07/29/10 DEP ER | Sacha Aguila Elisa, PAC | [facility] ES: Marlon R pt [phone] | EMERGENCY CENTER THIS REPORT IS CONFID [...] the above. Sacha Pérez PA-C TD:ariana Job ID:[id number] Doc ID:[id number] cc: Electronically Signed 08/03/10 1223 [address] PAUL WOLFE V : 78 | Signed MR# [id number] ACCT# [id number] | ADM 07/29/10 DS 07/29/10 DEP ER | LIDIA Quiroz | [facility] ES: B R pt [phone] | EMERGENCY CENTER THIS REPORT IS CONFID [...] NEW | 70 - 350 U/L | [facility] | | | | REFERENCE RANGE | | [facility] | | | | | | [...] + | [facility] | [address] | [place] [address] | | | [facility] | | | | | LABORATORY | | | | + + + + + | [facility] | | | | | [facility] [...] | | | | | mmol/L | [facility] | | | | | | [facility] | | | | | | LABORATORY | | + + + + + + | K | 4.3 | 3.6 - 5.2 | [facility] | | | | | mmol/L | [facility] | | | | | | [facility] | | | | | | LABORATORY | | + + + + + + | Cl | 103 | 98 - 109 mmol/L | [facility] | | | | | | [facility] | | | | | | [facility] | | | | | | LABORATORY | | + + + + + + | CO2 | 24 | 21 - 32 mmol/L | [facility] | | | | | | [facility] | | | | | | [facility] | | | | | | LABORATORY | | + + + + + + | Glucose | 131 (H)Comment: Impaired | 65 - 99 mg/dL | [facility] | | | | fasting glucose: 100 to | | [facility] | | | | 125 mg/dL. | [...] + + + + + | [facility] | [address] [facility] | [place] [address] | | | [facility] | | [...] | l Type | Done | | [facility] | | | | | | [...] + + + | [facility] | [address] | [place] [address] | | | [facility] | | [...]
--- OUTSIDE RECORDS SUMMARY | ~2020-05-31 | XMS | Clinical Summary ---
Demographics + + + | Address | [address] | | | [place] [address] | + + + | Home Phone | | + + + | Preferred Language | Unknown | + + + | Marital Status | Single | + + + | Worship Affiliation | Unknown | + + + | Race | or | + + + | Ethnic Group | Not or | + + + Author + + + | Author | [facility] | | | and [place] | + + + | Organization | [facility] | | | and [...] Team Providers + +------+ + | Care Senior Animal Trainer Name | Role | Phone | + [...] not taking. Reported | | | on 05/10/2020 1:44 | | | PM | +---+ + + + +-------+----+------+------+-------+ | Calcium 75 MG TABS | Take 1,000 mg by | | 0 | | | Activ | | | mouth Daily. | | | | | e | + + +-------+----+------+------+-------+ | calcium carbonate | Chew and swallow 1 | | 0 | | | Activ | | (TUMS) 500 mg | tablet Daily. | | | | | e | | chewable tablet | | | | | | | + + +-------+----+------+------+-------+ | losartan (COZAAR) | | | 0 | 03/04 | | Activ | | 25 mg tablet | | | | 05/23 | | e | | | | | | 20 | | | + + +-------+----+------+------+-------+ | scopolamine | Place 1 patch onto | 10 | 11 | 08/0 | 08/0 | Activ | | (TRANSDERM-SCOP) 1 | the skin Every 3 | patch | | 7/20 | 5/20 | e | | mg/3 days | days for 365 doses 1 | | | 20 | 23 | | | patchIndications: | patch every 3 days. | | | | | | | Intractable vomiting | do not cut. Remove | | | | | | | with nausea, | before applying new | | | | | | | unspecified vomiting | patch.. 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 | + +--------+ + + + from Last 3 Months Results NM [...] Procedure Note | + + | Bert, [id number] - 04/03/2020 12:38 PM PDT | | [...] | | | + +---------+ + + from Last 3 Months Insurance [...] +--------+ +---------+--------+ | BCBS | BCBS | [id number] | 03/04/20 | | | PPO | | | FEDERA | | 19-Pre | | | | | | L FEP | | sent | | | | + +--------+ +--------+ +---------+--------+ | BCBS | BCBS | [id number] | 03/04/20 | | | PPO | | | [place]ERA | | 19-Pre | | | | | | L FEP | | sent | | | | + +--------+ +--------+ +---------+--------+ | BCBS | BCBS | [id number] | 03/04/20 | | | PPO | | | [place]A | | 19-Pre | | | | | | L FEP | | sent | | | | + +--------+ +--------+ +---------+--------+ | [employer] | MODA | [id number] | Effect | [phone] | | Medica | | MEDICAID HMO | HEALTH | | jaycee | 1 | | id | | | MDCD | | for | | | | | | [place]MO [place] | | all | | | | | | | | dates | | | | + +--------+ +--------+ +---------+--------+ | [employer] | MODA | [id number] | Effect | [phone] | | Medica | | MEDICAID HMO | HEALTH | | jaycee | 1 | | id | | | MDCD | | for | | | | | | [place]MO [place] | | all | | | | | | | | dates | | | | + +--------+ +--------+ +---------+--------+ | [employer] | [employer]HS | [id number] | 10/04/19 | | | Indemn | | SERVICE | YELLOW | | 18-Pre | | | ity | | | HAWK | | sent | | | | + +--------+ +--------+ +---------+--------+ | [employer]ICAID [place] | MEDICA | [id number] | 10/04/19 | [phone] | | Medica [...] Zelda | al/Fam | | 1979 | [id number] | [address] [place] | | | sandra | | | 3 (Home) | [address] | + +--------+ +--------+ + + | Myesha Hastings | Person | Self | [birth year] | [address] | | [place] | al/Fam | | 1979 | [id number] | [address] [place], [place] | | | sandra | | | 3 (Home) | [address] | + +--------+ +--------+ + + Advance Directives + + + + + | Type | Date Recorded | Patient | Explanation | | | | Picture Framer | | + + + + + | Power of | | | | | Sound Recordist | | | | + + + + + | Advance | 12/10/2017 8:40 | | | | Directive | AM | | | + + + + +
--- OUTSIDE RECORDS SUMMARY | ~2020-05-31 | XMS | Encounter Summary ---
Demographics + + + | Address | [address] | | | [place] [address] | + + + | Home Phone | | + + + | Preferred Language | Unknown | + + + | Marital Status | Single | + + + | Yazdanism Affiliation | Unknown | + + + | Race | or | + + + | Ethnic Group | Not or | + + + Author + + + | Author | [facility] | | | and [place] | + + + | Organization | [facility] | | [...] Team Providers + +------+ + | Care Dielectric Embossing Machine Operator Name | Role | Phone | [...] | pain type | | | | [place], [place] | | | | | | [phone] | (Fax) | | | | | [phone] | | | +--------+ + + + [...]
--- OUTSIDE RECORDS SUMMARY | ~2020-05-31 | XMS | Clinical Summary ---
Demographics + + + | Address | [address] | | | [place] [address] | + + + | Home Phone [...] Author + + + | Author | [facility] | + + + | Organization | [facility] | + + + | Address | Unknown | + + + | Phone | Unavailable | + + + Support + + +---------+ + | Name | Relationship | Address | Phone | + + +---------+ + | Pito Macy | ECON | Unknown | | + + +---------+ + Care Team Providers + +------+ + | Care Manager Motor Name | Role | Phone | + +------+ + | Unknown | PCP | Unavailable | + +------+ + Source Comments [facility] fully [email or web address] Allergies Not on File Medications Not on file Active Problems Not on file Encounters +--------+ + + + + | Date | Type | Specialty | Care Team | Description | +--------+ + + + + | 05/31/ | Abstract | Gastroenterology | Clinic, | | | 2020 | | | Gastroenterology | | +--------+ + + + + from Last 3 Months Social History + +-------+ +--------+------+ | Tobacco [...] + + + Last Filed Vital Signs Not on file Plan of Treatment + + +-------+ + | Health Maintenance | Due Date | Last | Comments | | | | Done | | + + +-------+ + | Influenza (Flu) | 10/01/202 | | | | vaccination (#1) | 0 | | | + + +-------+ + | Pneumococcal | Aged Out | | No longer eligible based on patient's age | | vaccination | | | to complete this topic | + + +-------+ + Results Not on filefrom Last 3 Months Insurance + +--------+ +--------+ + +------+ | Payer | Benefi | Subscriber | Effect | Phone | Address | Type | | | t Plan | ID | [id number] | | | | | | / | | Dates | | | | | | Group | | | | | | + +--------+ +--------+ + +------+ | [place] | BLUE | [id number] | 03/04/20 | [phone] | [address] | PPO | | | CROSS | | 19-Pre | 8 | [id number] | | | | [place] | | sent | | [place], | | | | [place] | | | | [place] [address] | | + +--------+ +--------+ + +------+ + +--------+ +--------+ + + | Guarantor Name | Accoun | Relation to | Date | Phone | Billing Address | | | t Type | Patient | of | | | | | | | | | | + +--------+ +--------+ + + | Myesha Hastings | Person | Self [birth year] | [address] | | [place] | al/[place] | | 1980 | [phone] | [place] [address] | | | sandra | | | 3 (Home) | | + +--------+ +--------+ + +"
--- OUTSIDE RECORDS SUMMARY | ~2020-05-31 | XMS | Encounter Summary ---
Demographics + + + | Address | [address] | | | [place] [address] | + + + | Home Phone [...] + + + | Author | [facility] | | | and [place] | + + + | Organization | [facility] [...] Team Providers + +------+ + | Care Graphics Production Specialist Name | Role | Phone | [...] + + + + | 12/10/ | Hospital | [facility] | Reji Martin, | | | 2018 | Encounter | MED CTR OR INTRA OP | MD [address] | | | | | [address] | [address] [place], | | | | | [place], [place] | [place] [address] | | | | | [address] | [phone] | | | | | [phone] | | | +--------+ + + + [...] + + + | Blood Pressure | 112/72 | 12/10/2017 12:15 PM | | | | | PST | | + + + + + | Pulse | 93 | 12/10/2017 12:15 PM | | | | | PST | | + + + + + | Temperature | 36.6 C (97.9 F) | 12/10/2017 10:13 AM | | | | | PST | | + + + + + | Respiratory Rate | 12 | 12/10/2017 11:30 AM | | | | | PST | | + + + + + | Oxygen Saturation | 96% | 12/10/2017 12:15 PM | | | | | PST [...] + + documented in this encounter Discharge Shamar Salguero RN - 12/10/2017 Recovery After Procedural Sedation [...] You can't be awakened Date Last Reviewed: 07/21/[id number] [employer]. [address] [place] [address], [place] [address]. All righ ts reserved. This information is [...] Reji Martin MD - 12/10/2017 10:[address] [address] OPERATIVE REPORT REJI MARTIN MD Patient: MYESHA HASTINGS Admitting: REJI MARTIN MR #: [id number] LOC: PT TYPE: Adm Date: 12/10/2017 : [...] Transcribed on 12/10/2017 10:40:51 by sherie job# [id number] Confirmation #: [id number] cc: SHARON JAIME PA-C A M PSTBrief Op Note - Reji Martin MD - 12/10/2017 10:12 AM PSTFormatting of this note m ight be different from the original. Brief Operative Note Myesha Hastings 37 y.o. female 1980 [id number] Proc. Date 12/10/2017 Preop Dx Bilateral otitis media, unspecified otitis media type [H66.93] Postop Dx same Procedure Bilateral Myringotomy w/ Ventilation Tube Insertion Anesthesia General Surgeon Reji Martin MD - Primary Mixing Engineer EBL less than 50 mL Findings Complications none Specimens * No specimens in log * Drains Electronically signed by: Reji Martin MD 12/10/2017 10:12 [facility] Reji Martin MD at 06/2018 10:12 AM PSTInterval H&P Note (unlinked) - Reji Martin MD - 12/10/2017 9:38 A M [facility] SURGICAL INTERIM HISTORY [...] Electronically signed by: Reji Martin, 12/10/2017 9:38 [facility] documented in [...] | 1.010, 1.015, | | | | [place], | | 1.020, 1.025 | | | [...] | + + + + + | [address] | [address] | [place], [place] | [phone] | | [facility] | | [address] | | | - LABORATORY | | | | + + + + + documented in this encounter Visit Diagnoses + + | Diagnosis | + + | Bilateral otitis media - Primary Unspecified otitis media | + + documented in this encounter [...] | | | | + +---------+ +---+---+---+ + +---+ | | | + +---+ | ondansetron (ZOFRAN) injection | | | 4 mg 4 mg, Intravenous, ONCE | | | PRN, Nausea, Starting 12/10/17 | | | at 1006, For 1 [...]
--- OUTSIDE RECORDS SUMMARY | ~2020-05-31 | XMS | Encounter Summary ---
Demographics + + + | Address | [address] | | | [place] [address] | + + + | Home Phone [...] Author + + + | Author | [facility] | | | and [place] | + + + | Organization | [facility] | | | [...] Team Providers + +------+ + | Care Company Pilot Name | Role | Phone | + [...] | | ble vomiting | [address] | [place], [place] | | | | | with nausea | [place], [place] | [address] | | | | | Procedures | [address] | Phone: | | | | | [place] Gastric | Phone: | [phone] | | | | | Emptying | [phone] | Fax: | | | | | | Fax: | [phone] | | | | | | [phone] | | +--------+--------+ + + + + Encounter Details +--------+ + + + + | Date | Type | Department | Care Team | Description | +--------+ + + + + | 04/03/ | Hospital | [facility] | Ambrose Lan | | | 2019 | Encounter | [facility] | MD Abhilash [address] | | | | | [address] | [place] [address] | | | | | [address] | [phone] | | | | | [place], [place] | | | | | | [address] | | | | | | [phone] | | | +--------+ + + + [...] Procedure Note | + + | Bert, [id number] - 04/03/2020 12:38 PM PDT | | [...]
--- OUTSIDE RECORDS SUMMARY | ~2020-05-31 | XMS | Encounter Summary ---
Demographics + + + | Address | [address] [facility] [address] | | | [place] [address] | + + + | Home Phone [...] Author + + + | Author | [facility] | | | and [place] | + + + | Organization | [facility] | | | and [...] Team Providers + +------+ + | Care Aeroplane Pilot Name | Role | Phone | + +------+ + PCP | Unavailable | + +------+ + Encounter Details +--------+ + + + + | Date | Type | Department | Care Team | Description | +--------+ + + + + | 01/29/ | Hospital | [facility] | Conversion | Chest pain, | | 2016 | Encounter | CONVERSION DEP [address] | Transaction, | unspecified chest | | | | [address] | Provider Unknown | pain type | | | | [place], [place] | | | | | | [address] | (Fax) | | | | | [phone] | | | +--------+ + + + [...]
--- OUTSIDE RECORDS SUMMARY | ~2020-05-31 | XMS | Encounter Summary ---
Demographics + + + | Address | [address] [facility] [address] | | | [place] [address] | + + + | Home Phone [...] + + + | Author | Formerly [facility] | | | and [place] | + + + | Organization | [facility] | | | [...] Team Providers + +------+ + | Care Brim Greaser Operator Name | Role | Phone | + +------+ + PCP | Unavailable | + +------+ + Encounter Details +--------+ + + + + | Date | Type | Department | Care Team | Description | +--------+ + + + + | 01/29/ | Hospital | [facility] | Sadia Guillory | ARDS (adult | | 2016 - | Encounter | MEDICAL CENTER | MD Joseph [address] | respiratory distress | | | | INTENSIVE CARE UNIT | [address] [place], [place] | syndrome) ([facility]); | | 01/30/ | | [address] | [address] | Septic shock ([facility]); | | 2015 | | [place], [place] | | Acute respiratory | | | | [address] | | failure with hypoxia | | | | [phone] | | and hypercapnia | | | | | | ([facility]); CHIRAG (acute | | | | | | kidney injury) | | | | | | ([facility]); Metabolic | | | | | | acidosis | +--------+ + + + + Social [...] + + documented as of this encounter Discharge Summaries Daniel Velez MD - 01/31/2016 8:01 AM PDTFormatting of this note might be different fr om the original. Discharge Summaries by Daniel Velez MD at 01/31/16 08 Author: Daniel Velez MD Service: Weigh And Charge Worker Author Type: Physician Filed: 01/31/16 0815 Date of Service: 01/31/16800 Status: Signed Salvage Machine Operator: Daniel Velez MD (Physician) [facility] Service: Weigh And Charge Worker Discharge Summary Myesha Hastings 35 y.o. Date of Admission: 01/30/2016 Date of Discharge: 01/31/2016 Treatment Team: Consulting Physician: Damion Johns MD Admitting Provider: Sadia Guillory MD ADMITTING DIAGNOSES Influenza A&B Severe ARDS Septic shock Anuric Acute Kidney Injury DISCHARGE DIAGNOSES Influenza A&B Severe ARDS Refractory Septic Shock Multiorgan Failure Coagulopathy Anuric Acute Kidney Injury BRIEF HISTORY OF PRESENTATION The patient is a 35 y.o. female with significant past medical history of DM 2 off insulin a nd not on oral hypoglycemics. Initially presented to [facility] 01/29/16 for a 5 day history of coughing and shortness of breath. Cough was described as productive and wa s associated with sharp pleuritic chest pain on deep inspiration, associated symptoms includ e myalgias, nausea and vomiting. She also complained of non-specific abdominal pain and non- bloody diarrhea. Work up at OSH - Influenza A&B positive, started on dante-flu with vancomycin, cefepime and levofloxacin for possible bacterial super-infection. Patient became progressively hypoxemic, hypotensive, and acidotic. Received 11 L of IVF for resuscitation and started on levophed f or hemodynamic support. Lactic acid of 6. ABG prior to transfer was 7.14/30/65/10 and intuba mellisa for impending respiratory failure and left subclavian placed.. HOSPITAL COURSE Admitted to [facility] ICU (01/29). HD line and neil placed. Started on SLED. ARDS net protocol. Refractory shock on 4 pressors (norepinephrine, vasopressin, phenylephrine and epinephrine) . Worsening hypoxemia requiring manual bagging and transiently stabilized VC 380 PEEP 18 FiO 2 100%. Trial of dobutamine for component stress induced cardiomyopathy w/o improvement in h emodynamics. Started on NMB infusion for vent syncrhonization. Proning was not done due to h emodynamic instability. [facility] was contacted for VV vs VA ECMO for severe ARDS with mulitorgan failure and refractory shock. Latest ABG 01/31/16 @ 0629 7.17/56/56 and lactate of 8.6 Daughter Luisa and consented transfer as last salvage effort. Imaging Echo 01/30/16 1. Overall left ventricular systolic function is mild-moderately impaired with, an EF betwe en 40 - 45 %. 2. mid anteroseptal - moderately hypokinetic; 3. Mild mitral regurgitation is present. 4. The right ventricular systolic pressure (pulmonary artery systolic pressure), as measure d by Doppler, is 31.85mmHg. CT abd pelvis at OSH: Focal mild edema, inflammation, infection or infiltration around duodenal bulb. Atypical in fection, moderate pulmonary edema or inflammation with peribronchiolar distribution within t he visualized left lower lobe and present within visualized RML and RLL. Xr Chest 1 View 01/30/2016 1. Satisfactory position of the endotracheal tube and central venous cathet er. 2. Findings concerning for pulmonary edema and/or multifocal pneumonia, slightly progr essed however, as compared to chest radiograph from earlier the same day performed at 10:03 AM. However, there is marked interval progression as compared to the chest radiograph perfor med at 8:46 AM earlier today. MEDICAL HISTORY Past Medical History Diagnosis Date Diabetes mellitus, type 2 (HCC) Smoker PAST SURGICAL HISTORY No past surgical history on file. DISCHARGE MEDS Medication List Notice You have not been prescribed any medications. DISCHARGE EXAM GEN: intubated, sedated, NAD NEURO: sluggish pupils reactive bilaterally, Paralyzed on NMB HEENT: sclerae clear, nonicteric, oral mmm, pink, no exudates, ETT and OGT in place NECK: trachea midline CV: tachycardic, no murmur, rub or gallop, peripheral pulses palpable, poor cap refill LUNGS: diminished in bases, no wheezing, rales or rhonchi, symmetric chest expansion ABD: soft, nondistended, nontender to palpation, no masses EXTR: no edema, clubbing or cyanosis SKIN: warm, dry, + acrocyanosis; no e/o skin breakdown over the occiput, scapulae, elbows, sacrum or heels LINES/TUBES: castañeda, Left subclavian CVC (OSH 01/29), left radial a-line (01/29), PIV, ETT ( OSH) PROBLEM LIST Principal Problem: ARDS (adult respiratory distress syndrome) (HCC) Active Problems: Septic shock (HCC) Pneumonia of both lungs due to influenza A virus Pneumonia of both lower lobes due to influenza A virus CHIRAG (acute kidney injury) (HCC) Leucocytosis Acute respiratory failure with hypoxia and hypercapnia (HCC) Metabolic acidosis Lactic acidosis Toxic metabolic encephalopathy Disposition: Transfer to [facility] for ECMO Condition on Discharge: critical Code Status: Full Code Primary Care Physician: Jodee Velez MD 01/31/2016 8:01 AM documented in this encounter Progress Notes Conversion Transaction, Provider Unknown - 01/31/2016 5:49 PM PDTFormatting of this note m ight be different from the original. Nurse Progress Note by Ba Plummer RN at 01/31/16 9944 Author: Ba Plummer RN Service: (none) Author Type: Registered Nurse Filed: 04/1932 Date of Service: 01/31/161748 Status: Signed Salvage Machine Operator: Ba Plummer RN (Registered Nurse) Received report this am on patient. Patient at that time on 0.5 mcg/kg/min nimbex, 180 mcg /min Cliff, 40 mcg/min Levo, 0.06 units per minute Vaso, 20 mcg/min Epi, 4 mg/hr Versed, 150 m cg/hr Fentanyl, 30 ml/hr D10. Vital signs at 0800 were HR145, BP 93/54. Patient on a vent mo de of PRVC with FiO2 100, PEEP 18, RR 30. Patient febrile with temp of 99.9. Informed plan was for patient to receive ECMO and a team would be coming from [facility] in [place], [place]. Rec eived call at approximately 0815 from nurse named Bailey to receive report. Bailey stated E TEST DEVELOPMENT ENGINEER physician requesting patient receive 10mg vitamin K IV, 30 mcg Desmopressin IV and 2 uni ts of FFP before team arrival. Also request 2 units of platelets and 2 extra units of FFP o n hand. Informed supervisor byproducts and all requested items ordered. Medications and FFP given be fore ECMO team arrival, see DEC. Team arrived approximately 1055. Team members introduced and began setting up for ECMO. Epi reduced to 15 at 1115 due to patient BP of 165/66 and co ntinued to be reduced to 10 at 1135. Team requests both units of platelets be given and jacquelyn ulation of patient begins. Right groin cannulated with no apparent problems. Team removed p revious right IJ dialysis catheter and cannulate right IJ. Right IJ cannulation removed due to clot and alternative cannulation placed in left groin. Patient on ECMO at 1223. Left ra dial arterial line shows BP trending down to low of 52/37. Multiple interventions given inc luding boluses of albumin and bolus of amiodorone 150. Team decided that patient was not st able enough for transport. Patient rhythm afib with rates 150-170. Team pulled back both can nulations at 1244. Shock of 106 Joules delivered at 1250 with no change in rhythm. Amiodoron e drip started at 1254 and push of epi administered. Patient continues to be hypotensive. E cho ordered and done at 1306. Team states no apparent cardiac problem. Team continues to pu sh epi to maintain adequate blood pressures. Team places a left femoral arterial line at 13 15. Epi pushed at 1352, 1400, 1403, 1413, and 1422. This trend demonstrates how unstable pa tient is. During this time other pressors are being titrated up and down. Team orders 2 un its of PRBC and these are given at 1530. farm crew leader requests any previous antibiotics to b e given. Patient receives ordered doses of Zosyn, Vancomycin and Levaquin. farm crew leader cons ults with supervisor byproducts and possible plan of SLED is discussed. Right IJ dialysis catheter katie bruna at 1515. At that time, produce team member met with family members to discuss patients poor pro gnosis and decline in status. Family meeting with [facility] chloe as well. farm crew leader reque sting family consider withdrawing care at this time due to patients decline. Patient blood pressures began to stabilize and epi drip reduced to 15 at 1629. Family decide to withdraw care and begin to gather at bedside. Due to patient's stabilized blood pressures ECMO team meet to discuss taking this window of opportunity to transport patient. Team members agree to attempt transport and family informed. Team members gather supplies, bundle patient and leave ICU at 1720. Ba Plummer RN onver rubi Transaction, Provider Unknown - 01/31/2016 2:56 PM PDT Progress Notes by Timoteo Iraheta at 01/31/16 7097 Author: Timoteo Iraheta Service: (none) Author Type: Grounds Manager Filed: 01/31/16 1509 Date of Service: 01/31/16 1401 Status: Signed Salvage Machine Operator: Timoteo Iraheta () Report received from Chaplain Kang. Intro self to family & ECMO produce team member. Assist famil y in receiving status updates. Provide hospitality in room next door (chairs, water). Refr eshment tray ordered. Monitor coping & meaning status of family. Family expressed feelings of helplessness. Per family inquiry about whether extended family should come from 3-5 hrs away, consulted w/ ICU Mgr & counseled family that given pt's very fragile state, that famil y not murcia here: that pt would either here or if she rallied, she would be transporte d to [place] if she stabilized. onver rubi Transaction, Provider Unknown - 01/31/2016 1:49 PM PDT Progress Notes by Keyona Kang at 01/31/16 1349 Author: Keyona Kang Service: (none) Author Type: Filed: 01/31/16 1350 Date of Service: 01/31/16 1349 Status: Signed Salvage Machine Operator: Keyona Kang () Met with pt family - 3 sisters who arrived to offer support from [place]. Were able to g et a better description of meds and medical picture. All intend to travel to [place] to be with their sister. All are intact and realistic. Excellent care given to pt by the staff. Chaplain Vanna OBRIEN Lizabeth Mae OTR/Martha - 01/31/2016 10:30 AM PDTFormatting of this note might be different from th sindy original. Therapy Progress Note by ENRIQUE Mary/Martha at 01/31/16 1030 Author: ALBERTO Mary Service: (none) Author Type: Occupational Therapist Filed: 01/31/16 1044 Date of Service: 01/31/16 1030 Status: Signed Salvage Machine Operator: ALBERTO Mary (Occupational Therapist) 01/31/16 1030 OT Last Visit OT Received On 01/31/16 Requires OT Follow Up No;On hold Other Comments Comments Per chart review, pt medical status is critical and guarded. Per RN, pt is not shantel ropriate for eval today and may be transferred today to another facility. Discharge OT eval order at this time, please re-order if status changes or a need arises. Plan Progress Discontinue OT Requires OT Follow Up No onversion Transa ction, Provider Unknown - 01/31/2016 8:49 AM PDT Case Management by DMITRIY Glaser at 01/31/16848 Author: DMITRIY Glaser Service: (none) Author Type: Shirt Trimmer Filed: 01/31/1635 Date of Service: 01/31/16848 Status: Signed Salvage Machine Operator: DMITRIY Glaser (Shirt Trimmer) Pt is being transferred to [facility] in [place] so that she can obtain ECMO. Daughter Jaleesa ([phone]) informed me that pt is still , though . I c alled pt's who lives in [place] (Jamaal Hastings - [phone]) who gave consent for tra nsfer. Jaleesa understands that pt is critically ill and may not survive. She states that pt has 4 children ages 22, 18, 17, 13. The 13yo does not know that the pt is as ill as she is. Pt's sisters are driving here/flying here to provide support to the children. I did speak more with pt's after daughter was out of my office. He is aware that pt is critical and prognosis is guarded. He states he is not working and is concerned about th e bills. I informed that pt has Medicaid and [employer]. requested my email so that e can send a note giving over decisional capacity for he althcare to his step-daughter Jaleesa. onver rubi Salguero, Provider Unknown - 01/31/2016 7:24 AM PDT Progress Notes by Keyona Kang at 01/31/16723 Author: Keyona Kang Service: (none) Author Type: Grounds Manager Filed: 01/31/1630 Date of Service: 01/31/16723 Status: Signed Salvage Machine Operator: Keyona Kang (Grounds Manager) Met with dtconor Moran and introduced director of consumer marketing role. Jaleesa states she has limited support here int he [place] but an aunt may come by. Her dad and other siblings - of which she i s the oldest live in [place]. Understandably distraught, and because of how sick Alive is, Oscar sujata has consented to moving her mom to another facility. Dr. Velez has kept her update d on her on the complexity and the gravity of her mother's well being. Luisa had not eate n anything and states "she does not have money for that." I brought some food for her and l et the lead know that if she is here for a good portion of the day she may need to have a me al later. Luisa is open to talking and I will reconnect with her later this am. Chaplain Prabhakar BCC onver rubi Transaction, Provider Unknown - 01/31/2016 6:22 AM PDT Progress Notes by Mohsen Emerson RN at 01/31/16621 Author: Mohsen Emerson RN Service: (none) Author Type: Registered Nurse Filed: 01/31/16622 Date of Service: 01/31/16621 Status: Signed Salvage Machine Operator: Mohsen Emerson RN (Registered Nurse) Pt continues to by hypotensive on epi at 20, levo at 40, vaso at 0.06, and cliff at 180, one amp bicarb given, will check ABG. HR in 150s. Daniel Lim MD - 01/31/2016 5:28 AM PDT Progress Notes by Daniel Velez MD at 01/31/16527 Author: Daniel Velez MD Service: Weigh And Charge Worker Author Type: Physician Filed: 01/31/1653 Date of Service: 01/31/16527 Status: Signed Salvage Machine Operator: Daniel Velez MD (Physician) [facility] Service: Weigh And Charge Worker Progress Note Myesha Hastings 35 y.o. Hospital Day: LOS: 1 day Post-Op Day: * No surgery found * Consulting Physicians Treatment Team: Consulting Physician: Damion Johns MD Admitting Provider: Sadia Guillory MD SUBJECTIVE Patient Summary: The patient is a 35 y.o. female with significant past medical history of DM 2 off insulin and not on oral hypoglycemics. Initially presented to [facility] 01/29/16 for a 5 day history of coughing and shortness of breath. Cough was describe d as productive and was associated with sharp pleuritic chest pain on deep inspiration, asso ciated symptoms include myalgias, nausea and vomiting. She also complained of non-specific a bdominal pain and non-bloody diarrhea. Work up at OSH - Influenza A&B positive, started on dante-flu with vancomycin, cefepime and levofloxacin for possible bacterial super-infection. Patient became progressively hypoxemic, hypotensive, and acidotic. Received 11 L of IVF for resuscitation and started on levophed f or hemodynamic support. Lactic acid of 6. ABG prior to transfer was 7. and intuba mellisa for impending respiratory failure. ICU Timeline: 01/30/16-Admitted to ICU intubated. HD line and neil placed. Started on SLED. ARDS net p rotocol. Refractory shock on 3 pressors. Events Overnight: Worsening hypoxemia requiring manual bagging. Trial of dobutamine f or component stress induced cardiomyopathy w/o improvement in hemodynamics. Started on NMB i nfusion. Started on epinephrine. SCHEDULED MEDICATIONS albumin human 50 g Intravenous Q6H albuterol 6 puff Inhalation Q4H chlorhexidine gluconate 15 mL Mouth/Throat Q12H docusate sodium 100 mg Oral BID Or docusate 100 mg Per OG Tube BID famotidine 20 mg Oral BID Or famotidine 20 mg Intravenous BID heparin (porcine) 5000 unit/0.5mL 5,000 Units Subcutaneous Q8H hydrocortisone sodium succinate PF 50 mg Intravenous Q6H influenza vaccine quadrivalent 0.5 mL Intramuscular Once Immunization ipratropium 6 puff Inhalation Q4H levofloxacin 500 mg Intravenous Q24H metronidazole 500 mg Intravenous Q8H oseltamivir 75 mg Oral BID piperacillin-tazobactam 3.375 g Intravenous Q8H pneumococcal 23-valent vaccine 0.5 mL Intramuscular Once Immunization [START ON 02/01/2016] vancomycin 1,250 mg Intravenous Q24H CONTINUOUS INFUSIONS cisatracurium in NS 0.4 mg/mL 1 mcg/kg/min (01/31/16 1768) dexmedetomidine in NS Stopped (01/31/16310) dextrose Stopped (01/31/16311) DOBUTamine in D5W 2 mg/mL Stopped (01/31/16 0355) EPINEPHrine in D5W 32 mcg/mL 10 mcg/min (01/31/16 0445) fentaNYL in NS 5 mcg/mL 150 mcg/hr (01/31/16 044) insulin regular 1 unit/mL 1.4 Units/hr (01/30/16 1455) midazolam in NS 4 mg/hr (01/31/16 0334) norepinephrine in D5W 64 mcg/mL 40 mcg/min (01/31/16447) phenylephrine in NS 320 mcg/mL 160 mcg/min (01/31/16 044) sodium chloride (IV) 30 mL/hr at 01/30/16 1534 vasopressin in NS 0.4 unit/mL 0.06 Units/min (01/31/16 031) OBJECTIVE VITAL SIGNS Temp: [98 F (36.7 C)-100.9 F (38.3 C)] 100.9 F (38.3 C) Heart Rate: [111-152] 145 Resp: [20-35] 30 BP: (70-151)/(40-89) 84/49 mmHg FiO2 : [70 %-100 %] 100 % CVP (mean): [10 mmHg-118 mmHg] 20 mmHg (01/30 05) PA catheter wave form: [-] Intake/Output Summary (Last 24 hours) at 01/31/16 05 Last data filed at 01/31/16 0100 Gross per 24 hour Intake 6820.8 ml Output 5788 ml Net 1032.8 ml EXAM GEN: intubated, sedated, NAD NEURO: sluggish pupils reactive bilaterally, Paralyzed on NMB HEENT: sclerae clear, nonicteric, oral mmm, pink, no exudates, ETT and OGT in place NECK: trachea midline CV: tachycardic, no murmur, rub or gallop, peripheral pulses palpable, poor cap refill LUNGS: diminished in bases, no wheezing, rales or rhonchi, symmetric chest expansion ABD: soft, nondistended, nontender to palpation, no masses EXTR: no edema, clubbing or cyanosis SKIN: warm, dry, + acrocyanosis; no e/o skin breakdown over the occiput, scapulae, elbows, sacrum or heels LINES/TUBES: castañeda, Left subclavian CVC (OSH 01/29), left radial a-line (01/29), PIV, ETT ( OSH) DATA Recent Labs Lab 01/31/16 0350 01/30/16 1147 WBC 27.23* 28.37* RBC 3.87 4.24 HGB 10.9* 11.5 HCT 33.5* 37.6 MCV 86.7 88.6 MCH 28.2 27.1 MCHC 32.6 30.6* RDW 45.1 48.1 PLT 75* 167 MPV 9.8 9.4 BANDSABS 11.98* 16.46* MORPH 1+ 4+ Recent Labs Lab 01/31/16 0350 01/31/16 0100 01/30/16 2100 01/30/16 1900 01/30/16 1147 NA 134* 139 139 141 < > 144* K 3.6 3.5 3.3* 3.4* < > 3.8 CL 102 103 104 106 < > 118* CO2 19* 26 23 17* < > 13* ANIONGAP 17 13 15 21* < > 18 GLUF 122* 64* 196* 96 < > 157* BUN 11 8 12 15 < > 25 CREATININE 1.64* 1.2* 1.6* 1.7* < > 2.3* BCR 7 7 8 9 < > 11 CA 5.7* 6.1* 5.6* 5.8* < > <5.0* ALB 2.6* -- -- -- -- 1.0* PROT 3.6* -- -- -- -- 3.1* BILITOT 2.2* -- -- -- -- 1.2 ALT 88* -- -- -- -- 50 AST 283* -- -- -- -- 149* EGFR 38* 54* 39* 36* < > 26* PHOS 2.7 -- 2.6 3.4 < > 6.0* MG 1.5* -- 1.5* 1.7 < > 1.0* < > = values in this interval not displayed. No results for input(s): INR in the last [address] abd pelvis at OSH: Focal mild edema, inflammation, infection or infiltration around duodenal bulb. Atypical in fection, moderate pulmonary edema or inflammation with peribronchiolar distribution within t he visualized left lower lobe and present within visualized RML and RLL. Xr Chest 1 View 01/30/2016 1. Satisfactory position of the endotracheal tube and central venous cathet er. 2. Findings concerning for pulmonary edema and/or multifocal pneumonia, slightly progr essed however, as compared to chest radiograph from earlier the same day performed at 10:03 AM. However, there is marked interval progression as compared to the chest radiograph perfor med at 8:46 AM earlier today. LEM LIST Principal Problem: ARDS (adult respiratory distress syndrome) ([facility]) Active Problems: Septic shock ([facility]) Pneumonia of both lungs due to influenza A virus Pneumonia of both lower lobes due to influenza A virus CHIRAG (acute kidney injury) ([facility]) Leucocytosis Acute respiratory failure with hypoxia and hypercapnia ([facility]) Metabolic acidosis Lactic acidosis Toxic metabolic encephalopathy ASSESSMENT & PLAN NEURO: Toxic metabolic encephalopathy - from septic shock and acidosis, supportive management w ith antibiotics and resuscitation CV: Refractory septic shock - On epinephrine, norepinephrine, phenylephrine and vasopressin. Negative trial of inotropes for component of stress induced cardiomyopathy and cardiogen ic shock component (low central O2 sat -43%). Consider PAC to evaluate CI and continous SVO2 and trial with other inotropes. A-line in place for hemodynamic monitoring PULM: Severe ARDS from influenza pneumonia rule out secondary bacterial super-infection - Cont inue with lung protective ventilatory strategy, TV 6 cc/kg/IBW. Continue ventilator bundle i ncluding chlorhexidine mouthwashes, head of bed elevation, VTE and stress ulcer prophylaxis. High PEEP strategy, keep Pplat <30. Consider proning, high risk patient though due to hemodynamic instability Influenza PNA - Oseltamivir for 10 doses Probable bacterial superinfection - vancomycin, zosyn and levofloxacin. GI/NUTRITION: NPO for now. H2B for stress ulcer prophylaxis RENAL/LYTES: Anuric Acute kidney injury secondary to Refractory septic shock - Avoid nephrotoxins an d renally dose medications. SLED 01/29. Ideally should be on CRRT (aka CVVH). Will need to repeat SLED for severe met abolic acidosis. No ultrafiltration as patient is hemodynamically unstable ID: Influenza PNA - Oseltamivir Possible bacterial superinfection - vancomycin, Zosyn and Levofloxacin for atypical cove rage. Follow up blood and sputum cultures. Strep and legionella urine Ag Procalcitonin markedly elevated at 97 HEME: Leucocytosis- from sepsis Mild anemia, likely secondary to acute illness and blood draws Thrombocytopenia. Check coags and fibrinogen r/o DIC ENDO: History DM with hyperglycemia - Low BS since admission MUSC/SKIN: Reviewed skin cares with nursing. Mobilize when able PROPHYLAXIS: Stress ulcer prophylaxis: famotidine DVT prophylaxis: heparin SQ VAP bundle: chlorhexadine oral care, HOB >30 degrees. Disposition: ICU cares. Critically ill with multi-organ failure, daughter updated last ni ght. Very high mortality. Discussed case with [facility] MICU supervisor byproducts for ECMO. No beds available at their institution. Code Status: Full Code *Please bill 60 minutes of critical care time spent evaluating the patient, reviewing the d karen and formulating a plan exclusive of all other procedures. Daniel Velez MD 01/31/2016 5:28 AM onversion Transact ion, Provider Unknown - 01/31/2016 4:57 AM PDTFormatting of this note might be different fr om the original. Progress Notes by Mohsen Emerson RN at 01/31/16456 Author: Mohsen Emerson RN Service: (none) Author Type: Registered Nurse Filed: 01/31/16506 Date of Service: 01/31/16456 Status: Signed Salvage Machine Operator: Mohsen Emerson RN (Registered Nurse) After dialysis finished around 0200 lung sounds course, moderate amt orange frothy secretio ns from ETT, HR increased to 145, notified Dr. Velez who evaluated pt and ordered LR bolus . SBP dropped to 70s with Levophed at 40, Neosynephrine at 200, and vasopressin. HR increase d into 150s and pt became hypoxic with saturations in 70s. Started dobutamine with no improv ement. VBG, ABG, and labs ordered. Sedation switched to Versed. Nimbex started, train of fou r baseline 44 mA. Calcium 1 gm given. Pt disconnected from ventillator and bagged with high peep valve, copious amt orange frothy secretions coming up ETT, oxygenation improved, BP and HR improved. Dobutamine stopped, epinephrine started and neosynephrine titrated down as avila erated per Dr. Velez. Chest x-ray and labs reviewed by Dr. Velez. Discussed pt status wi th dtr Jaleesa. Damion Mcghee MD - 01/30/2016 6:36 PM PDTFormatting of this note might be different from the or iginal. Progress Notes by Damion Johns MD at 01/30/16 1836 Author: Damion Johns MD Service: Nephrology Author Type: Physician Filed: 01/30/162158 Date of Service: 01/30/161835 Status: Signed Salvage Machine Operator: Damion Johns MD (Physician) I came back to see her on [facility]. Dialysis access is working well. Electrolytes are Ok. She continues to be in shock. Plan for 8 hrs of SLED with cautious monitoring of her electrolytes and plan daily SLED for now depending on her electrolyte balance. Discussed with Dr. Kahlil Johns. MD Dr. Hickman will assume nephrology service as of 8 am tomorrow. Sadia Shelton MD - 01/30/2016 2:39 PM PDT Progress Notes by Sadia Guillory MD at 01/30/16 1439 Author: Sadia Guillory MD Service: Weigh And Charge Worker Author Type: Physician Filed: 01/30/16 1443 Date of Service: 01/30/16 1439 Status: Signed Salvage Machine Operator: Sadia Guillory MD (Physician) [facility] Service: Weigh And Charge Worker Progress Note Sepsis Exam Note Myesha Hastings 35 y.o. Temp: [98 F (36.7 C)-100.4 F (38 C)] 98 F (36.7 C) Heart Rate: [111-134] 130 Resp: [24-30] 30 BP: (70-106)/(45-56) 99/50 mmHg FiO2 : [80 %-100 %] 80 % CVP (mean): [16 mmHg-20 mmHg] 19 mmHg (01/29 1315) PA catheter wave form: [-] EXAM GEN: intubated, sedated CV: tachycardic, no murmur, rub or gallop, peripheral pulses thready PULM: diminished in bases, no wheezing, rales or rhonchi, symmetric chest expansion SKIN: capillary refill brisk, palpable but thready peripheral pulses, no cyanosis or mottli ng HEMODYNAMIC ASSESSMENT: CVP: 17-18 IVC/IJ ultrasound assessment: 2 cm with no respiratory variation LABS Results Procedure Component Value Units Date/Time Ammonia [[id number]] (Abnormal) Collected: 01/30/16 1406 Specimen Information: Blood Updated: 01/30/16 1439 AMMONIA 106 (H) umol/L Calcium, ionized [[id number]] (Abnormal) Collected: 01/30/16 1348 Specimen Information: Blood Updated: 01/30/16 1435 CA++ 0.98 (L) mmol/L pH 6.977 (L) Lactic acid, plasma [[id number]] (Abnormal) Collected: 01/30/16 1348 Specimen Information: Blood Updated: 01/30/16 1424 LACTIC ACID 3.4 (H) mmol/L Blood Culture Set 1 [[id number]] Collected: 01/30/16 1115 Specimen Information: Blood from Blood Line Draw Updated: 01/30/16 1420 Blood Culture Set 2 [[id number]] Collected: 01/30/16 1215 Specimen Information: Blood from Blood Line Draw Updated: 01/30/16 1420 Sputum culture [[id number]] Collected: 01/30/16 1120 Specimen Information: Sputum from Tracheal Aspirate Updated: 01/30/16 1411 , urine [[id number]] Collected: 01/30/16 1258 Specimen Information: Urine from Urine, Catheter Updated: 01/30/16 1318 Preg Test, Ur NEGATIVE POC arterial CG4+ [[id number]] (Abnormal) Collected: 01/30/16 1251 pH, Art 6.979 (LL) Updated: 01/30/16 1306 POC PCO2 50 (H) mmHg POC p02 65 (L) mmHg POC LACTATE 2.8 (H) mmol/L POC HCO3 12 (L) mmol/L POC TCO2 13 (L) mEq/L POC BASE DEFICIT 20 (H) mmol/L POC S02 78 (L) % POC FIO2 80 % POC COMMENTS Tidal Volume = 320 MRSA by PCR [[id number]] Collected: 01/30/16 1144 Specimen Information: Nasopharyngeal from Nasopharyngeal Culture Updated: 01/30/16 13 05 SOURCE NARES(NOSE) MRSA PCR NEGATIVE Procalcitonin [[id number]] (Abnormal) Collected: 01/30/16 1147 PROCALCITONIN 97.03 (H) ng/mL Updated: 01/30/16 1243 Pathologist consult [[id number]] Collected: 01/30/16 1147 Updated: 01/30/16 1232 CBC w/auto diff (reflex to manual) [[id number]] (Abnormal) Collected: 01/30/16 1147 Specimen Information: Blood Updated: 01/30/16 1231 WBC 28.37 (H) K/uL RBC 4.24 M/uL HGB 11.5 g/dL HCT 37.6 % MCV 88.6 fl MCH 27.1 pg MCHC 30.6 (L) g/dL RDW SD 48.1 fl PLT 167 K/uL MPV 9.4 fl DIFF TYPE MANUAL Neutrophils Manual 35 % Bands 58 % Lymphocytes Manual 4 % Atypical Lymphocytes Relative 1 % Monocytes Manual 2 % Neutrophils Absolute 9.93 (H) K/uL Bands Manual 16.46 (H) K/uL Lymphocytes Absolute 1.13 K/uL Atypical Lymphocytes Absolute 0.28 (H) K/uL Monocytes Absolute 0.57 K/uL Platelet Estimate ADEQUATE MORPHOLOGY 4+ Basic metabolic panel [[id number]] (Abnormal) Collected: 01/30/16 1147 Specimen Information: Blood Updated: 01/30/16 1215 SODIUM 144 (H) mmol/L POTASSIUM 3.8 mmol/L CHLORIDE 118 (H) mmol/L CO2 13 (LL) mmol/L ANION GAP AGAP 18 mmol/L GLUCOSE 157 (H) mg/dL BUN 25 mg/dL CREATININE 2.3 (H) mg/dL BUN/CREAT 11 CALCIUM <5.0 (LL) mg/dL EGFR 26 (L) mL/min/1.73m2 Magnesium [[id number]] (Abnormal) Collected: 01/30/16 1147 Specimen Information: Blood Updated: 01/30/16 1215 MAGNESIUM 1.0 (L) mg/dL Hepatic function panel [[id number]] (Abnormal) Collected: 01/30/16 1147 TOTAL PROTEIN 3.1 (L) g/dL Updated: 01/30/16 1215 Albumin 1.0 (L) g/dL TBIL 1.2 mg/dL BILI, DIRECT 1.0 (H) mg/dL ALK PHOS 87 U/L AST 149 (H) U/L ALT 50 U/L Phosphorus [[id number]] (Abnormal) Collected: 01/30/16 1147 Specimen Information: Blood Updated: 01/30/16 1213 PHOSPHORUS 6.0 (H) mg/dL CPK [[id number]] (Abnormal) Collected: 01/30/16 1147 Specimen Information: Blood Updated: 01/30/16 1213 CPK 300 (H) U/L Lactic acid, plasma [[id number]] (Abnormal) Collected: 01/30/16 1115 Specimen Information: Blood Updated: 01/30/16 1211 LACTIC ACID 3.7 (H) mmol/L Sadia Guillory MD 01/30/2016 onversion Trans action, Provider Unknown - 01/30/2016 11:54 AM PDT Progress Notes by Hillary Adler RPH at 01/30/16 1150 Author: Hillary Adler RPH Service: (none) Author Type: Pharmacist Filed: 01/30/16 1154 Date of Service: 01/30/161153 Status: Signed Salvage Machine Operator: Hillary Adler RPH (Pharmacist) Initiation of Vancomycin Pharmacy Dosing Myesha Hastings 35 y.o. female 1.6 m (5' 3") Weight=68.5kg per pharmacist at [facility] There is no weight on file to calculate BMI. No results found for: CREATININE Scr=2.1 Crcl~40ml/min (data from [facility]) Estimated CrCl : Creatinine clearance cannot be calculated (Unknown ideal weight.) Indications: Hospital Acquired Pneumonia Dose per Protocol: Loading Dose: Vancomycin 1250 mg (18.2mg/kg TBW) IV Q12H, for 2 doses, then Q 24 Hours. P atient received 1 gram Vancomycin at [facility] on 01/28 at 2014. No further dos es given at [facility] Dose to be Given: 1230 Vancomycin Trough Due: 01/31 at 0001 (drawing level early in care renal function worsens) Goal Trough for Vancomycin: 15-20 mcg/mL Pharmacist: Hillary Adler 01/30/2016 11:51 AM onver rubi Transaction, Provider Unknown - 01/30/2016 11:20 AM PDT Progress Notes by Reji Pineda RPH at 01/30/16 1120 Author: Reji Pineda RPH Service: (none) Author Type: Pharmacist Filed: 01/30/161119 Date of Service: 01/30/161119 Status: Signed Salvage Machine Operator: Reji Pineda RPH (Pharmacist) Clinical Pharmacy Note: Renal Monitoring Myesha Hastings 35 y.o. female Ht Readings from Last 1 Encounters: No data found for Ht Wt Readings from Last 1 Encounters: No data found for Wt No results found for: CREATININE Creatinine clearance cannot be calculated (Unknown ideal weight.) Pharmacy dosing for renal function per Dr. Guillory. Currently, there are no medications needing to be adjusted. Pharmacy will continue to monit or for changes in medication orders and in renal function and adjust accordingly. Reji Pineda RPh 01/30/2016 11:20 AM onver rubi Transaction, Provider Unknown - 01/30/2016 11:06 AM PDT Progress Notes by Chula Mancera RPH at 01/30/16 1106 Author: Chula Mancera RPH Service: (none) Author Type: Pharmacist Filed: 01/30/161105 Date of Service: 01/30/161105 Status: Signed Salvage Machine Operator: Chula Mancera RPH (Pharmacist) Zosyn Extended Infusion Initial Consult Myesha Hastings 35 y.o. female CrCl cannot be calculated (Unknown ideal weight.). No results found for: NEUTROABS No results found for: CREATININE Zosyn extended Infusion loading and maintenance dose guidelines Loading Dose 4.5 g IV Over 30 minutes CrCl >20 ml/min 3.375 g IV Q 8 hours Over 4 hours CrCl 10-20 ml/min 3.375 g IV Q 12 hours Over 4 hours CrCl <10, HD, PD Follow [facility] Dosage Adjustments in Renal Dysfunction Protocol Plan per pharmacy protocol: Zosyn 4.5 g IVPB Loading dose over 30 minutes followed by Zosyn 3.375 g IVPB extended infusion over 4 hours Q 8 hours Pharmacy will continue monitoring patient for appropriate dosing per renal function. Starte d protocol on vented patient. Called ICU For allergies & will need Scr & ht/wt to calc CrCl. 01/30/2016 11:04 AM Pharmacist: CHULA MANCERA docume nted in this encounter H&P Notes Sadia Guillory MD - 01/30/2016 11:59 AM PDT H&P by Sadia Guillory MD at 01/30/16 5472 Author: Sadia Guillory MD Service: Weigh And Charge Worker Author Type: Physician Filed: 01/30/16 144 Date of Service: 01/30/16 1151 Status: Addendum Salvage Machine Operator: Sadia Guillory MD (Physician) Related Notes: Original Note by Sadia Guillory MD (Physician) filed at 01/30/[address] [facility] Service: Weigh And Charge Worker Admission History & Physical Myesha Hastings 35 y.o. Date of Admission: 01/30/2016 Requesting Physician: Dr. Sanchez, Hospitalist Indication for ICU Admission: hypoxic respiratory failure History Obtained From: chart review CHIEF COMPLAINT: cough and SOB x 5 days HISTORY OF PRESENT ILLNESS The patient is a 35 y.o. female with significant past medical history of DM 2 off insulin a nd not on oral hypoglycemics. Initially presented to [facility] om 01/29/16 for a 5 day history of coughing and shortness of breath. Cough was described as productive and wa s associated with sharp pleuritic chest pain on deep inspiration, associated symptoms includ e myalgias, nausea and vomiting. She also complained of non-specific abdominal pain and non- bloody diarrhea. Work up at OSH - Influenza A&B positive, started on dante-flu with vancomycin, cefepime and levofloxacin for possible bacterial super-infection. Patient became progressively hypoxemic, hypotensive, and acidotic. Received 11 L of IVF for resuscitation and started on levophed f or hemodynamic support. Lactic acid of 6. ABG prior to transfer was 7.14/30/65/10 and intuba mellisa for impending respiratory failure. REVIEW OF SYSTEMS Review of systems not obtained due to intubated. PAST MEDICAL HISTORY No past medical history on file. PAST SURGICAL HISTORY No past surgical history on file. ALLERGIES Allergies not on file MEDICATIONS PRIOR TO ADMISSION Prior to Admission medications Not on File FAMILY HISTORY OF SIGNIFICANCE No family history on file. SOCIAL HISTORY History Social History Marital Status: Single Spouse Name: N/A Number of Children: N/A Years of Education: N/A Occupational History Not on file. Social History Main Topics Smoking status: Not on file Smokeless tobacco: Not on file Alcohol Use: Not on file Drug Use: Not on file Sexual Activity: Not on file Other Topics Concern Not on file Social History Narrative No narrative on file PHYSICAL EXAM VITAL SIGNS Temp: [100.4 F (38 C)] 100.4 F (38 C) Heart Rate: [117-134] 117 Resp: [24] 24 BP: (103)/(56) 103/56 mmHg FiO2 : [80 %-100 %] 80 % EXAM GEN: intubated, sedated, NAD NEURO: sluggish pupils reactive bilaterally, no facial asymmetry, does not withdraw to noxi ous stimuli, no spontaneous movement (patient received NMB and sedation for intubation at [facility] prior to transfer) HEENT: sclerae clear, nonicteric, oral mmm, pink, no exudates, ETT and OGT in place NECK: trachea midline CV: tachycardic, no murmur, rub or gallop, peripheral pulses palpable, poor cap refill LUNGS: diminished in bases, no wheezing, rales or rhonchi, symmetric chest expansion, even/ unlabored respirations ABD: soft, nondistended, nontender to palpation, no masses EXTR: no edema, clubbing or cyanosis SKIN: warm, dry, no rash or mottling; no e/o skin breakdown over the occiput, scapulae, elb ows, sacrum or heels LINES/TUBES: castañeda, Left subclavian CVC (OSH 01/29), left radial a-line (01/29), PIV, ETT ( OSH) DATA Recent Labs Lab 01/30/16 1147 WBC 28.37* RBC 4.24 HGB 11.5 HCT 37.6 MCV 88.6 MCH 27.1 MCHC 30.6* RDW 48.1 PLT 167 MPV 9.4 BANDSABS 16.46* MORPH 4+ Recent Labs Lab 01/30/16 1147 NA 144* K 3.8 CL 118* CO2 13* ANIONGAP 18 GLUF 157* BUN 25 CREATININE 2.3* BCR 11 CA <5.0* ALB 1.0* PROT 3.1* BILITOT 1.2 ALT 50 AST 149* EGFR 26* PHOS 6.0* MG 1.0* No results for input(s): INR in the last [address] abd pelvis at OSH: Focal mild edema, inflammation, infection or infiltration around duodenal bulb. Atypical in fection, moderate pulmonary edema or inflammation with peribronchiolar distribution within t he visualized left lower lobe and present within visualized RML and RLL. Xr Chest 1 View 01/30/2016 1. Satisfactory position of the endotracheal tube and central venous catheter. 2. Findings concerning for pulmonary edema and/or multifocal pneumonia, slightly progresse d however, as compared to chest radiograph from earlier the same day performed at 10:03 AM. However, there is marked interval progression as compared to the chest radiograph performed at 8:46 AM earlier today. LEM LIST Principal Problem: ARDS (adult respiratory distress syndrome) ([facility]) Active Problems: Septic shock (HCC) Pneumonia of both lungs due to influenza A virus CHIRAG (acute kidney injury) ([facility]) Leucocytosis Acute respiratory failure with hypoxia and hypercapnia (HCC) Metabolic acidosis Lactic acidosis Toxic metabolic encephalopathy ASSESSMENT & PLAN NEURO: Toxic metabolic encephalopathy - from septic shock and acidosis, supportive management w ith antibiotics and resuscitation CV: Septic shock - CV medications reviewed. Continue levophed, vasopressin, phenylephrine. Titr ate pressors to keep MAP >65. Start stress dose steroids. A-line in place for hemodynamic monitoring Order TTE to eval LVEF. PULM: Severe ARDS from influenza pneumonia rule out secondary bacterial super-infection - Cont inue with lung protective ventilatory strategy, TV 6 cc/kg/IBW. Continue ventilator bundle i ncluding chlorhexidine mouthwashes, head of bed elevation, VTE and stress ulcer prophylaxis. High PEEP strategy, keep Pplat <30. Influenza PNA - Oseltamivir for 10 doses Probable bacterial superinfection - vancomycin, zosyn and levofloxacin. GI/NUTRITION: NPO for now. H2B for stress ulcer prophylaxis RENAL/LYTES: Acute kidney injury - Avoid nephrotoxins and renally dose medications. Creatinine of 2.3 on admission Metabolic acidosis - cont resuscitation, maximize ventilatory compensation, will start b icarb gtt if severely acidotic after vent changes Castañeda for strict I&Os Check and replace electrolytes per protocol ID: Influenza PNA - Oseltamivir Possible bacterial superinfection - vancomycin, Zosyn and Levofloxacin for atypical cove rage. Follow up blood and sputum cultures. Strep and legionella urine Ag Procalcitonin markedly elevated at 97 HEME: Leucocytosis- from sepsis Stable hemoglobin levels. Monitor CBCs and coags. ENDO: History DM with hyperglycemia - Blood glucose goal 100-180 mg/dL, start Endotool. MUSC/SKIN: Reviewed skin cares with nursing. Mobilize when able PROPHYLAXIS: Stress ulcer prophylaxis: famotidine DVT prophylaxis: heparin SQ VAP bundle: chlorhexadine oral care, HOB >30 degrees. Disposition: ICU cares. Critically ill with multi-organ failure, daughter updated at [facility] and over the phone. Code Status: Full Code Primary Care Physician: Jodee Jaime *Please bill 100 minutes of critical care time spent evaluating the patient, reviewing the data and formulating a plan exclusive of all other procedures. Sadia Guillory MD 01/30/2016 documented in th is encounter Procedure Notes Viki Hickman MD - 01/31/2016 9:36 AM PDT Procedures by Viki Hickman MD at 01/31/1636 Author: Viki Hickman MD Service: Nephrology Author Type: Physician Filed: 02/03/16 2108 Date of Service: 01/31/16935 Status: Signed Salvage Machine Operator: Viki Hickman MD (Physician) Procedures: 1. HEMODIALYSIS INPATIENT [DIA12 (Custom)] The patient is seen & examined during dialysis. she is critically ill. The following portions of the patient's history were reviewed and updated as appropriate: l aboratory data, allergies, current medications, and problem list. P.E. BP 99/53 mmHg | Pulse 145 | Temp(Src) 101.4 F (38.6 C) (Axillary) | Resp 30 | Ht 1.6 m (5' 2.99") | Wt 87.3 kg (192 lb 7.4 oz) | BMI 34.10 kg/m2 | SpO2 91% General appearance: intubated; [facility] Head and ENT: Head is atraumatic. The oropharynx could not be assessed. Lungs: Clear to auscultation by LALExam. There are no wheezes. Heart: Regular rate and rhythm without gallop. no murmur. No Pericardial rub. Abdominal exam: Soft. Tenderness could not be assessed Extremities: Warm to touch with no leg edema. There is no cyanosis. Neurological: sedated: does not open eyes to command, does not move arms. Rest could not be assessed accurately. Lab Results Component Value Date BUN 11 01/31/2016 CREATININE 1.64* 01/31/2016 EGFR 38* 01/31/2016 NA 134* 01/31/2016 K 3.6 01/31/2016 CL 102 01/31/2016 CO2 19* 01/31/2016 CA 5.7* 01/31/2016 PHOS 2.7 01/31/2016 MG 1.5* 01/31/2016 ALB 2.6* 01/31/2016 HGB 10.9* 01/31/2016 Assessment: Ms. Hastings is a 35 y.o. female patient with severe CHIRAG, septic shock, ARDS. Requiring acute dialysis. Severely critically ill. Complications identified during her dialysis treatment: severe hypotension continues. Recommendations: UF as tolerated No IV Epo with HD to be used Next dialysis treatment is planned daily. F/U: I was called back in to see if we can resume her SLED. We will make such arrangements. Discussed with the ICU team. F/U: SLED has been cancelled by the ICU team. VIKI HICKMAN MD Sadia Shelton MD - 01/30/2016 4:12 PM PDT . Procedures by Sadia Guillory MD at 01/30/16 1612 Author: Sadia Guillory MD Service: Weigh And Charge Worker Author Type: Physician Filed: 01/30/16 1619 Date of Service: 01/30/161611 Status: Signed Salvage Machine Operator: Sadia Guillory MD (Physician) Procedure Orders: 1. Central line [[id number]] ordered by Sadia Guillory MD at 01/30/161611 Post-procedure Diagnoses: 1. ARDS (adult respiratory distress syndrome) ([facility]) [J80] 2. Septic shock ([facility]) [A41.9, R65.21] 3. CHIRAG (acute kidney injury) ([facility]) [N17.9] 4. Metabolic acidosis [E87.2] [facility] Service: Weigh And Charge Worker BEDSIDE PROCEDURE NOTE Central Line Date/Time: 01/30/2016 4:12 PM Performed by: SADIA GUILLORY Authorized by: SADIA GUILLORY Consent: The procedure was performed in an emergent situation. Written consent obtained. Risks and benefits: risks, benefits and alternatives were discussed Consent given by: spouse Patient identity confirmed: arm band Time out: Immediately prior to procedure a "time out" was called to verify the correct galileo ent, procedure, equipment, endoscopy support specialist and site/side marked as required. Indications: vascular access Patient sedated: yes Preparation: skin prepped with 2% chlorhexidine Skin prep agent dried: skin prep agent completely dried prior to procedure Sterile barriers: all five maximum sterile barriers used - cap, mask, sterile gown, sterile gloves, and large sterile sheet Hand hygiene: hand hygiene performed prior to central venous catheter insertion Location details: right internal jugular Patient position: flat Catheter type: triple lumen Catheter size: 12 Fr Ultrasound guidance: yes Sterile ultrasound techniques: sterile gel and sterile probe covers were used Number of attempts: 1 Successful placement: yes Post-procedure: line sutured and dressing applied Assessment: free fluid flow, blood return through all ports, placement verified by x-ray and no pneumothorax on x-ray Patient tolerance: Patient tolerated the procedure well with no immediate complications Comments: Biopatch placed. Sadia Guillory MD 01/30/2016 arreAnila charles MD - 01/30/2016 12:19 PM PDTFormatting of this note might be different from the origina l. Procedures by Sadia Guillory MD at 01/30/16 1219 Author: Sadia Guillory MD Service: Weigh And Charge Worker Author Type: Physician Filed: 01/30/16 1323 Date of Service: 01/30/16 1219 Status: Signed Salvage Machine Operator: Sadia Guillory MD (Physician) Procedure Orders: 1. Insert arterial line [[id number]] ordered by Sadia Guillory MD at 01/30/16 1319 Post-procedure Diagnoses: 1. ARDS (adult respiratory distress syndrome) (HCC) [J80] 2. Septic shock (HCC) [A41.9, R65.21] 3. Acute respiratory failure with hypoxia and hypercapnia (HCC) [J96.01, J96.02] [facility] Service: Weigh And Charge Worker BEDSIDE PROCEDURE NOTE Insert Arterial Line Date/Time: 01/30/2016 1:19 PM Performed by: SADIA GUILLORY Authorized by: SADIA GUILLORY Consent: The procedure was performed in an emergent situation. Verbal consent not obtained. Written consent not obtained. Patient identity confirmed: arm band Time out: Immediately prior to procedure a "time out" was called to verify the correct galileo ent, procedure, equipment, endoscopy support specialist and site/side marked as required. Preparation: Patient was prepped and draped in the usual sterile fashion. Indications: multiple ABGs, respiratory failure and hemodynamic monitoring Location: left radial Patient sedated: no Preparation: skin prepped with 2% chlorhexidine Skin prep agent dried: skin prep agent completely dried prior to procedure Sterile barriers: all five maximum sterile barriers used - cap, mask, sterile gown, sterile gloves, and large sterile sheet Hand hygiene: hand hygiene performed prior to central venous catheter insertion Needle gauge: 20 Seldinger technique: Seldinger technique used Number of attempts: 1 Post-procedure: line sutured and dressing applied Post-procedure CMS: unchanged Patient tolerance: Patient tolerated the procedure well with no immediate complications Comments: Left femoral attempted 3 times, could not pass wire through. Switched to left rad ial approach. Sadia Guillory MD 01/30/2016 documented in th is encounter Consult Notes Damion Johns MD - 01/30/2016 3:56 PM PDT Consult* by Damion Johns MD at 01/30/16 2636 Author: Damion Johns MD Service: Nephrology Author Type: Physician Filed: 01/30/16 9392 Date of Service: 01/30/16 7243 Status: Signed Salvage Machine Operator: Damion Johns MD (Physician) - LOS: 0 days History Obtained From: chart review, Reason patient could not give history: intubated Myesha Hastings is a 35 y.o. woman whose PCP is Jodee Jaime. She carries a previous history of Dm2 but has been diet controlled and followed by the [facility] clinic. She is an ongoing smoker. She was transferred from [facility] where she presented with a 5 day history of acute respiratory illness with cough, shortness of breath and ruled in for influenza A and B. Along with that she apparently had nausea, vomiting, diarrhea and had reduced PO intake. There were apparently no sick contacts. On admission at [facility] from my review she had CHIRAG, metabolic acidosis and was treated with emp iric Abx initially. When she became worse today with increasing O2 requirements and shortness of breath she was [place] [facility] [place] in [place]. She was volume resuscitated initially and received pressor support. X-ray Chest AP 01/30/2016 seen by myself showed Bilateral central mixed airspace and interst itial opacities Xr Ct Portable Head Unenhanced 01/30/2016 showed Diffuse mucosal thickening, and fluid in et hmoid, sphenoid and maxillary air cells. Frontal sinuses are also involved to a lesser degre e-this could be infectious, inflammatory or posttraumatic 2. Possible mastoid air cell eros ion and full tissue and/or fluid about right mastoid air cells, possibly extending into the right middle ear and ossicles. There is no prior history of CHIRAG/CKD and there is no prior evaluation by money counter befor e. Nephrology consultation was requested by Dr. Guillory for oliguric CHIRAG, septic shock and met abolic acidosis and need for urgent dialysis.. Negative relevant review of system as indicated below History of recent EVGENY/ARB use Chronic LE edema Recent/remote NSAID use Recent cardiac catheterization or CT scan with contrast Recent rash or any joint swelling. Recent/remote use of herbal medications at home. PMH, PSH, Social history, medications, allergies, labs and imaging reviewed as appropriate. Previous history summarized as above. Prior lab data and imaging reviewed. Old records and labs were reviewed and summarized as above. Myesha Hastings has Significant PMH of: DM2 diagnosed around 2014 PTSD Smoker. Pertinent negative Hx: Autoimmune disorder Recurrent/frequent UTI/Pyelonephritis. Recent/remote gout. Recent or remote IVDU or blood transfusion. Recent/remote nephrolithiasis Malignancy Family history: There is no family history of kidney disease with close family members angela bedolla on dialysis at early age. She lives with her father. 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 She has 2 sons and 2 daughters. She has 3 half si sters 1 of whom has DM2. Both parents have DM2. ROS: Review of systems is as per the history of present illness. Otherwise 14 organ system revie w of systems was done and is negative. Examination: APPEARANCE: She is intubated and unresponsive.. VITALS: Reviewed as listed. HEENT: Non-icteric sclera. + JVD. LYMPHATIC: No cervical lymphadenopathy LUNGS: Scattered rales. Intubated on ventilator. HEART: S1 soft, no pericardial rub .No murmur. ABDOMEN: Soft, no tenderness. No organomegaly or bruits. EXTREMITIES: No LE edema. Peripheral pulses not palpable SKIN: Warm to touch. No rash or ecchymosis. NEUROLOGIC: Intubated and nonverbal. BACK: No sacral edema. Vital Signs: BP 99/50 mmHg | Pulse 130 | Temp(Src) 98 F (36.7 C) (Oral) | Resp 30 | Ht 1.6 m (5' 3") | Wt 82.7 kg (182 lb 5.1 oz) | BMI 32.30 kg/m2 | SpO2 94% Data evaluation: Lab Results Component Value Date BUN 01/30/2016 CREATININE 2.3* 01/30/2016 EGFR 26* 01/30/2016 NA 144* 01/30/2016 K 3.8 01/30/2016 CL 118* 01/30/2016 CO2 13* 01/30/2016 CA <5.0* 01/30/2016 PHOS 6.0* 01/30/2016 MG 1.0* 01/30/2016 ALB 1.0* 01/30/2016 HGB 11.5 01/30/2016 Component Value Date/Time CREATININE 2.3* 01/30/2016 1147 Problem list: ARDS Metabolic acidosis Shock Multiorgan failure Severe sepsis Assessment and Recommendations: Myesha Hastings is a 35 y.o. woman with oliguric CHIRAG with septic shock and ARDS with profoun d increased anion gap metabolic acidosis. She needs emergent SLED. investment specialist has been called and orders are being written. She has been volume resuscitated and is quite possibly euvolemic. There is no hyperkalemia or anemia/thrombocytopenia. Plan for 8 hour SLED without UF initially and with HCo3 bath of 35 and K bath of 4 with hourly assessment of electrolytes and acid base status. Bicarbonate infusion may be stopped while she is on SLED to prevent further hypervolemia . She has been started on empiric Abx coverage which is reasonable. She is critically ill with profound shock, metabolic acidosis and needs emergent EYELET CUTTER as a l ifesaving measure. Time spent taking care of this critically ill patient was 35 minutes. Critical care was time spent personally by me on the following activities: development of t reatment plan with daughter, discussions with consultants, examination of patient, evaluatio n of patient's response to treatment, obtaining history from daughter, ordering and performi ng treatments and interventions, ordering and review of radiographic studies, ordering and r eview of laboratory studies, re-evaluation of patient's condition and review of old charts. I discussed with Myesha's daughter the concept of CHIRAG and interaction of BP/volume status/me dications in maintaining kidney function. NPO for now. Please dose all medications for an eGFR of less than 15 ml/min/1.73 m2. No IV contrast studies. No NSAIDS/VANN 2 inhibitors, Aluminum/magnesium containing antacids, magnesium/phosphate con taining enemas. Strict I/O Daily CMP (including Mg, PO4). Plan of care discussed with Dr. Guillory I thank Dr Guillory for giving me the opportunity to take part in her care with multiple com plex medical problems. Do not hesitate to contact me if you have any questions. DAMION JOHNS MD 01/30/2016 Seen earlier in the day and charting completed later after rounds. Dictation software, [employer], used which may contain error for similar sounding words. Personal communication requested for any clarification. Prognosis guarded in view of multiple comorbid illnesses and septic shock and multiorgan fa ilure including but not limited to . albumin human 50 g Intravenous Q6H albuterol 6 puff Inhalation Q4H calcium gluconate 2 g Intravenous Once chlorhexidine gluconate 15 mL Mouth/Throat Q12H docusate sodium 100 mg Oral BID Or docusate 100 mg Per OG Tube BID famotidine 20 mg Oral BID Or famotidine 20 mg Intravenous BID heparin (porcine) 5000 unit/0.5mL 5,000 Units Subcutaneous Q8H hydrocortisone sodium succinate PF 50 mg Intravenous Q6H ipratropium 6 puff Inhalation Q4H levofloxacin 500 mg Intravenous Q24H metronidazole 500 mg Intravenous Q8H oseltamivir 75 mg Oral BID piperacillin-tazobactam 3.375 g Intravenous Q8H sodium chloride 0.9 % vancomycin 1,250 mg Intravenous Q12H Followed by [START ON 02/01/2016] vancomycin 1,250 mg Intravenous Q24H documented in this en counter Plan of Treatment Not on filedocumented as of this encounter Procedures + +--------+ + + + | Procedure Name | Priori | Date/Time | Associated Diagnosis | Comments | | | ty | | | | + +--------+ + + + | XR CHEST 1 VIEW | Routin | 01/31/2016 | | Results for this | | | e | 3:47 PM | | procedure are in the | | | | PDT | | results section. | + +--------+ + + + | EXTERNAL LAB: CBC | Routin | 01/31/2016 | | Results for this | | | e | 2:47 PM | | procedure are in the | | | | PDT | | results section. | + +--------+ + + + | PTT | Routin | 01/31/2016 | | Results for this | | | e | 2:47 PM | | procedure are in the | | | | PDT | | results section. | + +--------+ + + + | PROTIME INR | Routin | 01/31/2016 | | Results for this | | | e | 2:47 PM | | procedure are in the | | | | PDT | | results section. | + +--------+ + + + | PHOSPHORUS | Routin | 01/31/2016 | | Results for this | | | e | 2:47 PM | | procedure are in the | | | | PDT | | results section. | + +--------+ + + + | MAGNESIUM | Routin | 01/31/2016 | | Results for this | | | e | 2:47 PM | | procedure are in the | | | | PDT | | results section. | + +--------+ + + + | LACTIC ACID | Routin | 01/31/2016 | | Results for this | | | e | 2:47 PM | | procedure are in the | | | | PDT | | results section. | + +--------+ + + + | CK TOTAL | Routin | 01/31/2016 | | Results for this | | | e | 2:47 PM | | procedure are in the | | | | PDT | | results section. | + +--------+ + + + | HEPATIC FUNCTION | Routin | 01/31/2016 | | Results for this | | PANEL | e | 2:47 PM | | procedure are in the | | | | PDT | | results section. | + +--------+ + + + | BASIC METABOLIC | Routin | 01/31/2016 | | Results for this | | PANEL | e | 2:47 PM | | procedure are in the | | | | PDT | | results section. | + +--------+ + + + | HEMATOCRIT | Routin | 01/31/2016 | | Results for this | | | e | 2:16 PM | | procedure are in the | | | | PDT | | results section. | + +--------+ + + + | XR CHEST 1 VIEW | Routin | 01/31/2016 | | Results for this | | | e | 1:24 PM | | procedure are in the | | | | PDT | | results section. | + +--------+ + + + | ECHO LIMITED | Routin | 01/31/2016 | | Results for this | | | e | 1:22 PM | | procedure are in the | | | | PDT | | results section. | + +--------+ + + + | XR CHEST 1 VIEW | Routin | 01/31/2016 | | Results for this | | | e | 12:46 PM | | procedure are in the | | | | PDT | | results section. | + +--------+ + + + | POC CG 4, ISTAT | Routin | 01/31/2016 | | Results for this | | ARTERIAL | e | 12:44 PM | | procedure are in the | | | | PDT | | results section. | + +--------+ + + + | EXTERNAL LAB: CBC | Routin | 01/31/2016 | | Results for this | | | e | 11:02 AM | | procedure are in the | | | | PDT | | results section. | + +--------+ + + + | PTT | Routin | 01/31/2016 | | Results for this | | | e | 11:02 AM | | procedure are in the | | | | PDT | | results section. | + +--------+ + + + | PROTIME INR | Routin | 01/31/2016 | | Results for this | | | e | 11:02 AM | | procedure are in the | | | | PDT | | results section. | + +--------+ + + + | POC GLUCOSE | Routin | 01/31/2016 | | Results for this | | | e | 10:09 AM | | procedure are in the | | | | PDT | | results section. | + +--------+ + + + | TYPE AND SCREEN | Routin | 01/31/2016 | | Results for this | | | e | 8:06 AM | | procedure are in the | | | | PDT | | results section. | + +--------+ + + + | POC GLUCOSE | Routin | 01/31/2016 | | Results for this | | | e | 6:32 AM | | procedure are in the | | | | PDT | | results section. | + +--------+ + + + | PROTIME INR | Routin | 01/31/2016 | | Results for this | | | e | 6:28 AM | | procedure are in the | | | | PDT | | results section. | + +--------+ + + + | FIBRINOGEN | Routin | 01/31/2016 | | Results for this | | | e | 6:28 AM | | procedure are in the | | | | PDT | | results section. | + +--------+ + + + | ECG 12 LEAD | Routin | 01/31/2016 | | Results for this | | | e | 6:20 AM | | procedure are in the | | | | PDT | | results section. | + +--------+ + + + | CALCIUM, IONIZED | Routin | 01/31/2016 | | Results for this | | | e | 5:45 AM | | procedure are in the | | | | PDT | | results section. | + +--------+ + + + | POC GLUCOSE | Routin | 01/31/2016 | | Results for this | | | e | 5:42 AM | | procedure are in the | | | | PDT | | results section. | + +--------+ + + + | POC GLUCOSE | Routin | 01/31/2016 | | Results for this | | | e | 4:21 AM | | procedure are in the | | | | PDT | | results section. | + +--------+ + + + | XR CHEST 1 VIEW | Routin | 01/31/2016 | | Results for this | | | e | 4:07 AM | | procedure are in the | | | | PDT | | results section. | + +--------+ + + + | EXTERNAL LAB: CBC | Routin | 01/31/2016 | | Results for this | | | e | 3:50 AM | | procedure are in the | | | | PDT | | results section. | + +--------+ + + + | PHOSPHORUS | Routin | 01/31/2016 | | Results for this | | | e | 3:50 AM | | procedure are in the | | | | PDT | | results section. | + +--------+ + + + | MAGNESIUM | Routin | 01/31/2016 | | Results for this | | | e | 3:50 AM | | procedure are in the | | | | PDT | | results section. | + +--------+ + + + | LACTIC ACID | Routin | 01/31/2016 | | Results for this | | | e | 3:50 AM | | procedure are in the | | | | PDT | | results section. | + +--------+ + + + | HEMOGLOBIN A1C | Routin | 01/31/2016 | | Results for this | | | e | 3:50 AM | | procedure are in the | | | | PDT | | results section. | + +--------+ + + + | HEPATIC FUNCTION | Routin | 01/31/2016 | | Results for this | | PANEL | e | 3:50 AM | | procedure are in the | | | | PDT | | results section. | + +--------+ + + + | BASIC METABOLIC | Routin | 01/31/2016 | | Results for this | | PANEL | e | 3:50 AM | | procedure are in the | | | | PDT | | results section. | + +--------+ + + + | POC CG 4, ISTAT | Routin | 01/31/2016 | | Results for this | | ARTERIAL | e | 3:26 AM | | procedure are in the | | | | PDT | | results section. | + +--------+ + + + | POC GLUCOSE | Routin | 01/31/2016 | | Results for this | | | e | 3:20 AM | | procedure are in the | | | | PDT | | results section. | + +--------+ + + + | POC GLUCOSE | Routin | 01/31/2016 | | Results for this | | | e | 1:53 AM | | procedure are in the | | | | PDT | | results section. | + +--------+ + + + | LACTIC ACID | Routin | 01/31/2016 | | Results for this | | | e | 1:33 AM | | procedure are in the | | | | PDT | | results section. | + +--------+ + + + | POC GLUCOSE | Routin | 01/31/2016 | | Results for this | | | e | 1:23 AM | | procedure are in the | | | | PDT | | results section. | + +--------+ + + + | BASIC METABOLIC | Routin | 01/31/2016 | | Results for this | | PANEL | e | 1:00 AM | | procedure are in the | | | | PDT | | results section. | + +--------+ + + + | POC GLUCOSE | Routin | 01/31/2016 | | Results for this | | | e | 12:07 AM | | procedure are in the | | | | PDT | | results section. | + +--------+ + + + | POC GLUCOSE | Routin | 01/31/2016 | | Results for this | | | e | 12:05 AM | | procedure are in the | | | | PDT | | results section. | + +--------+ + + + | POC GLUCOSE | Routin | 01/30/2016 | | Results for this | | | e | 10:55 PM | | procedure are in the | | | | PDT | | results section. | + +--------+ + + + | POC GLUCOSE | Routin | 01/30/2016 | | Results for this | | | e | 10:53 PM | | procedure are in the | | | | PDT | | results section. | + +--------+ + + + | POC GLUCOSE | Routin | 01/30/2016 | | Results for this | | | e | 10:15 PM | | procedure are in the | | | | PDT | | results section. | + +--------+ + + + | POC GLUCOSE | Routin | 01/30/2016 | | Results for this | | | e | 9:15 PM | | procedure are in the | | | | PDT | | results section. | + +--------+ + + + | LACTIC ACID | Routin | 01/30/2016 | | Results for this | | | e | 9:01 PM | | procedure are in the | | | | PDT | | results section. | + +--------+ + + + | PHOSPHORUS | Routin | 01/30/2016 | | Results for this | | | e | 9:00 PM | | procedure are in the | | | | PDT | | results section. | + +--------+ + + + | MAGNESIUM | Routin | 01/30/2016 | | Results for this | | | e | 9:00 PM | | procedure are in the | | | | PDT | | results section. | + +--------+ + + + | BASIC METABOLIC | Routin | 01/30/2016 | | Results for this | | PANEL | e | 9:00 PM | | procedure are in the | | | | PDT | | results section. | + +--------+ + + + | POC GLUCOSE | Routin | 01/30/2016 | | Results for this | | | e | 8:38 PM | | procedure are in the | | | | PDT | | results section. | + +--------+ + + + | POC GLUCOSE | Routin | 01/30/2016 | | Results for this | | | e | 7:29 PM | | procedure are in the | | | | PDT | | results section. | + +--------+ + + + | PHOSPHORUS | Routin | 01/30/2016 | | Results for this | | | e | 7:00 PM | | procedure are in the | | | | PDT | | results section. | + +--------+ + + + | MAGNESIUM | Routin | 01/30/2016 | | Results for this | | | e | 7:00 PM | | procedure are in the | | | | PDT | | results section. | + +--------+ + + + | BASIC METABOLIC | Routin | 01/30/2016 | | Results for this | | PANEL | e | 7:00 PM | | procedure are in the | | | | PDT | | results section. | + +--------+ + + + | POC GLUCOSE | Routin | 01/30/2016 | | Results for this | | | e | 6:24 PM | | procedure are in the | | | | PDT | | results section. | + +--------+ + + + | PHOSPHORUS | Routin | 01/30/2016 | | Results for this | | | e | 6:04 PM | | procedure are in the | | | | PDT | | results section. | + +--------+ + + + | MAGNESIUM | Routin | 01/30/2016 | | Results for this | | | e | 6:04 PM | | procedure are in the | | | | PDT | | results section. | + +--------+ + + + | BASIC METABOLIC | Routin | 01/30/2016 | | Results for this | | PANEL | e | 6:04 PM | | procedure are in the | | | | PDT | | results section. | + +--------+ + + + | MAGNESIUM | Routin | 01/30/2016 | | Results for this | | | e | 5:24 PM | | procedure are in the | | | | PDT | | results section. | + +--------+ + + + | LACTIC ACID | Routin | 01/30/2016 | | Results for this | | | e | 5:24 PM | | procedure are in the | | | | PDT | | results section. | + +--------+ + + + | POC GLUCOSE | Routin | 01/30/2016 | | Results for this | | | e | 5:16 PM | | procedure are in the | | | | PDT | | results section. | + +--------+ + + + | XR CHEST 1 VIEW | Routin | 01/30/2016 | | Results for this | | | e | 4:25 PM | | procedure are in the | | | | PDT | | results section. | + +--------+ + + + | POC GLUCOSE | Routin | 01/30/2016 | | Results for this | | | e | 4:04 PM | | procedure are in the | | | | PDT | | results section. | + +--------+ + + + | STREPTOCOCCUS | Timed | 01/30/2016 | | Results for this | | PNEUMONIAE AG, URINE | | 3:39 PM | | procedure are in the | | | | PDT | | results section. | + +--------+ + + + | LEGIONELLA AG, EIA, | Routin | 01/30/2016 | | Results for this | | QUAL, URINE | e | 3:39 PM | | procedure are in the | | | | PDT | | results section. | + +--------+ + + + | POC CG 4, ISTAT | Routin | 01/30/2016 | | Results for this | | ARTERIAL | e | 3:14 PM | | procedure are in the [...] + | POC GLUCOSE | Routin | 01/30/2016 | | Results for this | | | e | 2:51 PM | | procedure are in the | | | | PDT | | results section. | + +--------+ + + + | CT HEAD WO CONTRAST | Routin | 01/30/2016 | | Results for this | | | e | 2:50 PM | | procedure are in the | | | | PDT | | results section. | + +--------+ + + + | AMMONIA | Routin | 01/30/2016 | | Results for this | | | e | 2:06 PM | | procedure are in the | | | | PDT | | results section. | + +--------+ + + + | LACTIC ACID | Routin | 01/30/2016 | | Results for this | | | e | 1:48 PM | | procedure are in the | | | | PDT | | results section. | + +--------+ + + + | CALCIUM, IONIZED | Routin | 01/30/2016 | | Results for this | | | e | 1:48 PM | | procedure are in the | | | | PDT | | results section. | + +--------+ + + + | ECHO COMPLETE | Routin | 01/30/2016 | | Results for this | | | e | 1:47 PM | | procedure are in the | | | | PDT | | results section. | + +--------+ + + + | HCG, URINE, QUAL | Routin | 01/30/2016 | | Results for this | | | e | 12:58 PM | | procedure are in the | | | | PDT | | results section. | + +--------+ + + + | POC CG 4, ISTAT | Routin | 01/30/2016 | | Results for this | | ARTERIAL | e | 12:51 PM | | procedure are in the | | | | PDT | | results section. | + +--------+ + + + | POC GLUCOSE | Routin | 01/30/2016 | | Results for this | | | e | 12:49 PM | | procedure are in the | | | | PDT | | results section. | + +--------+ + + + | CULTURE, BLOOD, 2ND | Timed | 01/30/2016 | | Results for this | | SPECIMEN (NON-ORD) | | 12:15 PM | | procedure are in the | | | | PDT | | results section. | + +--------+ + + + | EXTERNAL LAB: CBC | Routin | 01/30/2016 | | Results for this | | | e | 11:47 AM | | procedure are in the | | | | PDT | | results section. | + +--------+ + + + | HEPATITIS A, B, C | Routin | 01/30/2016 | | Results for this | | PANEL, REFLEX | e | 11:47 AM | | procedure are in the | | | | PDT | | results section. | + +--------+ + + + | PATHOLOGY CONSULT | Routin | 01/30/2016 | | Results for this | | REQUEST | e | 11:47 AM | | procedure are in the | | | | PDT | | results section. | + +--------+ + + + | PROCALCITONIN, SERUM | Routin | 01/30/2016 | | Results for this | | | e | 11:47 AM | | procedure are in the | | | | PDT | | results section. | + +--------+ + + + | PHOSPHORUS | Routin | 01/30/2016 | | Results for this | | | e | 11:47 AM | | procedure are in the | | | | PDT | | results section. | + +--------+ + + + | MAGNESIUM | Routin | 01/30/2016 | | Results for this | | | e | 11:47 AM | | procedure are in the | | | | PDT | | results section. | + +--------+ + + + | CK TOTAL | Routin | 01/30/2016 | | Results for this | | | e | 11:47 AM | | procedure are in the | | | | PDT | | results section. | + +--------+ + + + | HEPATIC FUNCTION | Routin | 01/30/2016 | | Results for this | | PANEL | e | 11:47 AM | | procedure are in the | | | | PDT | | results section. | + +--------+ + + + | BASIC METABOLIC | Routin | 01/30/2016 | | Results for this | | PANEL | e | 11:47 AM | | procedure are in the | | | | PDT | | results section. | + +--------+ + + + | MRSA NAAT | Routin | 01/30/2016 | | Results for this | | | e | 11:44 AM | | procedure are in the | | | | PDT | | results section. | + +--------+ + + + | XR CHEST 1 VIEW | Routin | 01/30/2016 | | Results for this | | | e | 11:34 AM | | procedure are in the | | | | PDT | | results section. | + +--------+ + + + | GRAM STAIN, REFLEX | Timed | 01/30/2016 | | Results for this | | SPUTUM CULTURE | | 11:20 AM | | procedure are in the | | | | PDT | | results section. | + +--------+ + + + | CULTURE, BLOOD | Timed | 01/30/2016 | | Results for this | | | | 11:15 AM | | procedure are in the | | | | PDT | | results section. | + +--------+ + + + | LACTIC ACID | Routin | 01/30/2016 | | Results for this | | | e | 11:15 AM | | procedure are in the | | | | PDT | | results section. | + +--------+ + + + documented in this encounter Results XR Chest 1 Vw (01/31/2016 3:47 PM PDT) + + | Specimen | + + | | + + + + + | Impressions | Performed At | + + + | 1. New right IJ catheter, without evidence of adverse sequelae | | | 2. Progressing whiteout of both lungs, all distributions. Now near | | | complete. Differential considerations previously discussed | | | | | + + + + + + | Narrative | Performed At | + + + | HISTORY:35 years old Female. Line placement TECHNIQUE: 1. | | | Single supine portable chest radiograph obtained 15:54 31 January 2016 | | | Prior study for review : 31 January 2016, 13:02 FINDINGS: New | | | right IJ catheter, radiographically appropriate position. No | | | pneumothorax Other support equipment is unchanged, described | | | earlier The lung disease has progressed, the bilateral | | | hemithoraces are nearly completely felipe out | | + + + + --+ | Procedure Note | + --+ | Bert, Rad Conversion - 05/18/2019 6:31 PM PDT HISTORY:35 years old Female. Line | | placement TECHNIQUE: 1. Single supine portable chest radiograph obtained 15:54 30 January | | 2016Prior study for review : 31 January 2016, 13:02 FINDINGS: New right IJ catheter, | | radiographically appropriate position. No pneumothorax Other support equipment is | | unchanged, described earlier The lung disease has progressed, the bilateral hemithoraces | | are nearly completely felipe out IMPRESSION: 1. New right IJ catheter, without | | evidence of adverse sequelae 2. Progressing whiteout of both lungs, all distributions. | | Now near complete. Differential considerations previously discussed Electronically | | signed by Ashu Antoine MD on 01/31/2016 4:08 PM | |New right IJ catheter, radiographically appropriate position. No pneumothorax | | | |Other support equipment is unchanged, described earlier | | | |The lung disease has progressed, the bilateral hemithoraces are nearly completely felipe ou t | | | |IMPRESSION: | | | |1. New right IJ catheter, without evidence of adverse sequelae | | | |2. Progressing whiteout of both lungs, all distributions. Now near complete. | | | |Differential considerations previously discussed | | | | | + --+ PTT (01/31/2016 2:47 PM PDT) + + + + + + | Component | Value | Ref Range | Performed | Pathologist | | | | | At | Signature | + + + + + + | aPTT, | 194 ()Comment: CALLED | 23 - 32 seconds | EXTERNAL | | | Patient | [facility] | | LAB | | | | AT 1628 BY RHREAD BACK | | | | | | RESULTS VERIFIEDTesting | | | | | | performed at [facility] [place] | | | | | | [address]rell[address];[place], [place] | | | | | | [id number] | | | | + + + + + + + + | Specimen | + + | Blood specimen | | (specimen) | + + + +---------+ + + | Performing | Address | City/State/Zipcode | Phone Number | | Organization | | | | + +---------+ + + | EXTERNAL LAB | | | | + +---------+ + + [facility] INR (01/31/2016 2:47 PM PDT) + + + + + + | Component | Value | Ref Range | Performed | Pathologist | | | | | At | Signature | + + + + + + | INR | 1.7Comment: REFERENCE | | EXTERNAL | | | | RANGE:0.9 - 1.2 | | LAB | | | | NON-ANTICOAGULATED2.0 | | | | | | - 3.0 ALL OTHER | | | | | | THERAPEUTIC | | | | | | INDICATIONS2.5 - 3.5 | | | | | | MECHANICAL HEART VALVES, | | | | | | RECURRENT OR SYSTEMIC | | | | | | EMBOLISMTesting | | | | | | performed at [facility] | | | | | | [address];[place], [place] | | | | | | [address] | | | | + + + + + + + + | Specimen | + + | Blood specimen | | (specimen) | + + + +---------+ + + | Performing | Address | City/State/Zipcode | Phone Number | | Organization | | | | + +---------+ + + | EXTERNAL LAB | | | | + +---------+ + + External Lab: [facility] (01/31/2016 2:47 PM PDT) + + + + + + | Component | Value | Ref Range | Performed | Pathologist | | | | | At | Signature | + + + + + + | WBC | 23.10 (H)Comment: | 3.80 - 11.00 | EXTERNAL | | | | Testing performed at | K/uL | LAB | | | | [facility] | | | | | | [address];[place] [address] | | | | + + + + + + | Non- | 2.95 (L)Comment: Testing | 3.70 - 5.10 | EXTERNAL | | | Red Blood | performed at [facility];[address] | M/uL | LAB | | | Cells | [address];[place] | | | | | Counted | [id number] | | | | + + + + + + | Hemoglobin | 7.9 (L)Comment: Testing | 11.3 - 15.5 | EXTERNAL | | | | performed at [facility];[address] | g/dL | LAB | | | | [address];[place] | | | | | | [address] | | | | + + + + + + | Hematocrit, | 25.5 (L)Comment: Testing | 34.0 - 46.0 % | EXTERNAL | | | POC | performed at [facility];[address] | | LAB | | | | [address];[place] | | | | | | [address] | | | | + + + + + + | MCV | 86.5Comment: Testing | 80.0 - 100.0 fl | EXTERNAL | | | | performed at [facility];[address] | | LAB | | | | [address];[place] | | | | | | [address] | | | | + + + + + + | MCH | 26.6 (L)Comment: Testing | 27.0 - 34.0 pg | EXTERNAL | | | | performed at [facility];[address] | | LAB | | | | [address];[place] | | | | | | [address] | | | | + + + + + + | MCHC | 30.8 (L)Comment: Testing | 32.0 - 35.5 | EXTERNAL | | | | performed at [facility];[address] | g/dL | LAB | | | | [address];[place] | | | | | | [address] | | | | + + + + + + | RDW-CV | 46.4Comment: Testing | 37 - 53 fl | EXTERNAL | | | | performed at [facility];[address] | | LAB | | | | [address];[place] | | | | | | [address] | | | | + + + + + + | Platelet | 107 (L)Comment: Testing | 150 - 400 K/uL | EXTERNAL | | | Count | performed at [facility];[address] | | LAB | | | Plasma | [address];[place] | | | | | | [address] | | | | + + + + + + | MPV | 8.3Comment: Testing | fl | EXTERNAL | | | | performed at [facility];[address] | | LAB | | | | [address];[place] | | | | | | [address] | | | | + + + + + + | Differentia | MANUALComment: Testing | | EXTERNAL | | | l Type | performed at [facility];[address] | | LAB | | | | [address];[place] | | | | | | [address] | | | | + + + + + + | Segmented | 74Comment: Testing | % | EXTERNAL | | | Neutrophils | performed at [facility];[address] | | LAB | | | Manual | [address];[place] | | | | | | [address] | | | | + + + + + + | % Bands | 15Comment: Testing | % | EXTERNAL | | | | performed at [facility];[address] | | LAB | | | | [address];[place] | | | | | | [address] | | | | + + + + + + | Lymphocytes | 5Comment: Testing | % | EXTERNAL | | | Manual | performed at [facility];[address] | | LAB | | | | [address];[place] | | | | | | [address] | | | | + + + + + + | Monocytes | 6Comment: Testing | % | EXTERNAL | | | Manual | performed at [facility];[address] | | LAB | | | | [address];[place] | | | | | | [address] | | | | + + + + + + | Absolute | 17.08 (H)Comment: | 1.90 - 7.40 | EXTERNAL | | | Neutrophils | Testing performed at | K/uL | LAB | | | | [facility];[address] | | | | | | [address];[place] [address] | | | | + + + + + + | Bands | 3.47 (H)Comment: Testing | 0.00 - 0.20 | EXTERNAL | | | Manual | performed at [facility];[address] | K/uL | LAB | | | | [address];[place] | | | | | | [address] | | | | + + + + + + | Absolute | 1.16Comment: Testing | 1.00 - 3.90 | EXTERNAL | | | Lymphocytes | performed at [facility];[address] | K/uL | LAB | | | | [address];[place] | | | | | | [address] | | | | + + + + + + | Absolute | 1.39 (H)Comment: Testing | 0.00 - 0.80 | EXTERNAL | | | Monocytes | performed at [facility];[address] | K/uL | LAB | | | | [address];[place] | | | | | | [address] | | | | + + + + + + | Platelet | DECREASEDComment: | | EXTERNAL | | | Estimate | Testing performed at | | LAB | | | | [facility] [address] | | | | | | [address];[place] [address] | | | | + + + + + + | RBC | NORMAL PLT MORPHComment: | | EXTERNAL | | | Morphology | 1+HYPOTesting performed | | LAB | | | | at [facility];[address] | | | | | | [address];[place] [address] | | | | | |Testing performed at [facility];[address] [place] [address];[place] [address] | | | | | | | | | | + + + + + + + + | Specimen | + + | Blood specimen | | (specimen) | + + + +---------+ + + | Performing | Address | City/State/Zipcode | Phone Number | | Organization | | | | + +---------+ + + | EXTERNAL LAB | | | | + +---------+ + + Phosphorus (01/31/2016 2:47 PM PDT) + + + + + + | Component | Value | Ref Range | Performed | Pathologist | | | | | At | Signature | + + + + + + | PHOSPHORUS | 3.3Comment: Testing | 2.3 - 4.8 mg/dL | EXTERNAL | | | | performed at [facility];[address] | | LAB | | | | [address];[place], [place] | | | | | | [address] | | | | + + + + + + + + | Specimen | + + | Blood specimen | | (specimen) | + + + +---------+ + + | Performing | Address | City/State/Zipcode | Phone Number | | Organization | | | | + +---------+ + + | EXTERNAL LAB | | | | + +---------+ + + Magnesium (01/31/2016 2:47 PM PDT) + + + + + + | Component | Value | Ref Range | Performed | Pathologist | | | | | At | Signature | + + + + + + | Magnesium | 1.7Comment: Testing | 1.7 - 2.4 mg/dL | EXTERNAL | | | | performed at [facility] | | LAB | | | | [address];[place], [place] | | | | | | [address] | | | | + + + + + + + + | Specimen | + + | Blood specimen | | (specimen) | + + + +---------+ + + | Performing | Address | City/State/Zipcode | Phone Number | | Organization | | | | + +---------+ + + | EXTERNAL LAB | | | | + +---------+ + + Lactic Acid (01/31/2016 2:47 PM PDT) + + + + + + | Component | Value | Ref Range | Performed | Pathologist | | | | | At | Signature | + + + + + + | Lactate | 14.1 (H)Comment: Testing | 0.4 - 2.0 | EXTERNAL | | | | performed at [facility];[address] | mmol/L | LAB | | | | [address];[place], [place] | | | | | | [address] | | | | + + + + + + + + | Specimen | + + | Blood specimen | | (specimen) | + + + +---------+ + + | Performing | Address | City/State/Zipcode | Phone Number | | Organization | | | | + +---------+ + + | EXTERNAL LAB | | | | + +---------+ + + CK Total (01/31/2016 2:47 PM PDT) + + + + + + | Component | Value | Ref Range | Performed | Pathologist | | | | | At | Signature | + + + + + + | CK, Total | 1241 (H)Comment: Testing | 30 - 240 U/L | EXTERNAL | | | | performed at [facility];[address] | | LAB | | | | [address];[place] | | | | | | [address] | | | | + + + + + + + + | Specimen | + + | Blood specimen | | (specimen) | + + + +---------+ + + | Performing | Address | City/State/Zipcode | Phone Number | | Organization | | | | + +---------+ + + | EXTERNAL LAB | | | | + +---------+ + + Hepatic Function Panel (01/31/2016 2:47 PM PDT) + + + + + + | Component | Value | Ref Range | Performed | Pathologist | | | | | At | Signature | + + + + + + | Protein, | 4.0 (L)Comment: Testing | 6.3 - 8.2 g/dL | EXTERNAL | | | Total | performed at [facility];[address] | | LAB | | | | [address];[place] | | | | | | [address] | | | | + + + + + + | Albumin | 2.5 (L)Comment: Testing | 3.6 - 5.0 g/dL | EXTERNAL | | | | performed at [facility];[address] | | LAB | | | | [address];[place] | | | | | | [address] | | | | + + + + + + | Bilirubin | 2.2 (H)Comment: Testing | 0.1 - 1.5 mg/dL | EXTERNAL | | | Total | performed at [facility];[address] | | LAB | | | | [address];[place] | | | | | | [address] | | | | + + + + + + | Bilirubin | 1.4 (H)Comment: Testing | 0.0 - 0.3 mg/dL | EXTERNAL | | | Direct | performed at [facility];[address] | | LAB | | | | [address];[place] | | | | | | [address] | | | | + + + + + + | ALP, | 72Comment: Testing | 35 - 115 U/L | EXTERNAL | | | External | performed at [facility];[address] | | LAB | | | | [address];[place] | | | | | | [address] | | | | + + + + + + | AST | 188 (H)Comment: Testing | 10 - 45 U/L | EXTERNAL | | | | performed at [facility];[address] | | LAB | | | | [address];[place] | | | | | | [address] | | | | + + + + + + | ALT | 76 (H)Comment: Testing | 10 - 65 U/L | EXTERNAL | | | | performed at [facility];[address] | | LAB | | | | [address];[place] | | | | | | [address] | | | | + + + + + + + + | Specimen | + + | | + + + +---------+ + + | Performing | Address | City/State/Zipcode | Phone Number | | Organization | | | | + +---------+ + + | EXTERNAL LAB | | | | + +---------+ + + Basic Metabolic Panel (01/31/2016 2:47 PM PDT) + + + + + + | Component | Value | Ref Range | Performed | Pathologist | | | | | At | Signature | + + + + + + | Na | 139Comment: Testing | 135 - 143 | EXTERNAL | | | | performed at [facility];[address] | mmol/L | LAB | | | | [address];[place] | | | | | | [address] | | | | + + + + + + | K | 4.5Comment: Testing | 3.5 - 4.9 | EXTERNAL | | | | performed at [facility];[address] | mmol/L | LAB | | | | [address];[place] | | | | | | [address] | | | | + + + + + + | Cl | 102Comment: Testing | 99 - 109 mmol/L | EXTERNAL | | | | performed at [facility];[address] | | LAB | | | | [address];[place] | | | | | | [address] | | | | + + + + + + | CO2 | 18 (L)Comment: Testing | 23 - 32 mmol/L | EXTERNAL | | | | performed at [facility];[address] | | LAB | | | | [address];[place] | | | | | | [address] | | | | + + + + + + | Anion Gap | 24 (H)Comment: Testing | 5 - 20 mmol/L | EXTERNAL | | | | performed at [facility];[address] | | LAB | | | | [address];[place] | | | | | | [address] | | | | + + + + + + | Glucose, | 70Comment: Testing | 65 - 99 mg/dL | EXTERNAL | | | Fasting | performed at [facility];[address] | | LAB | | | | [address];[place] | | | | | | [address] | | | | + + + + + + | BUN | 9Comment: Testing | 8 - 25 mg/dL | EXTERNAL | | | | performed at [facility];[address] | | LAB | | | | [address];[place] | | | | | | [address] | | | | + + + + + + | Creatinine | 2.0 (H)Comment: Testing | 0.50 - 1.00 | EXTERNAL | | | | performed at [facility];[address] | mg/dL | LAB | | | | [address];[place] | | | | | | [address] | | | | + + + + + + | BUN/Creatin | 5Comment: Testing | | EXTERNAL | | | ine Ratio | performed at [facility];[address] | | LAB | | | | [address];[place] | | | | | | [address] | | | | + + + + + + | Calcium | 6.3 (L)Comment: Testing | 8.5 - 10.5 | EXTERNAL | | | | performed at [facility];[address] | mg/dL | LAB | | | | [address];[place] | | | | | | [address] | | | | + + + + + + | Estimated | 30 (L)Comment: GFR <60: | mL/min/1.73m2 | EXTERNAL | | | GFR | CHRONIC KIDNEY DISEASE, | | LAB | | | | IF FOUND OVER A 3 MONTH | | | | | | PERIOD.GFR <15: KIDNEY | | | | | | FAILURE.FOR | | | | | | AMERICANS, MULTIPLY THE | | | | | | CALCULATED GFR BY | | | | | | 1.210.Testing performed | | | | | | at [facility];[address] [place] [address] | | | | | | [facility];[place] [address] | | | | + + + + + + + + | Specimen | + + | Blood specimen | | (specimen) | + + + +---------+ + + | Performing | Address | City/State/Zipcode | Phone Number | | Organization | | | | + +---------+ + + | EXTERNAL LAB | | | | + +---------+ + + Hematocrit (01/31/2016 2:16 PM PDT) + + + + + + | Component | Value | Ref Range | Performed | Pathologist | | | | | At | Signature | + + + + + + | Hematocrit, | 25.5 (L)Comment: Testing | 34.0 - 46.0 % | EXTERNAL | | | POC | performed at [facility];[address] | | LAB | | | | [address];[place], [place] | | | | | | [address] | | | | + + + + + + + + | Specimen | + + | Blood specimen | | (specimen) | + + + +---------+ + + | Performing | Address | City/State/Zipcode | Phone Number | | Organization | | | | + +---------+ + + | EXTERNAL LAB | | | | + +---------+ + + XR Chest 1 Vw (01/31/2016 1:24 PM PDT) + + | Specimen | + + | | + + + + + | Impressions | Performed At | + + + | 1. Significant worsening of already severe diffuse lung disease | | | throughout all distributions. The lungs are now almost completely | | | felipe out, likely from edema or infection Electronically | | | signed by Ashu Antoine MD on 01/31/2016 1:29 PM | | + + + + + + | Narrative | Performed At | + + + | HISTORY:35 years old Female. Respiratory failure TECHNIQUE: | | | 1. Portable AP supine chest radiograph, 27 January. 13:02 Prior study | | | for review : 11:46, just over an hour earlier FINDINGS: | | | Defibrillation paddles. The one lungs are now felipe out. The support | | | equipment is unchanged and in radiographically appropriate positions, | | | to include the left subclavian catheter, the endotracheal tube, | | | enteric tube and the large bore catheter superimposed over the | | | medial right upper quadrant There is no proven or displaced rib | | | fracture Central bronchograms are again noted. Only slight | | | relative sparing of the left apex | | + + + + ---+ | Procedure Note | + ---+ | Bert, Rad Conversion - 05/18/2019 6:31 PM PDT HISTORY:35 years old Female. | | Respiratory failure TECHNIQUE: 1. Portable AP supine chest radiograph, 27 January. | | 13:02Prior study for review : 11:46, just over an hour earlier FINDINGS: Defibrillation | | paddles. The one lungs are now felipe out. The support equipment is unchanged and in | | radiographically appropriate positions, to include the left subclavian catheter, the | | endotracheal tube, enteric tube and the large bore catheter superimposed over the medial | | right upper quadrant There is no proven or displaced rib fracture Central bronchograms | | are again noted. Only slight relative sparing of the left apex IMPRESSION: 1. | | Significant worsening of already severe diffuse lung disease throughout all | | distributions. The lungs are now almost completely felipe out, likely from edema or | | infection | | | |There is no proven or displaced rib fracture | | | |Central bronchograms are again noted. Only slight relative sparing of the left apex | | | |IMPRESSION: | | | |1. Significant worsening of already severe diffuse lung disease throughout all distribution s. | | | |The lungs are now almost completely felipe out, likely from edema or infection | | | | | | | | | + ---+ Echo Limited (01/31/2016 1:22 PM PDT) + + | Specimen | + + | | + + + + + | Impressions | Performed At | + + + | 1. Overall left ventricular systolic function is normal with, an EF | | | between 55 - 60 %. 2. Moderate mitral regurgitation is present. 3. | | | There is no pericardial effusion. | | + + + + + + | Narrative | Performed At | + + + | Patient Name: MYESHA HASTINGS Date of : 1980 | | | Performing Physician: ZACARIAS VILLALTA MD | | | | | | INDICATIONS R/O: Pericardial effusion, clot, assess EF | | | CONCLUSIONS 1. Overall left ventricular systolic | | | function is normal with, an EF between 55 - 60 %. 2. Moderate mitral | | | regurgitation is present. 3. There is no pericardial effusion. | | | FINDINGS -------- ECG rhythm: Resting tachycardia (HR>100bpm). | | | Study: A limited 2-dimensional transthoracic echocardiogram with | | | limited spectral and color flow Doppler was performed. Study: This | | | was a technically adequate study. Left Ventricle: Overall left | | | ventricular systolic function is normal with, an EF between 55 - 60 %. | | | Left Ventricle: The left ventricle cavity size is normal. Left | | | Ventricle: Left ventricular wall thickness is normal. Right | | | Ventricle: The right ventricle is mildly enlarged measuring between | | | 3.4 - 3.7 cm. Left Atrium: The left atrial size is normal. Right | | | Atrium: The right atrium is normal in size. Aortic Valve: There is no | | | evidence of aortic regurgitation. Mitral Valve: Moderate mitral | | | regurgitation is present Mitral Valve: , predominately a posteriorly | | | directed jet. Tricuspid Valve: Trace tricuspid regurgitation present. | | | Pericardium: There is no pericardial effusion. MEASUREMENTS | | | LA Major: 3.09 cm RA Major: 3.81 cm RVIDd: | | | 3.56 cm LVEF MOD A4C: 57.01 % SV MOD A4C: 44.59 ml LVEDV MOD | | | A4C: 78.21 ml LVLd A4C: 7.33 cm LVESV MOD A4C: 33.61 ml | | | LVLs A4C: 6.28 cm Tableau Administrator: Authenticated by: ZACARIAS | | | AMBAR ALEXIS Report Date/Time: 01-31-2016 13:46:43 | | + + + + ---------+ | Procedure Note | + ---------+ | Beka Noel Conversion - 05/18/2019 6:31 PM PDT Patient Name: Ko HASTINGS | | : 1980 Performing Physician: ZACARIAS VILLALTA | | MD INDICATIONS R | | /O: Pericardial effusion, clot, assess EF CONCLUSIONS 1. Overall left | | ventricular systolic function is normal with, an EF between 55 - 60 %.2. Moderate mitral | | regurgitation is present.3. There is no pericardial effusion. FINDINGS--------ECG | | rhythm: Resting tachycardia (HR>100bpm).Study: A limited 2-dimensional transthoracic | | echocardiogram with limited spectral and color flow Doppler was performed.Study: This | | was a technically adequate study.Left Ventricle: Overall left ventricular systolic | | function is normal with, an EF between 55 - 60 %.Left Ventricle: The left ventricle | | cavity size is normal.Left Ventricle: Left ventricular wall thickness is normal.Right | | Ventricle: The right ventricle is mildly enlarged measuring between 3.4 - 3.7 cm.Left | | Atrium: The left atrial size is normal.Right Atrium: The right atrium is normal in | | size.Aortic Valve: There is no evidence of aortic regurgitation.Mitral Valve: Moderate | | mitral regurgitation is presentMitral Valve: , predominately a posteriorly directed | | jet.Tricuspid Valve: Trace tricuspid regurgitation present.Pericardium: There is no | | pericardial effusion. MEASUREMENTS LA Major: 3.09 cmRA Major: 3.81 | | cmRVIDd: 3.56 cmLVEF MOD A4C: 57.01 %SV MOD A4C: 44.59 mlLVEDV MOD A4C: 78.21 | | mlLVLd A4C: 7.33 cmLVESV MOD A4C: 33.61 mlLVLs A4C: 6.28 cm Tableau Administrator: | | ASAuthenticated by: ZACARIAS [facility]bridge[facility] Date/Time: 01-31-2016 13:46:43 | | IMPRESSION: 1. Overall left ventricular systolic function is normal with, an EF between | | 55 - 60 %.2. Moderate mitral regurgitation is present.3. There is no pericardial | | effusion. | |Left Ventricle: Overall left ventricular systolic function is normal with, an EF between 55 - 60 %. | |Left Ventricle: The left ventricle cavity size is normal. | |Left Ventricle: Left ventricular wall thickness is normal. | |Right Ventricle: The right ventricle is mildly enlarged measuring between 3.4 - 3.7 cm. | |Left Atrium: The left atrial size is normal. | |Right Atrium: The right atrium is normal in size. | |Aortic Valve: There is no evidence of aortic regurgitation. | |Mitral Valve: Moderate mitral regurgitation is present | |Mitral Valve: , predominately a posteriorly directed jet. | |Tricuspid Valve: Trace tricuspid regurgitation present. | |Pericardium: There is no pericardial effusion. | | | |MEASUREMENTS | | | |LA Major: 3.09 cm | |RA Major: 3.81 cm | |RVIDd: 3.56 cm | |LVEF MOD A4C: 57.01 % | |SV MOD A4C: 44.59 ml | |LVEDV MOD A4C: 78.21 ml | |LVLd A4C: 7.33 cm | |LVESV MOD A4C: 33.61 ml | |LVLs A4C: 6.28 cm | | | |Tableau Administrator: | |Authenticated by: ZACARIAS VILLALTA MD | |Report Date/Time: 01-31-2016 13:46:43 | | | |IMPRESSION: | |1. Overall left ventricular systolic function is normal with, an EF between 55 - 60 %. | |2. Moderate mitral regurgitation is present. | |3. There is no pericardial effusion. | + ---------+ XR Chest 1 Vw (01/31/2016 12:46 PM PDT) + + | Specimen | + + | | + + + + + | Impressions | Performed At | + + + | 1. New large bore catheter superimposed below the right | | | hemidiaphragm as above. 2. Severe pulmonary infiltrates, dense | | | consolidation and with groundglass features. Severe infection or | | | edema-consider capillary leak syndrome or diffuse hemorrhage. Favor | | | ARDS pattern of edema | | + + + + + + | Narrative | Performed At | + + + | History: 35 years old Female with respiratory failure, intubation. | | | New catheter. Technique: AP supine portable radiographic | | | examination of the chest, obtained at 11:46 on 31 January 2016. | | | Prior study for comparison -- 3:58. 31 January 2016. Findings: | | | Cardiomediastinum without cardiomegaly. The enteric tube and | | | endotracheal tube are in stable and appropriate radiographic | | | positions. There is a large bore IVC line present on the high KUB, | | | terminating to the right of the thoracic column chest inferior | | | adjacent the posterior right 10th rib. Another large-bore catheter | | | remains the level of the L2 transverse process.. Support | | | equipment extrinsic EKG leads also noted. Lungs are densely | | | opacified by a combination of groundglass and airspace disease | | | throughout, very severe but stable pattern. Central bronchograms | | | Bones and soft tissues stable to technique. | | + + + + + | Procedure Note | + + | Bert, Rad Conversion - 05/18/2019 6:31 PM PDT History: 35 years old Female with | | respiratory failure, intubation. New catheter. Technique: AP supine portable | | radiographic examination of the chest, obtained at 11:46 on 31 January 2016. Prior study | | for comparison -- 3:58. 31 January 2016. Findings: Cardiomediastinum without | | cardiomegaly. The enteric tube and endotracheal tube are in stable and appropriate | | radiographic positions. There is a large bore IVC line present on the high KUB, | | terminating to the right of the thoracic column chest inferior adjacent the posterior | | right 10th rib. Another large-bore catheter remains the level of the L2 transverse | | process.. Support equipment extrinsic EKG leads also noted. Lungs are densely opacified | | by a combination of groundglass and airspace disease throughout, very severe but stable | | pattern. Central bronchograms Bones and soft tissues stable to technique. IMPRESSION: | | 1. New large bore catheter superimposed below the right hemidiaphragm as above. 2. | | Severe pulmonary infiltrates, dense consolidation and with groundglass features. Severe | | infection or edema-consider capillary leak syndrome or diffuse hemorrhage. Favor ARDS | | pattern of edema | | | |Bones and soft tissues stable to technique. | | | |IMPRESSION: | | | |1. New large bore catheter superimposed below the right hemidiaphragm as above. | | | |2. Severe pulmonary infiltrates, dense consolidation and with groundglass features. | | | |Severe infection or edema-consider capillary leak syndrome or diffuse hemorrhage. Favor CHRISTIANO S pattern of edema | | | | | + + POC CG 4, ISTAT Arterial (01/31/2016 12:44 PM PDT) + + + + + + | Component | Value | Ref Range | Performed | Pathologist | | | | | At | Signature | + + + + + + | PH ART | 7.315 (L)Comment: | 7.350 - 7.450 | EXTERNAL | | | | Testing performed at | | LAB | | | | [facility];[address] [place] [address] | | | | | | shane;[place] [address] | | | | + + + + + + | PCO2 ART | 50 (H)Comment: Testing | 35 - 45 mmHg | EXTERNAL | | | | performed at [facility];[address] | | LAB | | | | [address];[place] | | | | | | [address] | | | | + + + + + + | PO2 ART | 220 (H)Comment: Testing | 80 - 105 mmHg | EXTERNAL | | | | performed at [facility];[address] | | LAB | | | | [address];[place] | | | | | | [address] | | | | + + + + + + | Lactate, | 8.0 (H)Comment: Testing | 0.36 - 1.25 | EXTERNAL | | | Arterial | performed at [facility];[address] | mmol/L | LAB | | | | [address];[place] | | | | | | [address] | | | | + + + + + + | HCO3 ART | 25Comment: Testing | 22 - 26 mmol/L | EXTERNAL | | | | performed at [facility];[address] | | LAB | | | | [address];[place] | | | | | | [address] | | | | + + + + + + | POC | 27Comment: Testing | 23 - 27 mEq/L | EXTERNAL | | | APPEARANCE | performed at [facility];[address] | | LAB | | | UA | [address];[place] | | | | | | [address] | | | | + + + + + + | Base | 1Comment: Testing | 0.0 - 2.0 | EXTERNAL | | | deficit | performed at [facility];[address] | mmol/L | LAB | | | | [address];[place] | | | | | | [address] | | | | + + + + + + | O2 SAT ART | 100 (H)Comment: Testing | 95 - 98 % | EXTERNAL | | | | performed at [facility];[address] | | LAB | | | | [address];[place] | | | | | | [address] | | | | + + + + + + | FiO2, POC | 100Comment: Testing | % | EXTERNAL | | | | performed at [facility];[address] | | LAB | | | | [address];[place] | | | | | | [address] | | | | + + + + + + | Comment, | Tidal Volume = | | EXTERNAL | | | POC | 300Comment: Peep = | | LAB | | | | 10Resp Rate = 20Testing | | | | | | performed at [facility];[address] | | | | | | [address];[place] | | | | | | [address] | | | | + + + + + + + + | Specimen | + + | | + + + +---------+ + + | Performing | Address | City/State/Zipcode | Phone Number | | Organization | | | | + +---------+ + + | EXTERNAL LAB | | | | + +---------+ + + PTT (01/31/2016 11:02 AM PDT) + + + + + + | Component | Value | Ref Range | Performed | Pathologist | | | | | At | Signature | + + + + + + | aPTT, | 107 ()Comment: RESULTS | 23 - 32 seconds | EXTERNAL | | | Patient | CALLED TO MELANIE E/ICU | | LAB | | | | 1155T,JBREAD BACK | | | | | | RESULTS VERIFIEDTesting | | | | | | performed at [facility];[address] | | | | | | [address];[place] | | | | | | [address] | | | | + + + + + + + + | Specimen | + + | Blood specimen | | (specimen) | + + + +---------+ + + | Performing | Address | City/State/Zipcode | Phone Number | | Organization | | | | + +---------+ + + | EXTERNAL LAB | | | | + +---------+ + + Protime INR (01/31/2016 11:02 AM PDT) + + + + + + | Component | Value | Ref Range | Performed | Pathologist | | | | | At | Signature | + + + + + + | INR | 2.1Comment: REFERENCE | | EXTERNAL | | | | RANGE:0.9 - 1.2 | | LAB | | | | NON-ANTICOAGULATED2.0 | | | | | | - 3.0 ALL OTHER | | | | | | THERAPEUTIC | | | | | | INDICATIONS2.5 - 3.5 | | | | | | MECHANICAL HEART VALVES, | | | | | | RECURRENT OR SYSTEMIC | | | | | | EMBOLISMTesting | | | | | | performed at [facility];[address] | | | | | | [facility];[place], [place] | | | | | | [address] | | | | + + + + + + + + | Specimen | + + | Blood specimen | | (specimen) | + + + +---------+ + + | Performing | Address | City/State/Zipcode | Phone Number | | Organization | | | | + +---------+ + + | EXTERNAL LAB | | | | + +---------+ + + External Lab: ISI (01/31/2016 11:02 AM PDT) + + + + + + | Component | Value | Ref Range | Performed | Pathologist | | | | | At | Signature | + + + + + + | WBC | 28.96 (H)Comment: | 3.80 - 11.00 | EXTERNAL | | | | Testing performed at | K/uL | LAB | | | | [facility];[address] [place] [address] | | | | | | [place]eb[place] [address] | | | | + + + + + + | Non- | 3.74Comment: Testing | 3.70 - 5.10 | EXTERNAL | | | Red Blood | performed at [facility];[address] | M/uL | LAB | | | Cells | [address];[place] | | | | | Counted | [id number] | | | | + + + + + + | Hemoglobin | 10.3 (L)Comment: Testing | 11.3 - 15.5 | EXTERNAL | | | | performed at [facility];888 | g/dL | LAB | | | | [address];[place] | | | | | | [address] | | | | + + + + + + | Hematocrit, | 31.6 (L)Comment: Testing | 34.0 - 46.0 % | EXTERNAL | | | POC | performed at [facility];[address] | | LAB | | | | [address];[place] | | | | | | [address] | | | | + + + + + + | MCV | 84.4Comment: Testing | 80.0 - 100.0 fl | EXTERNAL | | | | performed at [facility];[address] | | LAB | | | | [address];[place] | | | | | | [address] | | | | + + + + + + | MCH | 27.5Comment: Testing | 27.0 - 34.0 pg | EXTERNAL | | | | performed at [facility];[address] | | LAB | | | | [address];[place] | | | | | | [address] | | | | + + + + + + | MCHC | 32.6Comment: Testing | 32.0 - 35.5 | EXTERNAL | | | | performed at [facility];888 | g/dL | LAB | | | | [address];[place] | | | | | | [address] | | | | + + + + + + | RDW-CV | 45.5Comment: Testing | 37 - 53 fl | EXTERNAL | | | | performed at [facility];[address] | | LAB | | | | [address];[place] | | | | | | [address] | | | | + + + + + + | Platelet | 56 (L)Comment: Testing | 150 - 400 K/uL | EXTERNAL | | | Count | performed at [facility];[address] | | LAB | | | Plasma | [address];[place] | | | | | | [address] | | | | + + + + + + | MPV | 9.4Comment: Testing | fl | EXTERNAL | | | | performed at [facility];[address] | | LAB | | | | [address];[place] | | | | | | [address] | | | | + + + + + + | Differentia | MANUALComment: Testing | | EXTERNAL | | | l Type | performed at [facility];[address] | | LAB | | | | [address];[place] | | | | | | [address] | | | | + + + + + + | Segmented | 42Comment: Testing | % | EXTERNAL | | | Neutrophils | performed at [facility];[address] | | LAB | | | Manual | [address];[place] | | | | | | [address] | | | | + + + + + + | % Bands | 52Comment: Testing | % | EXTERNAL | | | | performed at [facility];[address] | | LAB | | | | [address];[place] | | | | | | [address] | | | | + + + + + + | % | 1Comment: Testing | % | EXTERNAL | | | Metamyelocy | performed at [facility];[address] | | LAB | | | ya | [address];[place] | | | | | | [address] | | | | + + + + + + | Lymphocytes | 2Comment: Testing | % | EXTERNAL | | | Manual | performed at [facility];[address] | | LAB | | | | [address];[place] | | | | | | [address] | | | | + + + + + + | % Atypical | 2Comment: Testing | % | EXTERNAL | | | Lymphocytes | performed at [facility];[address] | | LAB | | | | [address];[place] | | | | | | [address] | | | | + + + + + + | Eosinophils | 1Comment: Testing | % | EXTERNAL | | | Manual | performed at [facility];[address] | | LAB | | | | [address];[place] | | | | | | [address] | | | | + + + + + + | Absolute | 12.16 (H)Comment: | 1.90 - 7.40 | EXTERNAL | | | Neutrophils | Testing performed at | K/uL | LAB | | | | [facility];[address] | | | | | | [address];[place] [address] | | | | + + + + + + | Bands | 15.06 (H)Comment: | 0.00 - 0.20 | EXTERNAL | | | Manual | Testing performed at | K/uL | LAB | | | | [facility];[address];[place] [address] | | | | + + + + + + | Absolute | 0.29 (H)Comment: Testing | K/uL | EXTERNAL | | | Metamyelocy | performed at [facility];[address] | | LAB | | | ya | [address];[place] | | | | | | [address] | | | | + + + + + + | Absolute | 0.58 (L)Comment: Testing | 1.00 - 3.90 | EXTERNAL | | | Lymphocytes | performed at [facility];[address] | K/uL | LAB | | | | [address];[place] | | | | | | [address] | | | | + + + + + + | Absolute | 0.58 (H)Comment: Testing | K/uL | EXTERNAL | | | Atypical | performed at [facility];[address] | | LAB | | | Lymphocytes | [address];[place] | | | | | | [address] | | | | + + + + + + | Absolute | 0.29Comment: Testing | 0.00 - 0.50 | EXTERNAL | | | Eosinophils | performed at [facility];[address] | K/uL | LAB | | | | [address];[place] | | | | | | [address] | | | | + + + + + + | Platelet | DECREASEDComment: | | EXTERNAL | | | Estimate | Testing performed at | | LAB | | | | [facility];[address];[place] [address] | | | | + + + + + + | RBC | 1+Comment: VACUOLATED | | EXTERNAL | | | Morphology | NEUTROPHILSPOIK1+ANISOTe | | LAB | | | | sting performed at | | | | | | [facility];[address];[place] [address] | | | | | |ANISO | | | | | |Testing performed at [facility];[address];[place] [address] | | | | | | | | | | + + + + + + + + | Specimen | + + | Blood specimen | | (specimen) | + + + +---------+ + + | Performing | Address | City/State/Zipcode | Phone Number | | Organization | | | | + +---------+ + + | EXTERNAL LAB | | | | + +---------+ + + POC Glucose (01/31/2016 10:09 AM PDT) + + + + + + | Component | Value | Ref Range | Performed | Pathologist | | | | | At | Signature | + + + + + + | Glucose, | 113 (H)Comment: Testing | 65 - 99 mg/dL | EXTERNAL | | | Fingerstick | performed at [facility];[address] | | LAB | | | | [address];[place] | | | | | | [address] | | | | + + + + + + + + | Specimen | + + | | + + + +---------+ + + | Performing | Address | City/State/Zipcode | Phone Number | | Organization | | | | + +---------+ + + | EXTERNAL LAB | | | | + +---------+ + + Type and Screen (01/31/2016 8:06 AM PDT) + + + + + + | Component | Value | Ref Range | Performed | Pathologist | | | | | At | Signature | + + + + + + | ABO Rh | O POSITIVE | | EXTERNAL | | | | | | LAB | | + + + + + + | Antibody | NEGATIVE | | EXTERNAL | | | Screen | | | LAB | | + + + + + + | BB BAND | [id number] | | EXTERNAL | | | | | | LAB | | + + + + + + | UNIT NUMBER | [id number] | | EXTERNAL | | | | | | LAB | | + + + + + + | UNIT NUMBER | Testing performed at | | EXTERNAL | | | | [facility];[address] | [address] | | | [address];[place] [address] | | | | + + + + + + | Product | LEUKODEPLETED PCTesting | | EXTERNAL | | | Code | performed at [facility];[address] | | LAB | | | | [address];[place] | | | | | | [address] | | | | + + + + + + | Unit | 00Testing performed at | | EXTERNAL | | | Division | [facility];[address] | [address] | | | [address];[place] [address] | | | | + + + + + + | Unit Status | ISSUED,FINALTesting | | EXTERNAL | | | | performed at [facility];[address] | | LAB | | | | [address];[place] | | | | | | [address] | | | | + + + + + + | Transfusion | OK TO TRANSFUSETesting | | EXTERNAL | | | Status | performed at [facility];[address] | | LAB | | | | [address];[place] | | | | | | [address] | | | | + + + + + + | CROSSMATCH | COMPATIBLETesting | | EXTERNAL | | | RESULT | performed at [facility];[address] | | LAB | | | | [address];[place], [place] | | | | | | [address] | | | | + + + + + + | UNIT NUMBER | [id number] | | EXTERNAL | | | | | | LAB | | + + + + + + | Product | LEUKODEPLETED PC | | EXTERNAL | | | Code | | | LAB | | + + + + + + | Unit | 00 | | EXTERNAL | | | Division | | | LAB | | + + + + + + | Unit Status | ISSUED,FINAL | | EXTERNAL | | | | | | LAB | | + + + + + + | Transfusion | OK TO TRANSFUSE | | EXTERNAL | | | Status | | | LAB | | + + + + + + | CROSSMATCH | COMPATIBLE | | EXTERNAL | | | RESULT | | | LAB | | + + + + + + + + | Specimen | + + | Blood specimen | | (specimen) | + + + +---------+ + + | Performing | Address | City/State/Zipcode | Phone Number | | Organization | | | | + +---------+ + + | EXTERNAL LAB | | | | + +---------+ + + POC Glucose (01/31/2016 6:32 AM PDT) + + + + + + | Component | Value | Ref Range | Performed | Pathologist | | | | | At | Signature | + + + + + + | Glucose, | 126 (H)Comment: Testing | 65 - 99 mg/dL | EXTERNAL | | | Fingerstick | performed at [facility];[address] | | LAB | | | | [address] [facility];[place], [place] | | | | | | [address] | | | | + + + + + + + + | Specimen | + + | | + + + +---------+ + + | Performing | Address | City/State/Zipcode | Phone Number | | Organization | | | | + +---------+ + + | EXTERNAL LAB | | | | + +---------+ + + Protime INR (01/31/2016 6:28 AM PDT) + + + + + + | Component | Value | Ref Range | Performed | Pathologist | | | | | At | Signature | + + + + + + | INR | 3.2Comment: REFERENCE | | EXTERNAL | | | | RANGE:0.9 - 1.2 | | LAB | | | | NON-ANTICOAGULATED2.0 | | | | | | - 3.0 ALL OTHER | | | | | | THERAPEUTIC | | | | | | INDICATIONS2.5 - 3.5 | | | | | | MECHANICAL HEART VALVES, | | | | | | RECURRENT OR SYSTEMIC | | | | | | EMBOLISMTesting | | | | | | performed at [facility] | | | | | | [facility];[place] | | | | | | [address] | | | | + + + + + + + + | Specimen | + + | Blood specimen | | (specimen) | + + + +---------+ + + | Performing | Address | City/State/Zipcode | Phone Number | | Organization | | | | + +---------+ + + | EXTERNAL LAB | | | | + +---------+ + + Fibrinogen (01/31/2016 6:28 AM PDT) + + + + + + | Component | Value | Ref Range | Performed | Pathologist | | | | | At | Signature | + + + + + + | Fibrinogen | 153 (L)Comment: Testing | 200 - 450 mg/dL | EXTERNAL | | | | performed at [facility];[address] | | LAB | | | [address];[place], [place] | | | | | | [address] | | | | + + + + + + + + | Specimen | + + | Blood specimen | | (specimen) | + + + +---------+ + + | Performing | Address | City/State/Zipcode | Phone Number | | Organization | | | | + +---------+ + + | EXTERNAL LAB | | | | + +---------+ + + ECG 12 lead (01/31/2016 6:20 AM PDT) + + + + + + | Component | Value | Ref Range | Performed | Pathologist | | | | | At | Signature | + + + + + + | DIAGNOSIS: | Sinus tachycardiaLow | | EXTERNAL | | | | voltage QRSBorderline | | LAB | | | | ECGNo previous ECGs | | | | | | availableConfirmed by | | | | | | OSCAR SHAFER ([id number]) on | | | | | | 02/01/2016 6:41:30 AM | | | | + + + + + + + + | Specimen | + + | | + + + + + | Narrative | Performed At | + + + | Historically converted procedure from [facility] Epic environment | EXTERNAL LAB | + + + + +---------+ + + | Performing | Address | City/State/Zipcode | Phone Number | | Organization | | | | + +---------+ + + | EXTERNAL LAB | | | | + +---------+ + + Calcium, Ionized (01/31/2016 5:45 AM PDT) + + + + + + | Component | Value | Ref Range | Performed | Pathologist | | | | | At | Signature | + + + + + + | Calcium | 0.88 (L)Comment: Testing | 1.08 - 1.25 | EXTERNAL | | | (Calc) | performed at [facility];[address] | mmol/L | LAB | | | | [address];[place] | | | | | | [address] | | | | + + + + + + | pH, Bld | 7.176 (L)Comment: | 7.300 - 7.450 | EXTERNAL | | | | Testing performed at | | LAB | | | | [facility];[address];[place] [address] | | | | + + + + + + + + | Specimen | + + | Blood specimen | | (specimen) | + + + +---------+ + + | Performing | Address | City/State/Zipcode | Phone Number | | Organization | | | | + +---------+ + + | EXTERNAL LAB | | | | + +---------+ + + POC Glucose (01/31/2016 5:42 AM PDT) + + + + + + | Component | Value | Ref Range | Performed | Pathologist | | | | | At | Signature | + + + + + + | Glucose, | 121 (H)Comment: Testing | 65 - 99 mg/dL | EXTERNAL | | | Fingerstick | performed at [facility];[address] | | LAB | | | | [address];[place] | | | | | | [address] | | | | + + + + + + + + | Specimen | + + | | + + + +---------+ + + | Performing | Address | City/State/Zipcode | Phone Number | | Organization | | | | + +---------+ + + | EXTERNAL LAB | | | | + +---------+ + + POC Glucose (01/31/2016 4:21 AM PDT) + + + + + + | Component | Value | Ref Range | Performed | Pathologist | | | | | At | Signature | + + + + + + | Glucose, | 95Comment: Testing | 65 - 99 mg/dL | EXTERNAL | | | Fingerstick | performed at [facility];[address] | | LAB | | | | [address];[place], [place] | | | | | | [address] | | | | + + + + + + + + | Specimen | + + | | + + + +---------+ + + | Performing | Address | City/State/Zipcode | Phone Number | | Organization | | | | + +---------+ + + | EXTERNAL LAB | | | | + +---------+ + + XR Chest 1 Vw (01/31/2016 4:07 AM PDT) + + | Specimen | + + | | + + + + + | Impressions | Performed At | + + + | 1. Lines as above. 2. Interval increase in perihilar opacity. | | | 3. No evidence of pneumothorax. RADIA Electronically signed | | | by Adalberto Rain on Jan 31 2016 4:32AM Referring Provider | | | Line: [phone] ID: [id number] | | + + + + + + | Narrative | Performed At | + + + | EXAM: CHEST RADIOGRAPHY EXAM DATE: 01/31/2016 04:08 AM. | | | CLINICAL HISTORY: Respiratory failure. COMPARISON: 01/30/2016. | | | TECHNIQUE: 1 view. FINDINGS: Lungs/Pleura: Interval increase in | | | perihilar opacities. No evidence of large effusion or pneumothorax. | | | Mediastinum: Heart size is unchanged. Other: Endotracheal tube | | | tip is 4.5 cm above the nadir. Orogastric tube tip extends beyond the | | | inferior margin of the film. Left subclavian and right IJ lines are | | | near the cavoatrial junction. | | + + + + + | Procedure Note | + + | Bert, Rad Conversion - 05/18/2019 6:31 PM PDT EXAM:CHEST RADIOGRAPHY EXAM DATE: | | 01/31/2016 04:08 AM. CLINICAL HISTORY: Respiratory failure. COMPARISON: 01/30/2016. | | TECHNIQUE: 1 view. FINDINGS:Lungs/Pleura: Interval increase in perihilar opacities. No | | evidence of large effusion or pneumothorax. Mediastinum: Heart size is unchanged. Other: | | Endotracheal tube tip is 4.5 cm above the nadir. Orogastric tube tip extends beyond | | the inferior margin of the film. Left subclavian and right IJ lines are near the | | cavoatrial junction. IMPRESSION: 1. Lines as above.2. Interval increase in perihilar | | opacity.3. No evidence of pneumothorax. RADIA Electronically signed by Adalberto | | Koffi on Jan 31 2016 4:32AM Referring Provider Line: [phone] ID: [id number] | |TECHNIQUE: 1 view. | | | |FINDINGS: | |Lungs/Pleura: Interval increase in perihilar opacities. No evidence of large effusion or pn eumothorax. | | | |Mediastinum: Heart size is unchanged. | | | |Other: Endotracheal tube tip is 4.5 cm above the nadir. Orogastric tube tip extends beyond the inferior margin of the film. Left subclavian and right IJ lines are near the cavoatrial junction. | | | |IMPRESSION: | | | |1. Lines as above. | |2. Interval increase in perihilar opacity. | |3. No evidence of pneumothorax. | | | |RADIA | | | | Electronically signed by Adalberto Rain on Jan 31 2016 4:32AM Referring Provider Line : [phone] ID: [id number] | + + External Lab: CBC (01/31/2016 3:50 AM PDT) + + +---- + + + | Component | Value | Ref Range | Performed | Pathologist | | | | | At | Signature | + + +---- + + + | WBC | 27.23 (H)Comment: | 3.8 0 - 11.00 | EXTERNAL | | | | Testing performed at | K/u L | LAB | | | | [facility], [address] [facility] | | | | | | [place] | | | | | | [address] | | | | + + +---- + + + | Non- | 3.87Comment: Testing | 3.7 0 - 5.10 | EXTERNAL | | | Red Blood | performed at [facility], [address] | M/u L | LAB | | | Cells | [facility] [address], | | | | | Counted | [place] [address] | | | | + + +---- + + + | Hemoglobin | 10.9 (L)Comment: Testing | 11. 3 - 15.5 | EXTERNAL | | | | performed at [facility], [address] | [address]/d [address] | LAB | | | | [address], | | | | | | [place] [address] | | | | + + +---- + + + | Hematocrit, | 33.5 (L)Comment: Testing | 34. 0 - 46.0 % | EXTERNAL | | | POC | performed at [facility], [address] | | LAB | | | | [address], | | | | | | [place] [address] | | | | + + +---- + + + | MCV | 86.7Comment: Testing | 80. 0 - 100.0 fl | EXTERNAL | | | | performed at [facility], [address] | | LAB | | | | [place] [address], | | | | | | [place] [address] | | | | + + +---- + + + | MCH | 28.2Comment: Testing | 27. 0 - 34.0 pg | EXTERNAL | | | | performed at [facility], [address] | | LAB | | | | [place], | | | | | | [place] [address] | | | | + + +---- + + + | MCHC | 32.6Comment: Testing | 32. 0 - 35.5 | EXTERNAL | | | | performed at [facility], [address] | g/d L | LAB | | | | [place], | | | | | | [place] [address] | | | | + + +---- + + + | RDW-CV | 45.1Comment: Testing | 37 - 53 fl | EXTERNAL | | | | performed at [facility], [address] | | LAB | | | | [address], | | | | | | [place] [address] | | | | + + +---- + + + | Platelet | 75 (L)Comment: Testing | 150 - 400 K/uL | EXTERNAL | | | Count | performed at [facility], [address] | | LAB | | | Plasma | [address], | | | | | | [place] [address] | | | | + + +---- + + + | MPV | 9.8Comment: Testing | fl | EXTERNAL | | | | performed at [facility], [address] | | LAB | | | | [address], | | | | | | [place] [address] | | | | + + +---- + + + | Differentia | MANUALComment: Testing | | EXTERNAL | | | l Type | performed at [facility], [address] | | LAB | | | | [address], | | | | | | [place] [address] | | | | + + +---- + + + | Segmented | 46Comment: Testing | % | EXTERNAL | | | Neutrophils | performed at [facility], [address] | | LAB | | | Manual | [address], | | | | | | [place] [address] | | | | + + +---- + + + | % Bands | 44Comment: Testing | % | EXTERNAL | | | | performed at [facility], [address] | | LAB | | | | [address], | | | | | | [place] [address] | | | | + + +---- + + + | % | 5Comment: Testing | % | EXTERNAL | | | Metamyelocy | performed at [facility], [address] | | LAB | | | ya | [address], | | | | | | [place] [address] | | | | + + +---- + + + | Lymphocytes | 2Comment: Testing | % | EXTERNAL | | | Manual | performed at [facility], [address] | | LAB | | | | [address], | | | | | | [place] [address] | | | | + + +---- + + + | Monocytes | 3Comment: Testing | % | EXTERNAL | | | Manual | performed at [facility], [address] | | LAB | | | | [address], | | | | | | [place] [address] | | | | + + +---- + + + | Absolute | 12.53 (H)Comment: | 1.9 0 - 7.40 | EXTERNAL | | | Neutrophils | Testing performed at | K/u L | LAB | | | | [facility], [address] | | | | | | [place] | | | | | | [address] | | | | + + +---- + + + | Bands | 11.98 (H)Comment: | 0.0 0 - 0.20 | EXTERNAL | | | Manual | Testing performed at | K/u L | LAB | | | | [facility], [address], [place], [place] | | | | | | [address] | | | | + + +---- + + + | Absolute | 1.36 (H)Comment: Testing | K/u L | EXTERNAL | | | Metamyelocy | performed at [facility], [address] | | LAB | | | [address] | [address], | | | | | | [place] [address] | | | | + + +---- + + + | Absolute | 0.54 (L)Comment: Testing | 1.0 0 - 3.90 | EXTERNAL | | | Lymphocytes | performed at [facility], [address] | [address] | LAB | | | | [address], | | | | | | [place] [address] | | | | + + +---- + + + | Absolute | 0.82 (H)Comment: Testing | 0.0 0 - 0.80 | EXTERNAL | | | Monocytes | performed at [facility], [address] | [address] | LAB | | | | [address], | | | | | | [place] [address] | | | | + + +---- + + + | Platelet | DECREASEDComment: | | EXTERNAL | | | Estimate | Testing performed at | | LAB | | | | [facility], [address] | | | | | | [place] | | | | | | [address] | | | | + + +---- + + + | RBC | 1+Comment: | | EXTERNAL | | | Morphology | [facility] | | LAB | | | | MORPHTesting performed | | | | | | at [facility], [address] | | | | | | [facility], | | | | | | [place] [address] | | | | | |Testing performed at [facility], [address] [facility], [place] [address] | | | | | | | | | | + + +---- + + + + + | Specimen | + + | Blood specimen | | (specimen) | + + + +---------+ + + | Performing | Address | City/State/Zipcode | Phone Number | | Organization | | | | + +---------+ + + | EXTERNAL LAB | | | | + +---------+ + + Phosphorus (01/31/2016 3:50 AM PDT) + + + + + + | Component | Value | Ref Range | Performed | Pathologist | | | | | At | Signature | + + + + + + | PHOSPHORUS | 2.7Comment: Testing | 2.3 - 4.8 mg/dL | EXTERNAL | | | | performed at [facility], [address] | | LAB | | | | [facility], | | | | | | [place] [address] | | | | + + + + + + + + | Specimen | + + | Blood specimen | | (specimen) | + + + +---------+ + + | Performing | Address | City/State/Zipcode | Phone Number | | Organization | | | | + +---------+ + + | EXTERNAL LAB | | | | + +---------+ + + Magnesium (01/31/2016 3:50 AM PDT) + + + + + + | Component | Value | Ref Range | Performed | Pathologist | | | | | At | Signature | + + + + + + | Magnesium | 1.5 (L)Comment: Testing | 1.7 - 2.4 mg/dL | EXTERNAL | | | | performed at [facility], [address] | | LAB | | | | [address], | | | | | | [place] [address] | | | | + + + + + + + + | Specimen | + + | Blood specimen | | (specimen) | + + + +---------+ + + | Performing | Address | City/State/Zipcode | Phone Number | | Organization | | | | + +---------+ + + | EXTERNAL LAB | | | | + +---------+ + + Lactic Acid (01/31/2016 3:50 AM PDT) + + + + + + | Component | Value | Ref Range | Performed | Pathologist | | | | | At | Signature | + + + + + + | Lactate | 8.6 (H)Comment: Testing | 0.4 - 2.0 | EXTERNAL | | | | performed at [facility] | mmol/L | LAB | | | | [address];[place], [place] | | | | | | [address] | | | | + + + + + + + + | Specimen | + + | Blood specimen | | (specimen) | + + + +---------+ + + | Performing | Address | City/State/Zipcode | Phone Number | | Organization | | | | + +---------+ + + | EXTERNAL LAB | | | | + +---------+ + + Hemoglobin A1C (01/31/2016 3:50 AM PDT) + + + + + + | Component | Value | Ref Range | Performed | Pathologist | | | | | At | Signature | + + + + + + | Hemoglobin | 6.6 (H)Comment: The | 4.0 - 6.0 % | EXTERNAL | | | A1c | [place] [employer] | | LAB | | | | Association considers a | | | | | | hemoglobin A1c result of | | | | | | <7.0% to be the goal of | | | | | | diabetic therapy. | | | | | | When results are | | | | | | consistently >8.0%, the | | | | | | ADA suggests | | | | | | reevaluation of the | | | | | | treatment regimen. The | | | | | | testing method used is | | | | | | certified traceable to | | | | | | the Diabetes Control and | | | | | | Complications Trial | | | | | | reference method.Testing | | | | | | performed at [facility], [address], | | | | | | [place] [address] | | | | + + + + + + | Glycohemogl | 143Comment: The ADA | mg/dL | EXTERNAL | | | obin | considers an eAG result | | LAB | | | (GHb),Total | of LT 154 mg/dL to be | | | | | | the goal of diabetic | | | | | | therapy. Estimated | | | | | | Average Glucose | | | | | | calculated from | | | | | | hemoglobin A1c by use of | | | | | | the ADA recommended | | | | | | formula.Testing | | | | | | performed at [facility], [address] | | | | | | [address], | | | | | | [place] [address] | | | | + + + + + + + + | Specimen | + + | Blood specimen | | (specimen) | + + + +---------+ + + | Performing | Address | City/State/Zipcode | Phone Number | | Organization | | | | + +---------+ + + | EXTERNAL LAB | | | | + +---------+ + + Hepatic Function Panel (01/31/2016 3:50 AM PDT) + + + + + + | Component | Value | Ref Range | Performed | Pathologist | | | | | At | Signature | + + + + + + | Protein, | 3.6 (L)Comment: Testing | 6.3 - 8.2 g/dL | EXTERNAL | | | Total | performed at [facility], [address] | | LAB | | | | [address], | | | | | | [place] [address] | | | | + + + + + + | Albumin | 2.6 (L)Comment: Testing | 3.6 - 5.0 g/dL | EXTERNAL | | | | performed at [facility], [address] | | LAB | | | | [address], | | | | | | [place] [address] | | | | + + + + + + | Bilirubin | 2.2 (H)Comment: Testing | 0.1 - 1.5 mg/dL | EXTERNAL | | | Total | performed at [facility], [address] | | LAB | | | | [address], | | | | | | [place] [address] | | | | + + + + + + | Bilirubin | 1.8 (H)Comment: Testing | 0.0 - 0.3 mg/dL | EXTERNAL | | | Direct | performed at [facility], [address] | | LAB | | | | [address], | | | | | | [place] [address] | | | | + + + + + + | ALP, | 76Comment: Testing | 35 - 115 U/L | EXTERNAL | | | External | performed at [facility], [address] | | LAB | | | | [address], | | | | | | [place] [address] | | | | + + + + + + | AST | 283 (H)Comment: Testing | 10 - 45 U/L | EXTERNAL | | | | performed at [facility], [address] | | LAB | | | | [address], | | | | | | [place] [address] | | | | + + + + + + | ALT | 88 (H)Comment: Testing | 10 - 65 U/L | EXTERNAL | | | | performed at [facility], [address] | | LAB | | | | [address], | | | | | | [place] [address] | | | | + + + + + + + + | Specimen | + + | | + + + +---------+ + + | Performing | Address | City/State/Zipcode | Phone Number | | Organization | | | | + +---------+ + + | EXTERNAL LAB | | | | + +---------+ + + Basic Metabolic Panel (01/31/2016 3:50 AM PDT) + + + + + + | Component | Value | Ref Range | Performed | Pathologist | | | | | At | Signature | + + + + + + | Na | 134 (L)Comment: Testing | 135 - 143 | EXTERNAL | | | | performed at [facility], [address] | mmol/L | LAB | | | | [address], | | | | | | [place] [address] | | | | + + + + + + | K | 3.6Comment: Testing | 3.5 - 4.9 | EXTERNAL | | | | performed at [facility], [address] | mmol/L | LAB | | | | [address], | | | | | | [place] [address] | | | | + + + + + + | Cl | 102Comment: Testing | 99 - 109 mmol/L | EXTERNAL | | | | performed at [facility], [address] | | LAB | | | | [address], | | | | | | [place] [address] | | | | + + + + + + | CO2 | 19 (L)Comment: Testing | 23 - 32 mmol/L | EXTERNAL | | | | performed at [facility], [address] | | LAB | | | | [address], | | | | | | [place] [address] | | | | + + + + + + | Anion Gap | 17Comment: Testing | 5 - 20 mmol/L | EXTERNAL | | | | performed at [facility], [address] | | LAB | | | | [address], | | | | | | [place] [address] | | | | + + + + + + | Glucose, | 122 (H)Comment: Testing | 65 - 99 mg/dL | EXTERNAL | | | Fasting | performed at [facility], [address] | | LAB | | | | [address], | | | | | | [place] [address] | | | | + + + + + + | BUN | 11Comment: Testing | 8 - 25 mg/dL | EXTERNAL | | | | performed at [facility], [address] | | LAB | | | | [address], | | | | | | [place] [address] | | | | + + + + + + | Creatinine | 1.64 (H)Comment: Testing | 0.50 - 1.00 | EXTERNAL | | | | performed at [facility], [address] | mg/dL | LAB | | | | [address], | | | | | | [place] [address] | | | | + + + + + + | BUN/Creatin | 7Comment: Testing | | EXTERNAL | | | ine Ratio | performed at [facility], [address] | | LAB | | | | [address], | | | | | | [place] [address] | | | | + + + + + + | Calcium | 5.7 (LL)Comment: RESULT | 8.5 - 10.5 | EXTERNAL | | | | READ BACK BY:GARCÍA | mg/dL | LAB | | | | S/RN,ICU,[id number],ZACHERY | | | | | | Testing performed at | | | | | | [facility], [address] | | | | | | [place] | | | | | | [address] | | | | + + + + + + | Estimated | 38 (L)Comment: GFR <60: | mL/min/1.73m2 | EXTERNAL | | | GFR | CHRONIC KIDNEY DISEASE, | | LAB | | | | IF FOUND OVER A 3 MONTH | | | | | | PERIOD.GFR <15: KIDNEY | | | | | | FAILURE.FOR | | | | | | AMERICANS, MULTIPLY THE | | | | | | CALCULATED GFR BY | | | | | | 1.210.Testing performed | | | | | | at [facility], [address] | | | | | | [address], | | | | | | [place] [address] | | | | + + + + + + + + | Specimen | + + | Blood specimen | | (specimen) | + + + +---------+ + + | Performing | Address | City/State/Zipcode | Phone Number | | Organization | | | | + +---------+ + + | EXTERNAL LAB | | | | + +---------+ + + POC CG 4, ISTAT Arterial (01/31/2016 3:26 AM PDT) + + + + + + | Component | Value | Ref Range | Performed | Pathologist | | | | | At | Signature | + + + + + + | PH ART | 7.204 (LL)Comment: | 7.350 - 7.450 | EXTERNAL | | | | Testing performed at | | LAB | | | | [facility];[place] [address] | | | | + + + + + + | PCO2 ART | 53 (H)Comment: Testing | 35 - 45 mmHg | EXTERNAL | | | | performed at [facility];[address] | | LAB | | | | [address];[place] | | | | | | [address] | | | | + + + + + + | PO2 ART | 63 (L)Comment: Testing | 80 - 105 mmHg | EXTERNAL | | | | performed at [facility];[address] | | LAB | | | | [address];[place] | | | | | | [address] | | | | + + + + + + | Lactate, | 8.0 (H)Comment: Testing | 0.36 - 1.25 | EXTERNAL | | | Arterial | performed at [facility];[address] | mmol/L | LAB | | | | [address];[place] | | | | | | [address] | | | | + + + + + + | HCO3 ART | 21 (L)Comment: Testing | 22 - 26 mmol/L | EXTERNAL | | | | performed at [facility];[address] | | LAB | | | | [address];[place] | | | | | | [address] | | | | + + + + + + | POC | 23Comment: Testing | 23 - 27 mEq/L | EXTERNAL | | | APPEARANCE | performed at [facility];[address] | | LAB | | | [address] | [address];[place] | | | | | | [address] | | | | + + + + + + | Base | 7 (H)Comment: Testing | 0.0 - 2.0 | EXTERNAL | | | deficit | performed at [facility];[address] | mmol/L | LAB | | | | [address];[place] | | | | | | [address] | | | | + + + + + + | O2 SAT ART | 86 (L)Comment: Testing | 95 - 98 % | EXTERNAL | | | | performed at [facility];[address] | | LAB | | | | [address];[place] | | | | | | [address] | | | | + + + + + + | FiO2, POC | 100Comment: Testing | % | EXTERNAL | | | | performed at [facility];[address] | | LAB | | | | [address];[place] | | | | | | [address] | | | | + + + + + + + + | Specimen | + + | | + + + +---------+ + + | Performing | Address | City/State/Zipcode | Phone Number | | Organization | | | | + +---------+ + + | EXTERNAL LAB | | | | + +---------+ + + POC Glucose (01/31/2016 3:20 AM PDT) + + + + + + | Component | Value | Ref Range | Performed | Pathologist | | | | | At | Signature | + + + + + + | Glucose, | 135 (H)Comment: Testing | 65 - 99 mg/dL | EXTERNAL | | | Fingerstick | performed at [facility];[address] | | LAB | | | | [address];[place], [place] | | | | | | [address] | | | | + + + + + + + + | Specimen | + + | | + + + +---------+ + + | Performing | Address | City/State/Zipcode | Phone Number | | Organization | | | | + +---------+ + + | EXTERNAL LAB | | | | + +---------+ + + POC Glucose (01/31/2016 1:53 AM PDT) + + + + + + | Component | Value | Ref Range | Performed | Pathologist | | | | | At | Signature | + + + + + + | Glucose, | 146 (H)Comment: Testing | 65 - 99 mg/dL | EXTERNAL | | | Fingerstick | performed at [facility];[address] | | LAB | | | | [address];[place], [place] | | | | | | [address] | | | | + + + + + + + + | Specimen | + + | | + + + +---------+ + + | Performing | Address | City/State/Zipcode | Phone Number | | Organization | | | | + +---------+ + + | EXTERNAL LAB | | | | + +---------+ + + Lactic Acid (01/31/2016 1:33 AM PDT) + + + + + + | Component | Value | Ref Range | Performed | Pathologist | | | | | At | Signature | + + + + + + | Lactate | 6.1 (H)Comment: Testing | 0.4 - 2.0 | EXTERNAL | | | | performed at [facility];[address] | mmol/L | LAB | | | | [address];[place], [place] | | | | | | [address] | | | | + + + + + + + + | Specimen | + + | Blood specimen | | (specimen) | + + + +---------+ + + | Performing | Address | City/State/Zipcode | Phone Number | | Organization | | | | + +---------+ + + | EXTERNAL LAB | | | | + +---------+ + + POC Glucose (01/31/2016 1:23 AM PDT) + + + + + + | Component | Value | Ref Range | Performed | Pathologist | | | | | At | Signature | + + + + + + | Glucose, | 56 (L)Comment: Testing | 65 - 99 mg/dL | EXTERNAL | | | Fingerstick | performed at [facility] | | LAB | | | | [address];[place], [place] | | | | | | [address] | | | | + + + + + + + + | Specimen | + + | | + + + +---------+ + + | Performing | Address | City/State/Zipcode | Phone Number | | Organization | | | | + +---------+ + + | EXTERNAL LAB | | | | + +---------+ + + Basic Metabolic Panel (01/31/2016 1:00 AM PDT) + + + + + + | Component | Value | Ref Range | Performed | Pathologist | | | | | At | Signature | + + + + + + | Na | 139Comment: Testing | 135 - 143 | EXTERNAL | | | | performed at [facility];[address] | mmol/L | LAB | | | | [address];[place] | | | | | | [address] | | | | + + + + + + | K | 3.5Comment: Testing | 3.5 - 4.9 | EXTERNAL | | | | performed at [facility];[address] | mmol/L | LAB | | | | [address];[place] | | | | | | [address] | | | | + + + + + + | Cl | 103Comment: Testing | 99 - 109 mmol/L | EXTERNAL | | | | performed at [facility];[address] | | LAB | | | | [address];[place] | | | | | | [address] | | | | + + + + + + | CO2 | 26Comment: Testing | 23 - 32 mmol/L | EXTERNAL | | | | performed at [facility];[address] | | LAB | | | | [address];[place] | | | | | | [address] | | | | + + + + + + | Anion Gap | 13Comment: Testing | 5 - 20 mmol/L | EXTERNAL | | | | performed at [facility];[address] | | LAB | | | | [address];[place] | | | | | | [address] | | | | + + + + + + | Glucose, | 64 (L)Comment: Testing | 65 - 99 mg/dL | EXTERNAL | | | Fasting | performed at [facility];[address] | | LAB | | | | [address];[place] | | | | | | [address] | | | | + + + + + + | BUN | 8Comment: Testing | 8 - 25 mg/dL | EXTERNAL | | | | performed at [facility];[address] | | LAB | | | | [address];[place] | | | | | | [address] | | | | + + + + + + | Creatinine | 1.2 (H)Comment: Testing | 0.50 - 1.00 | EXTERNAL | | | | performed at [facility];[address] | mg/dL | LAB | | | | [address];[place] | | | | | | [address] | | | | + + + + + + | BUN/Creatin | 7Comment: Testing | | EXTERNAL | | | ine Ratio | performed at [facility];[address] | | LAB | | | | [address];[place] | | | | | | [address] | | | | + + + + + + | Calcium | 6.1 (L)Comment: Testing | 8.5 - 10.5 | EXTERNAL | | | | performed at [facility];[address] | mg/dL | LAB | | | | [address];[place] | | | | | | [address] | | | | + + + + + + | Estimated | 54 (L)Comment: GFR <60: | mL/min/1.73m2 | EXTERNAL | | | GFR | CHRONIC KIDNEY DISEASE, | | LAB | | | | IF FOUND OVER A 3 MONTH | | | | | | PERIOD.GFR <15: KIDNEY | | | | | | FAILURE.FOR | | | | | | AMERICANS, MULTIPLY THE | | | | | | CALCULATED GFR BY | | | | | | 1.210.Testing performed | | | | | | at [facility];[address] | | | | | | [address];[place] [address] | | | | + + + + + + + + | Specimen | + + | Blood specimen | | (specimen) | + + + +---------+ + + | Performing | Address | City/State/Zipcode | Phone Number | | Organization | | | | + +---------+ + + | EXTERNAL LAB | | | | + +---------+ + + POC Glucose (01/31/2016 12:07 AM PDT) + + + + + + | Component | Value | Ref Range | Performed | Pathologist | | | | | At | Signature | + + + + + + | Glucose, | 73Comment: Testing | 65 - 99 mg/dL | EXTERNAL | | | Fingerstick | performed at [facility];[address] | | LAB | | | | [address];[place], [place] | | | | | | [address] | | | | + + + + + + + + | Specimen | + + | | + + + +---------+ + + | Performing | Address | City/State/Zipcode | Phone Number | | Organization | | | | + +---------+ + + | EXTERNAL LAB | | | | + +---------+ + + POC Glucose (01/31/2016 12:05 AM PDT) + + + + + + | Component | Value | Ref Range | Performed | Pathologist | | | | | At | Signature | + + + + + + | Glucose, | 53 (L)Comment: Testing | 65 - 99 mg/dL | EXTERNAL | | | Fingerstick | performed at [facility];[address] | | LAB | | | | [address];[place] | | | | | | [address] | | | | + + + + + + + + | Specimen | + + | | + + + +---------+ + + | Performing | Address | City/State/Zipcode | Phone Number | | Organization | | | | + +---------+ + + | EXTERNAL LAB | | | | + +---------+ + + POC Glucose (01/30/2016 10:55 PM PDT) + + + + + + | Component | Value | Ref Range | Performed | Pathologist | | | | | At | Signature | + + + + + + | Glucose, | 85Comment: Testing | 65 - 99 mg/dL | EXTERNAL | | | Fingerstick | performed at [facility];[address] | | LAB | | | | [address];[place] | | | | | | [address] | | | | + + + + + + + + | Specimen | + + | | + + + +---------+ + + | Performing | Address | City/State/Zipcode | Phone Number | | Organization | | | | + +---------+ + + | EXTERNAL LAB | | | | + +---------+ + + POC Glucose (01/30/2016 10:53 PM PDT) + + + + + + | Component | Value | Ref Range | Performed | Pathologist | | | | | At | Signature | + + + + + + | Glucose, | 75Comment: Testing | 65 - 99 mg/dL | EXTERNAL | | | Fingerstick | performed at [facility];[address] | | LAB | | | | [address];[place] | | | | | | [address] | | | | + + + + + + + + | Specimen | + + | | + + + +---------+ + + | Performing | Address | City/State/Zipcode | Phone Number | | Organization | | | | + +---------+ + + | EXTERNAL LAB | | | | + +---------+ + + POC Glucose (01/30/2016 10:15 PM PDT) + + + + + + | Component | Value | Ref Range | Performed | Pathologist | | | | | At | Signature | + + + + + + | Glucose, | 88Comment: Testing | 65 - 99 mg/dL | EXTERNAL | | | Fingerstick | performed at [facility];[address] | | LAB | | | | [address];[place] | | | | | | [address] | | | | + + + + + + + + | Specimen | + + | | + + + +---------+ + + | Performing | Address | City/State/Zipcode | Phone Number | | Organization | | | | + +---------+ + + | EXTERNAL LAB | | | | + +---------+ + + POC Glucose (01/30/2016 9:15 PM PDT) + + + + + + | Component | Value | Ref Range | Performed | Pathologist | | | | | At | Signature | + + + + + + | Glucose, | 152 (H)Comment: Testing | 65 - 99 mg/dL | EXTERNAL | | | Fingerstick | performed at [facility];[address] | | LAB | | | | [address];[place], [place] | | | | | | [address] | | | | + + + + + + + + | Specimen | + + | | + + + +---------+ + + | Performing | Address | City/State/Zipcode | Phone Number | | Organization | | | | + +---------+ + + | EXTERNAL LAB | | | | + +---------+ + + Lactic Acid (01/30/2016 9:01 PM PDT) + + + + + + | Component | Value | Ref Range | Performed | Pathologist | | | | | At | Signature | + + + + + + | Lactate | 5.4 (H)Comment: Testing | 0.4 - 2.0 | EXTERNAL | | | | performed at [facility];[address] | mmol/L | LAB | | | | [address];[place] | | | | | | [address] | | | | + + + + + + + + | Specimen | + + | Blood specimen | | (specimen) | + + + +---------+ + + | Performing | Address | City/State/Zipcode | Phone Number | | Organization | | | | + +---------+ + + | EXTERNAL LAB | | | | + +---------+ + + Phosphorus (01/30/2016 9:00 PM PDT) + + + + + + | Component | Value | Ref Range | Performed | Pathologist | | | | | At | Signature | + + + + + + | PHOSPHORUS | 2.6Comment: Testing | 2.3 - 4.8 mg/dL | EXTERNAL | | | | performed at [facility];[address] | | LAB | | | | [address];[place] | | | | | | [address] | | | | + + + + + + + + | Specimen | + + | Blood specimen | | (specimen) | + + + +---------+ + + | Performing | Address | City/State/Zipcode | Phone Number | | Organization | | | | + +---------+ + + | EXTERNAL LAB | | | | + +---------+ + + Magnesium (01/30/2016 9:00 PM PDT) + + + + + + | Component | Value | Ref Range | Performed | Pathologist | | | | | At | Signature | + + + + + + | Magnesium | 1.5 (L)Comment: Testing | 1.7 - 2.4 mg/dL | EXTERNAL | | | | performed at [facility];[address] | | LAB | | | | [address];[place], [place] | | | | | | [address] | | | | + + + + + + + + | Specimen | + + | Blood specimen | | (specimen) | + + + +---------+ + + | Performing | Address | City/State/Zipcode | Phone Number | | Organization | | | | + +---------+ + + | EXTERNAL LAB | | | | + +---------+ + + Basic Metabolic Panel (01/30/2016 9:00 PM PDT) + + + + + + | Component | Value | Ref Range | Performed | Pathologist | | | | | At | Signature | + + + + + + | Na | 139Comment: Testing | 135 - 143 | EXTERNAL | | | | performed at [facility];[address] | mmol/L | LAB | | | | [address];[place] | | | | | | [address] | | | | + + + + + + | K | 3.3 (L)Comment: Testing | 3.5 - 4.9 | EXTERNAL | | | | performed at [facility];[address] | mmol/L | LAB | | | | [address];[place] | | | | | | [address] | | | | + + + + + + | Cl | 104Comment: Testing | 99 - 109 mmol/L | EXTERNAL | | | | performed at [facility];[address] | | LAB | | | | [address];[place] | | | | | | [address] | | | | + + + + + + | CO2 | 23Comment: Testing | 23 - 32 mmol/L | EXTERNAL | | | | performed at [facility];[address] | | LAB | | | | [address];[place] | | | | | | [id number] | | | | + + + + + + | Anion Gap | 15Comment: Testing | 5 - 20 mmol/L | EXTERNAL | | | | performed at [facility] | | LAB | | | | [address];[place] | | | | | | [address] | | | | + + + + + + | Glucose, | 196 (H)Comment: Testing | 65 - 99 mg/dL | EXTERNAL | | | Fasting | performed at [facility] | | LAB | | | | [address];[place] | | | | | | [address] | | | | + + + + + + | BUN | 12Comment: Testing | 8 - 25 mg/dL | EXTERNAL | | | | performed at [facility] | | LAB | | | | [address];[place] | | | | | | [address] | | | | + + + + + + | Creatinine | 1.6 (H)Comment: Testing | 0.50 - 1.00 | EXTERNAL | | | | performed at [facility] | mg/dL | LAB | | | | [address];[place] | | | | | | [address] | | | | + + + + + + | BUN/Creatin | 8Comment: Testing | | EXTERNAL | | | ine Ratio | performed at [facility] | | LAB | | | | [address];[place] | | | | | | [address] | | | | + + + + + + | Calcium | 5.6 (LL)Comment: CALLED | 8.5 - 10.5 | EXTERNAL | | | | NURSING UNITRESULT READ | mg/dL | LAB | | | | BACK BY:ICU/DENAE MOORE | | | | | | 21:34, ON 01/30/16, BY | | | | | | MYVTesting performed at | | | | | | [facility];[place] [address] | | | | + + + + + + | Estimated | 39 (L)Comment: GFR <60: | mL/min/1.73m2 | EXTERNAL | | | GFR | CHRONIC KIDNEY DISEASE, | | LAB | | | | IF FOUND OVER A 3 MONTH | | | | | | PERIOD.GFR <15: KIDNEY | | | | | | FAILURE.FOR | | | | | | AMERICANS, MULTIPLY THE | | | | | | CALCULATED GFR BY | | | | | | 1.210.Testing performed | | | | | | at [facility];[place] [address] | | | | + + + + + + + + | Specimen | + + | Blood specimen | | (specimen) | + + + +---------+ + + | Performing | Address | City/State/Zipcode | Phone Number | | Organization | | | | + +---------+ + + | EXTERNAL LAB | | | | + +---------+ + + POC Glucose (01/30/2016 8:38 PM PDT) + + + + + + | Component | Value | Ref Range | Performed | Pathologist | | | | | At | Signature | + + + + + + | Glucose, | 64 (L)Comment: Testing | 65 - 99 mg/dL | EXTERNAL | | | Fingerstick | performed at [facility];[address] | | LAB | | | | [address];[place] | | | | | | [address] | | | | + + + + + + + + | Specimen | + + | | + + + +---------+ + + | Performing | Address | City/State/Zipcode | Phone Number | | Organization | | | | + +---------+ + + | EXTERNAL LAB | | | | + +---------+ + + POC Glucose (01/30/2016 7:29 PM PDT) + + + + + + | Component | Value | Ref Range | Performed | Pathologist | | | | | At | Signature | + + + + + + | Glucose, | 74Comment: Testing | 65 - 99 mg/dL | EXTERNAL | | | Fingerstick | performed at [facility] | | LAB | | | | [address];[place] | | | | | | [address] | | | | + + + + + + + + | Specimen | + + | | + + + +---------+ + + | Performing | Address | City/State/Zipcode | Phone Number | | Organization | | | | + +---------+ + + | EXTERNAL LAB | | | | + +---------+ + + Phosphorus (01/30/2016 7:00 PM PDT) + + + + + + | Component | Value | Ref Range | Performed | Pathologist | | | | | At | Signature | + + + + + + | PHOSPHORUS | 3.4Comment: Testing | 2.3 - 4.8 mg/dL | EXTERNAL | | | | performed at [facility] | | LAB | | | | [facility];[place], [place] | | | | | | [address] | | | | + + + + + + + + | Specimen | + + | Blood specimen | | (specimen) | + + + +---------+ + + | Performing | Address | City/State/Zipcode | Phone Number | | Organization | | | | + +---------+ + + | EXTERNAL LAB | | | | + +---------+ + + Magnesium (01/30/2016 7:00 PM PDT) + + + + + + | Component | Value | Ref Range | Performed | Pathologist | | | | | At | Signature | + + + + + + | Magnesium | 1.7Comment: Testing | 1.7 - 2.4 mg/dL | EXTERNAL | | | | performed at [facility];[address] | | LAB | | | | [address];[place], [place] | | | | | | [address] | | | | + + + + + + + + | Specimen | + + | Blood specimen | | (specimen) | + + + +---------+ + + | Performing | Address | City/State/Zipcode | Phone Number | | Organization | | | | + +---------+ + + | EXTERNAL LAB | | | | + +---------+ + + Basic Metabolic Panel (01/30/2016 7:00 PM PDT) + + + + + + | Component | Value | Ref Range | Performed | Pathologist | | | | | At | Signature | + + + + + + | Na | 141Comment: Testing | 135 - 143 | EXTERNAL | | | | performed at [facility];[address] | mmol/L | LAB | | | | [address];[place] | | | | | | [address] | | | | + + + + + + | K | 3.4 (L)Comment: Testing | 3.5 - 4.9 | EXTERNAL | | | | performed at [facility];[address] | mmol/L | LAB | | | | [address];[place] | | | | | | [address] | | | | + + + + + + | Cl | 106Comment: Testing | 99 - 109 mmol/L | EXTERNAL | | | | performed at [facility];[address] | | LAB | | | | [address];[place] | | | | | | [address] | | | | + + + + + + | CO2 | 17 (L)Comment: Testing | 23 - 32 mmol/L | EXTERNAL | | | | performed at [facility];[address] | | LAB | | | | [address];[place] | | | | | | [address] | | | | + + + + + + | Anion Gap | 21 (H)Comment: Testing | 5 - 20 mmol/L | EXTERNAL | | | | performed at [facility];[address] | | LAB | | | | [address];[place] | | | | | | [address] | | | | + + + + + + | Glucose, | 96Comment: Testing | 65 - 99 mg/dL | EXTERNAL | | | Fasting | performed at [facility];[address] | | LAB | | | | [address];[place] | | | | | | [address] | | | | + + + + + + | BUN | 15Comment: Testing | 8 - 25 mg/dL | EXTERNAL | | | | performed at [facility];[address] | | LAB | | | | [address];[place] | | | | | | [address] | | | | + + + + + + | Creatinine | 1.7 (H)Comment: Testing | 0.50 - 1.00 | EXTERNAL | | | | performed at [facility];[address] | mg/dL | LAB | | | | [address];[place] | | | | | | [address] | | | | + + + + + + | BUN/Creatin | 9Comment: Testing | | EXTERNAL | | | ine Ratio | performed at [facility];[address] | | LAB | | | | [address];[place] | | | | | | [address] | | | | + + + + + + | Calcium | 5.8 (LL)Comment: CALLED | 8.5 - 10.5 | EXTERNAL | | | | NURSING UNITRESULT READ | mg/dL | LAB | | | | BACK BY:ICU/MOHSEN Ruiz AT | | | | | | 19:43, ON 01/30/16, BY | | | | | | MYVTesting performed at | | | | | | [facility];[address] [facility] | | | | | | [address];[place] [address] | | | | + + + + + + | Estimated | 36 (L)Comment: GFR <60: | mL/min/1.73m2 | EXTERNAL | | | GFR | CHRONIC KIDNEY DISEASE, | | LAB | | | | IF FOUND OVER A 3 MONTH | | | | | | PERIOD.GFR <15: KIDNEY | | | | | | FAILURE.FOR | | | | | | AMERICANS, MULTIPLY THE | | | | | | CALCULATED GFR BY | | | | | | 1.210.Testing performed | | | | | | at [facility];[address];[place] [address] | | | | + + + + + + + + | Specimen | + + | Blood specimen | | (specimen) | + + + +---------+ + + | Performing | Address | City/State/Zipcode | Phone Number | | Organization | | | | + +---------+ + + | EXTERNAL LAB | | | | + +---------+ + + POC Glucose (01/30/2016 6:24 PM PDT) + + + + + + | Component | Value | Ref Range | Performed | Pathologist | | | | | At | Signature | + + + + + + | Glucose, | 104 (H)Comment: Testing | 65 - 99 mg/dL | EXTERNAL | | | Fingerstick | performed at [facility];[address] | | LAB | | | | [address];[place] | | | | | | [address] | | | | + + + + + + + + | Specimen | + + | | + + + +---------+ + + | Performing | Address | City/State/Zipcode | Phone Number | | Organization | | | | + +---------+ + + | EXTERNAL LAB | | | | + +---------+ + + Phosphorus (01/30/2016 6:04 PM PDT) + + + + + + | Component | Value | Ref Range | Performed | Pathologist | | | | | At | Signature | + + + + + + | PHOSPHORUS | 3.7Comment: Testing | 2.3 - 4.8 mg/dL | EXTERNAL | | | | performed at [facility];[address] | | LAB | | | | [address];[place] | | | | | | [address] | | | | + + + + + + + + | Specimen | + + | Blood specimen | | (specimen) | + + + +---------+ + + | Performing | Address | City/State/Zipcode | Phone Number | | Organization | | | | + +---------+ + + | EXTERNAL LAB | | | | + +---------+ + + Magnesium (01/30/2016 6:04 PM PDT) + + + + + + | Component | Value | Ref Range | Performed | Pathologist | | | | | At | Signature | + + + + + + | Magnesium | 1.9Comment: SLT | 1.7 - 2.4 mg/dL | EXTERNAL | | | | HEMOLYSISTesting | | LAB | | | | performed at [facility] | | | | | | [address];[place] | | | | | | [address] | | | | + + + + + + + + | Specimen | + + | Blood specimen | | (specimen) | + + + +---------+ + + | Performing | Address | City/State/Zipcode | Phone Number | | Organization | | | | + +---------+ + + | EXTERNAL LAB | | | | + +---------+ + + Basic Metabolic Panel (01/30/2016 6:04 PM PDT) + + + + + + | Component | Value | Ref Range | Performed | Pathologist | | | | | At | Signature | + + + + + + | Na | 142Comment: Testing | 135 - 143 | EXTERNAL | | | | performed at [facility];[address] | mmol/L | LAB | | | | [address];[place] | | | | | | [address] | | | | + + + + + + | K | 3.6Comment: SLT | 3.5 - 4.9 | EXTERNAL | | | | HEMOLYSISTesting | mmol/L | LAB | | | | performed at [facility];[address] | | | | | | [address];[place] | | | | | | [address] | | | | + + + + + + | Cl | 111 (H)Comment: Testing | 99 - 109 mmol/L | EXTERNAL | | | | performed at [facility];[address] | | LAB | | | | [address];[place] | | | | | | [address] | | | | + + + + + + | CO2 | 20 (L)Comment: Testing | 23 - 32 mmol/L | EXTERNAL | | | | performed at [facility];[address] | | LAB | | | | [address];[place] | | | | | | [address] | | | | + + + + + + | Anion Gap | 15Comment: Testing | 5 - 20 mmol/L | EXTERNAL | | | | performed at [facility];[address] | | LAB | | | | [address];[place] | | | | | | [address] | | | | + + + + + + | Glucose, | 118 (H)Comment: Testing | 65 - 99 mg/dL | EXTERNAL | | | Fasting | performed at [facility];[address] | | LAB | | | | [address];[place] | | | | | | [address] | | | | + + + + + + | BUN | 19Comment: Testing | 8 - 25 mg/dL | EXTERNAL | | | | performed at [facility];[address] | | LAB | | | | [address];[place] | | | | | | [address] | | | | + + + + + + | Creatinine | 2.0 (H)Comment: Testing | 0.50 - 1.00 | EXTERNAL | | | | performed at [facility];[address] | mg/dL | LAB | | | | [address];[place] | | | | | | [address] | | | | + + + + + + | BUN/Creatin | 9Comment: Testing | | EXTERNAL | | | ine Ratio | performed at [facility];[address] | | LAB | | | | [address];[place] | | | | | | [address] | | | | + + + + + + | Calcium | 5.5 (LL)Comment: CALLED | 8.5 - 10.5 | EXTERNAL | | | | NURSING UNITRESULT READ | mg/dL | LAB | | | | BACK BY:JOSH/RUTH Snider AT | | | | | | 18:30, ON 01/30/16, BY | | | | | | MYVTesting performed at | | | | | | [facility];[address];[place] [address] | | | | + + + + + + | Estimated | 30 (L)Comment: GFR <60: | mL/min/1.73m2 | EXTERNAL | | | GFR | CHRONIC KIDNEY DISEASE, | | LAB | | | | IF FOUND OVER A 3 MONTH | | | | | | PERIOD.GFR <15: KIDNEY | | | | | | FAILURE.FOR | | | | | | AMERICANS, MULTIPLY THE | | | | | | CALCULATED GFR BY | | | | | | 1.210.Testing performed | | | | | | at [facility];[address] [place] [address] | | | | | | [facility];[place] [address] | | | | + + + + + + + + | Specimen | + + | Blood specimen | | (specimen) | + + + +---------+ + + | Performing | Address | City/State/Zipcode | Phone Number | | Organization | | | | + +---------+ + + | EXTERNAL LAB | | | | + +---------+ + + Magnesium (01/30/2016 5:24 PM PDT) + + + + + + | Component | Value | Ref Range | Performed | Pathologist | | | | | At | Signature | + + + + + + | Magnesium | 2.7 (H)Comment: SLT | 1.7 - 2.4 mg/dL | EXTERNAL | | | | HEMOLYSISTesting | | LAB | | | | performed at [facility];[address] | | | | | | [address];[place], [place] | | | | | | [address] | | | | + + + + + + + + | Specimen | + + | Blood specimen | | (specimen) | + + + +---------+ + + | Performing | Address | City/State/Zipcode | Phone Number | | Organization | | | | + +---------+ + + | EXTERNAL LAB | | | | + +---------+ + + Lactic Acid (01/30/2016 5:24 PM PDT) + + + + + + | Component | Value | Ref Range | Performed | Pathologist | | | | | At | Signature | + + + + + + | Lactate | 4.1 (H)Comment: Testing | 0.4 - 2.0 | EXTERNAL | | | | performed at [facility];[address] | mmol/L | LAB | | | | [address];[place] | | | | | | [address] | | | | + + + + + + + + | Specimen | + + | Blood specimen | | (specimen) | + + + +---------+ + + | Performing | Address | City/State/Zipcode | Phone Number | | Organization | | | | + +---------+ + + | EXTERNAL LAB | | | | + +---------+ + + POC Glucose (01/30/2016 5:16 PM PDT) + + + + + + | Component | Value | Ref Range | Performed | Pathologist | | | | | At | Signature | + + + + + + | Glucose, | 123 (H)Comment: Testing | 65 - 99 mg/dL | EXTERNAL | | | Fingerstick | performed at [facility];[address] | | LAB | | | | [address];[place], [place] | | | | | | [address] | | | | + + + + + + + + | Specimen | + + | | + + + +---------+ + + | Performing | Address | City/State/Zipcode | Phone Number | | Organization | | | | + +---------+ + + | EXTERNAL LAB | | | | + +---------+ + + XR Chest 1 Vw (01/30/2016 4:25 PM PDT) + + | Specimen | + + | | + + + + + | Impressions | Performed At | + + + | 1. New right IJ catheter in radiographically appropriate | | | position, without pneumothorax 2. Severe infiltrates compatible | | | with infection or capillary leak syndrome/dominant in the right upper | | | lobe with evolving bihilar ARDS pattern. Unchanged over recent | | | interval. Electronically signed by Ashu Antoine MD on | | | 01/30/2016 4:59 PM | | + + + + + + | Narrative | Performed At | + + + | History: 35 years old Female with new catheter. Technique: | | | Computer enhanced semierect portable radiographic examination of the | | | chest, obtained at 16:07 on 30 January 2016. Prior study for | | | comparison -- 14:45. 30 January 2016. Findings: Cardiomediastinum | | | stable, without cardiomegaly. Support equipment new right IJ | | | catheter, terminates at level of the cava atrial junction. The left | | | subclavian catheter, the enteric tube and the endotracheal tube are | | | all stable and in radiographically appropriate positions Lungs are | | | stably inflated but there are severe infiltrates in both | | | hemithoraces, dense and somewhat consolidative in the right upper | | | lobe, dense airspace infiltrates in midlung rangel noted in both | | | hemithoraces-superimposed. Bones and soft tissues are unchanged. | | | | | + + + + + | Procedure Note | + + | Bert, Rad Conversion - 05/18/2019 6:31 PM PDT History: 35 years old Female with new | | catheter. Technique: Computer enhanced semierect portable radiographic examination of | | the chest, obtained at 16:07 on 30 January 2016. Prior study for comparison -- 14:45. 28 | | January 2016. Findings: Cardiomediastinum stable, without cardiomegaly. Support equipment | | new right IJ catheter, terminates at level of the cava atrial junction. The left | | subclavian catheter, the enteric tube and the endotracheal tube are all stable and in | | radiographically appropriate positions Lungs are stably inflated but there are severe | | infiltrates in both hemithoraces, dense and somewhat consolidative in the right upper | | lobe, dense airspace infiltrates in midlung rangel noted in both | | hemithoraces-superimposed. Bones and soft tissues are unchanged. IMPRESSION: 1. New | | right IJ catheter in radiographically appropriate position, without pneumothorax 2. | | Severe infiltrates compatible with infection or capillary leak syndrome/dominant in the | | right upper lobe with evolving bihilar ARDS pattern. Unchanged over recent interval. | | | |IMPRESSION: | | | |1. New right IJ catheter in radiographically appropriate position, without pneumothorax | | | |2. Severe infiltrates compatible with infection or capillary leak syndrome/dominant in the right upper lobe with evolving bihilar ARDS pattern. Unchanged over recent interval. | | | | | + + POC Glucose (01/30/2016 4:04 PM PDT) + + + + + + | Component | Value | Ref Range | Performed | Pathologist | | | | | At | Signature | + + + + + + | Glucose, | 142 (H)Comment: Testing | 65 - 99 mg/dL | EXTERNAL | | | Fingerstick | performed at [facility];[address] | | LAB | | | | [address];[place], [place] | | | | | | [address] | | | | + + + + + + + + | Specimen | + + | | + + + +---------+ + + | Performing | Address | City/State/Zipcode | Phone Number | | Organization | | | | + +---------+ + + | EXTERNAL LAB | | | | + +---------+ + + Streptococcus Pneumoniae Ag, Urine (01/30/2016 3:39 PM PDT) + + | Specimen | + + | | + + + + + | Narrative | Performed At | + + + | S PNEUMONIAE AG, UR NEGATIVE A NEGATIVE | EXTERNAL LAB | | S. PNEUMONIAE URINARY ANTIGEN TEST RESULT DOES NOT EXCLUDE INFECTION | | | WITH S. PNEUMONIAE. CLINICAL CORRELATION IS RECOMMENDED. Testing | | | performed at [place] [address] | | + + + + +---------+ + + | Performing | Address | City/State/Zipcode | Phone Number | | Organization | | | | + +---------+ + + | EXTERNAL LAB | | | | + +---------+ + + Legionella, Ag, EIA, Qual, Urine (01/30/2016 3:39 PM PDT) + + + + + + | Component | Value | Ref Range | Performed | Pathologist | | | | | At | Signature | + + + + + + | LEGIONELLA | NEGATIVEComment: THIS | | EXTERNAL | | | AG,U INTERP | ASSAY DETECTS LEGIONELLA | | LAB | | | | PNEUMOPHILA SEROGROUP | | | | | | ONE (1) ANTIGEN.A | | | | | | NEGATIVE TEST RESULT | | | | | | DOES NOT RULE OUT THE | | | | | | POSSIBILITY OF | | | | | | LEGIONELLAINFECTION DUE | | | | | | TO OTHER SEROGROUPS OR | | | | | | SPECIES OF | | | | | | LEGIONELLA.Testing | | | | | | performed at [facility], [address] | | | | | | [facility] | | | | | | [place] [address] | | | | + + + + + + + + | Specimen | + + | Urine specimen | | (specimen) | + + + +---------+ + + | Performing | Address | City/State/Zipcode | Phone Number | | Organization | | | | + +---------+ + + | EXTERNAL LAB | | | | + +---------+ + + POC CG 4, ISTAT Arterial (01/30/2016 3:14 PM PDT) + + + + + + | Component | Value | Ref Range | Performed | Pathologist | | | | | At | Signature | + + + + + + | PH ART | 7.043 (LL)Comment: | 7.350 - 7.450 | EXTERNAL | | | | Testing performed at | | LAB | | | | [facility] [address];[place] [address] | | | | + + + + + + | PCO2 ART | 39Comment: Testing | 35 - 45 mmHg | EXTERNAL | | | | performed at [facility];[address] | | LAB | | | | [address];[place] | | | | | | [address] | | | | + + + + + + | PO2 ART | 77 (L)Comment: Testing | 80 - 105 mmHg | EXTERNAL | | | | performed at [facility];[address] | | LAB | | | | [address];[place] | | | | | | [address] | | | | + + + + + + | Lactate, | 3.2 (H)Comment: Testing | 0.36 - 1.25 | EXTERNAL | | | Arterial | performed at [facility];[address] | mmol/L | LAB | | | | [address];[place] | | | | | | [address] | | | | + + + + + + | HCO3 ART | 11 (L)Comment: Testing | 22 - 26 mmol/L | EXTERNAL | | | | performed at [facility];[address] | | LAB | | | | [address];[place] | | | | | | [address] | | | | + + + + + + | POC | 12 (L)Comment: Testing | 23 - 27 mEq/L | EXTERNAL | | | APPEARANCE | performed at [facility];[address] | | LAB | | | UA | [address];[place] | | | | | | [address] | | | | + + + + + + | Base | 20 (H)Comment: Testing | 0.0 - 2.0 | EXTERNAL | | | deficit | performed at [facility];[address] | mmol/L | LAB | | | | [address];[place] | | | | | | [address] | | | | + + + + + + | O2 SAT ART | 88 (L)Comment: Testing | 95 - 98 % | EXTERNAL | | | | performed at [facility];[address] | | LAB | | | | [address];[place] | | | | | | [address] | | | | + + + + + + | FiO2, POC | 100Comment: Testing | % | EXTERNAL | | | | performed at [facility];[address] | | LAB | | | | [address];[place] | | | | | | [address] | | | | + + + + + + | Comment, | Tidal Volume = | | EXTERNAL | | | POC | 420Comment: Peep = | | LAB | | | | 14Resp Rate = 30Testing | | | | | | performed at [facility];[address] | | | | | | [address];[place] | | | | | | [address] | | | | + + + + + + + + | Specimen | + + | | + + + +---------+ + + | Performing | Address | City/State/Zipcode | Phone Number | | Organization | | | | + +---------+ + + | EXTERNAL LAB | | | | + +---------+ + + XR Chest 1 Vw (01/30/2016 3:00 PM PDT) + + | Specimen | + + | | + + + + + | Impressions | Performed At | + + + | 1. Support tubes and line as noted in the findings. 2. | | | Bilateral central mixed airspace and interstitial opacities appear | | | to be slightly less confluent, suggesting improving edema. Continued | | | follow-up is suggested. Electronically signed by Andrés Arnold on | | | 01/30/2016 3:08 PM | | + + + + + + | Narrative | Performed At | + + + | MYESHA HASTINGS 1980 35 years XR CHEST 1 VIEW 01/30/2016 3:00 | | | PM INDICATION: Placement of tubes and lines. TECHNIQUE: Single | | | frontal view. COMPARISON: Chest x-ray 01/30/2016 at 11:01 AM. | | | FINDINGS: Endotracheal tube tip projects 5.3 cm above the nadir. | | | Left-sided subclavian central line tip projects 3.3 cm below the | | | nadir, over the lower SVC. G-tube is noted coursing to the diaphragm | | | and its tip is not seen. No pneumothorax is seen. There are | | | bilateral predominantly central mixed airspace and interstitial | | | opacities noted, which appear to be slightly less confluent compared | | | to the prior examination. Cardiomediastinal silhouette appears stable. | | | Osseous structures appear unremarkable. | | + + + + + | Procedure Note | + + | Bert, Rad Conversion - 05/18/2019 6:31 PM PDT MYESHA [id number] yearsXR CHEST | | 1 VIEW01/30/2016 3:00 PM INDICATION: Placement of tubes and lines. TECHNIQUE: Single | | frontal view. COMPARISON: Chest x-ray 01/30/2016 at 11:01 AM. FINDINGS: Endotracheal | | tube tip projects 5.3 cm above the nadir. Left-sided subclavian central line tip | | projects 3.3 cm below the nadir, over the lower SVC. G-tube is noted coursing to the | | diaphragm and its tip is not seen. No pneumothorax is seen. There are bilateral | | predominantly central mixed airspace and interstitial opacities noted, which appear to | | be slightly less confluent compared to the prior examination. Cardiomediastinal | | silhouette appears stable. Osseous structures appear unremarkable. IMPRESSION: 1. | | Support tubes and line as noted in the findings.2. Bilateral central mixed airspace and | | interstitial opacities appear to be slightly less confluent, suggesting improving | | edema. Continued follow-up is suggested. Electronically signed by Andrés Arnold on | | 01/30/2016 3:08 PM | |There are bilateral predominantly central mixed airspace and interstitial opacities noted, which appear to be slightly less confluent compared to the prior examination. Cardiomediasti nal silhouette appears stable. | |Osseous structures appear unremarkable. | | | |IMPRESSION: | |1. Support tubes and line as noted in the findings. | |2. Bilateral central mixed airspace and interstitial opacities appear to be slightly less confluent, suggesting improving edema. Continued follow-up is suggested. | | | | | + + POC Glucose (01/30/2016 2:51 PM PDT) + + + + + + | Component | Value | Ref Range | Performed | Pathologist | | | | | At | Signature | + + + + + + | Glucose, | 144 (H)Comment: Testing | 65 - 99 mg/dL | EXTERNAL | | | Fingerstick | performed at [facility];[address] | | LAB | | | | [address];[place] | | | | | | [address] | | | | + + + + + + + + | Specimen | + + | | + + + +---------+ + + | Performing | Address | City/State/Zipcode | Phone Number | | Organization | | | | + +---------+ + + | EXTERNAL LAB | | | | + +---------+ + + CT Head wo Contrast (01/30/2016 2:50 PM PDT) + + | Specimen | + + | | + + + + + | Impressions | Performed At | + + + | 1. Diffuse mucosal thickening, and fluid in ethmoid, sphenoid and | | | maxillary air cells. Frontal sinuses are also involved to a lesser | | | degree-this could be infectious, inflammatory or posttraumatic 2. | | | Possible mastoid air cell erosion and full tissue and/or fluid about | | | right mastoid air cells, possibly extending into the right middle ear | | | and ossicles. This too could be postinfectious or postinflammatory, | | | there is no proven fracture-although this modality is quite limited | | | for subtle nondisplaced skeletal injuries 3. No positive | | | intracranial mass effect, no proven intracranial hemorrhage or dense | | | lesion 4. Possible posterior posttraumatic change to the | | | superficial tissues to the left of midline near the apex of the | | | posterior occiput | | + + + + + + | Narrative | Performed At | + + + | HISTORY: 35 year-old female, found down, unresponsive. | | | TECHNIQUE: Axial noncontrast head CT. Automatic dose adjustment to | | | minimize patient exposure. Portable technique and therefore more | | | artifact than commonly seen in peripheral and basilar distributions | | | Prior examination: None. FINDINGS: The falx is midline. | | | There is no evidence of abnormal extra axial fluid collection or | | | hemorrhage. The sulcation symmetric, the montgomery-white demarcation is | | | preserved. Patient is intubated. There is diffuse mucosal thickening | | | and fluid in ethmoid, sphenoid and maxillary sinuses, this could be | | | infectious, inflammatory or posttraumatic-sequelae of intubation is | | | also a possibility. The nasal septum is midline, there is no | | | proven fracture of the nasal lamina or orbital margins. No calvarial | | | fracture. Soft tissues about the posterior superior occiput to the | | | left of midline or asymmetrically full, no image 28 series | | | 1-superficial to the calvarium. Although there is no dense foreign | | | body or calvarial fracture, post right changes there is certainly | | | possible. No aggressive or lytic calvarial lesion. There is | | | asymmetric fluid or tissue in the right mastoid, with possible erosion | | | of mastoid air cells. Abnormal tissue extends into the right middle | | | ear, about the middle ear ossicles, portable CT technique is limited | | | but again differential considerations include posttraumatic and | | | inflammatory/infectious causes. Intracranial contents is severely | | | limited by peripheral artifact, but there is no hydrocephalus or | | | positive mass effect. No midline shift. No proven intracranial | | | hemorrhage but the examination is quite limited about the periphery | | | and basilar distributions | | + + + + + | Procedure Note | + + | Bert, Rad Conversion - 05/18/2019 6:31 PM PDT HISTORY: 35 year-old female, found | | down, unresponsive. TECHNIQUE: Axial noncontrast head CT. Automatic dose adjustment to | | minimize patient exposure. Portable technique and therefore more artifact than commonly | | seen in peripheral and basilar distributions Prior examination: None. FINDINGS: The falx | | is midline. There is no evidence of abnormal extra axial fluid collection or | | hemorrhage. The sulcation symmetric, the montgomery-white demarcation is preserved. Patient is | | intubated. There is diffuse mucosal thickening and fluid in ethmoid, sphenoid and | | maxillary sinuses, this could be infectious, inflammatory or posttraumatic-sequelae of | | intubation is also a possibility. The nasal septum is midline, there is no proven | | fracture of the nasal lamina or orbital margins. No calvarial fracture. Soft tissues | | about the posterior superior occiput to the left of midline or asymmetrically full, no | | image 28 series 1-superficial to the calvarium. Although there is no dense foreign body | | or calvarial fracture, post right changes there is certainly possible. No aggressive or | | lytic calvarial lesion. There is asymmetric fluid or tissue in the right mastoid, with | | possible erosion of mastoid air cells. Abnormal tissue extends into the right middle | | ear, about the middle ear ossicles, portable CT technique is limited but again | | differential considerations include posttraumatic and inflammatory/infectious causes. | | Intracranial contents is severely limited by peripheral artifact, but there is no | | hydrocephalus or positive mass effect. No midline shift. No proven intracranial | | hemorrhage but the examination is quite limited about the periphery and basilar | | distributions IMPRESSION: 1. Diffuse mucosal thickening, and fluid in ethmoid, sphenoid | | and maxillary air cells. Frontal sinuses are also involved to a lesser degree-this | | could be infectious, inflammatory or posttraumatic 2. Possible mastoid air cell erosion | | and full tissue and/or fluid about right mastoid air cells, possibly extending into the | | right middle ear and ossicles. This too could be postinfectious or postinflammatory, | | there is no proven fracture-although this modality is quite limited for subtle | | nondisplaced skeletal injuries 3. No positive intracranial mass effect, no proven | | intracranial hemorrhage or dense lesion 4. Possible posterior posttraumatic change to | | the superficial tissues to the left of midline near the apex of the posterior occiput | | | |3. No positive intracranial mass effect, no proven intracranial hemorrhage or dense lesion | | | |4. Possible posterior posttraumatic change to the superficial tissues to the left of midlin e near the apex of the posterior occiput | | | | | + + Ammonia (01/30/2016 2:06 PM PDT) + + + + + + | Component | Value | Ref Range | Performed | Pathologist | | | | | At | Signature | + + + + + + | Ammonia | 106 (H)Comment: SLT | umol/L | EXTERNAL | | | | HEMOLYSISTesting | | LAB | | | | performed at [facility] [place] | | | | | | [address];[place] | | | | | | [address] | | | | + + + + + + + + | Specimen | + + | Blood specimen | | (specimen) | + + + +---------+ + + | Performing | Address | City/State/Zipcode | Phone Number | | Organization | | | | + +---------+ + + | EXTERNAL LAB | | | | + +---------+ + + Lactic Acid (01/30/2016 1:48 PM PDT) + + + + + + | Component | Value | Ref Range | Performed | Pathologist | | | | | At | Signature | + + + + + + | Lactate | 3.4 (H)Comment: Testing | 0.4 - 2.0 | EXTERNAL | | | | performed at [facility];[address] | mmol/L | LAB | | | | [address];[place], [place] | | | | | | [address] | | | | + + + + + + + + | Specimen | + + | Blood specimen | | (specimen) | + + + +---------+ + + | Performing | Address | City/State/Zipcode | Phone Number | | Organization | | | | + +---------+ + + | EXTERNAL LAB | | | | + +---------+ + + Calcium, Ionized (01/30/2016 1:48 PM PDT) + + + + + + | Component | Value | Ref Range | Performed | Pathologist | | | | | At | Signature | + + + + + + | Calcium | 0.98 (L)Comment: Testing | 1.08 - 1.25 | EXTERNAL | | | (Calc) | performed at [facility];[address] | mmol/L | LAB | | | | [address];[place], [place] | | | | | | [address] | | | | + + + + + + | pH, Bld | 6.977 (L)Comment: | 7.300 - 7.450 | EXTERNAL | | | | Testing performed at | | LAB | | | | [facility];[address];[place] [address] | | | | + + + + + + + + | Specimen | + + | Blood specimen | | (specimen) | + + + +---------+ + + | Performing | Address | City/State/Zipcode | Phone Number | | Organization | | | | + +---------+ + + | EXTERNAL LAB | | | | + +---------+ + + ECHO Complete (01/30/2016 1:47 PM PDT) + + | Specimen | + + | | + + + + + | Impressions | Performed At | + + + | 1. Overall left ventricular systolic function is mild-moderately | | | impaired with, an EF between 40 - 45 %. 2. mid anteroseptal - | | | moderately hypokinetic; 3. Mild mitral regurgitation is present. 4. | | | The right ventricular systolic pressure (pulmonary artery systolic | | | pressure), as measured by Doppler, is 31.85mmHg. | | + + + + + + | Narrative | Performed At | + + + | Patient Name: MYESHA HASTINGS Date of : 1980 | | | Performing Physician: Oscar Shafer MD | | | | | | INDICATIONS sob CONCLUSIONS 1. Overall | | | left ventricular systolic function is mild-moderately impaired with, | | | an EF between 40 - 45 %. 2. mid anteroseptal - moderately | | | hypokinetic; 3. Mild mitral regurgitation is present. 4. The right | | | ventricular systolic pressure (pulmonary artery systolic pressure), as | | | measured by Doppler, is 31.85mmHg. FINDINGS -------- ECG | | | rhythm: Resting tachycardia (HR>100bpm). Study: A 2-dimensional | | | transthoracic echocardiogram with m-mode, spectral and color flow | | | Doppler was perfomed. Study: This was a technically difficult study | | | with suboptimal views. Left Ventricle: Overall left ventricular | | | systolic function is mild-moderately impaired with, an EF between 40 - | | | 45 %. Left Ventricle: The left ventricle cavity size is normal. | | | Left Ventricle: Left ventricular wall thickness is normal. Left | | | Ventricle: The following regional wall motion abnormalities include: | | | Left Ventricle: mid anteroseptal - moderately hypokinetic; Right | | | Ventricle: The right ventricle is normal in size. Left Atrium: The | | | left atrium is normal in size. Right Atrium: The right atrium is | | | normal in size. Aortic Valve: The aortic valve is trileaflet and | | | appears structurally normal. Mitral Valve: Normal appearing mitral | | | valve. Mitral Valve: Mild mitral regurgitation is present. Tricuspid | | | Valve: The tricuspid valve appears structurally normal. Tricuspid | | | Valve: Trace tricuspid regurgitation present. Tricuspid Valve: There | | | is no evidence of pulmonary hypertension. Tricuspid Valve: The right | | | ventricular systolic pressure (pulmonary artery systolic pressure), as | | | measured by Doppler, is 31.85mmHg. Pericardium: There is a trivial | | | pericardial effusion present. Pericardium: No pleural effusion seen. | | | IVC/Hepatic Veins: The IVC is normal size (1.5-2.5cm) and collapses | | | <50% with sniff, consistent with central venous pressures of | | | 10-15mmHg. Mass: No mass visualized Thrombus: No clot visualized | | | MEASUREMENTS IVC: 1.65 cm LA Major: 3.63 cm | | | EDV(Teich): 67.52 ml IVSd: 0.80 cm LVIDd: 3.93 cm LVPWd: | | | 0.93 cm LVOT Diam: 2.06 cm %FS: 18.57 % EF(Teich): | | | 38.97 % ESV(Teich): 41.20 ml IVSs: 0.94 cm LVIDs: 3.20 cm | | | LVPWs: 1.18 cm SV(Teich): 26.31 ml RA Major: 3.61 cm | | | RVIDd: 2.79 cm LVEF MOD A4C: 32.75 % SV MOD A4C: 15.61 ml | | | LVEDV MOD A4C: 47.66 ml LVLd A4C: 7.03 cm LVESV MOD A4C: | | | 32.05 ml LVLs A4C: 6.04 cm LAESV(A-L): 19.37 ml LAESV Index | | | (A-L): 10.41 ml/m2 LAAs A2C: 10.28 cm2 LAESV A-L A2C: 22.94 | | | ml LAESV MOD A2C: 21.10 ml LALs A2C: 3.91 cm LAAs A4C: | | | 7.41 cm2 LAESV A-L A4C: 13.96 ml LAESV MOD A4C: 13.33 ml LALs | | | A4C: 3.34 cm Ao Diam: 2.92 cm AV Cusp: 1.56 cm LA Diam: | | | 2.96 cm LA/Ao: 1.01 HR: 132.03 BPM AV maxP.34 mmHg | | | AV meanP.59 mmHg AV Vmax: 0.76 m/s AV Vmean: 0.61 m/s | | | AV VTI: 9.03 cm DINA Vmax: 2.84 cm2 DINA (VTI): 3.00 cm2 | | | LVCI Dopp: 1.97 l/minm2 LVCO Dopp: 3.67 l/min HR: 135.46 | | | BPM LVOT maxP.69 mmHg LVOT meanP.01 mmHg LVSI Dopp: | | | 14.58 ml/m2 LVSV Dopp: 27.12 ml LVOT Vmax: 0.65 m/s LVOT | | | Vmean: 0.48 m/s LVOT VTI: 8.10 cm MV A Marcio: 0.54 m/s MV | | | DecT: 102.20 ms MV E Mracio: 0.38 m/s MV E/A Ratio: 0.71 MV | | | PHT: 29.14 ms MVA By PHT: 7.54 cm2 MV A Dur: 138.40 ms MV | | | maxP.72 mmHg MV meanP.92 mmHg MV Vmax: 0.65 m/s MV | | | Vmean: 0.45 m/s MV VTI: 8.15 cm MVA (VTI): 3.32 cm2 | | | Septal e': 0.04 m/s Septal E/e': 9.35 Lateral e': 0.06 m/s | | | Lateral E/e': 6.31 HR: 129.40 BPM PV maxP.43 mmHg PV | | | meanP.56 mmHg PV Vmax: 0.78 m/s PV Vmean: 0.60 m/s PV | | | VTI: 11.22 cm RAP: 10 mmHg RVSP: 31.85 mmHg TR maxPG: | | | 21.85 mmHg TR Vmax: 2.33 m/s TV A Marcio: 0.64 m/s TV Dec Twiggs: | | | 2.85 m/s2 TV Dec Time: 124.74 ms TV E Marcio: 0.35 m/s TV | | | E/A Ratio: 0.55 Tableau Administrator: JUNIE Authenticated by: Oscar | | | Hollis ALEXIS Report Date/Time: 01-30-2016 18:02:22 | | + + + + + | Procedure Note | + + | Beka Noel Conversion - 05/18/2019 6:31 PM PDT Patient Name: Ko HASTINGS | | : 1980 Performing Physician: Oscar Shafer | | INDICATIONS s | | ob CONCLUSIONS 1. Overall left ventricular systolic function is | | mild-moderately impaired with, an EF between 40 - 45 %.2. mid anteroseptal - moderately | | hypokinetic;3. Mild mitral regurgitation is present.4. The right ventricular systolic | | pressure (pulmonary artery systolic pressure), as measured by Doppler, is 31.85mmHg. | | FINDINGS--------ECG rhythm: Resting tachycardia (HR>100bpm).Study: A 2-dimensional | | transthoracic echocardiogram with m-mode, spectral and color flow Doppler was | | perfomed.Study: This was a technically difficult study with suboptimal views.Left | | Ventricle: Overall left ventricular systolic function is mild-moderately impaired with, | | an EF between 40 - 45 %.Left Ventricle: The left ventricle cavity size is normal.Left | | Ventricle: Left ventricular wall thickness is normal.Left Ventricle: The following | | regional wall motion abnormalities include:Left Ventricle: mid anteroseptal - moderately | | hypokinetic;Right Ventricle: The right ventricle is normal in size.Left Atrium: The | | left atrium is normal in size.Right Atrium: The right atrium is normal in size.Aortic | | Valve: The aortic valve is trileaflet and appears structurally normal.Mitral Valve: | | Normal appearing mitral valve.Mitral Valve: Mild mitral regurgitation is | | present.Tricuspid Valve: The tricuspid valve appears structurally normal.Tricuspid | | Valve: Trace tricuspid regurgitation present.Tricuspid Valve: There is no evidence of | | pulmonary hypertension.Tricuspid Valve: The right ventricular systolic pressure | | (pulmonary artery systolic pressure), as measured by Doppler, is 31.85mmHg.Pericardium: | | There is a trivial pericardial effusion present.Pericardium: No pleural effusion | | seen.IVC/Hepatic Veins: The IVC is normal size (1.5-2.5cm) and collapses <50% with | | sniff, consistent with central venous pressures of 10-15mmHg.Mass: No mass | | visualizedThrombus: No clot visualized MEASUREMENTS IVC: 1.65 cmLA Major: | | 3.63 cmEDV(Teich): 67.52 mlIVSd: 0.80 cmLVIDd: 3.93 cmLVPWd: 0.93 cmLVOT Diam: | | 2.06 cm%FS: 18.57 %EF(Teich): 38.97 %ESV(Teich): 41.20 mlIVSs: 0.94 cmLVIDs: | | 3.20 cmLVPWs: 1.18 cmSV(Teich): 26.31 mlRA Major: 3.61 cmRVIDd: 2.79 cmLVEF | | MOD A4C: 32.75 %SV MOD A4C: 15.61 mlLVEDV MOD A4C: 47.66 mlLVLd A4C: 7.03 | | cmLVESV MOD A4C: 32.05 mlLVLs A4C: 6.04 cmLAESV(A-L): 19.37 mlLAESV Index (A-L): | | 10.41 ml/m2LAAs A2C: 10.28 [id number] A-L A2C: 22.94 mlLAESV MOD A2C: 21.10 mlLALs | | A2C: 3.91 cmLAAs A4C: 7.41 [id number] A-L A4C: 13.96 mlLAESV MOD A4C: 13.33 mlLALs | | A4C: 3.34 cmAo Diam: 2.92 cmAV Cusp: 1.56 cmLA Diam: 2.96 cmLA/Ao: 1.01HR: | | 132.03 BPMAV maxP.34 mmHgAV meanP.59 mmHgAV Vmax: 0.76 m/Mary Vmean: 0.61 | | m/Mary VTI: 9.03 cmAVA Vmax: 2.84 cm2AVA (VTI): 3.00 uz1VFGL Dopp: 1.97 | | l/[id number] Dopp: 3.67 l/minHR: 135.46 BPMLVOT maxP.69 mmHgLVOT meanP.01 | | mmHgLVSI Dopp: 14.58 ml/m2LVSV Dopp: 27.12 mlLVOT Vmax: 0.65 m/sLVOT Vmean: | | 0.48 m/sLVOT VTI: 8.10 cmMV A Marcio: 0.54 m/sMV DecT: 102.20 msMV E Marcio: 0.38 | | m/sMV E/A Ratio: 0.71MV PHT: 29.14 msMVA By PHT: 7.54 cm2MV A Dur: 138.40 msMV | | maxP.72 mmHgMV meanP.92 mmHgMV Vmax: 0.65 m/sMV Vmean: 0.45 m/sMV VTI: | | 8.15 cmMVA (VTI): 3.32 wi9Gabsts e': 0.04 m/sSeptal E/e': 9.35Lateral e': 0.06 | | m/sLateral E/e': 6.31HR: 129.40 BPMPV maxP.43 mmHgPV meanP.56 mmHgPV | | Vmax: 0.78 m/sPV Vmean: 0.60 m/sPV VTI: 11.22 cmRAP: 10 mmHgRVSP: 31.85 mmHgTR | | maxP.85 mmHgTR Vmax: 2.33 m/sTV A Marcio: 0.64 m/sTV Dec Twiggs: 2.85 m/s2TV | | Dec Time: 124.74 msTV E Marcio: 0.35 m/sTV E/A Ratio: 0.55 Tableau Administrator: | | CMAuthenticated by: Oscar [facility] Date/Time: 01-30-2016 18:02:22 IMPRESSION: 1. | | Overall left ventricular systolic function is mild-moderately impaired with, an EF | | between 40 - 45 %.2. mid anteroseptal - moderately hypokinetic;3. Mild mitral | | regurgitation is present.4. The right ventricular systolic pressure (pulmonary artery | | systolic pressure), as measured by Doppler, is 31.85mmHg. | |LVIDd: 3.93 cm | |LVPWd: 0.93 cm | |LVOT Diam: 2.06 cm | |%FS: 18.57 % | |EF(Teich): 38.97 % | |ESV(Teich): 41.20 ml | |IVSs: 0.94 cm | |LVIDs: 3.20 cm | |LVPWs: 1.18 cm | |SV(Teich): 26.31 ml | |RA Major: 3.61 cm | |RVIDd: 2.79 cm | |LVEF MOD A4C: 32.75 % | |SV MOD A4C: 15.61 ml | |LVEDV MOD A4C: 47.66 ml | |LVLd A4C: 7.03 cm | |LVESV MOD A4C: 32.05 ml | |LVLs A4C: 6.04 cm | |LAESV(A-L): 19.37 ml | |LAESV Index (A-L): 10.41 ml/m2 | |LAAs A2C: 10.28 cm2 | |LAESV A-L A2C: 22.94 ml | |LAESV MOD A2C: 21.10 ml | |LALs A2C: 3.91 cm | |LAAs A4C: 7.41 cm2 | |LAESV A-L A4C: 13.96 ml | |LAESV MOD A4C: 13.33 ml | |LALs A4C: 3.34 cm | |Ao Diam: 2.92 cm | |AV Cusp: 1.56 cm | |LA Diam: 2.96 cm | |LA/Ao: 1.01 | |HR: 132.03 BPM | |AV maxP.34 mmHg | |AV meanP.59 mmHg | |AV Vmax: 0.76 m/s | |AV Vmean: 0.61 m/s | |AV VTI: 9.03 cm | |DINA Vmax: 2.84 cm2 | |DINA (VTI): 3.00 cm2 | |LVCI Dopp: 1.97 l/minm2 | |LVCO Dopp: 3.67 l/min | |HR: 135.46 BPM | |LVOT maxP.69 mmHg | |LVOT meanP.01 mmHg | |LVSI Dopp: 14.58 ml/m2 | |LVSV Dopp: 27.12 ml | |LVOT Vmax: 0.65 m/s | |LVOT Vmean: 0.48 m/s | |LVOT VTI: 8.10 cm | |MV A Marcio: 0.54 m/s | |MV DecT: 102.20 ms | |MV E Marcio: 0.38 m/s | |MV E/A Ratio: 0.71 | |MV PHT: 29.14 ms | |MVA By PHT: 7.54 cm2 | |MV A Dur: 138.40 ms | |MV maxP.72 mmHg | |MV meanP.92 mmHg | |MV Vmax: 0.65 m/s | |MV Vmean: 0.45 m/s | |MV VTI: 8.15 cm | |MVA (VTI): 3.32 cm2 | |Septal e': 0.04 m/s | |Septal E/e': 9.35 | |Lateral e': 0.06 m/s | |Lateral E/e': 6.31 | |HR: 129.40 BPM | |PV maxP.43 mmHg | |PV meanP.56 mmHg | |PV Vmax: 0.78 m/s | |PV Vmean: 0.60 m/s | |PV VTI: 11.22 cm | |RAP: 10 mmHg | |RVSP: 31.85 mmHg | |TR maxP.85 mmHg | |TR Vmax: 2.33 m/s | |TV A Marcio: 0.64 m/s | |TV Dec Twiggs: 2.85 m/s2 | |TV Dec Time: 124.74 ms | |TV E Marcio: 0.35 m/s | |TV E/A Ratio: 0.55 | | | |Tableau Administrator: CM | |Authenticated by: Oscar Shafer MD | |Report Date/Time: 01-30-2016 18:02:22 | | | |IMPRESSION: | |1. Overall left ventricular systolic function is mild-moderately impaired with, an EF betwe en 40 - 45 %. | |2. mid anteroseptal - moderately hypokinetic; | |3. Mild mitral regurgitation is present. | |4. The right ventricular systolic pressure (pulmonary artery systolic pressure), as measure d by Doppler, is 31.85mmHg. | + + , Urine, Qual (01/30/2016 12:58 PM PDT) + + + + + + | Component | Value | Ref Range | Performed | Pathologist | | | | | At | Signature | + + + + + + | Preg Test, | NEGATIVEComment: Testing | | EXTERNAL | | | Ur | performed at [facility] | | LAB | | | | [facility];[place], [place] | | | | | | [address] | | | | + + + + + + + + | Specimen | + + | Urine specimen | | (specimen) | + + + +---------+ + + | Performing | Address | City/State/Zipcode | Phone Number | | Organization | | | | + +---------+ + + | EXTERNAL LAB | | | | + +---------+ + + POC CG 4, ISTAT Arterial (01/30/2016 12:51 PM PDT) + + + + + + | Component | Value | Ref Range | Performed | Pathologist | | | | | At | Signature | + + + + + + | PH ART | 6.979 ()Comment: | 7.350 - 7.450 | EXTERNAL | | | | Testing performed at | | LAB | | | | [facility];[address] [place] [address] | | | | | | Blvd;[place] [address] | | | | + + + + + + | PCO2 ART | 50 (H)Comment: Testing | 35 - 45 mmHg | EXTERNAL | | | | performed at [facility];[address] | | LAB | | | | [address];[place] | | | | | | [address] | | | | + + + + + + | PO2 ART | 65 (L)Comment: Testing | 80 - 105 mmHg | EXTERNAL | | | | performed at [facility];[address] | | LAB | | | | [address];[place] | | | | | | [address] | | | | + + + + + + | Lactate, | 2.8 (H)Comment: Testing | 0.36 - 1.25 | EXTERNAL | | | Arterial | performed at [facility];[address] | mmol/L | LAB | | | | [address];[place] | | | | | | [address] | | | | + + + + + + | HCO3 ART | 12 (L)Comment: Testing | 22 - 26 mmol/L | EXTERNAL | | | | performed at [facility];[address] | | LAB | | | | [address];[place] | | | | | | [address] | | | | + + + + + + | POC | 13 (L)Comment: Testing | 23 - 27 mEq/L | EXTERNAL | | | APPEARANCE | performed at [facility];[address] | | LAB | | | [address]A | [address];[place] | | | | | | [address] | | | | + + + + + + | Base | 20 (H)Comment: Testing | 0.0 - 2.0 | EXTERNAL | | | deficit | performed at [facility];[address] | mmol/L | LAB | | | | [address];[place] | | | | | | [address] | | | | + + + + + + | O2 SAT ART | 78 (L)Comment: Testing | 95 - 98 % | EXTERNAL | | | | performed at [facility];[address] | | LAB | | | | [address];[place] | | | | | | [address] | | | | + + + + + + | FiO2, POC | 80Comment: Testing | % | EXTERNAL | | | | performed at [facility];[address] | | LAB | | | | [address];[place] | | | | | | [address] | | | | + + + + + + | Comment, | Tidal Volume = | | EXTERNAL | | | POC | 320Comment: Peep = | | LAB | | | | 14Resp Rate = 30Testing | | | | | | performed at [facility];[address] | | | | | [address];[place] | | | | | | [address] | | | | + + + + + + + + | Specimen | + + | | + + + +---------+ + + | Performing | Address | City/State/Zipcode | Phone Number | | Organization | | | | + +---------+ + + | EXTERNAL LAB | | | | + +---------+ + + POC Glucose (01/30/2016 12:49 PM PDT) + + + + + + | Component | Value | Ref Range | Performed | Pathologist | | | | | At | Signature | + + + + + + | Glucose, | 142 (H)Comment: Testing | 65 - 99 mg/dL | EXTERNAL | | | Fingerstick | performed at [facility];[address] | | LAB | | | | [address];[place], [place] | | | | | | [address] | | | | + + + + + + + + | Specimen | + + | | + + + +---------+ + + | Performing | Address | City/State/Zipcode | Phone Number | | Organization | | | | + +---------+ + + | EXTERNAL LAB | | | | + +---------+ + + Culture, Blood, 2nd Specimen (01/30/2016 12:15 PM PDT) + + | Specimen | + + | Blood specimen | | (specimen) | + + + + + | Narrative | Performed At | + + + | Specimen Description BLOOD, LINE DRAW SPECIAL | EXTERNAL LAB | | REQUESTS ART LINE | | | Testing performed at [facility];[address] | [address];[place] [address] CULTURE | | | NO GROWTH 6 DAYS | | | Testing performed at [facility], [address] [facility] [address], [place], [place] | | | [address] | | + + + + +---------+ + + | Performing | Address | City/State/Zipcode | Phone Number | | Organization | | | | + +---------+ + + | EXTERNAL LAB | | | | + +---------+ + + Procalcitonin (01/30/2016 11:47 AM PDT) + + + + + + | Component | Value | Ref Range | Performed | Pathologist | | | | | At | Signature | + + + + + + | PROCALCITON | 97.03 (H)Comment: | ng/mL | EXTERNAL | | | IN | INTERPRETIVE | | LAB | | | | INFORMATION: | | | | | | PROCALCITONIN PCT <= | | | | | | 0.5 ng/mL: Low risk | | | | | | for progression to | | | | | | severe systemic | | | | | | bacterial infection | | | | | | (severe sepsis/septic | | | | | | shock). Does not | | | | | | exclude an infection, | | | | | | because localized | | | | | | infections may be | | | | | | associated with such low | | | | | | levels. If PCT is | | | | | | measured very early | | | | | | after bacterial | | | | | | challenge (usually <6 | | | | | | hours), results may | | | | | | still be low and | | | | | | should re-assess PCT | | | | | | 6-24 hours later. PCT | | | | | | >0.5 and <= 2 ng/mL: | | | | | | Moderate risk for | | | | | | progression to severe | | | | | | systemic infection | | | | | | (severe sepsis/septic | | | | | | shock). Other | | | | | | conditions are known | | | | | | to elevate PCT, patient | | | | | | should be closely | | | | | | monitored both | | | | | | clinically and by | | | | | | re-assessing PCT | | | | | | within 6-24 hours. PCT > | | | | | | 2 ng/mL: High | | | | | | likelihood for | | | | | | progression to severe | | | | | | systemic bacterial | | | | | | infection (severe | | | | | | sepsis/septic shock). | | | | | | PCT >= 10 ng/mL: | | | | | | High likelihood of | | | | | | severe sepsis or septic | | | | | | shock.Testing performed | | | | | | at [facility];[address] [place] [address] | | | | | | [facility];[place] [address] | | | | + + + + + + + + | Specimen | + + | | + + + +---------+ + + | Performing | Address | City/State/Zipcode | Phone Number | | Organization | | | | + +---------+ + + | EXTERNAL LAB | | | | + +---------+ + + Hepatitis A, B, C Domingo Mon (01/30/2016 11:47 AM PDT) + + + + + + | Component | Value | Ref Range | Performed | Pathologist | | | | | At | Signature | + + + + + + | Hep A Total | REACTIVE (A)Comment: | | EXTERNAL | | | Ab Interp | Testing performed at | | LAB | | | | [facility], [address] | | | | | | [place] | | | | | | [address] | | | | + + + + + + | HEP A IGM | NON REACTIVEComment: | | EXTERNAL | | | | Testing performed at | | LAB | | | | [facility], [address] | | | | | | [place] | | | | | | [address] | | | | + + + + + + | HEP B | NON REACTIVEComment: | | EXTERNAL | | | SURFACE | Testing performed at | | LAB | | | ANTIBODY | [facility], [address] | | | | | | [place] | | | | | | [address] | | | | + + + + + + | Hepatitis B | NON REACTIVEComment: | | EXTERNAL | | | Core Ab | Testing performed at | | LAB | | | Total | [facility], [address] | | | | | | [place] | | | | | | [address] | | | | + + + + + + | HCV Ab | NON REACTIVEComment: | | EXTERNAL | | | | Testing performed at | | LAB | | | | [facility], [address] | | | | | | [place] | | | | | | [address] | | | | + + + + + + | Hepatitis | No serologic evidence of | | EXTERNAL | | | Interpretat | current or past | | LAB | | | ion | Hepatitis B virus | | | | | | infection.Comment: HAV | | | | | | infection in remote | | | | | | past.Absence of antibody | | | | | | suggests no past | | | | | | Hepatitis C infection. | | | | | | Since antibody | | | | | | development may be | | | | | | delayed up to 6 months | | | | | | after infection, | | | | | | retesting may be | | | | | | indicated.Testing | | | | | | performed at [facility], [address] | | | | | [facility], | | | | | | [place] [address] | | | | + + + + + + + + | Specimen | + + | | + + + +---------+ + + | Performing | Address | City/State/Zipcode | Phone Number | | Organization | | | | + +---------+ + + | EXTERNAL LAB | | | | + +---------+ + + PATHOLOGY CONSULT REQUEST (01/30/2016 11:47 AM PDT) + + + + + + | Component | Value | Ref Range | Performed | Pathologist | | | | | At | Signature | + + + + + + | Pathologist | Comment: Review of CBC | | EXTERNAL | | | Review 1 | collected 01/30/16. I | | LAB | | | | agree with the automated | | | | | | and manual cell counts. | | | | | | The presence of | | | | | | neutrophilia is | | | | | | confirmed. The | | | | | | neutrophils show a left | | | | | | shift with toxic | | | | | | changes. The features | | | | | | are consistent with the | | | | | | patient's history of | | | | | | pneumonia and sepsis. B. | | | | | | Norma 01/31/16 BS/myv | | | | | | Testing performed at | | | | | | [facility];[address] [place] [address] | | | | | | [facility];[place] [address] | | | | + + + + + + + + | Specimen | + + | | + + + +---------+ + + | Performing | Address | City/State/Zipcode | Phone Number | | Organization | | | | + +---------+ + + | EXTERNAL LAB | | | | + +---------+ + + External Lab: CBC (01/30/2016 11:47 AM PDT) + + + + + + | Component | Value | Ref Range | Performed | Pathologist | | | | | At | Signature | + + + + + + | WBC | 28.37 (H)Comment: | 3.80 - 11.00 | EXTERNAL | | | | Testing performed at | K/uL | LAB | | | | [facility] [address] | | | | | | [address];[place] [address] | | | | + + + + + + | Non- | 4.24Comment: Testing | 3.70 - 5.10 | EXTERNAL | | | Red Blood | performed at [facility];[address] | M/uL | LAB | | | Cells | [address];[place] | | | | | Counted | [id number] | | | | + + + + + + | Hemoglobin | 11.5Comment: Testing | 11.3 - 15.5 | EXTERNAL | | | | performed at [facility];[address] | g/dL | LAB | | | | [address];[place] | | | | | | [address] | | | | + + + + + + | Hematocrit, | 37.6Comment: Testing | 34.0 - 46.0 % | EXTERNAL | | | POC | performed at [facility];[address] | | LAB | | | | [address];[place] | | | | | | [address] | | | | + + + + + + | MCV | 88.6Comment: Testing | 80.0 - 100.0 fl | EXTERNAL | | | | performed at [facility];[address] | | LAB | | | | [address];[place] | | | | | | [address] | | | | + + + + + + | MCH | 27.1Comment: Testing | 27.0 - 34.0 pg | EXTERNAL | | | | performed at [facility];[address] | | LAB | | | | [address];[place] | | | | | | [address] | | | | + + + + + + | MCHC | 30.6 (L)Comment: Testing | 32.0 - 35.5 | EXTERNAL | | | | performed at [facility];[address] | g/dL | LAB | | | | [address];[place] | | | | | | [address] | | | | + + + + + + | RDW-CV | 48.1Comment: Testing | 37 - 53 fl | EXTERNAL | | | | performed at [facility];[address] | | LAB | | | | [address];[place] | | | | | | [address] | | | | + + + + + + | Platelet | 167Comment: Testing | 150 - 400 K/uL | EXTERNAL | | | Count | performed at [facility];[address] | | LAB | | | Plasma | [address];[place] | | | | | | [address] | | | | + + + + + + | MPV | 9.4Comment: Testing | fl | EXTERNAL | | | | performed at [facility];[address] | | LAB | | | | [address];[place] | | | | | | [address] | | | | + + + + + + | Differentia | MANUALComment: Testing | | EXTERNAL | | | l Type | performed at [facility];[address] | | LAB | | | | [address];[place] | | | | | | [address] | | | | + + + + + + | Segmented | 35Comment: Testing | % | EXTERNAL | | | Neutrophils | performed at [facility];[address] | | LAB | | | Manual | [address];[place] | | | | | | [address] | | | | + + + + + + | % Bands | 58Comment: Testing | % | EXTERNAL | | | | performed at [facility];[address] | | LAB | | | | [address];[place] | | | | | | [address] | | | | + + + + + + | Lymphocytes | 4Comment: Testing | % | EXTERNAL | | | Manual | performed at [facility];[address] | | LAB | | | | [address];[place] | | | | | | [address] | | | | + + + + + + | % Atypical | 1Comment: Testing | % | EXTERNAL | | | Lymphocytes | performed at [facility];[address] | | LAB | | | | [address];[place] | | | | | | [address] | | | | + + + + + + | Monocytes | 2Comment: Testing | % | EXTERNAL | | | Manual | performed at [facility];[address] | | LAB | | | | [address];[place] | | | | | | [address] | | | | + + + + + + | Absolute | 9.93 (H)Comment: Testing | 1.90 - 7.40 | EXTERNAL | | | Neutrophils | performed at [facility];[address] | K/uL | LAB | | | | [address];[place] | | | | | | [address] | | | | + + + + + + | Bands | 16.46 (H)Comment: | 0.00 - 0.20 | EXTERNAL | | | Manual | Testing performed at | K/uL | LAB | | | | [facility];[address];[place] [address] | | | | + + + + + + | Absolute | 1.13Comment: Testing | 1.00 - 3.90 | EXTERNAL | | | Lymphocytes | performed at [facility];[address] | K/uL | LAB | | | | [address];[place] | | | | | | [address] | | | | + + + + + + | Absolute | 0.28 (H)Comment: Testing | K/uL | EXTERNAL | | | Atypical | performed at [facility];[address] | | LAB | | | Lymphocytes | [address];[place] | | | | | | [address] | | | | + + + + + + | Absolute | 0.57Comment: Testing | 0.00 - 0.80 | EXTERNAL | | | Monocytes | performed at [facility];[address] | K/uL | LAB | | | | [address];[place] | | | | | | [address] | | | | + + + + + + | Platelet | ADEQUATEComment: Testing | | EXTERNAL | | | Estimate | performed at [facility];[address] | | LAB | | | | [address];[place] | | | | | | [address] | | | | + + + + + + | RBC | 4+Comment: BURRTesting | | EXTERNAL | | | Morphology | performed at [facility];[address] | | LAB | | | | [address];[place] | | | | | | [address] | | | | | | | | | | + + + + + + + + | Specimen | + + | Blood specimen | | (specimen) | + + + +---------+ + + | Performing | Address | City/State/Zipcode | Phone Number | | Organization | | | | + +---------+ + + | EXTERNAL LAB | | | | + +---------+ + + Phosphorus (01/30/2016 11:47 AM PDT) + + + + + + | Component | Value | Ref Range | Performed | Pathologist | | | | | At | Signature | + + + + + + | PHOSPHORUS | 6.0 (H)Comment: Testing | 2.3 - 4.8 mg/dL | EXTERNAL | | | | performed at [facility];[address] | | LAB | | | | [address];[place] | | | | | | [address] | | | | + + + + + + + + | Specimen | + + | Blood specimen | | (specimen) | + + + +---------+ + + | Performing | Address | City/State/Zipcode | Phone Number | | Organization | | | | + +---------+ + + | EXTERNAL LAB | | | | + +---------+ + + Magnesium (01/30/2016 11:47 AM PDT) + + + + + + | Component | Value | Ref Range | Performed | Pathologist | | | | | At | Signature | + + + + + + | Magnesium | 1.0 (L)Comment: SLT | 1.7 - 2.4 mg/dL | EXTERNAL | | | | HEMOLYSISTesting | | LAB | | | | performed at [facility];[address] | | | | | | [address];[place], [place] | | | | | | [address] | | | | + + + + + + + + | Specimen | + + | Blood specimen | | (specimen) | + + + +---------+ + + | Performing | Address | City/State/Zipcode | Phone Number | | Organization | | | | + +---------+ + + | EXTERNAL LAB | | | | + +---------+ + + CK Total (01/30/2016 11:47 AM PDT) + + + + + + | Component | Value | Ref Range | Performed | Pathologist | | | | | At | Signature | + + + + + + | CK, Total | 300 (H)Comment: Testing | 30 - 240 U/L | EXTERNAL | | | | performed at [facility];[address] | | LAB | | | | [address];[place] | | | | | | [address] | | | | + + + + + + + + | Specimen | + + | Blood specimen | | (specimen) | + + + +---------+ + + | Performing | Address | City/State/Zipcode | Phone Number | | Organization | | | | + +---------+ + + | EXTERNAL LAB | | | | + +---------+ + + Hepatic Function Panel (01/30/2016 11:47 AM PDT) + + + + + + | Component | Value | Ref Range | Performed | Pathologist | | | | | At | Signature | + + + + + + | Protein, | 3.1 (L)Comment: Testing | 6.3 - 8.2 g/dL | EXTERNAL | | | Total | performed at [facility];[address] | | LAB | | | | [address];[place] | | | | | | [address] | | | | + + + + + + | Albumin | 1.0 (L)Comment: Testing | 3.6 - 5.0 g/dL | EXTERNAL | | | | performed at [facility];[address] | | LAB | | | | [address];[place] | | | | | | [address] | | | | + + + + + + | Bilirubin | 1.2Comment: Testing | 0.1 - 1.5 mg/dL | EXTERNAL | | | Total | performed at [facility];[address] | | LAB | | | | [address];[place] | | | | | | [address] | | | | + + + + + + | Bilirubin | 1.0 (H)Comment: Testing | 0.0 - 0.3 mg/dL | EXTERNAL | | | Direct | performed at [facility];[address] | | LAB | | | | [address];[place] | | | | | | [address] | | | | + + + + + + | ALP, | 87Comment: Testing | 35 - 115 U/L | EXTERNAL | | | External | performed at [facility];[address] | | LAB | | | | [address];[place] | | | | | | [address] | | | | + + + + + + | AST | 149 (H)Comment: SLT | 10 - 45 U/L | EXTERNAL | | | | HEMOLYSISTesting | | LAB | | | | performed at [facility];[address] | | | | | | [address];[place] | | | | | | [address] | | | | + + + + + + | ALT | 50Comment: Testing | 10 - 65 U/L | EXTERNAL | | | | performed at [facility];[address] | | LAB | | | | [address];[place] | | | | | | [address] | | | | + + + + + + + + | Specimen | + + | | + + + +---------+ + + | Performing | Address | City/State/Zipcode | Phone Number | | Organization | | | | + +---------+ + + | EXTERNAL LAB | | | | + +---------+ + + Basic Metabolic Panel (01/30/2016 11:47 AM PDT) + + + + + + | Component | Value | Ref Range | Performed | Pathologist | | | | | At | Signature | + + + + + + | Na | 144 (H)Comment: Testing | 135 - 143 | EXTERNAL | | | | performed at [facility];[address] | mmol/L | LAB | | | | [address];[place] | | | | | | [address] | | | | + + + + + + | K | 3.8Comment: SLT | 3.5 - 4.9 | EXTERNAL | | | | HEMOLYSISTesting | mmol/L | LAB | | | | performed at [facility];[address] | | | | | | [address];[place] | | | | | | [address] | | | | + + + + + + | Cl | 118 (H)Comment: Testing | 99 - 109 mmol/L | EXTERNAL | | | | performed at [facility];[address] | | LAB | | | | [address];[place] | | | | | | [address] | | | | + + + + + + | CO2 | 13 (LL)Comment: CALLED | 23 - 32 mmol/L | EXTERNAL | | | | NURSING UNITREAD BACK | | LAB | | | | RESULTS VERIFIEDCARRIE | | | | | | R. IN ICU AT 1215 BY | | | | | | CRKTesting performed at | | | | | | [facility];[address];[place] [address] | | | | + + + + + + | Anion Gap | 18Comment: Testing | 5 - 20 mmol/L | EXTERNAL | | | | performed at [facility];[address] | | LAB | | | | [address];[place] | | | | | | [address] | | | | + + + + + + | Glucose, | 157 (H)Comment: Testing | 65 - 99 mg/dL | EXTERNAL | | | Fasting | performed at [facility];[address] | | LAB | | | | [address];[place] | | | | | | [address] | | | | + + + + + + | BUN | 25Comment: Testing | 8 - 25 mg/dL | EXTERNAL | | | | performed at [facility];[address] | | LAB | | | | [address];[place] | | | | | | [address] | | | | + + + + + + | Creatinine | 2.3 (H)Comment: Testing | 0.50 - 1.00 | EXTERNAL | | | | performed at [facility];[address] | mg/dL | LAB | | | | [address];[place] | | | | | | [address] | | | | + + + + + + | BUN/Creatin | 11Comment: Testing | | EXTERNAL | | | ine Ratio | performed at [facility];[address] | | LAB | | | | [address];[place] | | | | | | [address] | | | | + + + + + + | Calcium | <5.0 (LL)Comment: CALLED | 8.5 - 10.5 | EXTERNAL | | | | NURSING UNITREAD BACK | mg/dL | LAB | | | | RESULTS VERIFIEDTesting | | | | | | performed at [facility];[address] | | | | | | [address];[place] | | | | | | [address] | | | | + + + + + + | Estimated | 26 (L)Comment: GFR <60: | mL/min/1.73m2 | EXTERNAL | | | GFR | CHRONIC KIDNEY DISEASE, | | LAB | | | | IF FOUND OVER A 3 MONTH | | | | | | PERIOD.GFR <15: KIDNEY | | | | | | FAILURE.FOR | | | | | | AMERICANS, MULTIPLY THE | | | | | | CALCULATED GFR BY | | | | | | 1.210.Testing performed | | | | | | at [facility];[address];[place] [address] | | | | + + + + + + + + | Specimen | + + | Blood specimen | | (specimen) | + + + +---------+ + + | Performing | Address | City/State/Zipcode | Phone Number | | Organization | | | | + +---------+ + + | EXTERNAL LAB | | | | + +---------+ + + MRSA NAAT (01/30/2016 11:44 AM PDT) + + | Specimen | + + | | + + + + + | Narrative | Performed At | + + + | SOURCE NARES(NOSE) | EXTERNAL LAB | | Testing performed at [facility];[address] [place] [address];[place] [address] MRSA PCR | | | NEGATIVE Testing performed at | | | [address];[place] [address] | | + + + + +---------+ + + | Performing | Address | City/State/Zipcode | Phone Number | | Organization | | | | + +---------+ + + | EXTERNAL LAB | | | | + +---------+ + + XR Chest 1 Vw (01/30/2016 11:34 AM PDT) + + | Specimen | + + | | + + + + + | Impressions | Performed At | + + + | 1. Satisfactory position of the endotracheal tube and central | | | venous catheter. 2. Findings concerning for pulmonary edema and/or | | | multifocal pneumonia, slightly progressed however, as compared to | | | chest radiograph from earlier the same day performed at 10:03 AM. | | | However, there is marked interval progression as compared to the chest | | | radiograph performed at 8:46 AM earlier today. Electronically | | | signed by Jules Fontenot on 01/30/2016 11:48 AM | | + + + + + + | Narrative | Performed At | + + + | MYESHA HASTINGS XR CHEST 1 VIEW 01/30/2016 11:34 AM HISTORY: 35 | | | years. Female. Tubes/line position TECHNIQUE: XR CHEST 1 | | | VIEW. 1 view(s) obtained. COMPARISON: Multiple, most recent | | | 01/30/2016 FINDINGS: Normal cardiac size. Extensive interstitial | | | and airspace opacities in both lungs, most prominent in bilateral | | | parahilar and bilateral upper lobe distribution. Interval increase in | | | opacities in right upper lobe as compared to radiographs dated | | | 01/30/2016. Endotracheal tube in situ with tip projecting at the | | | level of the medial ends of the clavicles. Left subclavian approach | | | central venous catheter in situ with tip projecting at expected | | | location of distal superior vena cava no pleural effusion or | | | pneumothorax. No acute fracture. No pneumothorax. | | + + + + + | Procedure Note | + + | Bert, Rad Conversion - 05/18/2019 6:30 PM PDT MYESHA HASTINGSXR CHEST 1 VIEW01/30/2016 | | 11:34 AM HISTORY:35 years. Female. Tubes/line position TECHNIQUE:XR CHEST 1 VIEW. 1 | | view(s) obtained. COMPARISON:Multiple, most recent 01/30/2016 FINDINGS:Normal cardiac | | size. Extensive interstitial and airspace opacities in both lungs, most prominent in | | bilateral parahilar and bilateral upper lobe distribution. Interval increase in | | opacities in right upper lobe as compared to radiographs dated 01/30/2016. Endotracheal | | tube in situ with tip projecting at the level of the medial ends of the clavicles. Left | | subclavian approach central venous catheter in situ with tip projecting at expected | | location of distal superior vena cava no pleural effusion or pneumothorax. No acute | | fracture. No pneumothorax. IMPRESSION: 1. Satisfactory position of the endotracheal | | tube and central venous catheter.2. Findings concerning for pulmonary edema and/or | | multifocal pneumonia, slightly progressed however, as compared to chest radiograph from | | earlier the same day performed at 10:03 AM. However, there is marked interval | | progression as compared to the chest radiograph performed at 8:46 AM earlier today. | | | |compared to radiographs dated 01/30/2016. | |Endotracheal tube in situ with tip projecting at the level of the medial ends of the clavic les. Left subclavian approach central venous catheter in situ with tip projecting at expecte d location of distal superior vena cava no pleural effusion or | |pneumothorax. No acute fracture. No pneumothorax. | | | |IMPRESSION: | |1. Satisfactory position of the endotracheal tube and central venous catheter. | |2. Findings concerning for pulmonary edema and/or multifocal pneumonia, slightly progresse d however, as compared to chest radiograph from earlier the same day performed at 10:03 AM. However, there is marked interval | |progression as compared to the chest | |radiograph performed at 8:46 AM earlier today. | | | | | + + Gram Stain, reflex Sputum Culture (01/30/2016 11:20 AM PDT) + + | Specimen | + + | Body fluid sample | | (specimen) | + + + + + | Narrative | Performed At | + + + | Specimen Description TRACHEAL ASPIRATE GRAM | EXTERNAL LAB | | STAIN GREATER THAN 10 WBCS/LPF | | | LESS THAN 10 | | | SEC/LPF 3+ | | | GRAM | | | POSITIVE COCCI | | | Testing performed at [facility], [address] [place], [place] | | | [address] CULTURE 3+ | | | STAPHYLOCOCCUS | | | AUREUSAbnormal Suscepibility for - STAPHYLOCOCCUS AUREUS | | | Penicillin G RESISTANT Resistant | | | Clindamycin SUSCEPTIBLESensitive | | | Erythromycin SUSCEPTIBLESensitive | | | Gentamicin SUSCEPTIBLESensitive | | | Levofloxacin SUSCEPTIBLESensitive | | | Moxifloxacin SUSCEPTIBLESensitive Oxacillin | | | SUSCEPTIBLESensitive Tetracycline | | | SUSCEPTIBLESensitive Trimethoprim + | | | SulfamethoxazoleSUSCEPTIBLESensitive Vancomycin | | | SUSCEPTIBLESensitive | | + + + + +---------+ + + | Performing | Address | City/State/Zipcode | Phone Number | | Organization | | | | + +---------+ + + | EXTERNAL LAB | | | | + +---------+ + + Culture, Blood (01/30/2016 11:15 AM PDT) + + | Specimen | + + | Blood specimen | | (specimen) | + + + + + | Narrative | Performed At | + + + | Specimen Description BLOOD, LINE DRAW SPECIAL | EXTERNAL LAB | | REQUESTS R CENTRAL | | | Testing performed at [facility];[address] | | [facility];[place] [address] CULTURE | | | NO GROWTH 6 DAYS | | | Testing performed at [facility], [address] [place] [address] | | | [address] | | + + + + +---------+ + + | Performing | Address | City/State/Zipcode | Phone Number | | Organization | | | | + +---------+ + + | EXTERNAL LAB | | | | + +---------+ + + Lactic Acid (01/30/2016 11:15 AM PDT) + + + + + + | Component | Value | Ref Range | Performed | Pathologist | | | | | At | Signature | + + + + + + | Lactate | 3.7 (H)Comment: Testing | 0.4 - 2.0 | EXTERNAL | | | | performed at [facility];[address] | mmol/L | LAB | | | | [address];[place], [place] | | | | | | [address] | | | | + + + + + + + + | Specimen | + + | Blood specimen | | (specimen) | + + + +---------+ + + | Performing | Address | City/State/Zipcode | Phone Number | | Organization | | | | + +---------+ + + | EXTERNAL LAB | | | | + +---------+ + + documented in this encounter Visit Diagnoses + + | Diagnosis | + + | ARDS (adult respiratory distress syndrome) (HCC) Other pulmonary insufficiency, not | | elsewhere classified, following trauma and surgery | + + | Septic shock (HCC) | + + | Acute respiratory failure with hypoxia and hypercapnia (HCC) | + + | CHIRAG (acute kidney injury) (HCC) Acute kidney failure, unspecified | + + | Metabolic acidosis Acidosis | + + documented in this encounter
--- OUTSIDE RECORDS SUMMARY | ~2020-05-31 | XMS | Encounter Summary ---
Demographics + + + | Address | [address] [facility] [address] | | | [place] [address] | + + + | Home Phone | | + + + | Preferred Language | Unknown | + + + | Marital Status | Single | + + + | Adventist Affiliation | Unknown | + + + | Race | or | + + + | Ethnic Group | Not or | + + + Author + + + | Author | [facility] | | | and [place] | + + + | Organization | [facility] | | | and [place] | + + + | Address | Unknown | + + + | Phone | Unavailable | + + + Support + + +---------+ + | Name | Relationship | Address | Phone | + + +---------+ + | iPto Cavazos | ECON | Unknown | | + + +---------+ + | Carmen Matta | ECON | Unknown | | + + +---------+ + Care Team Providers + +------+ + | Care Sql Ssis Developer Name | Role | Phone | [...] | | ble vomiting | [address] | [place], [place] | | | | | with nausea | [place], [place] | [address] | | | | | Procedures | [id number] | Phone: | | | | | NM Gastric | Phone: | [phone] | | | | | Emptying | [phone] | Fax: | | | | | | Fax: | [phone] | | | | | | [phone] | | +--------+--------+ + + + + Encounter Details +--------+ + + + + | Date | Type | Department | Care Team | Description | +--------+ + + + + | 04/03/ | Hospital | [facility] | Ambrose Lan | | | 2019 | Encounter | [facility] | MD Abhilash [address] | | | | | [address] | [place] [address] | | | | | [address] | [phone] | | | | | [place], [place] | | | | | | [address] | | | | | | [phone] | | | +--------+ + + + [...] Procedure Note | + + | Bert, [id number] - 04/03/2020 12:38 PM PDT | | [...]
--- OUTSIDE RECORDS SUMMARY | ~2020-05-31 | XMS | Encounter Summary ---
Demographics + + + | Address | [address] [facility] [address] | | | [place] [address] | + + + | Home Phone [...] Author + + + | Author | [facility] | | | and [place] | + + + | Organization | [facility] | | | [...] Team Providers + +------+ + | Care Precinct Captain Name | Role | Phone | + +------+ + | Hiro Noble MD | PCP | | + +------+ + Reason for Visit + +--------+ + | Reason | Onset | Comments | | | Date | | + +--------+ + | Referral | 11/02/ | | | | 2019 | | + +--------+ + Encounter Details +--------+ + + + + | Date | Type | Department | Care Team | Description | +--------+ + + + + | 11/02/ | Telephone | [facility] | Gerald Chu | Referral | | 2019 | | GASTROENTEROLOGY | MD Reggie [address] | | | | | [address] | [place], [place] | | | | | [place], [place] | [phone] | | | | | [address] | | | | | | [phone] | | | +--------+ + + + [...] Miscellaneous Notes Telephone Encounter - Frannie Celis Martha - 11/10/2019 10:10 AM PSTReturned call, informed Ervin ozuna that patient's voicemail is not set up, she will try to reach out to patient to have her call us. elephone [facility] Enedina Valentino - 11/09/2019 9:54 AM PSTLasemeterio, is calling again for Referral and would like a call back. Additional Call Details: Requesting call back with the status of patient getting scheduled elephone [facility] Chula Spear - 11/02/2019 3:27 PM [facility], is calling r egarding Referral and would like a call back. Additional Call Details: Returning Frannie's call. States that patient ordinally got sent to [facility] but decided she would like to go to our clinic and referral was rerouted If this is a symptom based call, was patient offered triage? Not Applicable If this is a symptom based call and you were unable to immediately transfer the call to a [facility] horticultural services supervisor was caller made aware that if at any time she feels it is an emergency they sh ould call 911 or go to the nearest emergency room? not applicable documented in this encounter Plan of Treatment Not on filedocumented as of this encounter Visit Diagnoses Not on filedocumented in this encounter"
--- OUTSIDE RECORDS SUMMARY | ~2020-05-31 | XMS | Encounter Summary ---
Demographics + + + | Address | [address] [address] | | | [place] [address] | + + + | Home Phone [...] Team Providers + +------+ + | Care Brazer Crawler Torch Name | Role | Phone | + [...] | | | | | | | NC EGD | | | | | | | TRANSORAL | | | | | | | BIOPSY | | | | | | | SINGLE/MULTI | | | | | | | PLE NC | | | | | | | [...] + + | 02/11/ | Hospital | [facility] | Ambrose Lan | Epigastric pain; | | 2019 | Encounter | [facility] | MD Abhilash [address] | Non-intractable | | | | INTRA OP [address] | [place] [address] | vomiting with nausea | | | | BLVD [place], [place] | [phone] | | | | | [address] | | | | | | [phone] | | | +--------+ + + + [...] Lan MD - 02/07/2020 4:11 PM PDT [facility] Service: Gastroenterology Pre-Operative History & Physical ? [...] Acute respiratory failure with hypoxia and hypercapnia ([facility]) 2016 Adverse effect of anesthesia resistant to general anesthesia CHIRAG (acute kidney injury) ([facility]) Anemia ARDS (adult respiratory distress syndrome) ([facility]) 2016 Decreased hearing of both ears Epigastric pain 02/2020 GERD (gastroesophageal reflux disease) Hepatitis Lactic acidosis Leucocytosis Metabolic acidosis Nausea & vomiting 02/2020 Neuropathy feet Pneumonia of both lungs due to influenza A virus 01/2016 H1N1 - was hospitalized in [place] for 2 months Presence of retained hardware Right great toe PTSD (post-traumatic stress disorder) Septic shock ([facility]) Toxic metabolic encephalopathy Past Surgical History: Procedure Laterality Date BREAST CYST EXCISION FOOT SURGERY Right 08/2019 Great Toe fusion with spacer MIDDLE EAR SURGERY Bilateral 12/10/2017 Procedure: Bilateral Myringotomy w/ Ventilation Tube Insertion; Surgeon: Reji Galvez MD; Location: [facility] MAIN OR THORACENTESIS CHEST TUBE PLACE 2015 THROAT SURGERY N/A 08/17/2018 Procedure: INCISION AND DRAINAGE ABSCESS PERITONSILLAR; Surgeon: Reji Galvez MD; Lo cation: [facility] MAIN OR TOE AMPUTATION Right 06/2016 [...] file Gets together: Not on file Attends restorationism service: Not on file Active member of [...] normal, judgment and thought content partha l. ASSESSMENT & PLAN 1. Patient is a [...] to proceed. Updated today Ambrose Lan MD [facility] Gastroenterology 02/12/2020 Primary Care Physician: Hiro Noble MD documented in thi s encounter Miscellaneous Notes Op Note - Ambrose Lan MD - 02[facility]12/2020 7[facility]31 [facility] Procedure Note Procedure note was generated using ProVation endoscopy software. The note can be reviewed [...] +---+--------+ + +--------+ +---+ + | *TERMED* NC UPPER GI | Routin | 02/12/2020 | [...] At | + + + | SPECIMEN(S): [facility] | [facility] | | GASTRIC BIOPSY SPECIMEN SOURCE:A. [...] | | technical component was performed by [facility], [address] | | | [place] [address] (Manager Cardiovascular: Frannie Almendarez MD; CLIA# | | | [id number]).The professional interpretation was performed by [employer] | | | [facility], [address] [place], [place] | | | [address]. Diagnostician: David Green MDPathologistElectronically | | | [...] | |The technical component was performed by [facility], [address] [place] [address] (Manager Cardiovascular: Frannie Almendarez MD; CLIA# [id number]). | | |The professional interpretation was performed by [facility], [address] [place] [address]. | | | | | |Diagnostician: David [...] Performed At | + + + | [facility] | DEMT | | [facility] | PROVATION | | CenterGastroenterology | | | Patient Name: Myesha Hastings | | | Procedure Date: 02/12/2020 6:58 AMMRN: [id number] | | | of : 1980 | | | Note Status: FinalizedAttvandana MD: Ambrose Lan | | | , [...] | 02/12/2020 6:58 AMNumber of Addenda: 0 [facility] | | Center | | | - [...] 0 | | | | | | [facility] | | + + + + [...] | | | Qualitative | performed at [facility];[address] | | LABORATORY | | | , Urine | [address];[place], [place] | | | | | | [address] | | | | + + + + + + + + | Specimen | + + | | + + + + + + + | Performing | Address | City/State/Zipcode | Phone Number | | Organization | | | | + + + + + | [facility] | [address] | [place] [address] | [phone] | + + + + + Basic [...] | >60Comment: GFR <60: | >60 | [facility] | | | GFR | [...] | | | | | | [facility]D [facility] traceable | | | | | | equation.Testing | | | | | | performed at [facility] | | | | | | [facility];[place], [place] | | | | | | [address] | | | | + + + + + + + + | Specimen | + + | Blood | + + + + + + + | Performing | Address | City/State/Zipcode | Phone Number | | Organization | | | | + + + + + | [facility] | [address] | [place] [address] | [phone] | + + + + + documented [...]
--- OUTSIDE RECORDS SUMMARY | ~2020-05-31 | XMS | Encounter Summary ---
Demographics + + + | Address | [address] [facility] [address] | | | [place] [address] | + + + | Home Phone | | + + + | Preferred Language | Unknown | + + + | Marital Status | Single | + + + | Oriental Orthodox [...] Providers + +------+ + | Care Director Critical Care Name | Role | Phone | + [...] | 08/17/ | Anesthesia | [facility] | Rajan Eid MD | | | 2018 | Event | MED CTR OR INTRA OP | [address] | | | | | [address] | [place] | | | | | [place] | [address] | | | | | [address] | | | | | | [phone] | | | +--------+ + + + + Anesthesia Record + + + + + | Procedure Name | Responsible | Anesthesia Start | Anesthesia Stop Time | | | Anesthesiologist | Time | | + + + + + | INCISION AND | Rajan Eid MD | 08/17/18 1703 | 08/17/18 1730 | | DRAINAGE ABSCESS [...] 1810 by | | eral | Antecubital; [id number] | Carmen Barlow, | Gia Perez RN | | IV | catheter system; 20 gauge; | MECHANICAL SYSTEMS CONTROL ENGINEER | | | | distraction, intradermal | | | | | injection, tolerated well; no | | | | | longer indicated, removed per | | | | | policy/procedure, catheter/device | | | | | intact; short term use; | | | | | 08/17/18; 1810 | | | +--------+ + + + | Airway | Placement Date: 08/17/18; | 08/17/181708 by | 08/17/18 172 by | | | Placement Time: 1708; Successful | Rajan Eid MD | Rajan [...] EVALUATION Myesha Hastings 38 y.o. female 1980 [id number] Procedure(s) INCISION AND DRAINAGE ABSCESS PERITONSILLAR (N/A [...] signed by Rajan Eid MD 08/17/2018 18:05 [facility] Rajan Eid MD at 2017 6:05 PM PSTAnesthesia Preprocedure Evaluation - Rajan Eid MD - 08/17/2018 4:55 P M PST ANESTHESIA PREANESTHESIA EVALUATION Myesha Hastings 38 y.o. female 1980 [id number] Procedure(s): INCISION AND DRAINAGE ABSCESS PERITONSILLAR (N/A [...] PARQ. Electronically Signed by: Rajan Eid MD ESig date/time: 08/17/2018 16:55 documented in this enco unter Plan of Treatment Not on filedocumented as [...] | | | | | Anxiety, Starting Wed08/17/18 at | | PM PST | [...] PM PST | | | | | 08/17/18 at 1707, Anesthesia | | | | [...]
[~2020-05-31 16:27] MED LIST changes: +ONDANSETRON ODT4 MG SL; +VITAMIN D3 COM1 EACH PO
--- OUTSIDE RECORDS SUMMARY | 2020-05-31 16:30 | XMS ---
PreManage Notification: [employer] Security Manager Supply Events No recent Security Events currently on file CRITERIA MET - History of Sepsis Dx CARE PROVIDERS RUTH NORWOOD [facility] 04/30/2020-Current PHONE: [phone] Name [facility] 03/18/2020-Current PHONE: [phone] Lore has no Care Guidelines for this patient. Care History Medical/Surgical 03/18/2020 [facility] - PATIENT IS A [facility] ELIGIBLE, \T\middot;\T\nbsp; PLEASE REFER PATIENT TO [facility] FOR NON EMERGENT MEDICAL NEEDS. \T\middot;\T\nbsp; [facility] CAN SEE PATIENTS SAME DAY FOR APTS IF PATIENT CALLS FIRST THING IN THE MORNING. E.D. VISIT COUNT (12 MO.) [address] [facility] TOTAL 5 NOTE: Visits indicate total known visits. ED/UCC VISIT TRACKING (12 MO.) 05/31/2020 16:28 [facility] TYPE: Emergency COMPLAINT: - VOMITING 04/29/2020 13:41 [facility] TYPE: Emergency COMPLAINT: - VOMITING DIAGNOSES: - Vomiting, unspecified - Nicotine dependence, unspecified, uncomplicated - Type 2 diabetes mellitus with diabetic neuropathy, unspecifie - Vitamin D deficiency, unspecified - Mixed hyperlipidemia - Anxiety disorder, unspecified - correction (current) use of insulin - Type 2 diabetes mellitus with diabetic autonomic (poly)neurop - Gastroparesis - Other rodent exterminator (current) drug therapy 03/22/2020 10:05 [facility] [place] TYPE: Emergency COMPLAINT: - VOMITING DIAGNOSES: - terminal gauger supervisor (current) use of insulin - Gastroparesis - Other rodent exterminator (current) drug therapy - Anxiety disorder, unspecified - Type 2 diabetes mellitus with diabetic neuropathy, unspecifie - Nausea with vomiting, unspecified - Mixed hyperlipidemia - Type 2 diabetes mellitus with diabetic autonomic (poly)neurop 03/19/2020 10:16 [facility] [place] TYPE: Emergency COMPLAINT: - VOMITING DIAGNOSES: - Nausea with vomiting, unspecified - Nausea with vomiting, unspecified - Epigastric pain - Anxiety disorder, unspecified - Mixed hyperlipidemia - Type 2 diabetes mellitus with diabetic neuropathy, unspecifie - Other prison (current) drug therapy 03/17/2020 15:48 [facility] [place] TYPE: Emergency COMPLAINT: - VOMITING DIAGNOSES: - Anxiety disorder, unspecified - Other rodent exterminator (current) drug therapy - Personal history of nicotine dependence - Gastro-esophageal reflux disease without esophagitis - Type 2 diabetes mellitus without complications - Mixed hyperlipidemia - Nausea with vomiting, unspecified - correction (current) use of insulin INPATIENT VISIT TRACKING (12 MO.) No inpatient visits to display in this time frame [email or web address]
[2020-05-31] MEDS ORDERED: TRANSDERM-SCOP1 EACH TD (16:39)
[2020-05-31] MEDS ORDERED: ONDANSETRON ODT8 MG PO (19:39)
[2020-05-31] MEDS ORDERED: OMEPRAZOLE20 MG PO (19:39)
== END 2020-05-31 20:35 | disposition home or self-care (01) ==
LOC: ED 16:27
DX: E11.65 Type 2 diabetes mellitus with hyperglycemia (principal); R10.9 Unspecified abdominal pain; F41.9 Anxiety disorder, unspecified; E78.2 Mixed hyperlipidemia; Z88.8 Allergy status to other drugs, medicaments and biological substances; Z79.899 Other long term (current) drug therapy
CPT/HCPCS: 80053; 81001; 83735; 85025; 96361; 96374; 96375; 99284-25; C9113; J1200; J1790; J2405; J7030

== ENCOUNTER 2020-07-03 01:34 | Emergency (ER) | payer BC, OTHER ==
[~2020-07-03] VITALS: Ht 160 cm; Wt 52.9 kg
[~2020-07-03 01:34] MED LIST changes: +ONDANSETRON ODT8 MG PO; +TRANSDERM-SCOP1 EACH TD
--- OUTSIDE RECORDS SUMMARY | 2020-07-03 01:36 | XMS ---
PreManage Notification: [employer] Security Electronics Tech Events No recent Security Events currently on file CRITERIA MET - 6 ED Visits in 6 Months - History of Sepsis Dx CARE PROVIDERS RUTH NORWOOD [facility] 04/30/2020-Current PHONE: [phone] Name [facility] 03/18/2020-Current PHONE: [phone] [facility] has no Care Guidelines for this patient. Care History Medical/Surgical 03/18/2020 [facility] - PATIENT IS A [facility] ELIGIBLE, \T\middot;\T\nbsp; PLEASE REFER PATIENT TO [facility] FOR NON EMERGENT MEDICAL NEEDS. \T\middot;\T\nbsp; [facility] CAN SEE PATIENTS SAME DAY FOR APTS IF PATIENT CALLS FIRST THING IN THE MORNING. E.D. VISIT COUNT (12 MO.) 6 [facility] TOTAL 6 NOTE: Visits indicate total known visits. ED/UCC VISIT TRACKING (12 MO.) 07/03/2020 01:34 [facility] TYPE: Emergency COMPLAINT: - VOMITING 05/31/2020 16:28 [facility] TYPE: Emergency COMPLAINT: - VOMITING DIAGNOSES: - Other compressor mechanic (current) drug therapy - Mixed hyperlipidemia - Allergy status to other drugs, medicaments and biological sub - Unspecified abdominal pain - Anxiety disorder, unspecified - Type 2 diabetes mellitus with hyperglycemia - Vomiting, unspecified 04/29/2020 13:41 [facility] TYPE: Emergency COMPLAINT: - VOMITING DIAGNOSES: - Vomiting, unspecified - Nicotine dependence, unspecified, uncomplicated - Type 2 diabetes mellitus with diabetic neuropathy, unspecifie - Vitamin D deficiency, unspecified - Mixed hyperlipidemia - Anxiety disorder, unspecified - principal technologist (current) use of insulin - Type 2 diabetes mellitus with diabetic autonomic (poly)neurop - Gastroparesis - Other compressor mechanic (current) drug therapy 03/22/2020 10:05 [facility] TYPE: Emergency COMPLAINT: - VOMITING DIAGNOSES: - principal technologist (current) use of insulin - Gastroparesis - Other assisted (current) drug therapy - Anxiety disorder, unspecified [...] mellitus with diabetic neuropathy, unspecifie - Other assisted (current) drug therapy 03/17/2020 15:48 [facility] TYPE: Emergency COMPLAINT: - VOMITING DIAGNOSES: - Anxiety disorder, unspecified - Other compressor mechanic (current) drug therapy - Personal history of nicotine dependence - Gastro-esophageal reflux disease without esophagitis - Type 2 diabetes mellitus without complications - Mixed hyperlipidemia - Nausea with vomiting, unspecified - principal technologist (current) use of insulin INPATIENT VISIT TRACKING (12 MO.) No inpatient visits to display in this time frame [email or web address]
== END 2020-07-03 05:37 | disposition home or self-care (01) ==
LOC: ED 01:34
DX: R11.2 Nausea with vomiting, unspecified (principal); E11.65 Type 2 diabetes mellitus with hyperglycemia; E78.2 Mixed hyperlipidemia; F41.9 Anxiety disorder, unspecified; E11.40 Type 2 diabetes mellitus with diabetic neuropathy, unspecified; Z87.891 Personal history of nicotine dependence; Z88.8 Allergy status to other drugs, medicaments and biological substances; Z79.899 Other long term (current) drug therapy
CPT/HCPCS: 80048; 80053; 83690; 85025; 96361; 96374; 96375; 99284-25; J1200; J1630; J1815; J7030

== ENCOUNTER 2020-07-05 10:06 | Emergency (ER) | payer BC, OTHER | END 2020-07-05 14:05 | disposition home or self-care (01) | LOC: ED 10:06 | DX: R11.2 Nausea with vomiting, unspecified (principal); F12.20 Cannabis dependence, uncomplicated; E11.40 Type 2 diabetes mellitus with diabetic neuropathy, unspecified; F17.200 Nicotine dependence, unspecified, uncomplicated; Z79.899 Other long term (current) drug therapy; Z79.4 Long term (current) use of insulin ==

== ENCOUNTER 2020-10-17 13:37 | Emergency (ER) | payer BC, OTHER ==
[~2020-10-17] VITALS: Ht 160 cm; Wt 52.9 kg
--- OUTSIDE RECORDS SUMMARY | 2020-10-17 13:40 | XMS ---
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 - 2 Visits in 30 Days CARE PROVIDERS RUTH NORWOOD [facility] 04/30/2020-Current PHONE: [phone] Name [facility] 03/18/2020-Current PHONE: [phone] [facility] has no Care Guidelines for this patient. Care History Medical/Surgical 07/04/2020 [facility] - [place] CONTACTED CENTER REP- TOSHIA TAVAREZELECTRICAL TECH/PROJECT MANAGER AT [facility] - PATIENT HAS NOT FILLED MEDICATIONS SINCE - LAST PCP APT WAS IN MARCH 2020 NO FOLLOW UP APTS SCHEDULED - PATIENT WAS REFERRED TO [facility] GASTROENTEROLOGY AND WAS SEEN ON 05/12/20 AND WAS REFERRED TO [facility] FOR FURTHER FOLLOW UP ON 07/05/20 @ 1:00PM. 03/18/2020 [facility] - PATIENT IS A [facility] ELIGIBLE, \T\middot;\T\nbsp; PLEASE REFER PATIENT TO [facility] FOR NON EMERGENT MEDICAL NEEDS. \T\middot;\T\nbsp; [facility] CAN SEE PATIENTS SAME DAY FOR APTS IF PATIENT CALLS FIRST THING IN THE MORNING. Shannan VISIT COUNT (12 MO.) 1 [facility] 9 [facility] Vele[facility] TOTAL 10 NOTE: Visits indicate total known visits. ED/UCC VISIT TRACKING (12 MO.) 10/17/2020 13:38 [facility] TYPE: Emergency COMPLAINT: - NAUSEA/VOMITING 09/19/2020 16:28 [facility] TYPE: Emergency COMPLAINT: - VOMITING DIAGNOSES: - Allergy status to other drugs, medicaments and biological substances - Type 2 diabetes mellitus with diabetic autonomic (poly)neuropathy - Vomiting, unspecified - Gastroparesis - veterinary virologist (current) use of insulin - Allergy status to other drugs, medicaments and biological substances - Hyperlipidemia, unspecified - Personal history of nicotine dependence 08/01/2020 13:09 [facility] TYPE: Emergency DIAGNOSES: - Nausea - Personal history of other diseases of the digestive system - Abdominal Pain - Right upper quadrant pain - Nausea with vomiting, unspecified - Emesis 07/05/2020 10:06 [facility] TYPE: Emergency COMPLAINT: - VOMITING, HEADACHE, ABD PAIN DIAGNOSES: - Type 2 diabetes mellitus with diabetic neuropathy, unspecified - Cannabis dependence, uncomplicated - Nausea with vomiting, unspecified - Nicotine dependence, unspecified, uncomplicated - Other environmental property assessor (current) drug therapy - USP (current) use of insulin 07/03/2020 01:34 [facility] TYPE: Emergency COMPLAINT: - NAUSEA VOMITING DIAGNOSES: - Mixed hyperlipidemia - Type 2 diabetes mellitus with diabetic neuropathy, unspecified - Type 2 diabetes mellitus with hyperglycemia - Allergy status to other drugs, medicaments and biological substances - Other halfway (current) drug therapy - Nausea with vomiting, unspecified - Anxiety disorder, unspecified - Vomiting, unspecified - Nausea with vomiting, unspecified - Personal history of nicotine dependence 05/31/2020 16:28 [facility] TYPE: Emergency COMPLAINT: - VOMITING DIAGNOSES: - Other halfway (current) drug therapy - Mixed hyperlipidemia - Allergy status to other drugs, medicaments and biological substances - Unspecified abdominal pain - Anxiety disorder, unspecified - Type 2 diabetes mellitus with hyperglycemia - Vomiting, unspecified 04/29/2020 13:41 [facility] TYPE: Emergency COMPLAINT: - VOMITING DIAGNOSES: - Vomiting, unspecified - Nicotine dependence, unspecified, uncomplicated - Type 2 diabetes mellitus with diabetic neuropathy, unspecified - Vitamin D deficiency, unspecified - Mixed hyperlipidemia - Anxiety disorder, unspecified - USP (current) use of insulin - Type 2 diabetes mellitus with diabetic autonomic (poly)neuropathy - Gastroparesis - Other environmental property assessor (current) drug therapy 03/22/2020 10:05 [facility] TYPE: Emergency COMPLAINT: - VOMITING DIAGNOSES: - USP (current) use of insulin - Gastroparesis - Other halfway (current) drug therapy - Anxiety disorder, unspecified - Type 2 diabetes mellitus with diabetic neuropathy, unspecified - Nausea with vomiting, unspecified - Mixed hyperlipidemia - Type 2 diabetes mellitus with diabetic autonomic (poly)neuropathy 03/19/2020 10:[address] [facility] [place] TYPE: Emergency COMPLAINT: - VOMITING DIAGNOSES: - Nausea with vomiting, unspecified - Nausea with vomiting, unspecified - Epigastric pain - Anxiety disorder, unspecified - Mixed hyperlipidemia - Type 2 diabetes mellitus with diabetic neuropathy, unspecified - Other environmental property assessor (current) drug therapy 03/17/2020 15:[address] [facility] [place] TYPE: Emergency COMPLAINT: - VOMITING DIAGNOSES: - Anxiety disorder, unspecified - Other halfway (current) drug therapy - Personal history of nicotine dependence - Gastro-esophageal reflux disease without esophagitis - Type 2 diabetes mellitus without complications - Mixed hyperlipidemia - Nausea with vomiting, unspecified - USP (current) use of insulin INPATIENT VISIT TRACKING (12 MO.) No inpatient visits to display in this time frame [email or web address]
[2020-10-17] MEDS ORDERED: ONDANSETRON ODT4 MG PO (17:23)
== END 2020-10-17 17:38 | disposition home or self-care (01) ==
LOC: ED 13:37
DX: E11.65 Type 2 diabetes mellitus with hyperglycemia (principal); R11.2 Nausea with vomiting, unspecified; E78.2 Mixed hyperlipidemia; F17.200 Nicotine dependence, unspecified, uncomplicated; Z88.8 Allergy status to other drugs, medicaments and biological substances; Z79.4 Long term (current) use of insulin; Z79.899 Other long term (current) drug therapy; Z20.822 Contact with and (suspected) exposure to COVID-19
CPT/HCPCS: 80053; 81001; 82010; 82803; 83690; 84703; 85025; 96374; 96376; 99284-25; C9803; J2405; J7030; U0003

== ENCOUNTER 2020-12-03 15:57 | Emergency (ER) | payer BC, OTHER ==
[~2020-12-03] VITALS: Ht 160 cm; Wt 50.2 kg
--- OUTSIDE RECORDS SUMMARY | 2020-12-03 16:00 | XMS ---
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 03/18/[facility] PHONE: [phone] [facility] has no Care Guidelines for this patient. 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 FOR FURTHER FOLLOW UP ON 07/05/20 @ 1:00PM. 03/18/2020 [facility] - PATIENT IS A [facility] ELIGIBLE, \T\middot;\T\nbsp; PLEASE REFER PATIENT TO [facility] FOR NON EMERGENT MEDICAL NEEDS. \T\middot;\T\nbsp; [facility] CAN SEE PATIENTS SAME DAY FOR APTS IF PATIENT CALLS FIRST THING IN THE MORNING. Shannan VISIT COUNT (12 MO.) 1 [facility] 10 [place] [facility] TOTAL 11 NOTE: Visits indicate total known visits. ED/UCC VISIT TRACKING (12 MO.) 12/03/2020 15:57 [facility] [place] TYPE: Emergency COMPLAINT: - VOMITING 10/17/2020 13:38 [facility] TYPE: Emergency COMPLAINT: - NAUSEA/VOMITING DIAGNOSES: - Mixed hyperlipidemia - Nicotine dependence, unspecified, uncomplicated - Type 2 diabetes mellitus with hyperglycemia - Allergy status to other drugs, medicaments and biological substances - Nausea with vomiting, unspecified - Other correction (current) drug therapy - Vomiting, unspecified - MCC (current) use of insulin 09/19/2020 16:28 [facility] TYPE: Emergency COMPLAINT: - VOMITING DIAGNOSES: - Allergy status to other drugs, medicaments and biological substances - Type 2 diabetes mellitus with diabetic autonomic (poly)neuropathy - Vomiting, unspecified - Gastroparesis - MCC (current) use of insulin - Allergy status to other drugs, medicaments and biological substances - Hyperlipidemia, unspecified - Personal history of nicotine dependence 08/01/2020 13:09 [facility] TYPE: Emergency DIAGNOSES: - Nausea - Personal history of other diseases of the digestive system - Abdominal Pain - Right upper quadrant pain - Nausea with vomiting, unspecified - Emesis 07/05/2020 10:06 [facility] TYPE: Emergency COMPLAINT: - VOMITING, HEADACHE, ABD PAIN DIAGNOSES: - Type 2 diabetes mellitus with diabetic neuropathy, unspecified - Cannabis dependence, uncomplicated - Nausea with vomiting, unspecified - Nicotine dependence, unspecified, uncomplicated - Other buttermilk drier operator (current) drug therapy - MCC (current) use of insulin 07/03/2020 01:34 [facility] TYPE: Emergency COMPLAINT: - NAUSEA VOMITING DIAGNOSES: - Mixed hyperlipidemia - Type 2 diabetes mellitus with diabetic neuropathy, unspecified - Type 2 diabetes mellitus with hyperglycemia - Allergy status to other drugs, medicaments and biological substances - Other correction (current) drug therapy - Nausea with vomiting, unspecified - Anxiety disorder, unspecified - Vomiting, unspecified - Nausea with vomiting, unspecified - Personal history of nicotine dependence 05/31/2020 16:28 [facility] TYPE: Emergency COMPLAINT: - VOMITING DIAGNOSES: - Other correction (current) drug therapy - Mixed hyperlipidemia - [...] Mixed hyperlipidemia - Anxiety disorder, unspecified - MCC (current) use of insulin - Type 2 diabetes mellitus with diabetic autonomic (poly)neuropathy - Gastroparesis - Other correction (current) drug therapy 03/22/2020 10:05 [facility] [place] TYPE: Emergency COMPLAINT: - VOMITING DIAGNOSES: - buttermilk drier operator (current) use of insulin - Gastroparesis - Other buttermilk drier operator (current) drug therapy - Anxiety disorder, unspecified - Type 2 diabetes mellitus with diabetic neuropathy, unspecified - Nausea with vomiting, unspecified - Mixed hyperlipidemia - Type 2 diabetes mellitus with diabetic autonomic (poly)neuropathy 03/19/2020 10:16 [facility] TYPE: Emergency COMPLAINT: - VOMITING DIAGNOSES: - Nausea with vomiting, unspecified - Nausea with vomiting, unspecified - Epigastric pain - Anxiety disorder, unspecified - Mixed hyperlipidemia - Type 2 diabetes mellitus with diabetic neuropathy, unspecified - Other buttermilk drier operator (current) drug therapy 03/17/2020 15:[address] [facility] [place] TYPE: Emergency COMPLAINT: - VOMITING DIAGNOSES: - Anxiety disorder, unspecified - Other correction (current) drug therapy - Personal history of nicotine dependence - Gastro-esophageal reflux disease without esophagitis - Type 2 diabetes mellitus without complications - Mixed hyperlipidemia - Nausea with vomiting, unspecified - MCC (current) use of insulin INPATIENT VISIT TRACKING (12 MO.) No inpatient visits to display in this time frame [id number]
== END 2020-12-03 19:35 | disposition home or self-care (01) ==
LOC: ED 15:57
DX: R11.15 Cyclical vomiting syndrome unrelated to migraine (principal); E11.40 Type 2 diabetes mellitus with diabetic neuropathy, unspecified; E78.2 Mixed hyperlipidemia; F17.200 Nicotine dependence, unspecified, uncomplicated; Z88.8 Allergy status to other drugs, medicaments and biological substances; Z79.899 Other long term (current) drug therapy; Z79.4 Long term (current) use of insulin
CPT/HCPCS: 80053; 81001; 83690; 83735; 85025; 96374; 96375; 99284-25; J1630; J2405; J7030

== ENCOUNTER 2021-02-04 14:25 | Emergency (ER) | payer BC, OTHER ==
[~2021-02-04] VITALS: Ht 160 cm; Wt 50.2 kg
--- OUTSIDE RECORDS SUMMARY | 2021-02-04 14:32 | XMS ---
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 03/18/2020 [facility] - PATIENT IS A [facility] ELIGIBLE, \T\middot;\T\nbsp; PLEASE REFER PATIENT TO [facility] FOR NON EMERGENT MEDICAL NEEDS. \T\middot;\T\nbsp; [facility] CAN SEE PATIENTS SAME DAY FOR APTS IF PATIENT CALLS FIRST THING IN THE MORNING. Shannan VISIT COUNT (12 MO.) 1 [facility] 11 [facility] [place] TOTAL 12 NOTE: Visits indicate total known visits. ED/UCC VISIT TRACKING (12 MO.) 02/04/2021 14:26 [place] TYPE: Emergency COMPLAINT: - VOMITING 12/03/2020 15:57 [facility] [place] TYPE: Emergency COMPLAINT: - VOMITING DIAGNOSES: - Nicotine dependence, unspecified, uncomplicated - Other usp (current) drug therapy - senior living (current) use of insulin - Cyclical vomiting syndrome unrelated to migraine - Type 2 diabetes mellitus with diabetic neuropathy, unspecified - Mixed hyperlipidemia - Allergy status to other drugs, medicaments and biological substances 10/17/2020 13:38 [place] [place] TYPE: Emergency COMPLAINT: - NAUSEA/VOMITING DIAGNOSES: - Mixed hyperlipidemia - Nicotine dependence, unspecified, uncomplicated - Type 2 diabetes mellitus with hyperglycemia - Allergy status to other drugs, medicaments and biological substances - Nausea with vomiting, unspecified - Other usp (current) drug therapy - Vomiting, unspecified - senior living (current) use of insulin 09/19/2020 16:28 [facility] [place] TYPE: Emergency COMPLAINT: - VOMITING DIAGNOSES: - Allergy status to other drugs, medicaments and biological substances - Type 2 diabetes mellitus with diabetic autonomic (poly)neuropathy - Vomiting, unspecified - Gastroparesis - termite exterminator (current) use of insulin - Allergy status to other drugs, medicaments and biological substances - Hyperlipidemia, unspecified - Personal history of nicotine dependence 08/01/2020 13:09 [facility] TYPE: Emergency DIAGNOSES: - Nausea - [...] - Nicotine dependence, unspecified, uncomplicated - Other usp (current) drug therapy - senior living (current) use of insulin 07/03/2020 01:34 [place] TYPE: Emergency COMPLAINT: - NAUSEA VOMITING DIAGNOSES: - Mixed hyperlipidemia - Type 2 diabetes mellitus with diabetic neuropathy, unspecified - Type 2 diabetes mellitus with hyperglycemia - Allergy status to other drugs, medicaments and biological substances - Other usp (current) drug therapy - Nausea with vomiting, unspecified - Anxiety disorder, unspecified - Vomiting, unspecified - Nausea with vomiting, unspecified - Personal history of nicotine dependence 05/31/2020 16:28 [place] [place] TYPE: Emergency COMPLAINT: - VOMITING DIAGNOSES: - Other intermediate project manager (current) drug therapy - Mixed hyperlipidemia - [...] Mixed hyperlipidemia - Anxiety disorder, unspecified - senior living (current) use of insulin - Type 2 diabetes mellitus with diabetic autonomic (poly)neuropathy - Gastroparesis - Other usp (current) drug therapy 03/22/2020 10:05 [place] [place] TYPE: Emergency COMPLAINT: - VOMITING DIAGNOSES: - termite exterminator (current) use of insulin - Gastroparesis - Other intermediate project manager (current) drug therapy - Anxiety disorder, unspecified [...] mellitus with diabetic neuropathy, unspecified - Other intermediate project manager (current) drug therapy 03/17/2020 15:48 [place] [place] TYPE: Emergency COMPLAINT: - VOMITING DIAGNOSES: - Anxiety disorder, unspecified - Other intermediate project manager (current) drug therapy - Personal history of nicotine dependence - Gastro-esophageal reflux disease without esophagitis - Type 2 diabetes mellitus without complications - Mixed hyperlipidemia - Nausea with vomiting, unspecified - termite exterminator (current) use of insulin INPATIENT VISIT TRACKING (12 MO.) No inpatient visits to display in this time frame [id number]
[2021-02-04] MEDS ORDERED: ONDANSETRON ODT4 MG PO (19:09)
== END 2021-02-04 19:59 | disposition home or self-care (01) ==
LOC: ED 14:25
DX: R11.2 Nausea with vomiting, unspecified (principal); F12.20 Cannabis dependence, uncomplicated; E83.42 Hypomagnesemia; E87.6 Hypokalemia; E86.0 Dehydration; E11.40 Type 2 diabetes mellitus with diabetic neuropathy, unspecified; E78.2 Mixed hyperlipidemia; Z87.891 Personal history of nicotine dependence; Z79.899 Other long term (current) drug therapy; Z79.4 Long term (current) use of insulin
CPT/HCPCS: 80053; 81001; 83690; 83735; 84703; 85025; 96374; 96375; 96376; 99284-25; J1630; J2405; J3475; J7030; J7040

== ENCOUNTER 2021-06-05 11:57 | Emergency (ER) | payer BC, OTHER ==
[~2021-06-05] VITALS: Ht 160 cm; Wt 50.2 kg
[2021-06-05] MEDS ORDERED: LOSARTAN POTASS25 MG PO (12:58)
[2021-06-05] MEDS ORDERED: AMITRIPTYLINE H50 MG PO (12:59)
== END 2021-06-05 16:22 | disposition home or self-care (01) ==
LOC: ED 11:57
DX: R11.15 Cyclical vomiting syndrome unrelated to migraine (principal); F12.90 Cannabis use, unspecified, uncomplicated; E11.40 Type 2 diabetes mellitus with diabetic neuropathy, unspecified; E78.2 Mixed hyperlipidemia; Z87.891 Personal history of nicotine dependence; Z79.899 Other long term (current) drug therapy; Z79.4 Long term (current) use of insulin
CPT/HCPCS: 80053; 81001; 83690; 83735; 84703; 85025; 96374; 99284-25; J1630; J7030

== ENCOUNTER 2022-05-10 11:12 | Emergency (ER) | payer OTHER ==
[~2022-05-10] VITALS: Ht 160 cm; Wt 52.5 kg
[~2022-05-10 11:12] MED LIST changes: +AMITRIPTYLINE H50 MG PO
--- OUTSIDE RECORDS SUMMARY | 2022-05-10 11:18 | XMS ---
PreManage Notification: SOLE WOLFE Security Directory Operator Events No recent Security Events currently on file CRITERIA MET - [facility] - 2 Visits in 30 Days CARE PROVIDERS MT BRUNO [facility] Current PHONE: [phone] RUTH NORWOOD [facility] 04/30/2020-Current PHONE: Unknown [facility] 03/18/[facility] PHONE: [phone] Lore has no Care Guidelines for this patient. Care History Medical/Surgical 07/04/2020 [facility] - W CONTACTED INSECT CONTROL AIDE- TOSHIA TAVAREZCASE RESOURCE MANAGER AT [facility] - PATIENT HAS NOT FILLED MEDICATIONS SINCE - LAST PCP APT WAS IN MARCH 2020 NO FOLLOW UP APTS SCHEDULED - PATIENT WAS REFERRED TO [facility] GASTROENTEROLOGY AND WAS SEEN ON 05/12/20 AND WAS REFERRED TO [facility] FOR FURTHER FOLLOW UP ON 07/05/20 @ 1:00PM. 03/18/2020 [facility] - PATIENT IS A [place] ELIGIBLE, \T\middot;\T\nbsp; PLEASE REFER PATIENT TO [facility] FOR NON EMERGENT MEDICAL NEEDS. \T\middot;\T\nbsp; [facility] CAN SEE PATIENTS SAME DAY FOR APTS IF PATIENT CALLS FIRST THING IN THE MORNING. E.D. VISIT COUNT (12 MO.) 4 [facility] [place] 2 [facility]. TOTAL 6 NOTE: Visits indicate total known visits. ED/UCC VISIT TRACKING (12 MO.) 05/10/2022 11:12 [place] TYPE: Emergency COMPLAINT: - N/V 04/18/2022 20:10 [facility] [place] TYPE: Emergency DIAGNOSES: - Unspecified abdominal pain - Other chronic pain - Hyperglycemia, unspecified - Cyclical vomiting syndrome unrelated to migraine - Thyrotoxicosis, 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 storm - Nausea with vomiting, unspecified - Vomiting 03/23/2022 12:41 [facility] [place] TYPE: Emergency DIAGNOSES: - Vomiting - Cyclical vomiting syndrome unrelated to migraine - Hyperglycemia, unspecified - Nausea with vomiting, unspecified 2022 09:10 [facility] [place] TYPE: Emergency DIAGNOSES: - Vomiting; Black or Bloody Stool - Other disorders of electrolyte and fluid balance, not elsewhere classified - Hyperglycemia, unspecified - Hypokalemia - Cyclical vomiting syndrome unrelated to migraine - Vomiting Blood 10/04/2021 21:01 [facility] [place] TYPE: Emergency DIAGNOSES: - Cannabis dependence with other cannabis-induced disorder - Back Pain - Influenza due to other identified influenza virus with other respiratory manifestations - Cyclical vomiting syndrome unrelated to migraine - Vomiting 06/05/2021 11:57 [facility] [place] TYPE: Emergency COMPLAINT: - VOMITING DIAGNOSES: - Type 2 diabetes mellitus with diabetic neuropathy, unspecified - Cannabis use, unspecified, uncomplicated - Mixed hyperlipidemia - Cyclical vomiting syndrome unrelated to migraine - Epigastric pain - Other assisted (current) drug therapy - cementer (current) use of insulin - Personal history of nicotine dependence INPATIENT VISIT TRACKING (12 MO.) No inpatient visits to display in this time frame [id number]
[2022-05-10] MEDS ORDERED: ONDANSETRON ODT4 MG PO (12:49)
== END 2022-05-10 13:06 | disposition home or self-care (01) ==
LOC: ED 11:12
DX: R11.15 Cyclical vomiting syndrome unrelated to migraine (principal); E11.40 Type 2 diabetes mellitus with diabetic neuropathy, unspecified; E78.2 Mixed hyperlipidemia; Z87.891 Personal history of nicotine dependence; Z88.8 Allergy status to other drugs, medicaments and biological substances; Z79.899 Other long term (current) drug therapy; Z79.4 Long term (current) use of insulin
CPT/HCPCS: 36415; 80053; 83690; 85025; 96361; 96374; 96375; 99284-25; J1200; J1790; J7030

== ENCOUNTER 2022-07-02 03:54 | Emergency (ER) | payer OTHER ==
[~2022-07-02] VITALS: Ht 160 cm; Wt 52.5 kg
[2022-07-02] MEDS ORDERED: ONDANSETRON ODT8 MG PO (04:39)
[2022-07-02] MEDS ORDERED: DOXYCYCLINE HY100 MG PO (06:38)
== END 2022-07-02 08:02 | disposition home or self-care (01) ==
LOC: ED 03:54
DX: R11.15 Cyclical vomiting syndrome unrelated to migraine (principal); J18.9 Pneumonia, unspecified organism; E11.9 Type 2 diabetes mellitus without complications; E78.2 Mixed hyperlipidemia; E11.40 Type 2 diabetes mellitus with diabetic neuropathy, unspecified; Z87.891 Personal history of nicotine dependence; Z88.8 Allergy status to other drugs, medicaments and biological substances; Z79.899 Other long term (current) drug therapy; Z79.4 Long term (current) use of insulin
CPT/HCPCS: 36415; 74177; 80053; 81001; 82010; 82800; 83690; 84703; 85025; 96361; 96375; 99284-25; J0696; J1200; J1790; J2405; J2550; J7030; Q9967

== ENCOUNTER 2022-09-27 16:33 | Inpatient (IN) | payer OTHER ==
[~2022-09-27] VITALS: Ht 160 cm; Wt 60.0 kg
[~2022-09-27 16:33] MED LIST changes: +DOXYCYCLINE HY100 MG PO; -VITAMIN D3 COM1 EACH PO; +VITAMIN D325 MCG PO
[2022-09-29] MEDS ORDERED: LEXAPRO10 MG PO (15:01)
[2022-09-29] MEDS ORDERED: HYDROXYZINE HCL25 MG PO (15:01)
--- NOTE | 2022-10-02 09:33 | OR ---
[facility] [address], [place] [address] Signed DATE OF OPERATION: 10/01/2022 SURGEON: Stu Cochran DPM PREOPERATIVE DIAGNOSIS: Osteomyelitis, proximal phalanx, right first digit. POSTOPERATIVE DIAGNOSIS: Osteomyelitis, proximal phalanx, right first digit. PROCEDURE: Amputation of the right first digit at the level of the metatarsophalangeal joint. ANESTHESIA PROVIDER: Paul Giles Nurse Private Equity Associate ANESTHESIA: General with 10 mL of local consistent of 1:1 mix of 0.5% ropivacaine plane and 2% lidocaine plane. ESTIMATED BLOOD LOSS: Less than 5 mL or minimal. HEMOSTASIS: Ankle tourniquet. MATERIALS UTILIZED: 4-0 nylon and 5-0 nylon. PROCEDURE IN DETAIL: The patient was brought into the operating room and placed upon the operating table in the prone position. Following IV sedation, the above local anesthesia was administered around the patient's right first metatarsophalangeal joint region. The right foot was then scrubbed, prepped, and draped in the usual sterile technique. Esmarch bandage was then utilized to exsanguinate the patient's right foot and then left wrapped around the ankle to act as tourniquet. Attention was directed to the distal aspect of the patient's right first digit, please note that the patient had a previous partial toe amputation until the level of the proximal phalanx. An incision was performed across the distal aspect of the digit approximately 4.5 cm in length extending from the medial aspect of the MTPJ moving distally across Electronically Signed By: STU COCHRAN DPM 10/02/22 0933 PATIENT NAME: SOLE WOLFE OPERATIVE REPORT DATE OF : 78 REPORT #: [id number] PHYSICIAN: STU COCHRAN DPM PCP: [facility] REPORT IS CONFIDENTIAL AND NOT TO BE RELEASED WITHOUT AUTHORIZATION [facility] [address], [place] [address] Signed the partial first digit stump and then lateral into the first webspace created by the first and second digits. The incision was then deepened through the subcutaneous tissue with care being taken to identify and retract the vital and neurovascular structures. Bleeders were cauterized and ligated as necessary. Careful dissection continued down until the level of proximal phalanx bone utilizing a #64 blade. Soft tissue was then freed from the proximal phalanx utilizing a #64 blade in a [place] elevator. Bone clamp was utilized to secure the proximal phalanx soft tissue was freed up. The base of the proximal phalanx with #64 blade and the proximal phalanx was removed and sent to Pathology for pathologic review. Examination of the soft tissue and the area revealed abundant amount of scar tissue from previous surgery and previous infection. No evidence of active bacterial infection noted. No odor. No tissue necrosis. Distal aspect of the proximal phalanx had a fibrocollagenous cap on it that had some osseous calcifications embedded within. Also, inspection of the surrounding soft tissue also found some calcifications with in the plantar soft tissue flap. This was excised by extending the incision proximally, removing a portion of the plantar skin flap, this was an area that had been previously chronic ulcerations as reported by the patient. Soft tissue was inspected any avascular, loose tissue was excised and debrided with rongeur and tenotomies. Soft tissue flaps were inspected for remaining calcifications and found to be smooth. The area was then flushed with copious amounts of sterile normal saline. The amputation site was then closed utilizing 4-0 nylon and 5-0 nylon in a simple interrupted suture technique. The wound was then dressed utilizing Xeroform, fluff gauze, Kerlix, and Coban. Ankle tourniquet was removed and prompt hyperemic response was noted to all the remaining digits of the patient's right foot. The patient had tolerated both the procedure and the anesthesia well, and the patient was then transferred to the PACU for routine postoperative monitoring. The patient is to be readmitted to the general medical floor for continued IV antibiotics and treatment of possible bone and soft tissue infections. Stu Cochran DPM TM/MODL /[id number] Electronically Signed By: STU COCHRAN DPM 10/02/22 0933 PATIENT NAME: SOLE WOLFE SHERIN OPERATIVE REPORT DATE OF : 78 REPORT #: [id number] PHYSICIAN: STU COCHRAN DPM PCP: [facility] REPORT IS CONFIDENTIAL AND NOT TO BE RELEASED WITHOUT AUTHORIZATION [address] [address] Signed Copies: ~ Electronically Signed By: STU COCHRAN DPM 10/02/22 0933 PATIENT NAME: AIDENSOLEASHLI DUFF OPERATIVE REPORT DATE OF : 78 REPORT #: [id number] PHYSICIAN: STU COCHRAN DPM PCP: [facility] REPORT IS CONFIDENTIAL AND NOT TO BE RELEASED WITHOUT AUTHORIZATION
[2022-10-02] MEDS ORDERED: PROCHLORPERAZIN10 MG PO (12:30)
[2022-10-02] MEDS ORDERED: AMOX TR-K CLV1 EAC1 PO (12:30)
[2022-10-02] MEDS ORDERED: HYDROCODON-ACE1 EA11 PO (12:32)
--- NOTE | 2022-10-06 12:39 | PATH ---
[facility] [address] [facility] [place], [place] [address] Signed SPECIMEN(S): A RIGHT PHALANX SPECIMEN SOURCE: A. RIGHT PHALANX CLINICAL HISTORY: Diabetic foot wound, right foot; chronic osteomyelitis, distal. FINAL PATHOLOGIC DIAGNOSIS: Right phalanx: - Segment of benign bone with focal marrow space fibrosis and slight chronic inflammation. - See comment. COMMENT: The clinical concern for chronic osteomyelitis is noted and similar findings such as those seen on this case could be seen. JVR:naldo:C2NR MICROSCOPIC EXAMINATION: Histologic sections of all submitted blocks are examined by light microscopy. These findings, together with the gross examination, support the pathologic diagnosis. GROSS DESCRIPTION: The specimen, labeled and designated "Venkata, right phalanx with chronic osteomyelitis, distal," is received in formalin and consists of a distal phalanx (2.2 x 2.2 x 2.0 cm). The specimen is sectioned to reveal a thompson-pink to slightly hemorrhagic cut surface. A credit resolution representative longitudinal cross-section submitted in cassette (A1) following decalcification in Decal Stat. AC (under the direct supervision of a pathologist) The Gross Description was prepared using a voice recognition system. The report was reviewed for accuracy; however, sound-alike word errors, addition and/or deletions may occur. If there is any question about this report, please contact Client Services. PERFORMING LABORATORY: The technical component was performed by [email or web address], [address] [place] [id number] (CLIA# [id number]). Professional interpretation was performed by [facility] [place], PATIENT NAME: SOLE WOLFE PATHOLOGY DATE OF : 78 REPORT #: [id number] PHYSICIAN: [facility] PCP: [facility] REPORT IS CONFIDENTIAL AND NOT TO BE RELEASED WITHOUT AUTHORIZATION [facility] [address] [place], [place] [address] [address], [place] [address] (CLIA#: [id number]). Diagnostician: Clark Rodríguez MD Pathologist Electronically Signed 10/06/2022 Copies: ~ PATIENT NAME: SOLE WOLFE PATHOLOGY DATE OF : 78 REPORT #: [id number] PHYSICIAN: [facility] PCP: [facility] REPORT IS CONFIDENTIAL AND NOT TO BE RELEASED WITHOUT AUTHORIZATION
== END 2022-10-02 13:50 | disposition home or self-care (01) | DRG 617 ==
LOC: ED 16:33 → MS 18:18 → CCU 18:18 → MS 18:18 → ED 18:18 → MS 22:52
PROVIDERS: Podiatrist Foot & Ankle Surgery; ADMIT Internal Medicine; ATTEND Internal Medicine
PROC: 0JBQ0ZZ Excision of Right Foot Subcutaneous Tissue and Fascia, Open Approach (ICD-10-PCS; 2022-09-27)
PROC: 0Y6P0Z1 Detachment at Right 1st Toe, High, Open Approach (ICD-10-PCS; principal; 2022-10-01 07:30)
DX: E11.69 Type 2 diabetes mellitus with other specified complication (principal); L03.115 Cellulitis of right lower limb; L97.111 Non-pressure chronic ulcer of right thigh limited to breakdown of skin; M86.271 Subacute osteomyelitis, right ankle and foot; E11.628 Type 2 diabetes mellitus with other skin complications; R11.15 Cyclical vomiting syndrome unrelated to migraine; F41.8 Other specified anxiety disorders; F43.10 Post-traumatic stress disorder, unspecified; E11.621 Type 2 diabetes mellitus with foot ulcer; L97.519 Non-pressure chronic ulcer of other part of right foot with unspecified severity; H91.90 Unspecified hearing loss, unspecified ear; F12.20 Cannabis dependence, uncomplicated; E78.2 Mixed hyperlipidemia; E11.40 Type 2 diabetes mellitus with diabetic neuropathy, unspecified; Z87.891 Personal history of nicotine dependence; Z98.51 Tubal ligation status; Z90.13 Acquired absence of bilateral breasts and nipples; Z90.49 Acquired absence of other specified parts of digestive tract; Z98.890 Other specified postprocedural states; Z89.421 Acquired absence of other right toe(s); Z88.8 Allergy status to other drugs, medicaments and biological substances; Z79.4 Long term (current) use of insulin; Z79.899 Other long term (current) drug therapy
CPT/HCPCS: 36415; 73630; 73723; 80048; 80053; 81003; 83605; 85025; 85651; 86140; 87040; 87502; A9270; A9270-GY; A9579; C9803; J0690; J0692; J1100; J1170; J1650; J1815; J2001; J2060; J2250; J2405; J2550; J2704; J2795; J7030; Q0177; U0003

== ENCOUNTER 2023-01-07 18:15 | Emergency (ER) | payer OTHER ==
[~2023-01-07] VITALS: Ht 160 cm; Wt 50.5 kg
[~2023-01-07 18:15] MED LIST changes: +AMOX TR-K CLV1 EAC1 PO; +HYDROCODON-ACE1 EA11 PO; +HYDROXYZINE HCL25 MG PO; +LEXAPRO10 MG PO; +PROCHLORPERAZIN10 MG PO
== END 2023-01-07 23:47 | disposition home or self-care (01) ==
LOC: ED 18:15
DX: R11.15 Cyclical vomiting syndrome unrelated to migraine (principal); E86.0 Dehydration; E83.42 Hypomagnesemia; E11.9 Type 2 diabetes mellitus without complications; E78.2 Mixed hyperlipidemia; Z87.891 Personal history of nicotine dependence; Z88.8 Allergy status to other drugs, medicaments and biological substances; Z79.899 Other long term (current) drug therapy; Z79.4 Long term (current) use of insulin
CPT/HCPCS: 36415; 80053; 81003; 83690; 83735; 84484; 85025; 96361; 96365; 96375; 99284-25; J1200; J1790; J2060; J2405; J3475; J7040; J7121

== ENCOUNTER 2023-02-06 00:29 | Emergency (ER) | payer OTHER ==
[~2023-02-06] VITALS: Ht 160 cm; Wt 51.3 kg
--- OUTSIDE RECORDS SUMMARY | 2023-02-06 00:33 | XMS ---
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 Care History Medical/Surgical 07/04/2020 [facility] - W CONTACTED CLIMATE CHANGE ANALYST- TOSHIA TAVAREZTOLL GATE TENDER AT [facility] - PATIENT HAS NOT FILLED MEDICATIONS SINCE - LAST PCP APT WAS IN MARCH 2020 NO FOLLOW UP APTS SCHEDULED - PATIENT WAS REFERRED TO [facility] GASTROENTEROLOGY AND WAS SEEN ON 05/12/20 AND WAS REFERRED TO [facility] FOR FURTHER FOLLOW UP ON 07/05/20 @ 1:00PM. 03/18/2020 [facility] - PATIENT IS A [place] ELIGIBLE, \T\middot;\T\nbsp; PLEASE REFER PATIENT TO [facility] FOR NON EMERGENT MEDICAL NEEDS. \T\middot;\T\nbsp; [facility] CAN SEE PATIENTS SAME DAY FOR APTS IF PATIENT CALLS FIRST THING IN THE MORNING. E.D. VISIT COUNT (12 MO.) 3 [facility] - [place] 6 [facility]. TOTAL 9 NOTE: Visits indicate total known visits. ED/UCC VISIT TRACKING (12 MO.) 02/06/2023 00:30 [place] TYPE: Emergency COMPLAINT: - N/V 01/07/2023 18:15 [place] TYPE: Emergency COMPLAINT: - VOMITING DIAGNOSES: - Allergy status to other drugs, medicaments and biological substances - Cyclical vomiting syndrome unrelated to migraine - Dehydration - Hypomagnesemia - detention (current) use of insulin - Mixed hyperlipidemia - Nausea with vomiting, unspecified - Other nursing home (current) drug therapy - Personal history of nicotine dependence - Type 2 diabetes mellitus without complications 11/23/2022 13:09 [place] TYPE: Emergency COMPLAINT: - VOMITING, R LEG/THIGH PAIN, SORES ON FEET DIAGNOSES: - Allergy status to other drugs, medicaments and biological substances - Cellulitis of right lower limb - Contact with and (suspected) exposure to COVID-19 - detention (current) use of insulin - Mixed hyperlipidemia - Nausea with vomiting, unspecified - Other nursing home (current) drug therapy - Personal history of nicotine dependence - ST elevation (STEMI) myocardial infarction of unspecified site - Type 2 diabetes mellitus without complications 09/27/2022 16:34 [place] TYPE: Emergency COMPLAINT: - RT FOOT PAIN 07/02/2022 03:54 [place] TYPE: Emergency COMPLAINT: - VOMITING DIAGNOSES: - Allergy status to other drugs, medicaments and biological substances - Cyclical vomiting syndrome unrelated to migraine - intermediate manager (current) use of insulin - Mixed hyperlipidemia - Other nursing home (current) drug therapy - Personal history of nicotine dependence - Pneumonia, unspecified organism - Type 2 diabetes mellitus with diabetic neuropathy, unspecified - Type 2 diabetes mellitus without complications 05/10/2022 11:12 [place] TYPE: Emergency COMPLAINT: - N/V DIAGNOSES: - Allergy status to other drugs, medicaments and biological substances - Cyclical vomiting syndrome unrelated to migraine - intermediate manager (current) use of insulin - Mixed hyperlipidemia - Nausea with vomiting, unspecified - Other buttermaker continuous churn (current) drug therapy - Personal history of nicotine dependence - Type 2 diabetes mellitus with diabetic neuropathy, unspecified 04/18/2022 20:10 [facility] [place] TYPE: Emergency DIAGNOSES: - Cyclical vomiting syndrome unrelated to migraine - Hyperglycemia, unspecified - Nausea with vomiting, unspecified - Other chronic pain - Thyrotoxicosis, 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 storm - Unspecified abdominal pain - Vomiting 03/23/2022 12:41 [facility] [place] TYPE: Emergency DIAGNOSES: - Cyclical vomiting syndrome unrelated to migraine - Hyperglycemia, unspecified - Nausea with vomiting, unspecified - Vomiting 2022 09:10 [facility] [place] TYPE: Emergency DIAGNOSES: - Cyclical vomiting syndrome unrelated to migraine - Hyperglycemia, unspecified - Hypokalemia - Other disorders of electrolyte and fluid balance, not elsewhere classified - Vomiting Blood - Vomiting; Black or Bloody Stool INPATIENT VISIT TRACKING (12 MO.) 11/23/2022 14:56 [facility] TYPE: Medical Surgical DIAGNOSES: - Cellulitis of right lower limb - ST elevation (STEMI) myocardial infarction of unspecified site - Systemic inflammatory response syndrome (SIRS) of non-infectious origin without acute organ dysfunction - Takotsubo syndrome - Type 2 diabetes mellitus with diabetic peripheral angiopathy without gangrene 09/27/2022 18:18 [facility] [place] TYPE: Medical Surgical COMPLAINT: - DIABETIC FOOD WOUND,RIGHT FOOT DIAGNOSES: - Acquired absence of bilateral breasts and nipples - Acquired absence of bilateral breasts and nipples - Acquired absence of other right toe(s) - Acquired absence of other right toe(s) - Acquired absence of other specified parts of digestive tract - Acquired absence of other specified parts of digestive tract - Allergy status to other drugs, medicaments and biological substances - Allergy status to other drugs, medicaments and biological substances - Cannabis dependence, uncomplicated - Cannabis dependence, uncomplicated - Cellulitis of right lower limb - Cellulitis of right lower limb - Cyclical vomiting syndrome unrelated to migraine - Cyclical vomiting syndrome unrelated to migraine - detention (current) use of insulin - detention (current) use of insulin - Mixed hyperlipidemia - Mixed hyperlipidemia - Non-pressure chronic ulcer of other part of right foot with unspecified severity - Non-pressure chronic ulcer of other part of right foot with unspecified severity - Non-pressure chronic ulcer of right thigh limited to breakdown of skin - Non-pressure chronic ulcer of right thigh limited to breakdown of skin - Other buttermaker continuous churn (current) drug therapy - Other nursing home (current) drug therapy - Other specified anxiety disorders - Other specified anxiety disorders - Other specified postprocedural states - Other specified postprocedural states - Personal history of nicotine dependence - Personal history of nicotine dependence - Post-traumatic stress disorder, unspecified - Post-traumatic stress disorder, unspecified - Subacute osteomyelitis, right ankle and foot - Subacute osteomyelitis, right ankle and foot - Tubal ligation status - Tubal ligation status - Type 2 diabetes mellitus with diabetic neuropathy, unspecified - Type 2 diabetes mellitus with diabetic neuropathy, unspecified - Type 2 diabetes mellitus with foot ulcer - Type 2 diabetes mellitus with foot ulcer - Type 2 diabetes mellitus with other skin complications - Type 2 diabetes mellitus with other skin complications - Type 2 diabetes mellitus with other specified complication - Unspecified hearing loss, unspecified ear - Unspecified hearing loss, unspecified ear [id number]
[2023-02-06] MEDS ORDERED: PROMETHEGAN25 MG PR (01:40)
[2023-02-06 02:00] VITALS: BP 154/92
== END 2023-02-06 02:08 | disposition home or self-care (01) ==
LOC: ED 00:29
DX: R11.2 Nausea with vomiting, unspecified (principal); E11.9 Type 2 diabetes mellitus without complications; Z87.891 Personal history of nicotine dependence; Z88.8 Allergy status to other drugs, medicaments and biological substances; Z79.899 Other long term (current) drug therapy; Z79.4 Long term (current) use of insulin
CPT/HCPCS: 36415; 80053; 83735; 85025; 96361; 96374; 99284-25; J1790; J7121

== ENCOUNTER 2023-09-06 15:19 | Observation (INO) | payer OTHER ==
[~2023-09-06] VITALS: Ht 160 cm; Wt 48.0 kg
[~2023-09-06 15:19] MED LIST changes: +B COMPLEX1 EACH PO; +PROMETHEGAN25 MG PR
[2023-09-06 16:20] LABS: BASOPHILS 0.6 % (0-2); EOSINOPHILS 0.6 % (0-6); HEMATOCRIT 33.4 % (35.0-50.0); HEMOGLOBIN 10.5 g/dL (12.0-18.0); LYMPHOCYTES 12.3 % (24-44); MCHC 31.4 g/dl (30-36); MCV 82.6 fl (81-99); MONOCYTES 5.9 % (0-12); NEUTROPHILS 80.6 % (39-80); PLATELET COUNT 387 K/uL (140-440); RBC 4.04 M/ul (4.3-5.7)
[2023-09-06 16:35] LABS: ALBUMIN 3.1 g/dL (3.4-5.0); ALBUMIN/GLOBULIN RATIO 0.57 (1.1-2.4); ANION GAP 9.1 (7-21); BILIRUBIN, TOTAL 0.2 ng/dL (0.2-1.0); BUN/CREATININE RATIO 9.48 (6.0-28.6); CALCIUM 8.8 mg/dL (8.5-10.1); CREATININE, SERUM 1.37 mg/dL (0.55-1.02); POTASSIUM 4.1 mmol/L (3.5-5.1); PROTEIN, TOTAL 8.5 g/dL (6.4-8.2)
[2023-09-06 17:41] LABS: LACTIC ACID, BLOOD 1.4 mmol/L (0.4-2.0)
[2023-09-06 20:30] VITALS: BP 140/90
--- NOTE | 2023-09-06 20:30 | NUR ---
REPORT RECEIVED FROM PROJECT MANAGER FINANCE. [facility]. IV FLUSHED AND WNL. IV FLUID INFUSING PER ORDER. ASSESSMENT COMPLETE. PATIENT STATES 10/10 PAIN [address] FACE. BLISTER NOTED ON RIGHT BIG TOE. PICTURES TAKEN AND FILED IN CHART AFTER CONSENT WAS SIGNED. WARM PACK PROVIDED FOR COMFORT. WATER PROVIDED. WHITE BOARD UPDATED.
--- NOTE | 2023-09-06 21:30 | NUR ---
SCHEDULED AND PRN MEDICATION ADMINISTERED. ABX AND FLUID INFUSING PER ORDER. PATIENT HAS NO FURTHER NEEDS. CALL LIGHT IN REACH.
--- NOTE | 2023-09-06 22:40 | NUR ---
SCHEDULED ABX INFUSING PER ORDER. NO FURTHER NEEDS. CALL LIGHT IN REACH.
--- NOTE | 2023-09-06 23:56 | NUR ---
PATIENT IN BED RESTING ON BACK WITH EYES CLOSED. RESPIRATIONS EVEN AND UNLABORED. HOB ELEVATED. IV ABX INFUSING PER ORDER. CALL LIGHT IN REACH.
[2023-09-07 01:30] VITALS: BP 130/97
--- NOTE | 2023-09-07 01:32 | NUR ---
PATIENT RESTING IN BED. AWAKENS EASILY. VS AND I&Os OBTAINED AND RECORDED. PATIENT REPORTS NO CURRENT NEEDS. CALL LIGHT IN REACH.
--- NOTE | 2023-09-07 03:27 | NUR ---
PATIENT IN BED RESTING ON LEFT SIDE. IV FLUID INFUSING PER ORDER. RESPIRATIONS EVEN AND UNLABORED. CALL LIGHT IN REACH.
[2023-09-07 05:41] LABS: EOSINOPHILS 2.4 % (0-6); HEMATOCRIT 30.7 % (35.0-50.0); HEMOGLOBIN 10.1 g/dL (12.0-18.0); LYMPHOCYTES 26.9 % (24-44); MCH 26.6 (27-36); MCHC 32.8 g/dl (30-36); MCV 81.2 fl (81-99); MONOCYTES 6.3 % (0-12); NEUTROPHILS 63.4 % (39-80); PLATELET COUNT 346 K/uL (140-440); RBC 3.79 M/ul (4.3-5.7); RDW 16.7 (10.5-15.0)
[2023-09-07 05:55] LABS: ANION GAP 10.9 (7-21); BUN/CREATININE RATIO 14.28 (6.0-28.6); CALCIUM 8.4 mg/dL (8.5-10.1); CREATININE, SERUM 0.77 mg/dL (0.55-1.02); POTASSIUM 3.9 mmol/L (3.5-5.1)
[2023-09-07 06:12] VITALS: BP 139/88
--- NOTE | 2023-09-07 06:43 | NUR ---
PATIENT RESTING IN BED. PATIENT UP TO BATHROOM WITH MINIMAL SBA TO VOID. VS AND I&Os OBTAINED AND RECORDED. IV ABX INFUSING PER ORDER. PRN PAIN MEDICATION GIVEN, SEE MAR. PATIENT ASSESSMENT COMPLETE. PATIENT RATES PAIN 6/10. PATIENT STATES HER PAIN FEELS BETTER THAN WHEN SHE CAME IN. EDEMA NOTED ON LEFT SIDE OF FACE. PATIENT REPORTS NO CURRENT NEEDS. CALL LIGHT IN REACH. FRESH WATER PROVIDED.
--- NOTE | 2023-09-07 08:02 | NUR ---
PT RESTING EYES CLOSED AT TIME OF SHIFT REPORT, LEFT UNDISTURBED. AWAKE AND INTERACTIVE AT THIS TIME. AGREES SHE IS COMFORTABLE AND THAT SHE FEELS SOME IMPROVEMENT SINCE ABX STARTED. FRESH H20 AND NEEDED ITEMS TO BEDSIDE PT DENIES OTHER NEEDS AT THIS TIME
--- NOTE | 2023-09-07 09:00 | NUR ---
JANETH HUBER COMPLETED EDUCATION PROVIDED. PT CONTINUES IN BED TOLERATES 100% OF MORNING MEAL. DENIES NEEDS AT THIS TIME
[2023-09-07] MEDS ORDERED: DENTA 5000 PLUS51 GM MM (09:51)
--- NOTE | 2023-09-07 10:30 | NUR ---
PT TO MRI
--- NOTE | 2023-09-07 10:40 | NUR ---
Spoke with Myesha. She states she currently lives in an RV behind her dads home. She has a power strip for her heater and TV. She does not have issues getting in or out of the RV. She showers and cooks in her dads house. She does not work. She states she has been hospitalized multiple times for vomiting. She has been worked up, but no diagnosis. She does state they are trying a new med and she has not vomitited for two weeks. Her face is swollen and she states she has an open wound on her foot. She was seen at [facility] recently by their manager ob. They see pts two times per week. We discussed her MRI today and then a possible referral to [facility]. She has seen them in the past. Her care would be covered as she has medicaid. Depending on her need she can decide on Doc at [facility] or [facility] inventory specialist when she gets near dc. She denies other needs and plans on dc to her RV when she is medically cleared for dc.
[2023-09-07 10:57] VITALS: BP 137/94
--- NOTE | 2023-09-07 11:30 | NUR ---
DR WAGNER IN TO SEE PT DISCUSSES CONDITION AND PLAN GOING FORWARD ALL QUESTIONS ANSWRED. PT RESTING NOW AGREES SHE IS COMFORTABLE.
--- NOTE | 2023-09-07 11:52 | NUR ---
MS CRAWLEY. UNABLE TO VISIT PHARMACY IN ROOM. PROVIDED PRAYER.
--- NOTE | 2023-09-07 12:02 | NUR ---
MED REC COMPLETE
--- NOTE | 2023-09-07 12:17 | NUR ---
PT SITTING UP EATING NOON MEAL LISTENING TO POD CAST ON PERSONAL DEVISE.
[2023-09-07 13:49] VITALS: BP 141/90
--- NOTE | 2023-09-07 13:53 | NUR ---
PATIENT IN BED RESTING WITH EYES CLOSED AT THIS TIME. VITALS AND I&O'S CHARTED. CALL LIGHT IN REACH. NO FURTHER NEEDS AT THIS TIME.
--- NOTE | 2023-09-07 14:02 | NUR ---
PT RESTING EYES CLOSED.
--- NOTE | 2023-09-07 16:01 | NUR ---
PT UP TO THE TOILET INDEPENDANTLY STEADY ON HER FEET. RETURNS TO RESTING IN BED NO C/O PAIN OR OTHER DISCOMFORTS. FRESH H20 TO BEDSIDE PT AGREES SHE IS READY FOR EVENING MEAL
--- NOTE | 2023-09-07 17:22 | NUR ---
WOUND CARE CONSULTED FOR LEFT FIRST TOE WOUND. PT ADMITTED 09/06/23 FOR FOR CELLULITIS OF THE RIGHT SIDE OF THE FACE. PT HX OF DM II, NEUROPATHY, CHRONIC RENAL INSUFFICIENCY, CURRENT SMOKER. SUSPECTED DIABETIC ULCER ON PLANTAR SURFACE OF THE 1ST TOE. WOUND APPEARS LINEAR PARTIAL THICKNESS FISSURE OVER A CALLUS ON THE 1ST TOE. XEROSIS NOTED AROUND THE CALLUS. WOUND EDGES ATTACHED AND CALLUS. NO DRAINAGE NOTED. WOUND BASE IS PINK, NON-GRANULAR AND DRY. PT REPORTS THE WOUND STARTED OUT A BLISTER APPROXIMATELY 3 MONTHS AGO. RECOMMENDATIONS: CLEANSE WOUND WITH NS AND PAT DRY. APPLY PEA SIZE AMOUNT OF MEDIHONEY TO FOLED GAUZE AND APPLY TO WOUND BASE. SECURE IN PLACE WITH CONFROM ROLL GAUZE AND COBAN. CHANGE DRESSING EVERY TUES, WED AND SAT. GOAL: SOFTEN CALLUS, PROVIDE MOIST WOUND HEALING ENVIRONMENT, PREVENT INFECTION AND HEAL.
--- NOTE | 2023-09-07 17:54 | NUR ---
PT EATS ENTIRE EVENING TRAY STATES SHE IS STILL HUNGRY. KITCHEN CONTACTED FOR LUNCH BOX, MORE FOOD PROVIDED
[2023-09-07 18:13] VITALS: BP 142/96
--- NOTE | 2023-09-07 18:15 | NUR ---
PATIENT SITTING UP EATING AND WATCHING TV. VITALS AND I&O'S CHARTED. CALL LIGHT IN REACH. NO FURTHER NEEDS AT THIS TIME.
[2023-09-07 20:27] VITALS: BP 124/75
--- NOTE | 2023-09-07 20:57 | NUR ---
PATIENT IN BED RESTING WITH EYES CLOSED. VS AND I&Os OBTAINED AND RECORDED. NEW BAG FLUID, SCHEDULED ABX, AND PRN MEDICATION ADMINISTERED, SEE MAR. ASSESSMENT COMPLETE. PATIENT STATES 4/10 FACIAL PAIN. LEFT TOE DRESSING C/D/I. IV FLUSHED AND WNL. PATIENT STATES NO FURTHER NEEDS. CALL LIGHT IN REACH.
--- NOTE | 2023-09-07 22:50 | NUR ---
PATIENT RESTING IN BED WITH EYES CLOSED. RESPIRATIONS EVEN AND UNLABORED. IV ABX INFUSING PER ORDER. CALL LIGHT IN REACH.
--- NOTE | 2023-09-07 23:22 | NUR ---
PATIENT RESTING IN BED ON BACK. RESPIRATIONS EVEN AND UNLABORED. CALL LIGHT IN REACH.
--- NOTE | 2023-09-08 02:30 | NUR ---
PATIENT IN BED RESTING ON LEFT SIDE. RESPIRATIONS EVEN AND UNLABORED. CALL LIGHT IN REACH.
--- NOTE | 2023-09-08 04:30 | NUR ---
PATIENT RESTING IN BED ON BACK ON LEFT SIDE. IV INFUSING PER ORDER. RESPIRATIONS EVEN AND UNLABORED. CALL LIGHT IN REACH.
[2023-09-08 05:38] VITALS: BP 177/105
--- NOTE | 2023-09-08 06:00 | NUR ---
PATIENT RESTING IN BED. VS AND I&Os OBTAINED AND RECORDED. SCHEDULED ABX AND PRN PAIN MEDICATION ADMINISTERED, SEE MAR. ASSESSMENT COMPLETE. PATIENT STATES 4/10 PAIN IN ABD FROM "PUSHING A CAR OFF THE ROAD BEFORE COMING INTO THE HOSPITAL" AND 4/10 PAIN IN FACE. FRESH WATER PROVIDED. PATIENT STATES NO FURTHER NEEDS. CALL LIGHT IN REACH.
[2023-09-08 06:39] LABS: BASOPHILS 1.2 % (0-2); EOSINOPHILS 1.6 % (0-6); HEMATOCRIT 34.9 % (35.0-50.0); HEMOGLOBIN 11.2 g/dL (12.0-18.0); LYMPHOCYTES 24.6 % (24-44); MCH 26.3 (27-36); MCHC 32.2 g/dl (30-36); MCV 81.8 fl (81-99); MONOCYTES 4.7 % (0-12); NEUTROPHILS 67.9 % (39-80); PLATELET COUNT 426 K/uL (140-440); RBC 4.27 M/ul (4.3-5.7); RDW 16.8 (10.5-15.0)
--- NOTE | 2023-09-08 06:46 | NUR ---
CALL LIGHT ANSWERED. PATIENT VOMITING IN BED. PATIENT STATES THIS IS "COMMON AND THINKS THIS IS WHY HER ABD FELT PAINFUL EARLIER". PATIENT OFFERED PRN NAUSEA MED. PATIENT DENIED PRN MEDICATION AT THIS TIME. FRESH LINEN AND GOWN PROVIDED. WARM WASH CLOTH PROVIDED. PATIENT HAS NO FURTHER NEEDS. CALL LIGHT IN REACH. PATIENT EDUCATED TO CALL IF NAUSEA CONTINUES.
[2023-09-08 06:47] LABS: ANION GAP 11.6 (7-21); BUN/CREATININE RATIO 18.07 (6.0-28.6); CALCIUM 8.7 mg/dL (8.5-10.1); CREATININE, SERUM 0.83 mg/dL (0.55-1.02); POTASSIUM 3.6 mmol/L (3.5-5.1)
--- NOTE | 2023-09-08 07:15 | NUR ---
REPORT RECEIVED FROM WEIGHT REDUCTION SPECIALIST RN SHIVAM. PATIENT IS IN BED AND RESTING ON THEIR LEFT SIDE. RESPIRATIONS ARE EVEN AND UNLABORED. CALL LIGHT AND PERSONAL BELONGINGS ARE WITHIN REACH.
--- NOTE | 2023-09-08 08:09 | NUR ---
MRI and CT faxed to [facility] medical records.
--- NOTE | 2023-09-08 08:11 | NUR ---
PATIENT FULL ASSESSMENT COMPLETE AND DOCUMENTED IN THE CHART. PATIENT 0800 AND 0900 MEDICATIONS ADMINISTERED PER THE EMAR. PATIENT FULL ASSESSMENT UNREMARKABLE. LUNG SOUNDS ARE CLEAR AND THEN DIMINISHED IN THE BASES BILATERALLY. PATIENT WITH NO FACIAL SWELLING NOTICED. PATIENT WITH FLAT AFFECT. ZOFRAN PRN ADMINISTERED DUE TO PATIENT EXPERIENCING NAUSEA. IV IN THE LEFT AC FLUSHES WELL AND IS CLEAN, DRY, AND INTACT. PATIENT STATED NO FURTHER NEEDS AT THIS TIME. CALL LIGHT AND PERSONAL BELONGINGS ARE WITHIN REACH.
--- NOTE | 2023-09-08 09:00 | NUR ---
RECEIVED VERBAL ORDER TO GIVE COMPAZINE Q6 PRN FOR NAUSEA FROM .
[2023-09-08 10:30] VITALS: BP 139/97
--- NOTE | 2023-09-08 11:22 | NUR ---
Respond to call light for IV pump alarming. IV line B is complete. IV line A currently running.
--- NOTE | 2023-09-08 14:00 | NUR ---
Spoke with Myesha. She plans on dc today. Would like to fu with [facility] and their die barber. Paige CARRERO will call and schedule FU. Pt denies other needs.
--- NOTE | 2023-09-08 14:09 | NUR ---
MS ROUNDS. SHORT VISIT. PT INDICATED DESIRE FOR NAP. PROVIDED HOSPITALITY. PROVIDED PRAYER.
[2023-09-08 14:41] VITALS: BP 148/87
--- NOTE | 2023-09-08 14:44 | NUR ---
PATIENT VITAL SIGNS AND INTAKE AND OUTPUT VALUES DOCUMENTED IN THE CHART. PATIENT STATED HAVING NO PAIN OR NAUSEA AT THIS TIME. PATIENT LEFT BIG TOE IS COVERED WITH DRESSING PLACED YESTERDAY. DRESSING IS CLEAN, DRY, AND INTACT. PATIENT ASKED IF THE DRESSING WILL BE CHANGED. PER THE WOUND CONSULT NOTE I TOLD THE PATIENT THE DRESSING IS CHANGED ON WEDNESDAY, WEDNESDAY, AND WEDNESDAY. PATIENT EXPRESSED UNDERSTANDING. PATIENT ON THE RIGHT SIDE OF FACE WITH A SMALL AMOUNT OF GENERALIZED EDEMA. PATIENT STATED NO FURTHER NEEDS AT THIS TIME. CALL LIGHT AND PERSONAL BELONGINGS ARE WITHIN REACH.
--- NOTE | 2023-09-08 16:15 | NUR ---
Notified by Paige she was unable to reach [facility]. I attempted to call and they are closed for the day. Will call tomorrow.
--- NOTE | 2023-09-08 16:29 | NUR ---
PATIENT STATES THEY ARE FEELING GOOD. NO NAUSEA OR VOMITING NOTED AT THIS TIME. PATIENT REQUESTS A SIDE SALAD WITH DINNER. RN CALLED THE KITCHEN. PATIENT STATED NO FURTHER NEEDS AT THIS TIME. CALL LIGHT AND PERSONAL BELONGINGS ARE WITHIN REACH.
--- NOTE | 2023-09-08 17:21 | NUR ---
PATIENT HUMALOG ADMINISTERED PER THE EMAR. PATIENT EXPRESSED CONCERN ABOUT THE INABILITY TO SLEEP AT NIGHT. PATIENT STATED SHE TAKES 6 MG MELATONIN AT NIGHT. PATIENT NOW SITTING UPRIGHT IN BED AND EATING DINNER. PATIENT STATED NO FURTHERNEEDS AT THIS TIME. CALL LIGHT AND PERSONAL BELONGINGS ARE WITHIN REACH. NOTIFIED AND GOT A VERBAL ORDER FOR MELATONIN 6MG AT NIGHT PRN.
[2023-09-08 18:24] VITALS: BP 139/97
--- NOTE | 2023-09-08 19:25 | NUR ---
Patient resting in bed, no distress, report provided by dayshift RN, call light within reach.
[2023-09-08 21:45] VITALS: BP 126/76
--- NOTE | 2023-09-08 22:00 | NUR ---
VSS, PATIENT REQUESTING SLEEPING MEDICATION, FACE SLIGHTLY SWOLLEN, PATIENT DENIES ANY DIFFICULTIES WITH SWALLOWING OR BREATHING, AREA SORE AND GIVEN TYLENOL, MELATONIN GIVEN FOR SLEEP, IV INFUSING WITHOUT DIFFICULTY, BLOOD SUGAR 206 AND GIVEN 3U PER SS, ZOFRAN GIVEN FOR C/O SLIGHT NAUSEA. LIGHTS ARE OUT AT THIS TIME, CALL LIGHT WITHIN REACH.
--- NOTE | 2023-09-08 22:31 | NUR ---
Patient upad howie to BR to void without difficulties, back to bed, trying to get to sleep, no complaints, call light within reach.
--- NOTE | 2023-09-09 00:24 | NUR ---
Patient called, She got tangled up in her sheets and couldn't get to BR in time, Incont. large amt of urine, Patient up in recliner, given bathing wipes to clean herself, bed linen changed, and patient is now back in bed. Patient a little upset and RN sat with her for a time, she is frustrated she can't get to sleep. Given a warm blanket and emotional support. Patient calm and lying on her side attempting now to go to sleep. call light within reach.
--- NOTE | 2023-09-09 02:15 | NUR ---
Patient awake, sleeping on and off during the night and frustrated that she isn't sleeping. Had 75ml emesis and quickly laid back down to try and sleep. No further distress noted, lights are out and call light in reach.
--- NOTE | 2023-09-09 04:09 | NUR ---
No further emesis, Appears comfortable, no distress noted, lying on side with eyes closed. call light within reach.
[2023-09-09 06:18] VITALS: BP 160/93
--- NOTE | 2023-09-09 06:20 | NUR ---
Patient sleeping between care, Did not sleep well last night, one episode of N/V. VSS, facial swelling without change, minimal discomfort, Up ad howie to the BR and voiding QS. patient trying to go back to sleep now, call light within reach.
--- NOTE | 2023-09-09 07:45 | NUR ---
RECIEVED REPORT FROM DAYSI LOMAX. PT UP TO CHAIR AWAKE AND ALERT, STATES NO NEEDS AT THIS TIME, CALL LIGHT WITHIN REACH. ASSUMING CARE OF PT WITH DAYSI DEMARCO.
--- NOTE | 2023-09-09 07:46 | NUR ---
REPORT RECEIVED FROM DAYSI LOMAX. PT UP TO CHAIR, INDEPENDANT IN ROOM AND STEADY ON FEET. PT DENIES NAUSEA AT THIS TIME AND STATES SHE WOULD LIKE TO TRY ORAL INTAKE THIS MORNING. PT DENIES PAIN. NO ADDITIONAL REQUESTS OR COMPLAINTS. CALL LIGHT WITHIN REACH. BED RAILS UP. THIS RN ASSUMING CARE OF PT WITH DAYSI LYNN.
--- NOTE | 2023-09-09 08:52 | NUR ---
FOLLOW UP APPOINTMENT 09/16/23 08:30AM
--- NOTE | 2023-09-09 09:03 | NUR ---
MEDICATION DUE. PT RESTING IN BED, PT REPORTS SHE WAS ABLE TO EAT MOST OF HER BREAKFAST. PT DENIES NAUSEA AT THIS TIME. MEDICATIONS GIVEN. PT REQUESTS TO SHOWER. NOTED THAT IV CEFEPIME HAS 25 ML REMAINING FOR INFUSION. PHARMACIST CALLED AND STATES OK TO STOP DOSE PT IS NOW RECEIVING PO. IV COVERED. PT UP TO SHOWER, STEADY ON FEET, INDEPEDNAT. PT DENIES ADDITIONAL REQUESTS OR COMPLAINTS. CALL LIGHT WITHIN REACH. PTS PRIMARY RN UPDATED.
[2023-09-09] MEDS ORDERED: LOSARTAN POTASS50 MG PO (09:49)
[2023-09-09] MEDS ORDERED: ESCITALOPRAM OX10 MG PO (09:53)
[2023-09-09 10:03] VITALS: BP 124/87
--- NOTE | 2023-09-09 10:27 | NUR ---
MORNING ASSESSMENT. PT DENIES PAIN AND NAUSEA AT THIS TIME. LUNG SOUNDS CLEAR IN ALL LOBES, CHRONIC COUGH PER PT, PT STATES SHE HAS BEEN COUGHING UP SMALL AMOUNTS OF THICK GREEN SPUTUM OCCASIONALLY SINCE BEFORE HOSPITAL STAY. PT INDEPENDENT AROUND ROOM, SHOWERED THIS MORNING, HAS HAD A BM TODAY. PT TOLERATING 60G CARB DIET WELL. VOIDING QUANTITY SUFFICIENT INDEPENDENTLY. DRESSING ON LEFT GREAT TOE COVERED, PT STATES IT "GOT A LITTLE BIT WET IN THE SHOWER". DRESSING CHANGE DUE TODAY. PT STATES NO FURTHER QUESTIONS OR NEEDS AT THIS TIME, CALL LIGHT WITHIN REACH, BED RAILS UP.
[2023-09-09 11:25] VITALS: BP 127/81
--- NOTE | 2023-09-09 11:30 | NUR ---
DISCHARGE NOTE. WOUND ASSESSMENT COMPLETED ON LEFT GREAT TOE, DRESSING CHANGED PER WOUND CONSULT INSTRUCTIONS, SEE WOUND ASSESSMENT. ALL PERSONAL BELONGINGS WITH PATIENT UPON DISCHARGE. VSS. IV REMOVED BY ELIUD SHANNON, DRESSED WITH GAUZE AND COBAN PER PROTOCOL. DISCHARGE EDUCATION COMPLETED, PT VERBALIZES UNDERSTANDING OF INSTRUCTIONS, MEDICATIONS, FOLLOW-UPS, AND TEACH BACK PERFORMED. PT STATES ALL QUESTIONS AND CONCERNS HAVE BEEN ANSWERED. PT AMBULATES INDEPENDENTLY TO WHEELCHAIR, WHEELED TO FRONT OF BUILDING BY NURSING PERSONEL, PT STATES FATHER HAS ARRIVED TO TAKE HER HOME.
== END 2023-09-09 11:30 | disposition home or self-care (01) ==
LOC: ED 15:19 → MS 15:21
PROVIDERS: Emergency Medicine; ADMIT Internal Medicine; ATTEND Internal Medicine
DX: L03.211 Cellulitis of face (principal); E78.2 Mixed hyperlipidemia; E55.9 Vitamin D deficiency, unspecified; E87.1 Hypo-osmolality and hyponatremia; E11.22 Type 2 diabetes mellitus with diabetic chronic kidney disease; N18.9 Chronic kidney disease, unspecified; Z79.4 Long term (current) use of insulin; Z79.899 Other long term (current) drug therapy; Z88.8 Allergy status to other drugs, medicaments and biological substances
CPT/HCPCS: 36415; 70487; 73721; 80048; 80053; 83605; 85025; 87040; 87070; 87075; 87205; 96361; 96365; 96375; 96376; 99284-25; A9270; G0378; J0692; J0780; J0878; J1450; J1815; J7030; Q9967

== ENCOUNTER 2024-05-21 20:09 | Emergency (ER) | payer OTHER ==
[~2024-05-21] VITALS: Ht 160 cm; Wt 52.1 kg
[~2024-05-21 20:09] MED LIST changes: +DENTA 5000 PLUS51 GM MM; +ESCITALOPRAM OX10 MG PO; +LOSARTAN POTASS50 MG PO; +MEXILETINE HCL200 MG PO; +PROMETHAZINE HC25 M1 PO
[2024-05-21] MEDS ORDERED: SODIUM CHLORIDE 0.9% 500 ML IV ONE (21:00)
[2024-05-21 21:05] LABS: HEMATOCRIT 39.7 % (35.0-50.0); HEMOGLOBIN 12.8 g/dL (12.0-18.0); MCH 26.4 (27-36); MCHC 32.2 g/dl (30-36); PLATELET COUNT 499 K/uL (140-440); RBC 4.84 M/ul (4.3-5.7); RDW 16.3 (10.5-15.0)
[2024-05-21 21:12] LABS: ALBUMIN 4.7 g/dL (3.4-5.0); ALBUMIN/GLOBULIN RATIO 0.89 (1.1-2.4); ANION GAP 20.8 (7-21); BILIRUBIN, TOTAL 0.9 ng/dL (0.2-1.0); BUN/CREATININE RATIO 23.15 (6.0-28.6); CALCIUM 9.8 mg/dL (8.5-10.1); CREATININE, SERUM 2.03 mg/dL (0.55-1.02); MAGNESIUM 2.2 mg/dL (1.8-2.4); POTASSIUM 3.8 mmol/L (3.5-5.1)
[2024-05-21 21:22] LABS: LYMPHOCYTES, MANUAL DIFF 4; MONOCYTES, MANUAL DIFF 4; NEUTROPHILS, MANUAL DIFF 92
[2024-05-21] MEDS ORDERED: ondansetron HCL 4 MG/2 ML VIAL IV ONE (22:15)
[2024-05-21] MEDS ORDERED: SODIUM CHLORIDE 0.9% 1,000 ML IV PRN (23:00)
[2024-05-22 00:10] LABS: BILIRUBIN, URINE NEGATIVE (negative); BLOOD/HGB, URINE NEGATIVE (Negative); KETONE, URINE SMALL (Negative); LEUK ESTERASE, URINE NEGATIVE (negative); NITRITE, URINE NEGATIVE (negative); PH, URINE 5.5 (5-7)
[2024-05-22 00:20] LABS: CRYSTALS, URINE NONE SEEN (0-1+); EPITHELIAL CELLS, URINE SQUAMOUS 2+ /lpf (0-1+); RED BLOOD CELLS, URINE 0-1 /hpf (0-5)
[2024-05-22 00:21] LABS: BACTERIA, URINE 1+ /hpf (negative); CASTS, URINE HYALINE 2+ \\lpf; COLLECTION TYPE, URINE CLEAN CATCH; REFLEX CULTURE, URINE No (No)
[2024-05-22] MEDS ORDERED: hydrOXYzine pamoate 50 MG CAP PO ONE (00:45)
[2024-05-22] MEDS ORDERED: KETOROLAC TROMETHAMINE 30 MG/ML VIAL IV ONE (00:45)
[2024-05-22] MEDS ORDERED: MULTIVITAMINS 10 ML,FOLIC ACID 1 MG,THIAMINE HCL 100 MG in SODIUM CHLORIDE 0.9% 1,000 ML IV ONE (03:15)
[2024-05-22] MEDS ORDERED: FOLIC ACID 1 MG/0.2 ML ML ONE (03:31)
[2024-05-22 05:33] VITALS: BP 121/77
== END 2024-05-22 05:30 | disposition home or self-care (01) ==
LOC: ED 20:09
PROVIDERS: Internal Medicine
DX: G43.A0 Cyclical vomiting, in migraine, not intractable (principal); E11.40 Type 2 diabetes mellitus with diabetic neuropathy, unspecified; E11.52 Type 2 diabetes mellitus with diabetic peripheral angiopathy with gangrene; Z87.891 Personal history of nicotine dependence; Z79.4 Long term (current) use of insulin; Z79.899 Other long term (current) drug therapy; Z88.8 Allergy status to other drugs, medicaments and biological substances
CPT/HCPCS: 36415; 80053; 81001; 83735; 84703; 85025; 96361; 96365; 96375; 99284-25; J1885; J2405; J3411; J7030; J7040

== ENCOUNTER 2024-07-20 08:17 | Emergency (ER) | payer OTHER ==
[~2024-07-20] VITALS: Ht 160 cm; Wt 52.8 kg
[2024-07-20 08:41] LABS: HEMATOCRIT 37.3 % (35.0-50.0); HEMOGLOBIN 12.1 g/dL (12.0-18.0); MCH 26.6 (27-36); MCHC 32.4 g/dl (30-36); MCV 82.1 fl (81-99); PLATELET COUNT 361 K/uL (140-440); RBC 4.54 M/ul (4.3-5.7); RDW 16.5 (10.5-15.0)
[2024-07-20] MEDS ORDERED: SODIUM CHLORIDE 0.9% 1,000 ML IV ONE ×2 (08:45→09:45)
[2024-07-20] MEDS ORDERED: diphenhydrAMINE HCL 50 MG/ML VIAL IV ONE (08:45)
[2024-07-20] MEDS ORDERED: PANTOPRAZOLE SODIUM 40 MG/10 ML VIAL IV ONE (08:45)
[2024-07-20] MEDS ORDERED: ondansetron HCL 4 MG/2 ML VIAL IV ONE (08:45)
[2024-07-20] MEDS ORDERED: droPERidol 5 MG/2 ML VIAL IV ONE (08:45)
[2024-07-20 08:59] LABS: ALBUMIN 4.4 g/dL (3.4-5.0); ALBUMIN/GLOBULIN RATIO 0.92 (1.1-2.4); ANION GAP 19.3 (7-21); BILIRUBIN, TOTAL 0.7 ng/dL (0.2-1.0); BUN/CREATININE RATIO 18.63 (6.0-28.6); CALCIUM 9.6 mg/dL (8.5-10.1); CREATININE, SERUM 1.61 mg/dL (0.55-1.02); POTASSIUM 4.3 mmol/L (3.5-5.1); PROTEIN, TOTAL 9.2 g/dL (6.4-8.2)
[2024-07-20 09:08] LABS: BASOPHILS, MANUAL DIFF 1; LYMPHOCYTES, MANUAL DIFF 6; NEUTROPHILS, MANUAL DIFF 93
[2024-07-20] MEDS ORDERED: MAGNESIUM SULFATE 2 GM/50 ML BAG IV ONE (09:45)
[2024-07-20] MEDS ORDERED: Insulin Regular, Human 100 UNIT/ML ML SUB-Q ONE (09:45)
[2024-07-20] MEDS ORDERED: INSULIN GLARGINE-YFGN 100 UNIT/ML ML SUB-Q ONE (09:45)
[2024-07-20 10:50] LABS: BILIRUBIN, URINE NEGATIVE (negative); BLOOD/HGB, URINE NEGATIVE (Negative); KETONE, URINE SMALL (Negative); LEUK ESTERASE, URINE NEGATIVE (negative); NITRITE, URINE NEGATIVE (negative); PH, URINE 5.5 (5-7)
[2024-07-20 11:37] VITALS: BP 102/59
== END 2024-07-20 11:37 | disposition home or self-care (01) ==
LOC: ED 08:17
PROVIDERS: Emergency Medicine
DX: R11.2 Nausea with vomiting, unspecified (principal); R10.10 Upper abdominal pain, unspecified; E11.65 Type 2 diabetes mellitus with hyperglycemia; I10 Essential (primary) hypertension; Z87.891 Personal history of nicotine dependence; Z88.8 Allergy status to other drugs, medicaments and biological substances; Z79.899 Other long term (current) drug therapy; Z79.4 Long term (current) use of insulin
CPT/HCPCS: 36415; 80053; 81003; 83690; 83735; 84703; 85025; 96361; 96365; 96375; 99284-25; A9270; J1200; J1790; J1815; J2405; J2470; J3475; J7030

== ENCOUNTER 2024-11-01 10:30 | Emergency (ER) | payer OTHER ==
[~2024-11-01] VITALS: Ht 160 cm; Wt 58.1 kg
[2024-11-01] MEDS ORDERED: HYDROXYZINE HCL25 MG PO (10:43)
[2024-11-01] MEDS ORDERED: METOPROLOL SUCC25 MG PO (10:44)
[2024-11-01 11:36] VITALS: BP 142/94
== END 2024-11-01 11:38 | disposition home or self-care (01) ==
LOC: ED 10:30
DX: L84 Corns and callosities (principal); I10 Essential (primary) hypertension; E11.40 Type 2 diabetes mellitus with diabetic neuropathy, unspecified; Z88.8 Allergy status to other drugs, medicaments and biological substances; Z79.899 Other long term (current) drug therapy; Z79.4 Long term (current) use of insulin
CPT/HCPCS: 73630; 99283

== ENCOUNTER 2024-11-09 07:20 | Inpatient (IN) | payer OTHER ==
[2024-11-09] VITALS (9 sets, daily range): BP systolic 92–170; BP diastolic 59–120
[~2024-11-09] VITALS: Ht 160 cm; Wt 57.1 kg
[~2024-11-09 07:20] MED LIST changes: +METOPROLOL SUCC25 MG PO
[2024-11-09] MEDS ORDERED: PROCHLORPERAZINE EDISYLATE 10 MG/2 ML VIAL IV ONE (07:45)
[2024-11-09] MEDS ORDERED: SODIUM CHLORIDE 0.9% 1,000 ML IV PRN (07:45)
[2024-11-09] MEDS ORDERED: diphenhydrAMINE HCL 50 MG/ML VIAL IV ONE (07:45)
[2024-11-09 07:48] LABS: PH, VENOUS 7.294 (7.31-7.41)
[2024-11-09 07:53] LABS: BASOPHILS 0.2 % (0-2); HEMATOCRIT 37.7 % (35.0-50.0); HEMOGLOBIN 12.5 g/dL (12.0-18.0); LYMPHOCYTES 2.7 % (24-44); MCH 28.1 (27-36); MCV 85.1 fl (81-99); MONOCYTES 6.5 % (0-12); NEUTROPHILS 90.6 % (39-80); PLATELET COUNT 400 K/uL (140-440); RBC 4.43 M/ul (4.3-5.7); RDW 15.8 (10.5-15.0)
[2024-11-09 08:06] LABS: ALBUMIN 4.3 g/dL (3.4-5.0); ALBUMIN/GLOBULIN RATIO 0.8 (1.1-2.4); ANION GAP 22.8 (7-21); BILIRUBIN, TOTAL 0.4 ng/dL (0.2-1.0); BUN/CREATININE RATIO 12.2 (6.0-28.6); CALCIUM 9.4 mg/dL (8.5-10.1); CREATININE, SERUM 1.72 mg/dL (0.55-1.02); POTASSIUM 3.8 mmol/L (3.5-5.1); PROTEIN, TOTAL 9.7 g/dL (6.4-8.2)
[2024-11-09] MEDS ORDERED: INSULIN REGULAR IN 0.9 % NACL 100 ML IV SCH (08:15)
[2024-11-09] MEDS ORDERED: Insulin Regular, Human 100 UNIT/ML ML IV ONE (08:15)
[2024-11-09] MEDS ORDERED: LACTATED RINGER'S 1,000 ML IV PRN (08:15)
[2024-11-09] MEDS ORDERED: hydrOXYzine pamoate 25 MG CAP PO PRN (09:30)
--- NOTE | 2024-11-09 10:33 | NUR ---
UR CLINICAL REVIEW: [facility] [place]- MEETS INPT FOR DIABETES BASIC DMAP (MEDICAID) INPT 11/09/2024 @ 0922 ORDER MATCHES REG NO AUTH PER MEDICAID PLAN TO DC TO HOME WHEN MEDICALLY STABLE 11/11/2024
--- NOTE | 2024-11-09 10:40 | NUR ---
pt to rm 126 via [place] with this rn, amb to br to void 100 ml. bs checked pt back in bed, bs 70 ml, insulin was stopped in er, dr on unit and aware, give 1 amp d50 and bolus ns 1000 ml. 57.1 kg weight, denies n/v. friend at bedside, pt alert and oriented x4,
[2024-11-09] MEDS ORDERED: DEXTROSE 50% 50 ML SYR ONE (10:51)
[2024-11-09] MEDS ORDERED: ACETAMINOPHEN 325 MG TAB PO PRN (11:00)
[2024-11-09] MEDS ORDERED: ondansetron HCL 4 MG/2 ML VIAL IV PRN (11:00)
[2024-11-09] MEDS ORDERED: IBLOOD GLUCOSE TEST STRIP 1 EA TEST XX PRN ×2 (11:00→14:15)
[2024-11-09] MEDS ORDERED: DEXTROSE 5% 1,000 ML IV PRN ×2 (11:00→14:15)
[2024-11-09] MEDS ORDERED: DEXTROSE 50% 50 ML SYR IV PRN ×4 (11:00→14:15)
[2024-11-09] MEDS ORDERED: PROCHLORPERAZINE EDISYLATE 10 MG/2 ML VIAL IV PRN (11:00)
[2024-11-09] MEDS ORDERED: SODIUM CHLORIDE 0.9% 1,000 ML IV ONE (11:00)
[2024-11-09] MEDS ORDERED: GLUCAGON,HUMAN RECOMBINANT 1 MG/ML VIAL SUB-Q PRN ×2 (11:00→14:15)
[2024-11-09 11:09] LABS: BILIRUBIN, URINE NEGATIVE (negative); BLOOD/HGB, URINE TRACE-I (Negative); KETONE, URINE NEGATIVE (Negative); LEUK ESTERASE, URINE NEGATIVE (negative); NITRITE, URINE NEGATIVE (negative)
[2024-11-09 11:14] LABS: ANION GAP 16.5 (7-21); BUN/CREATININE RATIO 19.64 (6.0-28.6); CREATININE, SERUM 1.12 mg/dL (0.55-1.02); POTASSIUM 3.5 mmol/L (3.5-5.1)
[2024-11-09 11:15] LABS: BACTERIA, URINE NONE SEEN /hpf (negative); CRYSTALS, URINE NONE SEEN (0-1+); EPITHELIAL CELLS, URINE 0 /lpf (0-1+); RED BLOOD CELLS, URINE 0-1 /hpf (0-5); WHITE BLOOD CELLS, URINE 0-1 /HPF (0-5)
[2024-11-09 11:16] LABS: CASTS, URINE HYALINE 1+ \\lpf; COLLECTION TYPE, URINE CLEAN CATCH; REFLEX CULTURE, URINE No (No)
[2024-11-09] MEDS ORDERED: INSULIN GLARGINE-YFGN 100 UNIT/ML ML SUB-Q SCH (11:45)
[2024-11-09 11:54] LABS: CORONAVIRUS COVID-19 AG NEGATIVE (NEGATIVE); INFLUENZA A AG NEGATIVE (NEGATIVE); INFLUENZA B AG NEGATIVE (NEGATIVE)
[2024-11-09] MEDS ORDERED: PHARMACY RENAL DOSE ADJUSTMENT 1 DOSE MISC PO SCH (12:00)
--- NOTE | 2024-11-09 12:51 | NUR ---
bs checked, and lantus insulin given, lunch provide, pt denies needs resting , iv sl. call light in reach.
[2024-11-09] MEDS ORDERED: CERAVE SA CREA340 GM TOP (13:12)
[2024-11-09] MEDS ORDERED: PRAZOSIN HCL1 MG PO (13:13)
--- NOTE | 2024-11-09 13:30 | NUR ---
pt had episode of coughing, and was inc. lg amt of urine, tearful and sad - assisted to bathroom to shower and changed linen, pt back to bed and feeling better. call light in reach.
--- NOTE | 2024-11-09 14:38 | NUR ---
INTO SEE PATIENT. RESTING IN BED. PERSONAL HEALTH INFORMATION REVIEWED. PATIENT LIVES IN AN RV BEHIND FATHER'S HOUSE. 3 STEPS TO GET INTO AND DENIES HAVING ANY DIFFCULTY GETTING INTO OR OUT OF BED. NO DME AT HOME. PATIENT DRIVES SELF. DAUGHTER SANTO BLANCHARD WILL PICK PATIENT UP AT DISCHARGE. SHE DENIES ANY DIFFCULTY WITH UTILITIES FATHER PAYS FOR THEM. SHE RECIEVES FOOD STAMPS. PATIENT DENIES ANY NEEDS FROM AT THIS TIME.
[2024-11-09] MEDS ORDERED: LORazepam 0.5 MG TAB ONE (16:14)
[2024-11-09] MEDS ORDERED: LORazepam 0.5 MG TAB PO PRN (16:15)
--- NOTE | 2024-11-09 16:20 | NUR ---
pt tearful and anxious. panicing about being in hospital and having ptsd from other hospital events and illnesses. rn reassured pt and stayed with her. dr rodriguez here and gave order for 0.5 mg of ativan po. pt given med and started to calm. removed bp cuff per pt request for anxiety and comfort will recheck at 5 pm. numbers are not reliable due to shaking, tense arms and crying. pt agreeable to rest and rn available if needed. call light in reach.
[2024-11-09] MEDS ORDERED: INSULIN LISPRO 100 UNIT/ML ML SUB-Q SCH (17:00)
[2024-11-09] MEDS ORDERED: IBLOOD GLUCOSE TEST STRIP 1 EA TEST XX SCH (17:00)
--- NOTE | 2024-11-09 17:22 | NUR ---
blood sugar 237 pt sitting at side of bed to eat meal - anxious and tearful - dislikes bp cuff and moves around - shows htn, will re check as pt relaxes.
--- NOTE | 2024-11-09 17:30 | NUR ---
dr rodriguez here aware of pt anxiety - pt still and resting bp high 170/107 (127) 99 % ra hr 115
--- NOTE | 2024-11-09 17:31 | NUR ---
po vistiril and tylenol given for anxiety and headache. call light in reach - resting in bed.
--- NOTE | 2024-11-09 18:48 | NUR ---
dr here on floor - aware of vitals. pt daughter here combing hair. pt resting in bed with call light in reach.
--- NOTE | 2024-11-09 19:12 | NUR ---
pt anxious, increased resp rate, hr 118 - reports she is very anxious with being in hospitals because of her extensive history - daughter in room with pt to comfort her - she is braiding her hair to try to calm. pt has history of anxiety and dr aware - start pt minipress tonight, dr aware of home meds and [facility] records. pt has no nausea and only complains of anxiety and headache.
--- NOTE | 2024-11-09 20:00 | NUR ---
PATIENT RESTING IN BED; EYES CLOSED. APPEARS RESTFUL. HR 100-110. RR 20. CALL LIGHT IN REACH. FAMILY IN ROOM.
[2024-11-09] MEDS ORDERED: PRAZOSIN HCL 1 MG CAP PO SCH (21:00)
--- NOTE | 2024-11-09 21:30 | NUR ---
PATIENT UP TO THE BATHROOM. PATIENT AMBULATES WITHOUT ASSIST. PATIENT VOIDED AND RETURNED TO BED. PATIENT REPORTS DIFFICULTY RESTING AND APPEARS ANXIOUS. PATIENT PROVIDED SCHEDULED MEDS. ACCU CHECK DONE; NO COVERAGE NEEDED. PATIENT REPORTS ATTEMPTING TO EAT BUT HER THROAT IS SORE. MADE PATIENT MINT TEA WITH HONEY PER REQUEST. PATIENT RESTING IN BED; FAMILY AT BEDSIDE. REMOVED BP CUFF AND PULSE OX AT THIS TIME DUE TO OVERSTIMULATION. PATIENT REMAINS ON [employer] MECHANICAL TECHNICIAN. CALL LIGHT IN REACH.
--- NOTE | 2024-11-09 22:09 | NUR ---
PATIENT UP TO THE BATHROOM TO CLEAN HERSELF AND CHANGE HER GOWN. ATTENDS PROVIDED. PATIENT REPORTS COUGHING AND HAVING URINATED IN THE BED. LINENS CHANGED.
--- NOTE | 2024-11-09 23:14 | NUR ---
PATIENT REPORTS SEVERE ANXIETY, HEADACHE, AND STOMACH UPSET. PATIENT IS RESTLESS IN THE BED AND HR 130-140'S. PATIENT APPEARS VERY EMOTIONAL AND HER DAUGHTER IS AT HER BEDSIDE. PRN MEDS GIVEN PER ORDER. WARM BLANKET PROVIDED. FRESH ICE WATER. PATIENT HAS BEEN TOLERATING SMALL SIPS OF WATER AND TEA.
[2024-11-09] MEDS ORDERED: LACTATED RINGER'S 1,000 ML IV SCH (23:30)
[2024-11-10] VITALS: BP 87/48
--- NOTE | 2024-11-10 | NUR ---
PATIENT APPEARS RESTFUL; LAYING ON LEFT SIDE. EYES CLOSED. HR HAS IMPROVED TO 100-110. BP IS SOFT, BUT BP CUFF IS ON RIGHT ARM ABOVE THE HEART. PATIENT WOKE BREIFLY WHEN RN IN ROOM, UPDATED HER ON NEED FOR IV FLUID. FLUIDS STARTED PER ORDER. IV SITE IN RIGHT FOREARM WNL. CALL LIGHT IN REACH. ALLOWED PATIENT TO REST.
--- NOTE | 2024-11-10 02:30 | NUR ---
RN IN ROOM. PATIENT RESTING EYES CLOSED. VS STABLE. PATIENT HAS BEEN RESTING ON LEFT SIDE WITH RIGHT ARM ABOVE HEART; BP SOFT. WILL ALLOW PATIENT TO REST. IV SITE WNL; FLUIDS PER ORDER. CALL LIGHT IN REACH.
[2024-11-10 04:01] VITALS: BP 95/59
--- NOTE | 2024-11-10 05:10 | NUR ---
PATIENT WOKE WHEN RN IN ROOM. PATIENT DENIED ANY NEEDS. REMINDED PATIENT SHE HAD IV FLUIDS GOING AND TO CALL FOR ASSIST IF SHE NEEDS TO GET UP. PATIENT AGREES. CALL LIGHT IN REACH.
[2024-11-10 05:26] LABS: BASOPHILS 0.6 % (0-2); EOSINOPHILS 0.5 % (0-6); HEMATOCRIT 32.3 % (35.0-50.0); HEMOGLOBIN 10.7 g/dL (12.0-18.0); LYMPHOCYTES 6.5 % (24-44); MCH 27.7 (27-36); MCHC 33.2 g/dl (30-36); MCV 83.3 fl (81-99); MONOCYTES 4.1 % (0-12); NEUTROPHILS 88.3 % (39-80); PLATELET COUNT 258 K/uL (140-440); RBC 3.88 M/ul (4.3-5.7); RDW 15.7 (10.5-15.0)
[2024-11-10 05:38] LABS: ANION GAP 14.7 (7-21); BUN/CREATININE RATIO 18.82 (6.0-28.6); CALCIUM 8.5 mg/dL (8.5-10.1); CREATININE, SERUM 0.85 mg/dL (0.55-1.02); MAGNESIUM 1.7 mg/dL (1.8-2.4); POTASSIUM 3.7 mmol/L (3.5-5.1)
--- NOTE | 2024-11-10 08:20 | NUR ---
RN IN ROOM TO OBTAIN CBG. PT WAKES EASILY. STATES SHE IS FEELING "BETTER" THIS AM. NO SS COVERAGE NEEDED. BREAKFAST TRAY PROVIDED. PT DENIES FURTHER NEEDS. VS STABLE. CALL LIGHT IN REACH.
[2024-11-10 08:22] VITALS: BP 130/78
[2024-11-10] MEDS ORDERED: MAGNESIUM CHLORIDE 64 MG TABCR PO ONE (08:30)
[2024-11-10] MEDS ORDERED: METOPROLOL SUCCINATE 25 MG TABCR PO SCH (09:00)
[2024-11-10] MEDS ORDERED: ENOXAPARIN SODIUM 40 MG/0.4 ML SYR SUB-Q SCH (09:00)
--- NOTE | 2024-11-10 09:15 | NUR ---
ROUNDING IN ROOM - PT REPORTS HAVING EMESIS AFTER BREAKFAST INTO TOWEL - TOWEL EXAMINED AND NO EMESIS FOUND. PT APPEARS RESTLESS IN BED DURING EXAM, HR ELEVATED.
[2024-11-10] MEDS ORDERED: LIDOCAINE & ANTACID 35 ML BTL PO ONE (09:30)
--- NOTE | 2024-11-10 09:30 | NUR ---
RN IN ROOM TO ADMINISTER MEDICATIONS. PT RESTING IN BED, WHEN SLEEPING ON SIDE SHE STATES SHE FEELS THE BEST. ORAL MEDS TAKEN WITHOUT DIFFICULTY. GI COCKTAIL ADMINISTERED AND PT STATES SHE HAS TAKEN IT BEFORE WITH RELIEF. IV SITE PATENT AND IVF RUNNING - TABLES AND CALL LIGHT WITHIN REACH.
--- NOTE | 2024-11-10 11:17 | NUR ---
VISITED DURING SPIRITUAL CARE ROUNDS. PT APPEARED TO BE SLEEPING. DID NOT DISTURB. PROVIDED PRAYER.
--- NOTE | 2024-11-10 12:07 | NUR ---
MED REC COMPLETE
--- NOTE | 2024-11-10 12:29 | NUR ---
PT WAKES EASILY FOR CBG CHECK. DENIES SIGNIFICANT NAUSEA AT THIS TIME, IS EXCITED TO EAT LUNCH. PROTEIN DRINK PROVIDED PER REQUEST. 5 U INSULIN COVERAGE ADMINISTERED. CALL LIGHT IN REACH, DENIES FURTHER NEEDS AT THIS TIME.
--- NOTE | 2024-11-10 13:15 | NUR ---
INTO SEE PATIENT. PATIENT SAYS SHE HAS BEEN HAVING A DIFFCULT TIME GETTING RESOURCES FROM THE [employer]. SHE SAYS HER DIAGNOSIS HAS MADE IT HARD TO WORK. STATES "MY FAMILY WORKS FOR [employer] AND SOME HOW I GOT CUT OFF OF THEM SO I LIVE IN AN RV BEHIND MY FATHERS HOUSE." LET THE PATIENT KNOW ABOUT [employer]. GAVE HER THE HOMLESS AND ADDICTION RESOURCES PHAMPLET FOR [employer] INFORMATION. ALSO GAVE HER THE NUMBER FOR [facility] FREE TRANSPORTATION FOR [facility]. SHE RECIEVES FOOD STAMPS 192 DOLLARS. DENIES ANY OTHER NEEDS FROM AT THIS TIME.
[2024-11-10 14:26] VITALS: BP 108/76
--- NOTE | 2024-11-10 14:40 | NUR ---
PT RESTING ON SIDE IN BED AFTER LUNCH. DENIES NAUSEA AFTER EATING LUNCH, MOSTLY PROTIEN SHAKE BUT ALSO ORANGES AND POTATOES. AMBULATES TO BATHROOM TO VOID, CLEAN ATTENDS PROVIDED. VS STABLE. CALL LIGHT IN REACH.
--- NOTE | 2024-11-10 15:59 | NUR ---
RN IN ROOM ROUNDING ON PT - PT RESTING IN BED ON SIDE AWAKE, REPORTS HEADACHE NOT IMPROVED AFTER TYLENOL. ICE PACK PROVIDED. DENIES FURTHER NEEDS, CALL LIGHT IN REACH.
--- NOTE | 2024-11-10 18:29 | NUR ---
PT SITTING UP IN BED TO EAT DINNER AFTER AMBULATING TO BATHROOM TO VOID. PT DENIES NAUSEA AND IS EXCITED TO EAT DINNER. PT RATES PAIN A 2 NOW IN HER HEADACHE FROM A 7. 1 UNIT INSULIN COVERAGE PROVIDED FOR DINNER CBG.
--- NOTE | 2024-11-10 19:45 | NUR ---
SHIFT REPORT RECEIVED. PATIENT RESTING IN BED WITH EYES CLOSED. CALL LIGHT IN REACH.
[2024-11-10 20:38] VITALS: BP 141/90
--- NOTE | 2024-11-10 22:00 | NUR ---
EVENING MEDS PROVIDED PER ORDER. PATIENT DENIED NAUSEA. REPORTS GENERAL ACHES AND PAINS. DENIED TYLENOL. ICE PACK AND WARM TEA PROVIDED. PATIENT VS STABLE. DENIED ANY OTHER NEEDS OR CONCERNS. CALL LIGHT IN REACH.
--- NOTE | 2024-11-11 | NUR ---
patient appears restful in bed. RR 20. Call light in reach.
--- NOTE | 2024-11-11 02:00 | NUR ---
PATIENT RESTING IN BED. EYES CLOSED. BREATHING EVEN AND UNLABORED. CALL LIGHT IN REACH.
--- NOTE | 2024-11-11 04:00 | NUR ---
PATIENT RESTING IN BED. EYES CLOSED. CALL LIGHT IN REACH.
--- NOTE | 2024-11-11 05:00 | NUR ---
LAB IN FOR MORNING DRAW
[2024-11-11 05:17] LABS: BASOPHILS 0.3 % (0-2); HEMATOCRIT 33.9 % (35.0-50.0); HEMOGLOBIN 11.1 g/dL (12.0-18.0); LYMPHOCYTES 10.1 % (24-44); MCH 27.5 (27-36); MCHC 32.7 g/dl (30-36); MCV 84.1 fl (81-99); MONOCYTES 7.9 % (0-12); NEUTROPHILS 81.7 % (39-80); PLATELET COUNT 265 K/uL (140-440); RBC 4.03 M/ul (4.3-5.7); RDW 15.5 (10.5-15.0)
[2024-11-11 05:30] LABS: ANION GAP 10.7 (7-21); BUN/CREATININE RATIO 17.8 (6.0-28.6); CALCIUM 8.7 mg/dL (8.5-10.1); CREATININE, SERUM 0.73 mg/dL (0.55-1.02); POTASSIUM 3.7 mmol/L (3.5-5.1)
--- NOTE | 2024-11-11 06:15 | NUR ---
PATIENT WOKE EASILY TO VOICE. VS STABLE. PATIENT UP TO VOID. PATIENT REPORTS RESTLESS SLEEP BUT STATES THAT SHE FEELS BETTER OVER ALL. DENIED NAUSEA. REQUESTED HOT TEA WHICH WAS PROVIDED.
[2024-11-11 06:23] VITALS: BP 115/75
[2024-11-11 08:47] VITALS: BP 113/85
--- NOTE | 2024-11-11 08:50 | NUR ---
PT AWAKE AND ALERT SITTING UP IN BED LISTENING TO MUSIC AFTER EATING BREAKFAST. PT DENIES NAUSEA OR PAIN. STATES SHE TOOK A SHOWER AND FEELS "SO MUCH BETTER". VS STABLE. AM MEDICATIONS ADMINSTERED. PT STATES READYNESS TO DC HOME TODAY. MD UPDATED ON NIGHT AND AM ASSESSEMENT.
[2024-11-11] MEDS ORDERED: AMOXICILLIN/CLAVULANATE K 875 MG TAB PO ONE (10:15)
[2024-11-11] MEDS ORDERED: AMOX TR-K CLV1 EAC1 PO (10:23)
--- NOTE | 2024-11-11 10:45 | NUR ---
RN ROUNDING ON PT- UP IN BED DRESSED FOR DC. PT STATES SHE WANTS TO EAT LUNCH BEFORE LEAVING, ALLOWING FOR FIRST DOSE OF ABX ON FULL STOMACH. PT DENIES NEEDS AT THIS TIME. RN WORKING ON DC PAPERWORK.
[2024-11-11 12:23] VITALS: BP 154/91
--- NOTE | 2024-11-11 12:31 | NUR ---
DC INSTRUCTIONS COVERED WITH PT - DC VS STABLE. ALL QUESTIONS ANSWERED.
== END 2024-11-11 12:30 | disposition home or self-care (01) | DRG 639 ==
LOC: ED 07:20 → CCU 09:35
PROVIDERS: Emergency Medicine; Family Medicine; ADMIT Student in an Organized Health Care Education/Training Program; ATTEND Student in an Organized Health Care Education/Training Program
DX: E11.10 Type 2 diabetes mellitus with ketoacidosis without coma (principal); F12.10 Cannabis abuse, uncomplicated; F41.9 Anxiety disorder, unspecified; H91.90 Unspecified hearing loss, unspecified ear; E78.5 Hyperlipidemia, unspecified; E11.40 Type 2 diabetes mellitus with diabetic neuropathy, unspecified; R11.15 Cyclical vomiting syndrome unrelated to migraine; I10 Essential (primary) hypertension; E11.51 Type 2 diabetes mellitus with diabetic peripheral angiopathy without gangrene; Z87.891 Personal history of nicotine dependence; Z98.51 Tubal ligation status; Z98.890 Other specified postprocedural states; Z89.421 Acquired absence of other right toe(s); Z79.899 Other long term (current) drug therapy; Z79.4 Long term (current) use of insulin; Z88.8 Allergy status to other drugs, medicaments and biological substances; Z87.440 Personal history of urinary (tract) infections
CPT/HCPCS: 36415; 80048; 80053; 81001; 82010; 82803; 83690; 83735; 85025; A9270; J0780; J1200; J1650; J1815; J2405; J7030; J7121; Q0177

== ENCOUNTER 2024-11-18 09:40 | Emergency (ER) | payer OTHER ==
[~2024-11-18] VITALS: Ht 160 cm; Wt 56.7 kg
[2024-11-18] MEDS ORDERED: LORazepam 2 MG/ML VIAL IV ONE (10:30)
[2024-11-18] MEDS ORDERED: PROCHLORPERAZINE EDISYLATE 10 MG/2 ML VIAL IV ONE (10:30)
[2024-11-18] MEDS ORDERED: SODIUM CHLORIDE 0.9% 1,000 ML IV ONE ×2 (10:30→13:30)
[2024-11-18] MEDS ORDERED: diphenhydrAMINE HCL 50 MG/ML VIAL IV ONE (10:30)
[2024-11-18] MEDS ORDERED: PANTOPRAZOLE SODIUM 40 MG/10 ML VIAL IV ONE (10:30)
[2024-11-18 10:54] LABS: BASOPHILS 0.9 % (0-2); EOSINOPHILS 0.3 % (0-6); HEMOGLOBIN 12.1 g/dL (12.0-18.0); LYMPHOCYTES 14.7 % (24-44); MCH 27.9 (27-36); MCHC 33.5 g/dl (30-36); MCV 83.2 fl (81-99); MONOCYTES 6.2 % (0-12); NEUTROPHILS 77.9 % (39-80); PLATELET COUNT 524 K/uL (140-440); RBC 4.33 M/ul (4.3-5.7); RDW 15.7 (10.5-15.0)
[2024-11-18 11:19] LABS: ALBUMIN 3.3 g/dL (3.4-5.0); ALBUMIN/GLOBULIN RATIO 0.62 (1.1-2.4); ANION GAP 10.6 (7-21); BILIRUBIN, TOTAL 0.2 mg/dL (0.2-1.0); BUN/CREATININE RATIO 18.75 (6.0-28.6); CALCIUM 9.2 mg/dL (8.5-10.1); CREATININE, SERUM 0.96 mg/dL (0.55-1.02); POTASSIUM 3.6 mmol/L (3.5-5.1); PROTEIN, TOTAL 8.6 g/dL (6.4-8.2)
[2024-11-18] MEDS ORDERED: INSULIN GLARGINE-YFGN 100 UNIT/ML ML SUB-Q ONE (13:30)
[2024-11-18 15:04] LABS: BILIRUBIN, URINE NEGATIVE (negative); BLOOD/HGB, URINE NEGATIVE (Negative); KETONE, URINE NEGATIVE (Negative); LEUK ESTERASE, URINE NEGATIVE (negative); NITRITE, URINE NEGATIVE (negative)
[2024-11-18 15:11] LABS: BACTERIA, URINE NONE SEEN /hpf (negative); CASTS, URINE NONE SEEN \\lpf; COLLECTION TYPE, URINE CLEAN CATCH; CRYSTALS, URINE NONE SEEN (0-1+); EPITHELIAL CELLS, URINE SQUAMOUS 1+ /lpf (0-1+); RED BLOOD CELLS, URINE 0-1 /hpf (0-5); REFLEX CULTURE, URINE No (No); WHITE BLOOD CELLS, URINE 0-1 /HPF (0-5)
[2024-11-18 15:33] VITALS: BP 108/68
== END 2024-11-18 15:33 | disposition home or self-care (01) ==
LOC: ED 09:40
PROVIDERS: Emergency Medicine
DX: K29.00 Acute gastritis without bleeding (principal); I10 Essential (primary) hypertension; E11.40 Type 2 diabetes mellitus with diabetic neuropathy, unspecified; E78.2 Mixed hyperlipidemia; Z79.4 Long term (current) use of insulin; Z79.899 Other long term (current) drug therapy; Z88.8 Allergy status to other drugs, medicaments and biological substances; Z87.891 Personal history of nicotine dependence
CPT/HCPCS: 36415; 80053; 81001; 83690; 84703; 85025; 96361; 96374; 96375; 99284-25; A9270; J0780; J1200; J2060; J2470; J7030

== ENCOUNTER 2025-02-02 09:13 | Emergency (ER) | payer OTHER ==
[~2025-02-02] VITALS: Ht 160 cm; Wt 56.4 kg
[~2025-02-02 09:13] MED LIST changes: +CERAVE SA CREA340 GM TOP; +PRAZOSIN HCL1 MG PO
[2025-02-02] MEDS ORDERED: SODIUM CHLORIDE 0.9% 1,000 ML IV ONE (10:00)
[2025-02-02] MEDS ORDERED: diphenhydrAMINE HCL 50 MG/ML VIAL IV ONE (10:00)
[2025-02-02] MEDS ORDERED: HALOPERIDOL LACTATE 5 MG/ML VIAL IV ONE (10:00)
[2025-02-02 10:31] LABS: ALBUMIN 4.3 g/dL (3.4-5.0); ALBUMIN/GLOBULIN RATIO 0.84 (1.1-2.4); ANION GAP 15.3 (7-21); BILIRUBIN, TOTAL 1.4 mg/dL (0.2-1.0); BUN/CREATININE RATIO 22.84 (6.0-28.6); CALCIUM 9.4 mg/dL (8.5-10.1); CREATININE, SERUM 1.97 mg/dL (0.55-1.02); POTASSIUM 3.3 mmol/L (3.5-5.1); PROTEIN, TOTAL 9.4 g/dL (6.4-8.2)
[2025-02-02 11:25] VITALS: BP 133/81
== END 2025-02-02 11:25 | disposition home or self-care (01) ==
LOC: ED 09:13
PROVIDERS: Emergency Medicine
DX: R11.15 Cyclical vomiting syndrome unrelated to migraine (principal); E11.40 Type 2 diabetes mellitus with diabetic neuropathy, unspecified; E78.5 Hyperlipidemia, unspecified; I10 Essential (primary) hypertension; Z79.899 Other long term (current) drug therapy; Z88.8 Allergy status to other drugs, medicaments and biological substances; Z87.891 Personal history of nicotine dependence
CPT/HCPCS: 36415; 80053; 82800; 96361; 96374; 96375; 99284-25; J1200; J1630; J7030

== ENCOUNTER 2025-05-02 14:51 | Emergency (ER) | payer OTHER ==
[~2025-05-02] VITALS: Ht 160 cm; Wt 52.1 kg
[2025-05-02] MEDS ORDERED: SODIUM CHLORIDE 0.9% 1,000 ML IV PRN (17:30)
[2025-05-02] MEDS ORDERED: PROCHLORPERAZINE EDISYLATE 10 MG/2 ML VIAL IV ONE (18:00)
[2025-05-02 18:06] LABS: BASOPHILS 0.4 % (0.1-1.2); EOSINOPHILS 0 % (0.7-5.8); LYMPHOCYTES 13.8 % (19.3-51.7); MCH 26.8 PG (25.6-32.2); MCHC 33.1 g/dL (32.2-35.5); MCV 81.1 fL (79.4-94.8); MONOCYTES 8.1 % (4.7-12.5); NEUTROPHILS 77.2 % (34.0-71.1); RBC 4.66 M/uL (3.93-5.22)
[2025-05-02 18:20] LABS: ALT (SGPT) 16.0 U/L (14-59); AST (SGOT) 13.0 U/L (15-37); GLOMERULAR FILTRATION RATE,EST 58.0 mL/min (>60); PROTEIN, TOTAL 9.0 g/dL (6.4-8.2); UREA NITROGEN 30.0 mg/dL (7-18)
[2025-05-02 20:08] LABS: BLOOD/HGB, URINE TRACE-I (Negative); KETONE, URINE SMALL (Negative); LEUK ESTERASE, URINE NEGATIVE (negative); NITRITE, URINE NEGATIVE (negative)
[2025-05-02 20:13] LABS: BACTERIA, URINE RARE /hpf (negative); CASTS, URINE NONE SEEN \\lpf; CRYSTALS, URINE NONE SEEN (0-1+); EPITHELIAL CELLS, URINE SQUAMOUS 1+ /lpf (0-1+); REFLEX CULTURE, URINE No (No)
[2025-05-02 21:15] VITALS: BP 133/84
== END 2025-05-02 21:33 | disposition home or self-care (01) ==
LOC: ED 14:51
PROVIDERS: Emergency Medicine
DX: R11.2 Nausea with vomiting, unspecified (principal); R10.9 Unspecified abdominal pain; Z87.891 Personal history of nicotine dependence; Z88.8 Allergy status to other drugs, medicaments and biological substances; Z79.899 Other long term (current) drug therapy
CPT/HCPCS: 36415; 80053; 81001; 83735; 84703; 85025; 96361; 96374; 96375; 99284-25; J0780; J1200; J2405; J7030

== ENCOUNTER 2025-05-21 11:44 | Emergency (ER) | payer OTHER ==
[~2025-05-21] VITALS: Ht 160 cm; Wt 50.6 kg
[2025-05-21] MEDS ORDERED: SODIUM CHLORIDE 0.9% 1,000 ML IV ONE ×2 (12:45→14:45)
[2025-05-21 12:54] LABS: BASOPHILS 0.4 % (0.1-1.2); EOSINOPHILS 0 % (0.7-5.8); LYMPHOCYTES 5.4 % (19.3-51.7); MCH 26.7 PG (25.6-32.2); MCHC 33.1 g/dL (32.2-35.5); MCV 80.7 fL (79.4-94.8); MONOCYTES 1.8 % (4.7-12.5); NEUTROPHILS 91.9 % (34.0-71.1); RBC 4.87 M/uL (3.93-5.22)
[2025-05-21 13:03] LABS: ALT (SGPT) 25.0 U/L (14-59); AST (SGOT) 17.0 U/L (15-37); GLOMERULAR FILTRATION RATE,EST 63.0 mL/min (>60); PROTEIN, TOTAL 8.9 g/dL (6.4-8.2); UREA NITROGEN 18.0 mg/dL (7-18)
[2025-05-21] MEDS ORDERED: MAGNESIUM SULFATE 2 GM/50 ML BAG IV ONE (14:45)
[2025-05-21] MEDS ORDERED: Insulin Regular, Human 100 UNIT/ML ML SUB-Q ONE (14:45)
[2025-05-21] MEDS ORDERED: LORazepam 2 MG/ML VIAL IV ONE (14:45)
[2025-05-21] MEDS ORDERED: ATIVAN1 MG PO (19:33)
[2025-05-21 20:01] VITALS: BP 124/88
== END 2025-05-21 19:50 | disposition home or self-care (01) ==
LOC: ED 11:44
PROVIDERS: Emergency Medicine
DX: R11.15 Cyclical vomiting syndrome unrelated to migraine (principal); E83.42 Hypomagnesemia; E11.65 Type 2 diabetes mellitus with hyperglycemia; I10 Essential (primary) hypertension; E78.2 Mixed hyperlipidemia; Z79.4 Long term (current) use of insulin; Z79.899 Other long term (current) drug therapy; Z87.891 Personal history of nicotine dependence; Z88.8 Allergy status to other drugs, medicaments and biological substances
CPT/HCPCS: 36415; 80053; 83690; 83735; 85025; 96361; 96365; 96375; 99284-25; J1790; J1815; J2060; J2405; J3475; J7030

== ENCOUNTER 2025-07-04 02:36 | Emergency (ER) | payer OTHER ==
[~2025-07-04] VITALS: Ht 160 cm; Wt 52.0 kg
--- OUTSIDE RECORDS SUMMARY | ~2025-07-04 | XMS | Continuity of Care Document ---
Demographics + + + | Address | [address] | | | [place] [address] | + + + | Preferred Language | Unknown | + + + | Marital Status | Legally | + + + | Oriental Orthodox Affiliation | Unknown | + + + | Race | or | + + + | Ethnic Group | Not or | + + + Author + + + | Author | [facility] | + + + | Organization | [facility] | + + + | Address | [address] | | | [place] [address] | + + + | Phone | | + + + Care Team Providers + + + + | Care Converter Supervisor Name | Role | Phone | + + + + Unavailable | Unavailable | + + + + Unavailable | Unavailable | + + + + Allergies and Intolerances + + + + + + | date | description | facility | reaction | severity | + + + + + + | 2025-05-02 | Metoclopramide | [facility] | Anxiety | Moderate | | 00:00 | | [facility] | | | + + + + + + | 2025-05-21 | Metoclopramide | [facility] - | Anxiety | Moderate | | 00:00 | | [facility] | | | + + + + + + | 2025-05-02 | Metoclopramide | [facility] - | Anxiety | Moderate | | 00:00 | | [facility] | | | + + + + + + | 2025-05-21 | Metoclopramide | [facility] - | Anxiety | Moderate | | 00:00 | | [facility] | | | + + + + + + | 2025-05-02 | Metoclopramide | [facility] - | Anxiety | Moderate | | 00:00 | | [facility] | | | + + + + + + | 2025-05-21 | Metoclopramide | [facility] - | Anxiety | Moderate | | 00:00 | | [facility] | | | + + + + + + Encounters No information. Functional Status No information. Immunizations No information. Medications + + + + | date | description | facility | + + + + | 2025-05-21 00:00 | LORAZEPAM | [facility] | | | | [facility] | + + + + | (no date) | OXYCODONE HCL | [facility] | | | | [facility] | + + + + | (no date) | MEXILETINE HCL | [facility] | | | | [facility] | + + + + | (no date) | AMLODIPINE BESYLATE | [facility] | | | | [facility] | + + + + | (no date) | OMEPRAZOLE | [facility] | | | | [facility] | + + + + | (no date) | Cholecalciferol (Vitamin | [facility] | | | D3) | [facility] | + + + + | (no date) | METOCLOPRAMIDE HCL | [facility] | | | | [facility] | + + + + | (no date) | SUCRALFATE | [facility] | | | | [facility] | + + + + | (no date) | CALCIUM CARBONATE | [facility] | | | | [facility] | + + + + | (no date) | INSULIN GLARGINE | [facility] | | | | [facility] | + + + + | (no ) | CYANOCOBALAMIN (VITAMIN | [facility] | | | B-12) | [facility] | + + + + | (no ) | GABAPENTIN | [facility] | | | | [facility] | + + + + | 2025-05-21 00:00 | ONDANSETRON | [facility] | | | | [facility] | + + + + | (no ) | PRAZOSIN HCL | [facility] | | | | [facility] | + + + + | (no date) | Scopolamine | [facility] | | | | [facility] | + + + + | (no date) | CALCIUM CARBONATE | [facility] | | | | [facility] | + + + + | (no date) | SODIUM FLUORIDE | [facility] | | | | [facility] | + + + + | (no date) | METHYLPREDNISOLONE | [facility] | | | | [facility] | + + + + | (no date) | HUM INSULIN NPH/REG | [facility] | | | INSULIN HM | [facility] | + + + + | (no date) | CHOLECALCIFEROL (VITAMIN | [facility] | | | D3) | [facility] | + + + + | (no date) | metFORMIN HCL | [facility] | | | | [facility] | + + + + | (no date) | SITAGLIPTIN PHOS/METFORMIN | [facility] | | | HCL | [facility] | + + + + | (no date) | METOPROLOL SUCCINATE | [facility] | | | | [facility] | + + + + | (no date) | METOPROLOL TARTRATE | [facility] | | | | [facility] | + + + + | (no date) | LOSARTAN POTASSIUM | [facility] | | | | [facility] | + + + + | (no date) | hydrOXYzine HCL | [facility] | | | | [facility] | + + + + Problems No information. Procedures No information. Results/Labs +--------+--------+ +---------+--------+---------+ | test | date | facility | value | unit | notes | +--------+--------+ +---------+--------+---------+ + + | Result panel 1 | + + + + + +-------+---------+ + | Calcium | 2025-05-02 | | 9.9 | mg/dL | (missing) | | SerPl-mCnc | 17:55:07 | [facility] | | | | + + + +-------+---------+ + + + | Result panel 2 | + + + + + +-------+---------+ + | Magnesium | 2025-05-02 | | 1.7 | mg/dL | (missing) | | [facility]-Anisha | 17:55:07 | [facility] | | | | + + + +-------+---------+ + + + | Result panel 3 | + + + + + +-------+ + + | Prot | 2025-05-02 | | 9.0 | (missing) | (missing) | | Sinan | 17:55:07 | [facility] | | | | + + + +-------+ + + + + | Result panel 4 | + + + + + +-------+ + + | Albumin | 2025-05-02 | | 4.1 | (missing) | (missing) | | Sinan | 17:55:07 | [facility] | | | | + + + +-------+ + + + + | Result panel 5 | + + + + + +-------+ + + | Globulin | 2025-05-02 | | 4.9 | (missing) | (missing) | | Ser-mCnc | 17:55:07 | [facility] | | | | + + + +-------+ + + + + | Result panel 6 | + + + + + +--------+ + + | | 2025-05-02 | | 0.84 | (missing) | (missing) | | Albumin/Glob | 17:55:07 | [facility] | | | | | SerPl | [facility] | | | | + + + +--------+ + + + + | Result panel 7 | + + + + + +-------+---------+ + | Bilirub | 2025-05-02 | | 0.7 | mg/dL | (missing) | | [facility] | 17:55:07 | [facility] | | | | + + + +-------+---------+ + + + | Result panel 8 | + + + + + +------+ + + | AST | 2025-05-02 | | 13 | (missing) | (missing) | | SerPl-Germainc | 17:55:07 | [facility] | | | | + + + +------+ + + + + | Result panel 9 | + + + + + +------+ + + | ALT | 2025-05-02 | | 16 | (missing) | (missing) | | [facility] | 17:55:07 | [facility] | [facility] | | | | + + + +------+ + + + + | Result panel 10 | + + + + + +-------+ + + | ALP | 2025-05-02 | | 132 | (missing) | (missing) | | SerPl-cCnc | 17:55:07 | [facility] | | | | + + + +-------+ + + + + | Result panel 11 | + + + + + + + + + | HCG SerPl | 2025-05-02 | | NEGATIVE | (missing) | (missing) | | Ql | 17:55:07 | [facility] | | | | + + + + + + + + + | Result panel 12 | + + + + + + + + + | HCG SerPl | 2025-05-02 | | NEGATIVE | (missing) | (missing) | | Ql | 17:55:07 | [facility] | | | | + + + + + + + + + | Result panel 13 | + + + + + +---------+ + + | WBC # Bld | 2025-05-02 | | 14.23 | (missing) | (missing) | | Auto | 17:55:07 | [facility] | | | | + + + +---------+ + + + + | Result panel 14 | + + + + + +--------+ + + | RBC # Bld | 2025-05-02 | | 4.66 | (missing) | (missing) | | Auto | 17:55:07 | [facility] | | | | + + + +--------+ + + + + | Result panel 15 | + + + + + +--------+ + + | Hgb | 2025-05-02 | | 12.5 | (missing) | (missing) | | Bld-mCnc | 17:55:07 | [facility] | | | | + + + +--------+ + + + + | Result panel 16 | + + + + + +--------+ + + | Hct VFr.DF | 2025-05-02 | | 37.8 | (missing) | (missing) | | Bld Auto | 17:55:07 | [facility] | | | | + + + +--------+ + + + + | Result panel 17 | + + + + + +--------+ + + | RBC Auto | 2025-05-02 | | 81.1 | (missing) | (missing) | | | 17:55:07 | [facility] | | | | + + + +--------+ + + + + | Result panel 18 | + + + + + +--------+ + + | MCH RBC Qn | 2025-05-02 | | 26.8 | (missing) | (missing) | | Auto | 17:55:07 | [facility] | | | | + + + +--------+ + + + + | Result panel 19 | + + + + + +--------+ + + | MCHC RBC | 2025-05-02 | | 33.1 | (missing) | (missing) | | Auto-EntMCnc | 17:55:07 | [facility] | | | | + + + +--------+ + + + + | Result panel 20 | + + + + + +-------+ + + | Platelet # | 2025-05-02 | | 418 | (missing) | (missing) | | Bld Auto | 17:55:07 | [facility] | | | | + + + +-------+ + + + + | Result panel 21 | + + + + + +--------+ + + | Neutrophils | 2025-05-02 | | 77.2 | (missing) | (missing) | | NFr Bld | 17:55:07 | [facility] | | | | | Auto | | [facility] | | | | + + + +--------+ + + + + | Result panel 22 | + + + + + +--------+ + + | Lymphocytes | 2025-05-02 | | 13.8 | (missing) | (missing) | | NFr Bld | 17:55:07 | [facility] | | | | | Auto | | [facility] | | | | + + + +--------+ + + + + | Result panel 23 | + + + + + +-------+ + + | Monocytes | 2025-05-02 | | 8.1 | (missing) | (missing) | | NFr Bld Auto | 17:55:07 | [facility] | | | | + + + +-------+ + + + + | Result panel 24 | + + + + + +-----+ + + | Eosinophil | 2025-05-02 | | 0 | (missing) | (missing) | | NFr Bld Auto | 17:55:07 | [facility] | | | | + + + +-----+ + + + + | Result panel 25 | + + + + + +-------+ + + | Basophils | 2025-05-02 | | 0.4 | (missing) | (missing) | | NFr Bld Auto | 17:55:07 | [facility] | | | | + + + +-------+ + + + + | Result panel 26 | + + + + + +-------+---------+ + | Glucose | 2025-05-02 | | 457 | mg/dL | (missing) | | SerPl-mCnc | 17:55:07 | [facility] | | | | + + + +-------+---------+ + + + | Result panel 27 | + + + + + +------+---------+ + | BUN | 2025-05-02 | | 30 | mg/dL | (missing) | | [facility] | 17:55:07 | [facility] | | | | + + + +------+---------+ + + + | Result panel 28 | + + + + + +--------+---------+ + | Creat | 2025-05-02 | | 1.18 | mg/dL | (missing) | | SerPl-mCnc | 17:55:07 | [facility] | | | | | | | - | | | | | | | [facility] | | | | + + + +--------+---------+ + + + | Result panel 29 | + + + + + +------+ + + | eGFRcr | 2025-05-02 | | 58 | (missing) | (missing) | | SerPlBld | 17:55:07 | [facility] | | | | | CKD-EPI 2020 | [facility] | | | | + + + +------+ + + + + | Result panel 30 | + + + + + +---------+ + + | BUN/Creat | 2025-05-02 | | 25.42 | (missing) | (missing) | | SerPl | 17:55:07 | [facility] | | | | [facility] | | | | + + + +---------+ + + + + | Result panel 31 | + + + + + +-------+ + + | Sodium | 2025-05-02 | | 132 | (missing) | (missing) | | SerPl-sCnc | 17:55:07 | [facility] | | | | | [facility] | | | | + + + +-------+ + + + + | Result panel 32 | + + + + + +-------+ + + | Potassium | 2025-05-02 | | 3.4 | (missing) | (missing) | | SerPl-sCnc | 17:55:07 | [facility] | | [facility] | | | | + + + +-------+ + + + + | Result panel 33 | + + + + + +------+ + + | Chloride | 2025-05-02 | | 87 | (missing) | (missing) | | SerPl-sCnc | 17:55:07 | [facility] | | | | [facility] | | | | + + + +------+ + + + + | Result panel 34 | + + + + + +------+ + + | CO2 | 2025-05-02 | | 32 | (missing) | (missing) | | Ser[facility] | 17:55:07 | [facility] | | | | + + + +------+ + + + + | Result panel 35 | + + + + + +--------+ + + | Anion Gap | 2025-05-02 | | 16.4 | (missing) | (missing) | | SerPl | 17:55:07 | [facility] | | | | | Calculated.4 | [facility] Ions-sCnc | | [facility] | | | | + + + +--------+ + + + + | Result panel 36 | + + + + + + + + + | Color Ur | 2025-05-02 | | YELLOW | (missing) | (missing) | | Auto | 20:00:07 | [facility] | | | | | [facility] | | | | + + + + + + + + + | Result panel 37 | + + + + + +---------+ + + | Character | 2025-05-02 | | CLEAR | (missing) | (missing) | | Ur | :: | [facility] | | | | + + + +---------+ + + + + | Result panel 38 | + + + + + + + + + | Glucose Ur | 2025-05-02 | | >=1000 | (missing) | (missing) | | Ql Strip | 20:: | [facility] | | [facility] | | | | + + + + + + + + + | Result panel 39 | + + + + + + + + + | Bilcarmenub Ur | 2025-05-02 | | NEGATIVE | (missing) | (missing) | | Ql Strip | 20:00:07 | [facility] | | | | + + + + + + + + + | Result panel 40 | + + + + + +---------+ + + | Ketones Ur | 2025-05-02 | | SMALL | (missing) | (missing) | | Ql Strip | 20:00:07 | [facility] | | | | + + + +---------+ + + + + | Result panel 41 | + + + + + +---------+ + + | Sp Gr Ur | 2025-05-02 | | 1.015 | (missing) | (missing) | | Strip | 20:00:07 | [facility] | | | | + + + +---------+ + + + + | Result panel 42 | + + + + + + + + + | Hgb Ur Ql | 2025-05-02 | | TRACE-I | (missing) | (missing) | | Strip | 20:00:07 | [facility] | | | | + + + + + + + + + | Result panel 43 | + + + + + +-------+ + + | pH Ur Strip | 2025-05-02 | | 6.0 | (missing) | (missing) | | | 20:00:07 | [facility] | | | | + + + +-------+ + + + + | Result panel 44 | + + + + + + + + + | Prot Ur | 2025-05-02 | | NEGATIVE | (missing) | (missing) | | Strip-mCnc | 20:00:07 | [facility] | [facility] | | | | + + + + + + + + + | Result panel 45 | + + + + + + + + + | | 2025-05-02 | | NORMAL | (missing) | (missing) | | Urobilinogen | 20:00:07 | [facility] | | | | | Ur | [facility] Strip-mCnc | | [facility] | | | | + + + + + + + + + | Result panel 46 | + + + + + + + + + | Nitrite Ur | 2025-05-02 | | NEGATIVE | (missing) | (missing) | | Ql Strip | 20:00:07 | [facility] | | | [facility] | | | | + + + + + + + + + | Result panel 47 | + + + + + + + + + | Leukocyte | 2025-05-02 | | NEGATIVE | (missing) | (missing) | | esterase Ur | 20:00:07 | [facility] | | | | | Ql Strip | [facility] | | | | + + + + + + + + + | Result panel 48 | + + + + + +-------+ + + | RBC #/area | 2025-05-02 | | 0-1 | (missing) | (missing) | | UrnS HPF | 20:00:07 | [facility] | | [facility] | | | | + + + +-------+ + + + + | Result panel 49 | + + + + + +-------+ + + | WBC #/area | 2025-05-02 | | 0-1 | (missing) | (missing) | | UrnS HPF | 20:00:07 | [facility] | | | | [facility] | | | | + + + +-------+ + + + + | Result panel 50 | + + + + + + + + + | Epi Cells | 2025-05-02 | | SQUAMOUS 1+ | (missing) | (missing) | | #/area UrnS | 20:00:07 | [facility] | | | | | HPF | [facility] | | | | + + + + + + + + + | Result panel 51 | + + + + + + + + + | Crystals | 2025-05-02 | | NONE SEEN | (missing) | (missing) | | UrnS Micro | 20:00:07 | [facility] | | | | | | [facility] | | | | + + + + + + + + + | Result panel 52 | + + + + + +--------+ + + | Bacteria | 2025-05-02 | | RARE | (missing) | (missing) | | #/area UrnS | 20:00:07 | [facility] | | | | | HPF | [facility] | | | | + + + +--------+ + + + + | Result panel 53 | + + + + + + + + + | Casts | 2025-05-02 | | NONE SEEN | (missing) | (missing) | | #/area UrnS | 20:00:07 | [facility] | | | | | LPF | [facility] | | | | + + + + + + + + + | Result panel 54 | + + + + + +------+ + + | Bacteria Ur | 2025-05-02 | | No | (missing) | (missing) | | Cult | 20:00:07 | [facility] | | | | | | [facility] | | | | + + + +------+ + + + + | Result panel 55 | + + + + + + + + + | Urn Spec | 2025-05-02 | | CLEAN CATCH | (missing) | (missing) | | Collect Meth | 20:00:07 | [facility] | | | | | Ur | [facility] | | | | + + + + + + + + + | Result panel 56 | + + + + + + + + + | Color Ur | 2025-05-02 | | YELLOW | (missing) | (missing) | | Auto | 20:00:07 | [facility] | | | | | | [facility] | | | | + + + + + + + + + | Result panel 57 | + + + + + +---------+ + + | Character | 2025-05-02 | | CLEAR | (missing) | (missing) | | Ur | 20:00:07 | [facility] | | | | | | [facility] | | | | + + + +---------+ + + + + | Result panel 58 | + + + + + + + + + | Glucose Ur | 2025-05-02 | | >=1000 | (missing) | (missing) | | Ql Strip | 20:00:07 | [facility] | | | | | | [facility] | | | | + + + + + + + + + | Result panel 59 | + + + + + + + + + | Bilirub Ur | 2025-05-02 | | NEGATIVE | (missing) | (missing) | | Ql Strip | 20:00:07 | [facility] | | | | [facility] | | | | + + + + + + + + + | Result panel 60 | + + + + + +---------+ + + | Ketoneryan Ur | 2025-05-02 | | SMALL | (missing) | (missing) | | Ql Strip | 20:00:07 | [facility] | | [facility] | | | | + + + +---------+ + + + + | Result panel 61 | + + + + + +---------+ + + | Sp Gr Ur | 2025-05-02 | | 1.015 | (missing) | (missing) | | Strip | 20:00:07 | [facility] | [facility] | | | | + + + +---------+ + + + + | Result panel 62 | + + + + + + + + + | Hgb Ur Ql | 2025-05-02 | | TRACE-I | (missing) | (missing) | | Strip | 20:00:07 | [facility] | | | [facility] | | | | + + + + + + + + + | Result panel 63 | + + + + + +-------+ + + | pH Ur Strip | 2025-05-02 | | 6.0 | (missing) | (missing) | | | 20:00:07 | [facility] | | | | + + + +-------+ + + + + | Result panel 64 | + + + + + + + + + | Prot Ur | 2025-05-02 | | NEGATIVE | (missing) | (missing) | | Strip-[facility] | 20:00:07 | [facility] | | | | + + + + + + + + + | Result panel 65 | + + + + + + + + + | | 2025-05-02 | | NORMAL | (missing) | (missing) | | Urobilinogen | 20:00:07 | [facility] | | | | | Ur | [facility]nc | | [facility] | | | | + + + + + + + + + | Result panel 66 | + + + + + + + + + | Nitrite Ur | 2025-05-02 | | NEGATIVE | (missing) | (missing) | | Ql Strip | 20:00:07 | [facility] | | [facility] | | | | + + + + + + + + + | Result panel 67 | + + + + + + + + + | Leukocyte | 2025-05-02 | | NEGATIVE | (missing) | (missing) | | esterase Ur | 20:00:07 | [facility] | | | | | Ql Strip | [facility] | | | | + + + + + + + + + | Result panel 68 | + + + + + +-------+ + + | RBC #/area | 2025-05-02 | | 0-1 | (missing) | (missing) | | UrnS HPF | 20:00:07 | [facility] | | | | [facility] | | | | + + + +-------+ + + + + | Result panel 69 | + + + + + +-------+ + + | WBC #/area | 2025-05-02 | | 0-1 | (missing) | (missing) | | UrnS HPF | 20:00:07 | [facility] | | | [facility] | | | | + + + +-------+ + + + + | Result panel 70 | + + + + + + + + + | Epi Cells | 2025-05-02 | | SQUAMOUS 1+ | (missing) | (missing) | | #/area [facility] | 20:00:07 | [facility] | | | | + + + + + + + + + | Result panel 71 | + + + + + + + + + | Crystals | 2025-05-02 | | NONE SEEN | (missing) | (missing) | | [facility] | 20:00:07 | [facility] | | | | + + + + + + + + + | Result panel 72 | + + + + + +--------+ + + | Bacteria | 2025-05-02 | | RARE | (missing) | (missing) | | #/area [facility] | 20:00:07 | [facility] | | | | + + + +--------+ + + + + | Result panel 73 | + + + + + + + + + | Casts | 2025-05-02 | | NONE SEEN | (missing) | (missing) | | #/area Urn[facility] | 20:00:07 | [facility] | | | | + + + + + + + + + | Result panel 74 | + + + + + +------+ + + | Bacteria Ur | 2025-05-02 | | No | (missing) | (missing) | | Cult | 20:00:07 | [facility] | | | | + + + +------+ + + + + | Result panel 75 | + + + + + + + + + | Urn Spec | 2025-05-02 | | CLEAN CATCH | (missing) | (missing) | | Collect Meth | 20:00:07 | [facility] | | [facility] | | | | + + + + + + + + + | Result panel 76 | + + + + + +-------+---------+ + | Glucose | 2025-05-21 | | 487 | mg/dL | (missing) | | [facility] | 12:37:07 | [facility] | | | | + + + +-------+---------+ + + + | Result panel 77 | + + + + + +------+---------+ + | BUN | 2025-05-21 | | 18 | mg/dL | (missing) | | [facility] | 12:37:07 | [facility] | | | | + + + +------+---------+ + + + | Result panel 78 | + + + + + +--------+---------+ + | Creat | 2025-05-21 | | 1.09 | mg/dL | (missing) | | [facility] | 12:37:07 | [facility] | | | | + + + +--------+---------+ + + + | Result panel 79 | + + + + + +------+ + + | eGFRcr | 2025-05-21 | | 63 | (missing) | (missing) | | SerPlBld | 12:37:07 | [facility] | | | | | CKD-EPI 2020 [facility] | | | | + + + +------+ + + + + | Result panel 80 | + + + + + +---------+ + + | BUN/Creat | 2025-05-21 | | 16.51 | (missing) | (missing) | | SerPl | 12:37:07 | [facility] | | | | | | [facility] | | | | + + + +---------+ + + + + | Result panel 81 | + + + + + +-------+ + + | Sodium | 2025-05-21 | | 135 | (missing) | (missing) | | SerPl-sCnc | 12:37:07 | [facility] | | | [facility] | | | | + + + +-------+ + + + + | Result panel 82 | + + + + + +-------+ + + | Potassium | 2025-05-21 | | 4.1 | (missing) | (missing) | | SerPl-sCnc | 12:37:07 | [facility] | | [facility] | | | | + + + +-------+ + + + + | Result panel 83 | + + + + + +------+ + + | Chloride | 2025-05-21 | | 96 | (missing) | (missing) | | SerPl-sCnc | 12:37:07 | [facility] | [facility] | | | [facility] | | | | + + + +------+ + + + + | Result panel 84 | + + + + + +------+ + + | CO2 | 2025-05-21 | | 21 | (missing) | (missing) | | SerPl-sCnc | 12:37:07 | [facility] | [facility] | | | | + + + +------+ + + + + | Result panel 85 | + + + + + +--------+ + + | Anion Gap | 2025-05-21 | | 22.1 | (missing) | (missing) | | SerPl | 12:37:07 | [facility] | | | | | Calculated.4 | [facility] | | [facility] | | | | + + + +--------+ + + + + | Result panel 86 | + + + + + +--------+---------+ + | Calcium | 2025-05-21 | | 10.1 | mg/dL | (missing) | | SerPl-mCnc | 12:37:07 | [facility] | | [facility] | | | | + + + +--------+---------+ + + + | Result panel 87 | + + + + + +-------+---------+ + | Magnesium | 2025-05-21 | | 1.5 | mg/dL | (missing) | | SerPl-Anisha | 12:37:07 | [facility] | | | | + + + +-------+---------+ + + + | Result panel 88 | + + + + + +-------+ + + | Prot | 2025-05-21 | | 8.9 | (missing) | (missing) | | SerPl-mCnc | 12:37:07 | [facility] | | | | + + + +-------+ + + + + | Result panel 89 | + + + + + +-------+ + + | Albumin | 2025-05-21 | | 4.4 | (missing) | (missing) | | [facility] | 12:37:07 | [facility] | | | | + + + +-------+ + + + + | Result panel 90 | + + + + + +-------+ + + | Globulin | 2025-05-21 | | 4.5 | (missing) | (missing) | | Ser-mCnc | 12:37:07 | [facility] | | | | + + + +-------+ + + + + | Result panel 91 | + + + + + +--------+ + + | | 2025-05-21 | | 0.98 | (missing) | (missing) | | Albumin/Glob | 12:37:07 | [facility] | | | | | SerPl | [facility] | | | | + + + +--------+ + + + + | Result panel 92 | + + + + + +-------+---------+ + | Bilirub | 2025-05-21 | | 0.5 | mg/dL | (missing) | | SerPl-mCnc | 12:37:07 | [facility] | | | | + + + +-------+---------+ + + + | Result panel 93 | + + + + + +------+ + + | AST | 2025-05-21 | | 17 | (missing) | (missing) | | SerPl-cCnc | 12:37:07 | [facility] | | | | + + + +------+ + + + + | Result panel 94 | + + + + + +------+ + + | ALT | 2025-05-21 | | 25 | (missing) | (missing) | | SerPl-cCnc | 12:37:07 | [facility] | | | | + + + +------+ + + + + | Result panel 95 | + + + + + +-------+ + + | ALP | 2025-05-21 | | 148 | (missing) | (missing) | | SerPl-cCnc | 12:37:07 | [facility] | | | | + + + +-------+ + + + + | Result panel 96 | + + + + + +------+ + + | Lipase | 2025-05-21 | | 16 | (missing) | (missing) | | SerPl-cCnc | 12:37:07 | [facility] | | | | + + + +------+ + + + + | Result panel 97 | + + + + + +---------+ + + | WBC # Bld | 2025-05-21 | | 17.34 | (missing) | (missing) | | Auto | 12:41:07 | [facility] | | | | + + + +---------+ + + + + | Result panel 98 | + + + + + +-------+ + + | Lymphocytes | 2025-05-21 | | 5.4 | (missing) | (missing) | | NFr Bld | 12:41:07 | [facility] | | | | | Auto | [facility] | | | | + + + +-------+ + + + + | Result panel 99 | + + + + + +-------+ + + | Monocytes | 2025-05-21 | | 1.8 | (missing) | (missing) | | NFr Bld Auto | 12:41:07 | [facility] | | | | + + + +-------+ + + + + | Result panel 100 | + + + + + +-----+ + + | Eosinophil | 2025-05-21 | | 0 | (missing) | (missing) | | NFr Bld Auto | 12:41:07 | [facility] | | | | + + + +-----+ + + + + | Result panel 101 | + + + + + +-------+ + + | Basophils | 2025-05-21 | | 0.4 | (missing) | (missing) | | NFr Bld Auto | 12:41:07 | [facility] | | | | + + + +-------+ + + + + | Result panel 102 | + + + + + +--------+ + + | RBC # Bld | 2025-05-21 | | 4.87 | (missing) | (missing) | | Auto | 12:41:07 | [facility] | | | | + + + +--------+ + + + + | Result panel 103 | + + + + + +--------+ + + | Hgb | 2025-05-21 | | 13.0 | (missing) | (missing) | | Bld-mCnc | 12:41:07 | [facility] | [facility] | | | | + + + +--------+ + + + + | Result panel 104 | + + + + + +--------+ + + | Hct VFr.DF | 2025-05-21 | | 39.3 | (missing) | (missing) | | Bld Auto | 12:41:07 | [facility] | | | | + + + +--------+ + + + + | Result panel 105 | + + + + + +--------+ + + | RBC Auto | 2025-05-21 | | 80.7 | (missing) | (missing) | | | 12:41:07 | [facility] | | | | + + + +--------+ + + + + | Result panel 106 | + + + + + +--------+ + + | MCH RBC Qn | 2025-05-21 | | 26.7 | (missing) | (missing) | | Auto | 12:41:07 | [facility] | | | | + + + +--------+ + + + + | Result panel 107 | + + + + + +--------+ + + | MCHC RBC | 2025-05-21 | | 33.1 | (missing) | (missing) | | Auto-EntMCnc | 12:41:07 | [facility] | | | | + + + +--------+ + + + + | Result panel 108 | + + + + + +-------+ + + | Platelet # | 2025-05-21 | | 433 | (missing) | (missing) | | Bld Auto | 12:41:07 | [facility] | | | | + + + +-------+ + + + + | Result panel 109 | + + + + + +--------+ + + | Neutrophils | 2025-05-21 | | 91.9 | (missing) | (missing) | | NFr Bld | 12:41:07 | [facility] | | | | | Auto | [facility] | | | | + + + +--------+ + + + + | Result panel 110 | + + + + + +------+ + + | Glucose | 2025-05-21 | | 98 | (missing) | (missing) | | [facility] | 18:53:07 | [facility] | | | | + + + +------+ + + Social History +--------+ + + | date | description | facility | +--------+ + + Vital Signs + + + +---------+ | date | measurement | value | units | + + + +---------+ | 2025-05-02 00:00 | BMI | 20.3 | kg/m2 | + + + +---------+ | 2025-05-02 00:00 | BP_diastolic | 84 | mmHg | + + + +---------+ | 2025-05-02 00:00 | BP_systolic | 133 | mmHg | + + + +---------+ | 2025-05-02 00:00 | heart_rate | 100 | /min | + + + +---------+ | 2025-05-02 00:00 | height_metric | 160.02 | cm | + + + +---------+ | 2025-05-02 00:00 | height_standard | 63 | in | + + + +---------+ | 2025-05-02 00:00 | o2_saturation | 98 | % | + + + +---------+ | 2025-05-02 00:00 | respiration_rate | 21 | /min | + + + +---------+ | 2025-05-02 00:00 | temperature_metric | 37.33 | C | | | | | | + + + +---------+ | 2025-05-02 00:00 | | 99.2 | F | | | temperature_standar | | | | | d | | | + + + +---------+ | 2025-05-02 00:00 | weight_metric | 52.1 | kg | + + + +---------+ | 2025-05-02 00:00 | weight_metric | 52.101 | kg | + + + +---------+ | 2025-05-02 00:00 | weight_standard | 114.86 | lb | + + + +---------+ | 2025-05-02 00:00 | weight_standard | 114.862 | lb | + + + +---------+ | 2025-05-21 00:00 | BMI | 19.8 | kg/m2 | + + + +---------+ | 2025-05-21 00:00 | BP_diastolic | 88 | mmHg | + + + +---------+ | 2025-05-21 00:00 | BP_systolic | 124 | mmHg | + + + +---------+ | 2025-05-21 00:00 | heart_rate | 109 | /min | + + + +---------+ | 2025-05-21 00:00 | height_metric | 160.02 | cm | + + + +---------+ | 2025-05-21 00:00 | height_standard | 63 | in | + + + +---------+ | 2025-05-21 00:00 | o2_saturation | 98 | % | + + + +---------+ | 2025-05-21 00:00 | respiration_rate | 15 | /min | + + + +---------+ | 2025-05-21 00:00 | | 98.6 | F | | | temperature_standar | | | | | d | | | + + + +---------+ | 2025-05-21 00:00 | weight_metric | 50.601 | kg | + + + +---------+ | 2025-05-21 00:00 | weight_standard | 111.556 | lb | + + + +---------+"
[~2025-07-04 02:36] MED LIST changes: +ATIVAN1 MG PO
[2025-07-04] MEDS ORDERED: FAMOTIDINE 20 MG/ 2 ML VIAL IV ONE (03:00)
[2025-07-04 03:08] LABS: BASOPHILS 0.6 % (0.1-1.2); EOSINOPHILS 0 % (0.7-5.8); LYMPHOCYTES 5.5 % (19.3-51.7); MCH 27.4 PG (25.6-32.2); MCHC 32.9 g/dL (32.2-35.5); MCV 83.2 fL (79.4-94.8); MONOCYTES 1.4 % (4.7-12.5); NEUTROPHILS 92.1 % (34.0-71.1); RBC 4.64 M/uL (3.93-5.22)
[2025-07-04] MEDS ORDERED: LACTATED RINGER'S 1,000 ML IV ONE ×3 (03:15→05:00)
[2025-07-04] MEDS ORDERED: LORazepam 2 MG/ML VIAL IV ONE (03:15)
[2025-07-04 03:27] LABS: ALT (SGPT) 14.0 U/L (14-59); AST (SGOT) 14.0 U/L (15-37); GLOMERULAR FILTRATION RATE,EST 50.0 mL/min (>60); PROTEIN, TOTAL 9.2 g/dL (6.4-8.2); UREA NITROGEN 28.0 mg/dL (7-18)
[2025-07-04 03:31] LABS: LACTIC ACID, BLOOD 3.4 mmol/L (0.4-2.0)
[2025-07-04 06:25] VITALS: BP 118/73
== END 2025-07-04 06:27 | disposition home or self-care (01) ==
LOC: ED 02:36
PROVIDERS: Internal Medicine
DX: R11.15 Cyclical vomiting syndrome unrelated to migraine (principal); E11.43 Type 2 diabetes mellitus with diabetic autonomic (poly)neuropathy; K31.84 Gastroparesis; I10 Essential (primary) hypertension; E78.2 Mixed hyperlipidemia; K21.9 Gastro-esophageal reflux disease without esophagitis; Z87.891 Personal history of nicotine dependence; Z88.8 Allergy status to other drugs, medicaments and biological substances; Z79.4 Long term (current) use of insulin; Z79.899 Other long term (current) drug therapy
CPT/HCPCS: 36415; 80053; 80307; 82010; 82803; 83605; 83690; 84703; 85025; 96361; 96374; 96375; 99284-25; J2060; J2405; J7121

== ENCOUNTER 2025-08-29 13:02 | Emergency (ER) | payer OTHER ==
[~2025-08-29] VITALS: Ht 160 cm; Wt 52.0 kg
[2025-08-29] MEDS ORDERED: SODIUM CHLORIDE 0.9% 1,000 ML IV ONE (13:30)
[2025-08-29 13:46] LABS: ALT (SGPT) 13.0 U/L (14-59); AST (SGOT) 17.0 U/L (15-37); GLOMERULAR FILTRATION RATE,EST 82.0 mL/min (>60); PROTEIN, TOTAL 8.4 g/dL (6.4-8.2); UREA NITROGEN 26.0 mg/dL (7-18)
[2025-08-29 14:04] LABS: BASOPHILS 0.6 % (0.1-1.2); EOSINOPHILS 0.4 % (0.7-5.8); LYMPHOCYTES 17.7 % (19.3-51.7); MCH 27.7 PG (25.6-32.2); MCHC 33.5 g/dL (32.2-35.5); MCV 82.6 fL (79.4-94.8); MONOCYTES 6.6 % (4.7-12.5); NEUTROPHILS 74.4 % (34.0-71.1); RBC 4.88 M/uL (3.93-5.22)
[2025-08-29] MEDS ORDERED: ONDANSETRON ODT4 MG PO (14:22)
[2025-08-29 14:49] VITALS: BP 103/69
== END 2025-08-29 14:50 | disposition home or self-care (01) ==
LOC: ED 13:02
PROVIDERS: Emergency Medicine
DX: R11.2 Nausea with vomiting, unspecified (principal); I10 Essential (primary) hypertension; E11.40 Type 2 diabetes mellitus with diabetic neuropathy, unspecified; Z79.4 Long term (current) use of insulin; Z79.899 Other long term (current) drug therapy; Z88.8 Allergy status to other drugs, medicaments and biological substances; Z87.891 Personal history of nicotine dependence
CPT/HCPCS: 36415; 80053; 83690; 84703; 85025; 96361; 96374; 96375; 99284-25; J1200; J1790; J2405; J7030

== ENCOUNTER 2025-09-28 09:16 | Emergency (ER) | payer OTHER ==
[~2025-09-28] VITALS: Ht 160 cm; Wt 54.0 kg
--- OUTSIDE RECORDS SUMMARY | ~2025-09-28 | XMS | Continuity of Care Document ---
Demographics + + + | Address | [address] | | | [place] [address] | + + + | Preferred Language | Unknown | + + + | Marital Status | Legally | + + + | Mu-Ism Affiliation | Unknown | + + + | Race | or | + + + | Ethnic Group | Not or | + + + Author + + + | Author | [facility] | + + + | Organization | [facility] | + + + | Address | [address] | | | [place] [address] | + + + | Phone | | + + + Care Team Providers + + + + | Care [facility] Dyer Name | Role | Phone | + + + + Unavailable | Unavailable | + + + + Unavailable | Unavailable | + + + + Allergies No information. Encounters No information. Functional Status No information. Immunizations No information. Medications + + + + | date | description | facility | + + + + | 2025-08-29 00:00 | ONDANSETRON | [facility] | | | | [facility] | + + + + | (no date) | OXYCODONE HCL | [facility] | | | | [facility] | + + + + | (no date) | MEXILETINE HCL | [facility] | | | | [facility] | + + + + | (no date) | AMLODIPINE BESYLATE | [facility] | | | | [facility] | + + + + | (no date) | OMEPRAZOLE | [facility] | | | | [facility] | + + + + | (no date) | Cholecalciferol (Vitamin | [facility] | | | D3) | [facility] | + + + + | (no date) | METOCLOPRAMIDE HCL | [facility] | | | | [facility] | + + + + | (no date) | SUCRALFATE | [facility] | | | | [facility] | + + + + | (no date) | CALCIUM CARBONATE | [facility] | | | | [facility] | + + + + | (no date) | INSULIN GLARGINE | [facility] | | | | [facility] | + + + + | (no date) | CYANOCOBALAMIN (VITAMIN | [facility] | | | B-12) | [facility] | + + + + | (no ) | GABAPENTIN | [facility] | | | | [facility] | + + + + | (no ) | PRAZOSIN HCL | [facility] | | | | [facility] | + + + + | (no date) | Scopolamine | [facility] | | | | [facility] | + + + + | (no date) | CALCIUM CARBONATE | [facility] | | | | [facility] | + + + + | (no date) | SODIUM FLUORIDE | [facility] | | | | [facility] | + + + + | (no date) | METHYLPREDNISOLONE | [facility] | | | | [facility] | + + + + | (no date) | HUM INSULIN NPH/REG | [facility] | | | INSULIN HM | [facility] | + + + + | (no date) | CHOLECALCIFEROL (VITAMIN | [facility] | | | D3) | [facility] | + + + + | (no date) | metFORMIN HCL | [facility] | | | | [facility] | + + + + | (no date) | SITAGLIPTIN PHOS/METFORMIN | [facility] | | | HCL | [facility] | + + + + | (no date) | METOPROLOL SUCCINATE | [facility] | | | | [facility] | + + + + | (no date) | METOPROLOL TARTRATE | [facility] | | | | [facility] | + + + + | (no date) | LOSARTAN POTASSIUM | [facility] | | | | [facility] | + + + + | (no date) | hydrOXYzine HCL | [facility] | | | | [facility] | + + + + Problems No information. Procedures No information. Results/Labs +--------+--------+ +---------+--------+---------+ | test | date | facility | value | unit | notes | +--------+--------+ +---------+--------+---------+ + + | Result panel 1 | + + + + + +-------+---------+ + | Glucose | 2025-08-29 | | 268 | mg/dL | (missing) | | [facility] | 13:25:08 | [facility] | | | | + + + +-------+---------+ + + + | Result panel 2 | + + + + + +------+---------+ + | BUN | 2025-08-29 | | 26 | mg/dL | (missing) | | [facility] | 13:25:08 | [facility] | [facility] | | | | + + + +------+---------+ + + + | Result panel 3 | + + + + + +--------+---------+ + | Creat | 2025-08-29 | | 0.88 | mg/dL | (missing) | | SerPl-mCnc | 13:25:08 | [facility] | | | | + + + +--------+---------+ + + + | Result panel 4 | + + + + + +------+ + + | eGFRcr | 2025-08-29 | | 82 | (missing) | (missing) | | SerPlBld | 13:25:08 | [facility] | | | | | CKD-EPI 2020 | [facility] | | | | + + + +------+ + + + + | Result panel 5 | + + + + + +---------+ + + | BUN/Creat | 2025-08-29 | | 29.54 | (missing) | (missing) | | SerPl | 13:25:08 | [facility] | | | | + + + +---------+ + + + + | Result panel 6 | + + + + + +-------+ + + | Sodium | 2025-08-29 | | 131 | (missing) | (missing) | | SerPl-sCnc | 13:25:08 | [facility] | | | | + + + +-------+ + + + + | Result panel 7 | + + + + + +-------+ + + | Potassium | 2025-08-29 | | 3.6 | (missing) | (missing) | | SerPl-sCnc | 13:25:08 | [facility] | | | | + + + +-------+ + + + + | Result panel 8 | + + + + + +------+ + + | Chloride | 2025-08-29 | | 92 | (missing) | (missing) | | SerPl-sCnc | 13:25:08 | [facility] | | | | + + + +------+ + + + + | Result panel 9 | + + + + + +------+ + + | CO2 | 2025-08-29 | | 29 | (missing) | (missing) | | [facility] | 13:25:08 | [facility] | | | | + + + +------+ + + + + | Result panel 10 | + + + + + +--------+ + + | Anion Gap | 2025-08-29 | | 13.6 | (missing) | (missing) | | SerPl | 13:25:08 | [facility] | | | | | Calculated.4 | [facility] | [facility] | | | | + + + +--------+ + + + + | Result panel 11 | + + + + + +-------+---------+ + | Calcium | 2025-08-29 | | 9.0 | mg/dL | (missing) | | SerPl-mCnc | 13:25:08 | [facility] | | | | + + + +-------+---------+ + + + | Result panel 12 | + + + + + +-------+ + + | Prot | 2025-08-29 | | 8.4 | (missing) | (missing) | | [facility] | 13:25:08 | [facility] | | | | + + + +-------+ + + + + | Result panel 13 | + + + + + +-------+ + + | Albumin | 2025-08-29 | | 4.1 | (missing) | (missing) | | [facility] | 13:25:08 | [facility] | | | | + + + +-------+ + + + + | Result panel 14 | + + + + + +-------+ + + | Globulin | 2025-08-29 | | 4.3 | (missing) | (missing) | | Ser-mCnc | 13:25:08 | [facility] | | | | + + + +-------+ + + + + | Result panel 15 | + + + + + +--------+ + + | | 2025-08-29 | | 0.95 | (missing) | (missing) | | Albumin/Glob | 13:25:08 | [facility] | | | | | SerPl | [facility] | | | | + + + +--------+ + + + + | Result panel 16 | + + + + + +-------+---------+ + | Bilirub | 2025-08-29 | | 0.8 | mg/dL | (missing) | | SerPl-mCnc | 13:25:08 | [facility] | | | | + + + +-------+---------+ + + + | Result panel 17 | + + + + + +------+ + + | AST | 2025-08-29 | | 17 | (missing) | (missing) | | SerPl-cCnc | 13:25:08 | [facility] | | | | + + + +------+ + + + + | Result panel 18 | + + + + + +------+ + + | ALT | 2025-08-29 | | 13 | (missing) | (missing) | | [facility] | 13:25:08 | [facility] | | | | | | | - | | | | | | | [facility] | | | | + + + +------+ + + + + | Result panel 19 | + + + + + +-------+ + + | ALP | 2025-08-29 | | 111 | (missing) | (missing) | | SerPl-cCnc | 13:25:08 | [facility] | | | | + + + +-------+ + + + + | Result panel 20 | + + + + + +------+ + + | Lipase | 2025-08-29 | | 20 | (missing) | (missing) | | SerPl-cCnc | 13:25:08 | [facility] | | | | + + + +------+ + + + + | Result panel 21 | + + + + + + + + + | HCG SerPl | 2025-08-29 | | NEGATIVE | (missing) | (missing) | | Ql | 13:25:08 | [facility] | | | | + + + + + + + + + | Result panel 22 | + + + + + +---------+ + + | WBC # Bld | 2025-08-29 | | 10.83 | (missing) | (missing) | | Auto | 14:00:08 | [facility] | | | | + + + +---------+ + + + + | Result panel 23 | + + + + + +--------+ + + | Lymphocytes | 2025-08-29 | | 17.7 | (missing) | (missing) | | NFr Bld | 14:00:08 | [facility] | | | | | Auto | [facility] | | | | + + + +--------+ + + + + | Result panel 24 | + + + + + +-------+ + + | Monocytes | 2025-08-29 | | 6.6 | (missing) | (missing) | | NFr Bld Auto | 14:00:08 | [facility] | | | | + + + +-------+ + + + + | Result panel 25 | + + + + + +-------+ + + | Eosinophil | 2025-08-29 | | 0.4 | (missing) | (missing) | | NFr Bld Auto | 14:00:08 | [facility] | | | | + + + +-------+ + + + + | Result panel 26 | + + + + + +-------+ + + | Basophils | 2025-08-29 | | 0.6 | (missing) | (missing) | | NFr Bld Auto | 14:00:08 | [facility] | | | | + + + +-------+ + + + + | Result panel 27 | + + + + + +--------+ + + | RBC # Bld | 2025-08-29 | | 4.88 | (missing) | (missing) | | Auto | 14:00:08 | [facility] | | | | + + + +--------+ + + + + | Result panel 28 | + + + + + +--------+ + + | Hgb | 2025-08-29 | | 13.5 | (missing) | (missing) | | Bld-mCnc | 14:00:08 | [facility] | | | | | | - | | | | | | | [facility] | | | | + + + +--------+ + + + + | Result panel 29 | + + + + + +--------+ + + | Hct VFr.DF | 2025-08-29 | | 40.3 | (missing) | (missing) | | Bld Auto | 14:00:08 | [facility] | | | | + + + +--------+ + + + + | Result panel 30 | + + + + + +--------+ + + | RBC Auto | 2025-08-29 | | 82.6 | (missing) | (missing) | | | 14:00:08 | [facility] | | | | + + + +--------+ + + + + | Result panel 31 | + + + + + +--------+ + + | MCH RBC Qn | 2025-08-29 | | 27.7 | (missing) | (missing) | | Auto | 14:00:08 | [facility] | | | | + + + +--------+ + + + + | Result panel 32 | + + + + + +--------+ + + | MCHC RBC | 2025-08-29 | | 33.5 | (missing) | (missing) | | Auto-EntMCnc | 14:00:08 | [facility] | | | | + + + +--------+ + + + + | Result panel 33 | + + + + + +-------+ + + | Platelet # | 2025-08-29 | | 366 | (missing) | (missing) | | Bld Auto | 14:00:08 | [facility] | | | | + + + +-------+ + + + + | Result panel 34 | + + + + + +--------+ + + | Neutrophils | 2025-08-29 | | 74.4 | (missing) | (missing) | | NFr Bld | 14:00:08 | [facility] | | | | + + + +--------+ + + Social History +--------+ + + | date | description | facility | +--------+ + + Vital Signs + + + +---------+ | date | measurement | value | units | + + + +---------+ | 2025-08-29 00:00 | BMI | 20.3 | kg/m2 | + + + +---------+ | 2025-08-29 00:00 | BP_diastolic | 69 | mmHg | + + + +---------+ | 2025-08-29 00:00 | BP_systolic | 103 | mmHg | + + + +---------+ | 2025-08-29 00:00 | heart_rate | 82 | /min | + + + +---------+ | 2025-08-29 00:00 | height_metric | 160.02 | cm | + + + +---------+ | 2025-08-29 00:00 | height_standard | 63 | in | + + + +---------+ | 2025-08-29 00:00 | o2_saturation | 98 | % | + + + +---------+ | 2025-08-29 00:00 | respiration_rate | 14 | /min | + + + +---------+ | 2025-08-29 00:00 | | 98.2 | F | | | temperature_standar | | | | | d | | | + + + +---------+ | 2025-08-29 00:00 | weight_metric | 51.999 | kg | + + + +---------+ | 2025-08-29 00:00 | weight_standard | 114.637 | lb | + + + +---------+"
[2025-09-28] MEDS ORDERED: VITAMIN D3125 MC2 PO (11:53)
[2025-09-28] MEDS ORDERED: IBUPROFEN 400 MG TAB PO ONE (12:30)
[2025-09-28] MEDS ORDERED: HYDROCODONE/ACETA 7.5/325 TAB PO ONE (12:30)
[2025-09-28] MEDS ORDERED: AMOXICILLIN/CLAVULANATE K 875 MG TAB PO ONE (12:30)
[2025-09-28] MEDS ORDERED: HYDROCODON-ACE1 EA10 PO (13:41)
[2025-09-28] MEDS ORDERED: AMOX TR-K CLV1 EAC1 PO (13:41)
== END 2025-09-28 14:19 | disposition home or self-care (01) ==
LOC: ED 09:16
DX: S61.451A Open bite of right hand, initial encounter (principal); I10 Essential (primary) hypertension; E11.40 Type 2 diabetes mellitus with diabetic neuropathy, unspecified; W55.01XA Bitten by cat, initial encounter; Z79.899 Other long term (current) drug therapy; Z88.8 Allergy status to other drugs, medicaments and biological substances; Z87.891 Personal history of nicotine dependence
CPT/HCPCS: 12001; 99283; A9270